=== PATIENT | female | born 1965 | race Caucasian/White ===

== ENCOUNTER 2023-04-06 10:04 | Outpatient (OUT) | payer OTHER, SELFPAY ==
--- NOTE | 2023-04-06 | MM_ITS ---
Patient: DANTE JAMES Exam Date: 04/06/2023 : 1965 Gender:F Ordering : DR KYUNG PACK Admission #: [id number] Family : Duke Verde . Order #: [id number] CLICK HERE TO VIEW EXAM RADIOLOGY REPORT PROCEDURE: MM TOMOSYNTHESIS SCREENING BI COMPARISON: MG MAMM SCREEN 3D JORDAN CAD, 03/04/2021. MG MAMM SCREEN 3D JORDAN CAD, 03/07/2022. INDICATIONS: Screening mammogram Z12.31 Calculator Name NCI Breast Cancer Risk Assessment Tool 5 Year Breast Cancer Risk 1.10% Lifetime Breast Cancer Risk 7.10% Personal Breast Cancer No Personal Ovarian Cancer No Treatments None Family Cancers Grandmother-maternal with cervical cancer at age ~40; Aunt-paternal with cervical cancer at age 40; Aunt-paternal with cervical cancer at age 35. LOCATION: [facility] BREAST COMPOSITION: Extremely dense, which lowers the sensitivity of mammography. FINDINGS: DIAGNOSTIC CATEGORY 1--NEGATIVE. NO CHANGE FROM COMPARISON ASSESSMENT. RIGHT BREAST: No significant suspicious finding. LEFT BREAST: No significant suspicious finding. RECOMMENDATIONS: ROUTINE MAMMOGRAM AND CLINICAL EVALUATION IN 12 MONTHS. PLEASE NOTE: A NORMAL MAMMOGRAM DOES NOT EXCLUDE THE POSSIBILITY OF BREAST CANCER. A CLINICALLY SUSPICIOUS PALPABLE LUMP SHOULD BE BIOPSIED. Dictated by: Randall Randolph MD on 04/06/2023 at 11:59 Approved by: Randall Randolph MD on 04/06/2023 at 12:00
== END 2023-04-06 10:05 | disposition home or self-care (01) ==
LOC: MAMMO 10:04
PROVIDERS: PCP Family Medicine; Visit Provider Obstetrics & Gynecology
DX: Z12.31 Encounter for screening mammogram for malignant neoplasm of breast (principal); Z80.8 Family history of malignant neoplasm of other organs or systems
CPT/HCPCS: 77063; 77067

== ENCOUNTER 2023-04-24 09:40 | Outpatient (OUT) | payer OTHER, SELFPAY ==
--- NOTE | 2023-04-24 10:07 | XR_ITS ---
The [address] [address] Patient Name: DANTE JAMES MRN: [id number] date: 1965 Sex: F Assigned Patient Location: [facility] Current Patient Location: [facility] Accession/Order Number: [id number] Exam Date: 04/24/2023 09:58 Report Date: 04/24/2023 10:56 At the request of: NON-STAFF PHYSICIAN Procedure: XR abdomen 1V XR abdomen 1V, 04/24/2023 9:58 AM EDT, OH001 INDICATION: Kidney Stone N20.0 COMPARISON: Radiographs from 04/15/2022. TECHNIQUE: A single view of the abdomen obtained. FINDINGS: The bowel gas pattern appears within normal limits. There are several calcific densities projected over the left renal shadow suspicious for calculi. No definite calculi are projected over the right kidney. No free peritoneal air is seen. The osseous and surrounding soft tissue structures appear within normal limits. XR/XR abdomen 1V IMPRESSION: Multiple left renal calculi are noted, increased compared to the prior study. Electronically authenticated by: STEVE DEE Date: 04/24/2023 10:56
== END 2023-04-24 09:41 | disposition home or self-care (01) ==
LOC: RAD 09:41
PROVIDERS: PCP Family Medicine
DX: N20.0 Calculus of kidney (principal)
CPT/HCPCS: 74018

== ENCOUNTER 2023-05-05 10:18 | Outpatient (OUT) | payer OTHER, SELFPAY ==
[2023-05-05 11:36] LABS: Carbon Dioxide 27.3 mmol/L (21.0-32.0); Chloride 105 mmol/L (98-107); Estimated GFR (African America >60 (>=60); Estimated GFR (Non-African Ame >60 (>=60); Phosphorus 3.8 mg/dL (2.6-4.7); Sodium 139 mmol/L (136-145); Uric Acid 2.8 mg/dL (2.6-6.0)
[2023-05-06 14:10] LABS: PTH, Intact 12 pg/mL (15-65)
== END 2023-05-05 10:19 | disposition home or self-care (01) ==
LOC: LAB 10:20
PROVIDERS: PCP Family Medicine; Visit Provider Urology
DX: N20.0 Calculus of kidney (principal)
CPT/HCPCS: 36415; 82310; 82374; 82435; 82565; 83970; 84100; 84295; 84520; 84550

== ENCOUNTER 2023-09-26 08:40 | Outpatient (OUT) | payer OTHER, SELFPAY ==
[2023-09-26 09:49] LABS: Calcium Urine Random 10.5 mg/dL (5.1-21.0); Sodium Urine Random 28 mmol/L (30-90)
[2023-09-26 10:04] LABS: Calcium 8.6 mg/dL (8.5-10.1); Carbon Dioxide 27.4 mmol/L (21.0-32.0); Chloride 108 mmol/L (98-107); Estimated GFR (African America >60 (>=60); Estimated GFR (Non-African Ame 57 (>=60); Phosphorus 3.9 mg/dL (2.6-4.7); Sodium 144 mmol/L (136-145); Uric Acid 2.7 mg/dL (2.6-6.0)
[2023-09-26 10:28] LABS: Calcium 24 Hour Urine 288.8 mg/24hr (100.0-300.0); Sodium 24 Hour Urine 77 mmol/24h (40-220); Total Volume 24 Hour Urine 2750 mL/24hr
[2023-09-27 09:12] LABS: Uric Acid, Urine 13.8 mg/dL (Not Estab.); Uric Acid,Urine 24hr 379.5 mg/24 hr (173.7-902.1)
[2023-09-27 11:10] LABS: PTH, Intact 24 pg/mL (15-65)
[2023-09-27 12:10] LABS: Magnesium, U 4.4 mg/dL (Not Estab.); Phosphorus, Urine 23.5 mg/dL (Not Estab.); Phosphorus,Urine 24h 646 mg/24 hr (261-1078)
[2023-09-29 15:09] LABS: Citric Acid, U, 24hr 91 mg/24 hr (320-1240); Citric Acid, Urine 33 mg/L (Undefined); Oxalates, Urine 8 mg/L (Undefined); Oxalates, Urine 24hr 22 mg/24 hr (4-31)
== END 2023-09-26 08:41 | disposition home or self-care (01) ==
LOC: LAB 08:40
PROVIDERS: PCP Family Medicine; Visit Provider Urology
DX: N20.0 Calculus of kidney (principal)
CPT/HCPCS: 36415; 81050; 82310; 82340; 82374; 82435; 82507; 82565; 82570; 83735; 83945; 83970; 84100; 84105; 84295; 84300; 84520; 84550; 84560

== ENCOUNTER 2024-02-15 07:31 | Outpatient (OUT) | payer OTHER, SELFPAY ==
--- NOTE | 2024-02-15 | US_ITS ---
The [address] [address] Patient Name: DANTE JAMES MRN: [id number] date: 1965 Sex: F Assigned Patient Location: Current Patient Location: [place] Accession/Order Number: [id number] Exam Date: 02/15/2024 07:33 Report Date: 02/15/2024 08:23 At the request of: JASIEL GOMEZ Procedure: US renal BI EXAMINATION: US renal BI HISTORY: Kidney Stone K20.0 COMPARISON: No relevant comparison available. TECHNIQUE: Ultrasound examination was performed of the kidneys and urinary bladder. FINDINGS: RIGHT KIDNEY: Contains several small nonobstructing stones, largest is 3 mm. Contains 2 benign-appearing cysts, 1.2 cm and 1.1 cm in diameter respectively. Mild cortical thinning. Normal renal cortical parenchymal echogenicity. Color Doppler demonstrates blood flow within the kidney. Kidney: 10.9 x 4.7 x 4.4 cm LEFT KIDNEY: Contains several nonobstructing stones, the largest 2 are 10 mm and 8 mm in size. Mild cortical thinning. Normal renal cortical parenchymal echogenicity. Color Doppler demonstrates blood flow within the kidney. Kidney: 10.2 x 4 0.9 to 4.4 cm BLADDER: No visible wall thickening, mass, or calculi. US/US renal BI IMPRESSION: 1. Bilateral nonobstructing nephrolithiasis. Electronically authenticated by: IVIS LASSITER Date: 02/15/2024 08:23
--- NOTE | 2024-02-15 | XR_ITS ---
The [address] [address] Patient Name: DANTE JAMES MRN: [id number] date: 1965 Sex: F Assigned Patient Location: [place] Current Patient Location: [place] Accession/Order Number: [id number] Exam Date: 02/15/2024 07:58 Report Date: 02/15/2024 08:25 At the request of: JASIEL GOMEZ Procedure: XR abdomen 1V EXAMINATION: XR abdomen 1V HISTORY: Kidney Stone K20.0 COMPARISON: No relevant comparison available. FINDINGS: KIDNEY/URETER - RIGHT: No visible renal or ureteral calcifications. KIDNEY/URETER - LEFT: No visible renal or ureteral calcifications. PELVIS: No visible ureteral stones. Stable pelvic calcifications compatible with phleboliths. BOWEL: No abnormal dilation or deviation. BONES: No acute abnormality. OTHER: Negative. No abnormal gaseous collections. XR/XR abdomen 1V IMPRESSION: 1. Evaluation is limited by dense overlying bowel content. 2. No visible urinary tract calculi on abdominal radiograph, however, multiple nonobstructing stones seen within both kidneys on today's ultrasound study. Electronically authenticated by: IVIS LASSITER Date: 02/15/2024 08:25
--- OUTSIDE RECORDS SUMMARY | 2024-02-15 07:33 | XMS_ITS | CCD ---
Author Organization [facility] CliniSydc Care Team Providers Care Superintendent Colliery Name Role Phone HARRISON BUSTAMANTE Unavailable Unavailable HOYTWILA M Unavailable Unavailable HARRISON BUSTAMANTE Unavailable Unavailable HOY, TWILA M Unavailable Unavailable Twila Verde M Primary Care Provider Twila Verde MD Primary Care Provider [phone] Twila Verde Primary Care Physician [phone] Twila Verde MD Primary Care Provider [phone] HANS YANG Referring Unavailable TWILA VERDE Primary Care Unavailable TWILA VERDE Primary Care Unavailable HANS YANG Referring Unavailable FAIZANY ., DR MATTSON Consulting Unavailable HOY ., DR MATTSON Primary Care Unavailable HOY ., DR MATTSON Attending Unavailable HOY ., DR MATTSON Admitting Unavailable DIANN, DR BRIAN Do Consulting Unavailable HOY ., DR MATTSON Primary Care Unavailable HEDGES, DR HANS Dior Attending Unavailable HEDGELeigh, DR HANS Dior Admitting Unavailable SIRENA, DR HANS Dior Consulting Unavailable FAIZANY ., DR MATTSON Consulting Unavailable HOY ., DR MATTSON Primary Care Unavailable HOY ., DR MATTSON Attending Unavailable HOY ., DR MATTSON Admitting Unavailable ZIEBER, DR IVIS Mc Consulting Unavailable ZIEBJUAN LUIS, DR IVIS Mc Consulting Unavailable HAY ., DR GOINS Attending Unavailable HAY ., DR GOINS Admitting Unavailable HOY ., DR MATTSON Primary Care Unavailable CELI ., DR GOINS Consulting Unavailable DENISE CHAVARRIA Consulting Unavailable DENISE CHAVARRIA Attending Unavailable DENISE CHAVARRIA Admitting Unavailable HOSSEIN ., DR MATTSON Primary Care Unavailable DIANN, DR BRIAN Do Consulting Unavailable HOSSEIN Payton, DR MATTSON Primary Care Unavailable MAHNAZ Payton, DR VALENCIA Pugh Attending Unavaila uzma Payton, DR VALENCIA Pugh Admitting Unavaila uzma Payton, DR VALENCIA Pugh Consulting Unavaila ble HOY ., DR MATTSON Consulting Unavailable HOY ., DR MATTSON Primary Care Unavailable HOY ., DR MATTSON Attending Unavailable HOY ., DR MATTSON Admitting Unavailable ZIEBER, DR IVIS Mc Consulting Unavailable HOY ., DR MATTSON Consulting Unavailable HOY ., DR MATTSON Primary Care Unavailable HOY ., DR MATTSON Attending Unavailable HOY ., DR MATTSON Admitting Unavailable READER, TWILA Consulting Unavailable RYLEE, DR MIDDLETON Consulting Unavailable HOY ., DR MATTSON Primary Care Unavailable RYLEE, DR MIDDLETON Attending Unavailable RYLEE, DR MIDDLETON Admitting Unavailable Erica Mott Unavailable SERGIO RIVERA Attending Unavailable LueMarycruz Attending Unavailable Lue Marycruz MTata Admitting Unavailable Lue Marycruz MTata Attending Unavailable Lue Marycruz MTata Admitting Unavailable Lue, Marycruz MTata Attending Unavailable Lue Marycruz MTata Attending Unavailable Lue Marycruz MTata Attending Unavailable Allergies Allergy Classification Reported Allergen(s) Allergy Type Date of Onset Reaction(s) Facility (3 sources) Sulfonamides (Antibiotic) Propensity to adverse reactions to drug 04-08-20 15 [place] (1 source) Other Propensity to adverse reactions 12-30-19 17 [place], [place] (3 sources) Sulfonamides (Antibiotic); Translations: [sulfa drugs] Drug allergy Weal (disorder) [facility] (3 sources) Latex; Translations: [Latex] Drug allergy (disorder) 11-15-19 23 Weal (disorder) [facility] (1 source) Sulfonamides (Antibiotic) Drug allergy (disorder) 01-23-20 13 [facility] (2 sources) Substance with sulfonamide structure and antibacterial mechanism of action (substance) Drug allergy [employer] Other NEGATED: Highlighted row has been ruled out! (2 sources) Other Propensity to adverse reactions 12-30-19 17 [facility] Work Phone: Medications Current Medications Medication Drug Class(es) Dates Sig (Normalized) Sig (Original) amoxicillin 875 mg / clavulanate 125 mg oral tablet (1 source) Penicillin-class Antibacterial Start: 03-13-2023 take 1 tablet by mouth every twelve hours Amoxicillin-Pot Clavulanate 875-125 MG 1 tablet Orally every 12 hrs for 7 days Feb, Active biotin 10 mg oral tablet (2 sources) take 1 tablet by mouth once daily Biotin 10 MG 1 tablet Orally Once a day Active black cohosh extract 40 mg oral capsule (4 sources) Black Cohosh 40 MG as directed Orally Active Black Cohosh 20 MG TABS Take by mouth 0 Active calcium carbonate 1250 mg / cholecalciferol 200 unt oral tablet (3 sources) Vitamin D take 1 tablet by mouth twice daily at mealtime Calcium Carbonate-Vitamin D (CALCIUM-VITAMIN D) 500-200 MG-UNIT per tablet Take 1 tablet by mouth 2 times daily (with meals) 0 Active Citracal + D 250-62.5 MG-UNIT (2 sources) Citracal + D 250 -62.5 MG-UNIT as directed Orally Active cranberry preparation 250 mg oral capsule (2 sources) Non-Standardized Food Allergenic Extract, Non-Standardized Plant Allergenic Extract Cranberry Extract 25 0 MG as directed Orally Active diclofenac sodium 75 mg delayed release oral tablet (1 source) Nonsteroidal Anti-inflammatory Drug Start: 2021 take 1 tablet by mouth twice daily diclofenac (VOLTAREN) 75 MG EC tablet take 1 tablet by mouth twice a day 0 04/08/2022 Active fluticasone propionate 0.05 mg/actuat metered dose nasal spray (3 sources) Corticosteroid take 1 spray(s) nasal route once daily fluticasone (FLONASE) 50 MCG/ACT nasal spray 1 spray by Each Nostril route daily 0 Active levETIRAcetam 750 mg oral tablet (6 sources) Start: 2020 take 1 tablet by mouth twice daily Keppra 750 mg oral tablet 750 mg = 1 tab(s), Oral, BID, Refills(s) 0 Start Date: 09/24/20 Status: Ordered Start: 04-04-2017 levETIRAcetam (KEPPRA XR) 750 MG TB24 extended release tablet levETIRAcetam ER 750 MG Oral for 90 Days Active loratadine 10 mg oral tablet (5 sources) take 1 tablet by cirilo th once daily Claritin 10 MG 1 tablet Orally Once a day Active take 1 capsule by mouth once deidre ly loratadine (CLARITIN) 10 MG capsule Take 10 mg by mouth daily 0 Active Multiple Vitamins-Minerals (MULTIVITAMIN & MINERAL PO) (3 sources) Multiple Vitamins-Minerals (MULTIVITAMIN & MINERAL PO) Take by mouth 0 Active ofloxacin 3 mg/ml ophthalmic solution (1 source) Quinolone Antimicrobial Start: 023 take 2 drop(s) into the eye(s) four times daily Ofloxacin 0.3 % 2 drops Ophthalmic to left eye QID for 7 days Feb, Active PHENobarbital 32.4 mg oral tablet (6 sources) Start: 021 take 1 mg by mouth twice daily phenobarbital 32.4 mg oral tablet mg tab(s), Oral, BID, Refills(s) 0 Start Date: 09/24/20 Status: Ordered Start: 02-07-2015 take 1 tablet by cirilo th once daily PHENobarbital (LUMINAL) 32.4 MG tablet Take 32.4 mg by mouth nightly 0 02/07/2015 Active Start: 02-07-2015 take 1 tablet by cirilo th once daily PHENobarbital (LUMINAL) 32.4 MG tablet Take 32.4 mg by mouth nightly 0 02/07/2015 Active 27-1 MG (2 sources) take 1 tablet by mouth once daily 27-1 MG 1 tablet Orally Once a day Active Probiotic Product (PROBIOTIC DAILY PO) (2 sources) Probiotic Produc t (PROBIOTIC DAILY PO) Take by mouth 0 Active Topamax (6 sources) Start: 09-24-2020 Topamax 450 mg, Oral, Refills(s) 0 Start Date: 09/24/20 Status: Ordered Start: 03-24-2015 take 2 tablets by mo uth once daily TOPAMAX 100 MG tablet Take 100 mg by mouth 2 times daily 2 tabs every morning and 2 1/2 tabs nightly. 0 03/24/2015 Active Topiramate 100 M G Oral for 90 Days Active Problems Active Problems Problem Classification Problem Date Documented Date Episodic/Chronic Abdominal pain (6 sources) Flank pain; Translations: [Unspecified abdominal pain] Onset: 03-25-2022 04-13-2021 Episodic Allergic reactions (1 source) Eczema 12-07-2022 Episodic Calculus of urinary tract (8 sources) Kidney stone; Translations: [Calculus of kidney] Onset: 03-28-2022 Episodic Cancer of cervix (4 sources) History of malignant neoplasm of cervix; Translations: [Personal history of malignant neoplasm of cervix uteri] Onset: 11-07-2022 Episodic Epilepsy; convulsions (8 sources) Epilepsy; Translations: [Epilepsy, unspecified, not intractable, without status epilepticus] Onset: 12-29-2016 12-29-2016 Chronic Genitourinary symptoms and ill-defined conditions (2 sources) Genuine stress incontinence 04-13-2021 Chronic Genitourinary symptoms and ill-defined conditions (2 sources) Genitourinary symptoms; Translations: [Unspecified symptoms and signs involving the genitourinary system] Onset: 04-20-2022 Episodic Inflammation; infection of eye (except that caused by tuberculosis or sexually transmitteddisease) (1 source) Unspecified conjunctivitis Episodic Other aftercare (1 source) 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; 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] Onset: 11-15-2022 Episodic Other female genital disorders (1 source) Vaginal irritation; Translations: [Other specified noninflammatory disorders of vagina] Episodic Other nervous system disorders (1 source) Trigeminal neuralgia 12-07-2022 Episodic Other non-traumatic joint disorders (4 sources) Pain in left shoulder; Translations: [PAIN IN LEFT SHOULDER] Onset: 11-09-2022 Episodic Other skin disorders (3 sources) Localized swelling, mass and lump, trunk; Translations: [LOCALIZD SWELLING MASS AND LUMP TRUNK] Onset: 11-14-2022 Episodic Other skin disorders (1 source) Follicular disorder, unspecified; Translations: [FOLLICULAR DISORDER UNSPECIFIED] Onset: 11-15-2022 Episodic Other upper respiratory disease (3 sources) Seasonal allergy; Translations: [Other seasonal allergic rhinitis] Onset: 12-29-2016 12-29-2016 Chronic Other upper respiratory infections (2 sources) Acute upper respiratory infection, unspecified; Translations: [Acute maxillary sinusitis, unspecified] Episodic Spondylosis; intervertebral disc disorders; other back problems (1 source) Cervical radiculopathy 12-07-2022 Episodic Unclassified (2 sources) Impingement syndrome of left shoulder / M75.42(ICD-9) Onset: 03-29-2017 Unclassified (1 source) Adhesive capsulitis of left shoulder / M75.02(ICD-9) Onset: 03-29-2017 Unclassified (1 source) Other articular cartilage disorders, left shoulder / M24.112(ICD-9) Onset: 03-29-2017 Unclassified (1 source) Unsp rotatr-cuff tear/ruptr of left shoulder, not trauma / M75.102(ICD-9) Onset: 03-29-2017 Unclassified (1 source) Patient encounter status; Translations: [Women's annual routine gynecological examination] Unclassified (2 sources) Asymptomatic microscopic hematuria 04-13-2021 Past or Other Problems Problem Classification Problem Date Documented Date Episodic/Chronic Noninfectious gastroenteritis (4 sources) Noninfective gastroenteritis and colitis, unspecified; Translations: [NONINFECTIVE GE AND COLITIS UNS] Onset: 02-05-2022 Episodic Other diseases of kidney and ureters (4 sources) Cyst of kidney, acquired; Translations: [CYST OF KIDNEY ACQUIRED] Onset: 04-06-2022 Episodic Other female genital disorders (1 source) Other specified noninflammatory disorders of vagina; Translations: [Other specified noninflammatory disorders of vagina] Onset: 04-21-2022 Episodic Other screening for suspected conditions (not mental disorders or infectious disease) (4 sources) Encounter for screening mammogram for malignant neoplasm of breast; Translations: [ENC SCR MAMMO MALIG NEOPLASM BREAST] Onset: 03-07-2022 Episodic Residual codes; unclassified (1 source) Family history of malignant neoplasm of other genital organs; Translations: [FAM HX MALIG NEOPLSM OTH GENIT ORGN] Onset: 03-09-2022 Episodic Unclassified (1 source) Impingement syndrome of left shoulder; Translations: [Impingement syndrome of left shoulder] Onset: 03-29-2017 Urinary tract infections (1 source) Urinary tract infection, site not specified; Translations: [UTI SITE NOT SPECIFIED] Onset: 03-28-2022 Episodic Results Test Name Value Interpretation Reference Range Facility Reminderson 01-10-2024 Reminders - From: Shayy Cuadra To: EU - Recalls Lue; Sent: 06/14/2023 08:36:12 EST Show up: 01/05/2024 08:35:00 EDT Subject: CLEVELAND/kub/ metabolic w/u Reminder/Recall pt wants 24 urine @ [facility] (not [facility]) labs/ CLEVELAND/ KUB f/u with Dr Bhagat is 03/06/24 24hr urine in pt chart. Will call closer to get CLEVELAND/KUB completed. Normal [facility] Lab Reportson 10-02-2023 Lab Reports [id number] .00TIFF Normal [facility] Lab Reportson 09-28-2023 Lab Reports [id number] .00TIFF Normal [facility] Lab Reportson 09-26-2023 Lab Reports [id number] .00TIFF Normal [facility] Lab Reports [id number] .00TIFF Normal [facility] Calculus Analysison 06-28-20 23 Calcium oxalate monohydrate (Stone) [Mass fraction] 5 % Invalid Interpretation Code [facility] Comment on above: Performed By: #### 1 [id number] ####[facility] [address] [place] [address] Calculus analysis [Interp] Comment Invalid Interpretation Code [facility] Comment on above: Result Comment: Calc ium phosphate (hydroxyl form) includes hydroxyapatite, amorphous calcium phosphate, and whitlockite. Hydroxyapatite is the most common of the calcium phosphate salts found in human kidney stones. struvite as a minor component should not be excluded. Insufficient sample to perform additional, confirmatory, or reference testing. Performed By: #### 1 [id number] ####[facility] [address] [place] [address] Color (Stone) Frarie Invalid Interpretation Code [facility] Comment on above: Performed By: #### 1 [id number] ####[facility] [address] [place] [address] Composition Comment Invalid Interpretation Code [facility] Comment on above: Result Comment: Perc entage (Represents the % composition) Performed By: #### 1 [id number] ####[facility] [address] [place] [address] Disclaimer: Comment Invalid Interpretation Code [facility] Comment on above: Result Comment: This test was developed and its performance characteristics determined by [facility]. It has not been cleared or approved by the Food and Drug Administration. Performed at: [facility] [address], [place] [id number] PhD Aniya Bright Performed By: #### 1 [id number] ####[facility] [address] [place] [address] Hydroxyapatite: 95 % Invalid Interpretation Code [facility] Comment on above: Performed By: #### 1 [id number] ####[facility] [address] [place] [address] Laboratory comment Steven (Report) Comment Invalid Interpretation Code [facility] Comment on above: Result Comment: Phys aidanan questions regarding Calculi Analysis contact [facility] at: [phone]. Performed By: #### 1 [id number] ####[facility] [address] [place] [address] Please Note: Comment Invalid Interpretation Code [facility] Comment on above: Result Comment: Calc nora report will follow via computer, mail or clasp machine operator delivery. Performed By: #### 1 [id number] ####[id number] [place] [address] Size (Stone) [Entitic vol] 2x2 Invalid Interpretation Code [facility] Comment on above: Result Comment: Sing le piece received. Performed By: #### 1 [id number] ####[facility] [address] [place] [address] Specimen source subject Nom Comment Invalid Interpretation Code [facility] Comment on above: Result Comment: Not provided Performed By: #### 1 [id number] ####[facility] [address] [place] [address] Stone Photo Comment Invalid Interpretation Code [facility] Comment on above: Result Comment: Phot ograph will follow under a separate cover Performed By: #### 1 [id number] ####[id number] [place] [address] Weight (Stone) 1 mg Invalid Interpretation Code [facility] Comment on above: Performed By: #### 1 [id number] ####[facility] [address] [place] [address] Auth for Release of Medical Recordson 06-21-2023 Auth for Release of Medical Records [id number] .00TIFF Normal [facility] Patient Educationon 06-14-20 Patient Education Nephrology Dietary Guidelines to Help Prevent Kidney Stones Kidney stones are deposits of minerals and salts that form inside your kidneys. Your risk of developing kidney stones may be greater depending on your diet, your lifestyle, the medicines you take, and whether you have certain medical conditions. Most people can lower their chances of developing kidney stones by following the instructions below. Your dietitian may give you more specific instructions depending on your overall health and the type of kidney stones you tend to develop. What are tips for following this plan? Reading food labels ? Choose foods with no salt added or low-salt labels. Limit your salt (sodium) intake to less than 1,500 mg a day. ? Choose foods with calcium for each meal and snack. Try to eat about 300 mg of calcium at each meal. Foods that contain 200?500 mg of calcium a serving include: ? 8 oz (237 mL) of milk, calcium-fortifiednon- dairy milk, and calcium-fortifiedfrui t juice. Calcium-fortified means that calcium has been added to these drinks. ? 8 oz (237 mL) of kefir, yogurt, and soy yogurt. ? 4 oz (114 g) of tofu. ? 1 oz (28 g) of cheese. ? 1 cup (150 g) of dried figs. ? 1 cup (91 g) of cooked broccoli. ? One 3 oz (85 g) can of sardines or mackerel. Most people need 1,000?1,500 mg of calcium a day. Talk to your dietitian about how much calcium is recommended for you. Shopping ? Buy plenty of fresh fruits and vegetables. Most people do not need to avoid fruits and vegetables, even if these foods contain nutrients that may contribute to kidney stones. ? When shopping for convenience foods, choose: ? Whole pieces of fruit. ? Pre-made salads with dressing on the side. ? Low-fat fruit and yogurt smoothies. ? Avoid buying frozen meals or prepared deli foods. These can be high in sodium. ? Look for foods with live cultures, such as yogurt and kefir. ? Choose high-fiber grains, such as whole-wheat breads, oat bran, and wheat cereals. Cooking ? Do not add salt to food when cooking. Place a salt shaker on the table and allow each person to add his or her own salt to taste. ? Use vegetable protein, such as beans, textured vegetable protein (TVP), or tofu, instead of meat in pasta, casseroles, and soups. Meal planning ? Eat less salt, if told by your dietitian. To do this: ? Avoid eating processed or pre-made food. ? Avoid eating fast food. ? Eat less animal protein, including cheese, meat, poultry, or fish, if told by your dietitian. To do this: ? Limit the number of times you have meat, poultry, fish, or cheese each week. Eat a diet free of meat at least 2 days a week. ? Eat only one serving each day of meat, poultry, fish, or seafood. ? When you prepare animal protein, cut pieces into small portion sizes. For most meat and fish, one serving is about the size of the palm of your hand. ? Eat at least five servings of fresh fruits and vegetables each day. To do this: ? Keep fruits and vegetables on hand for snacks. ? Eat one piece of fruit or a handful of berries with breakfast. ? Have a salad and fruit at lunch. ? Have two kinds of vegetables at dinner. ? Limit foods that are high in a substance called oxalate. These include: ? Spinach (cooked), rhubarb, beets, sweet potatoes, and [place] chard. ? Peanuts. ? Potato chips, greenlandic fries, and baked potatoes with skin on. ? Nuts and nut products. ? Chocolate. ? If you regularly take a diuretic medicine, make sure to eat at least 1 or 2 servings of fruits or vegetables that are high in potassium each day. These include: ? Avocado. ? Banana. ? Edmond, prune, carrot, or tomato juice. ? Baked potato. ? Cabbage. ? Beans and split peas. Lifestyle ? Drink enough fluid to keep your urine pale yellow. This is the most important thing you can do. Spread your fluid intake throughout the day. ? If you drink alcohol: ? Limit how much you use to: ? 0?1 drink a day for women who are not . ? 0?2 drinks a day for men. ? Be aware of how much alcohol is in your drink. In the [place] one drink equals one 12 oz bottle of beer (355 mL), one 5 oz glass of wine (148 mL), or one 1? oz glass of hard liquor (44 mL). ? Lose weight if told by your health care provider. Work with your dietitian to find an eating plan and weight loss strategies that work best for you. General information ? Talk to your health care provider and dietitian about taking daily supplements. You may be told the following depending on your health and the cause of your kidney stones: ? Not to take supplements with vitamin C. ? To take a calcium supplement. ? To take a daily probiotic supplement. ? To take other supplements such as magnesium, fish oil, or vitamin B6. ? Take dmeu-vil-yezhvjl and prescription medicines only as told by your health care provider. These include supplements. What foods should I limit? Limit your in (more content not included)... Normal [facility] [id number] .00TIFF [facility] [id number]. 00TIFF [facility] Reminderson 06-14-2023 Reminders - From: Leana Emerson To: CHEN - Recallleigh Bhagat; Sent: 06/14/2023 11:32:25 EST Show up: 12/13/2023 12:32:00 EDT Subject: Labs/Imaging Due Date/Time: 03/14/2024 12:32:00 EDT Pt will need KUB, CLEVELAND and Metabolic Workup done prior to appt. Normal [facility] Urology Office/Clinic Noteon 06-14-2023 Urology Office/Clinic Note Chief Complaint 3m Metabolic Work Up HPI Staff 2m metabolic work up DX: Kidney Stone & UTI sx NEG C&S at time of last encounter *No Urology Meds. Still taking Topiramate for seizures. Pt believes she passed a stone in April. Does have with her today. No recent imaging. Regular lower back pain. Denies pain/burning and blood in urine. History of Present Illness Tests reviewed: reviewed UA and metabolic workup. I have reviewed the previous health record information and history for this patient from . I have reviewed and verified the staff HPI to be accurate for this encounter. There have been no associated fever, chills, flank pain, or blood in the urine. Denies any urinary infections since last encounter. Review of Systems PHQ Score Initial Depression Screen Score: 0 SCORE ROS - Provider Constitutional: denies weight loss, denies hot flashes. Eyes: denies eye problems. Gastrointestinal: denies nausea, denies vomiting. Cardiovascular: denies chest pain or angina. Integumentary: no dryness Musculoskeletal: denies musculoskeletal symptoms. ENMT: denies otolaryngeal symptoms. Respiratory: no shortness of breath. Heme/Lymph: denies easy bleeding tendency, denies easy bruising tendency. Psychiatric: no confusion, no anxiety. Genitourinary: See HPI. Physical Exam Vitals & Measurements HR: 72(Peripheral) RR: 16 BP: 108/70 HT: 63 in HT: 160 cm WT: 59 kg WT: 129.8 lb BMI: 23.05 General Appearance: alert , no acute distress, well nourished, well developed female. Genitourinary: bladder nonpalpable, no flank pain. Assessment/Plan 58 yo F with history of seizures, prior Dr. Villatoro pt here for follow up of kidney stones w/ a metabolic workup. 1. Kidney stone (N20.0: Calculus of kidney) CT AP w/o Con 03/25/22 - 3-4 stones on the Lt side (2-3mm), 1-2 stone on the Rt side (punctate - 2mm), and punctate stones BL KUB 04/15/22 - bilateral punctate nephrolithiasis KUB 04/24/23 - multiple Lt renal calculi increased from prior (No measurements provided. Several calcifications unable to clearly define/measure on personal review) Labs 05/05/23 - BUN 20, Crea 0.86, PTH 12 LithoLink 05/10/23 - Urine Volume high at 3.15, Urine Ca 341 High, Urine Citrate <47 Low, 24 hr pH 6.817, Uric Acid 0.515 Pt believes she passed a stone in April, does have with her today, did not have pain. No recent imaging. Regular lower back pain. Denies pain/burning and blood in urine. Discussed metabolic workup results with pt, blood work was normal, volume was great, can decrease if she felt it was too much to keep up with, citrate was really low, should add lemon juice to her water, discussed supplementation. Calcium was high in urine. Pt states that she does take a calcium supplement, was told to take it by PCP. Advised pt to see how much she is taking and if she can try to get the Calcium from food or take the supplement with food to absorb it, and make sure she is not taking too much. Advised pt that if she cannot do the dietary modifications, we can discuss medication treatment for stone prevention. Follow up in 9 mos w/CLEVELAND, KUB, and LithoLink. All questions/concerns were discussed. Pt to call the office if she encounters any issues prior. Pt acknowledges understanding. -Will send stone for analysis. -Dietary Modifications including lemon in water to increase citrate -Will order KUB and CLEVELAND. -Will order 24 hr urine LithoLink or pt to obtain at hospital. Pt will call with her decision of which method of workup she would prefer. 2. UTI symptoms (R39.9: Unspecified symptoms and signs involving the genitourinary system) Pt was treated at the ER for a UTI with Cipro and then saw Dr. Verde and was treated with Keflex for 10 days, finished these, was still having mild burning w urination and LLQ/L flank pain, UA showed trace BOBBI, was sent for uti-d, was negative. UA at prior OV showed moderate leuks and trace-intact blood - Urine culture was negative. UA today shows small leuks and no signs of blood. Asx. Pt denies any infections since prior OV. Pt states that she has been taking a cranberry supplement and a probiotic. States that the probiotics have helped with her regular BM's. -OTC UTI preventive supplements. -Regular BM. I spent 30 minutes today with the patient: reviewing tests in preparation to see and discuss them with the patient, documenting clinical information in the electronic health records, and care coordination. Time was spent performing a medical exam and evaluation, counseling and educating the patient, and ordering tests in caring for the patient. Follow-up With When Contact Information Olayinka HINSON, Marycruz Dove, URL, URO In 9 months Additional Instructions: w/CLEVELAND, KUB, and Metabolic Workup Patient Education Dietary Guidelines to Help Prevent Kidney Stones I, Leana Emerson, personally scribed for Dr. Bhagat on 06/14/2023 08:28:15. . Documenta (more content not included)... [facility] Comment on above: Result Comment: Elec tronically Signed By: Marycruz Bhagat MD\.br\Date and Time Signed: 06/14/23 08:42 EST\.br\Electronically Co-Signed By: Leana Emerson\.br\Date and Time Co-Signed: 06/14/23 08:28 EST Lab Reportson 06-08-2023 Lab Reports [id number] .00TIFF [facility] Lab Reportson 05-10-2023 Lab Reports [id number] .00TIFF [facility] Lab Reportson 05-05-2023 Lab Reports [id number] .00TIFF [facility] C Urineon 04-28-2023 Bacteria identified Cx Nom (U) Microbiology PROCEDURE: Urine Culture [R1] SOURCE: U CleanCatch BODY SITE: COLLECTED DATE/TIME: 2023 11:37 EDT RECEIVED DATE/TIME: 2023 18:23 EDT START DATE/TIME: 2023 18:23 EDT FREE TEXT SOURCE: Olayinka HINSON, Marycruz Bhagat MD, Marycruz Dove FINAL REPORTS Final Report [] Verified Date/Time: 04/28/2023 11:24 EDT 1,000 cfu/ml Mixed skin contaminants Performing Locations R1: This test was performed at: [facility], [address] [place] [address], [id number] , [place], [facility] Comment on above: Performed By: #### 2 [id number] ####[facility] [address] [place] [address] Formson 04-27-2023 Forms [id number] .00CD:127 [facility] Ambulatory Visit Summaryon 0 2023 Ambulatory Visit Summary CORNEL JAMESPaz Dykes :1965 Visit Date:2023 Ambulatory Visit Instructions Your Diagnosis Kidney stone UTI symptoms Tests Performed Urnls Dip Stick Auto w/o Microscopy POC 75198 Your Care Team Attending Physician - Marycruz Bhagat MD Primary Care Physician - Twila Verde MD This Is Your Medications List Contact prescribing physician if questions or concerns levetiracetam (Keppra 750 mg oral tablet) loratadine (loratadine 10 mg Tab) phenobarbital (phenobarbital 32.4 mg oral tablet) topiramate (Topamax 100 mg Tab) [Image Removed: STOP]Stop taking these medications diclofenac (diclofenac sodium 75 mg Oral EC Tab) hydrOXYzine (Vistaril 25 mg Cap) tizanidine (tiZANidine 4 mg Tab) Procedures Performed Partial hysterectomy, Procedure on shoulder, Tonsillectomy and adenoidectomy. Discharge Vitals Heart Rate (Peripheral) 88 Blood Pressure 124/82 Height 160 cm Height 63 in Weight 63 kg Weight 138.6 lb BMI 24.61 What to do next Scheduled Follow-Up Appointments Monday 7:45 AM EST With: Marycruz Bhagat MD Where: [facility] Patient Educationon 04-26-20 23 Patient Education Nephrology Dietary Guidelines to Help Prevent Kidney Stones Kidney stones are deposits of minerals and salts that form inside your kidneys. Your risk of developing kidney stones may be greater depending on your diet, your lifestyle, the medicines you take, and whether you have certain medical conditions. Most people can lower their chances of developing kidney stones by following the instructions below. Your dietitian may give you more specific instructions depending on your overall health and the type of kidney stones you tend to develop. What are tips for following this plan? Reading food labels ? Choose foods with no salt added or low-salt labels. Limit your salt (sodium) intake to less than 1,500 mg a day. ? Choose foods with calcium for each meal and snack. Try to eat about 300 mg of calcium at each meal. Foods that contain 200?500 mg of calcium a serving include: ? 8 oz (237 mL) of milk, calcium-fortifiednon- dairy milk, and calcium-fortifiedfrui t juice. Calcium-fortified means that calcium has been added to these drinks. ? 8 oz (237 mL) of kefir, yogurt, and soy yogurt. ? 4 oz (114 g) of tofu. ? 1 oz (28 g) of cheese. ? 1 cup (150 g) of dried figs. ? 1 cup (91 g) of cooked broccoli. ? One 3 oz (85 g) can of sardines or mackerel. Most people need 1,000?1,500 mg of calcium a day. Talk to your dietitian about how much calcium is recommended for you. Shopping ? Buy plenty of fresh fruits and vegetables. Most people do not need to avoid fruits and vegetables, even if these foods contain nutrients that may contribute to kidney stones. ? When shopping for convenience foods, choose: ? Whole pieces of fruit. ? Pre-made salads with dressing on the side. ? Low-fat fruit and yogurt smoothies. ? Avoid buying frozen meals or prepared deli foods. These can be high in sodium. ? Look for foods with live cultures, such as yogurt and kefir. ? Choose high-fiber grains, such as whole-wheat breads, oat bran, and wheat cereals. Cooking ? Do not add salt to food when cooking. Place a salt shaker on the table and allow each person to add his or her own salt to taste. ? Use vegetable protein, such as beans, textured vegetable protein (TVP), or tofu, instead of meat in pasta, casseroles, and soups. Meal planning ? Eat less salt, if told by your dietitian. To do this: ? Avoid eating processed or pre-made food. ? Avoid eating fast food. ? Eat less animal protein, including cheese, meat, poultry, or fish, if told by your dietitian. To do this: ? Limit the number of times you have meat, poultry, fish, or cheese each week. Eat a diet free of meat at least 2 days a week. ? Eat only one serving each day of meat, poultry, fish, or seafood. ? When you prepare animal protein, cut pieces into small portion sizes. For most meat and fish, one serving is about the size of the palm of your hand. ? Eat at least five servings of fresh fruits and vegetables each day. To do this: ? Keep fruits and vegetables on hand for snacks. ? Eat one piece of fruit or a handful of berries with breakfast. ? Have a salad and fruit at lunch. ? Have two kinds of vegetables at dinner. ? Limit foods that are high in a substance called oxalate. These include: ? Spinach (cooked), rhubarb, beets, sweet potatoes, and [place] Citizen chard. ? Peanuts. ? Potato chips, greenlandic fries, and baked potatoes with skin on. ? Nuts and nut products. ? Chocolate. ? If you regularly take a diuretic medicine, make sure to eat at least 1 or 2 servings of fruits or vegetables that are high in potassium each day. These include: ? Avocado. ? Banana. ? Edmond, prune, carrot, or tomato juice. ? Baked potato. ? Cabbage. ? Beans and split peas. Lifestyle ? Drink enough fluid to keep your urine pale yellow. This is the most important thing you can do. Spread your fluid intake throughout the day. ? If you drink alcohol: ? Limit how much you use to: ? 0?1 drink a day for women who are not . ? 0?2 drinks a day for men. ? Be aware of how much alcohol is in your drink. In the [place] one drink equals one 12 oz bottle of beer (355 mL), one 5 oz glass of wine (148 mL), or one 1? oz glass of hard liquor (44 mL). ? Lose weight if told by your health care provider. Work with your dietitian to find an eating plan and weight loss strategies that work best for you. General information ? Talk to your health care provider and dietitian about taking daily supplements. You may be told the following depending on your health and the cause of your kidney stones: ? Not to take supplements with vitamin C. ? To take a calcium supplement. ? To take a daily probiotic supplement. ? To take other supplements such as magnesium, fish oil, or vitamin B6. ? Take edgb-wfg-cuqfvyd and prescription medicines only as told by your health care provider. These include supplements. What foods should I limit? Limit your in (more content not included)... Normal [facility] Screenson 2023 Screens [id number]. 00CD:127 Normal [facility] Urology Office/Clinic Noteon 2023 Urology Office/Clinic Note Chief Complaint i tear F/U with KUB HPI Staff 57 yo female here for 1 yr f/u with KUB. Dx: kidney stone, UTI sxs. Pt has never been seen by [facility]. Previous DLS pt & last seen in our office by RICHY. NEG UTID @ time of last encounter 04/20/22 B&BSQ 8 PVR 0 Dysuria: ocassionlly Incomplete bladder emptying: sometimes Hematuria: _denies visible blood Frequency: every couple hours Urgency: denies Nocturia: denies Stream: denies hesitation, normal stream Leaking: _denies Post void dripping: yes Wearing pads/ Depends: denies Urge incontinence: denies Stress incontinence: denies Incontinence without Sensory Awareness: denies Abdominal pain: both sides, she can not explain what kind of pain Flank pain: pain on both side feels like a menstrual cramp Sexual complaints: _denies History of Present Illness Tests reviewed: reviewed UA and KUB. I have reviewed the previous health record information and history for this patient from Liat Borrero PA-C, Dr. Villatoro. I have reviewed and verified the staff HPI to be accurate for this encounter. Review of Systems PHQ Score Initial Depression Screen Score: 0 ROS - Provider Constitutional: denies weight loss, denies hot flashes. Eyes: denies eye problems. Gastrointestinal: denies nausea, denies vomiting. Cardiovascular: denies chest pain or angina. Integumentary: no dryness Musculoskeletal: denies musculoskeletal symptoms. ENMT: denies otolaryngeal symptoms. Respiratory: no shortness of breath. Heme/Lymph: denies easy bleeding tendency, denies easy bruising tendency. Psychiatric: no confusion, no anxiety. Genitourinary: See HPI. Physical Exam Vitals & Measurements HR: 88(Peripheral) BP: 124/82 HT: 63 in HT: 160 cm WT: 63 kg WT: 138.6 lb BMI: 24.61 General Appearance: alert , no acute distress, well nourished, well developed female. Genitourinary: bladder nonpalpable, no flank pain. Assessment/Plan 58 yo F with history of seizures, prior Dr. Villatoro pt here for follow up of kidney stones 1. Kidney stone (N20.0: Calculus of kidney) CT AP w/o Con 03/25/22 - 3-4 stones on the Lt side (2-3mm), 1-2 stone on the Rt side (punctate - 2mm), and punctate stones BL KUB 04/15/22 - bilateral punctate nephrolithiasis KUB 04/24/23 - multiple Lt renal calculi increased from prior (No measurements provided. Several calcifications unable to clearly define/measure on personal review) Pt states she feels she passed a stone about a month ago, felt a lot of pain, saw it in the toilet. Discussed imaging findings with pt, advised pt that it is hard to see the stones due to stool. Pt states that she drink 6-90oz of water a day, advised pt to drink more. Pt states that she is constipated most of the time due to meds that she takes. States she has tried MiraLAX in the past and that seems to help, has occasionally taken it, not regularly. Advised pt to take this more regularly Advised pt that due to how small the stones and she is able to pass then, we can continue to monitor w/ repeat imaging. Discussed doing a metabolic workup done to see why she creates stones. Pt states that shes interested in this. Counseled pt on causes of stones. Follow up in 6-8 wks. All questions/concerns were discussed. Pt to call the office if she encounters any issues prior. Pt acknowledges understanding. -Will do metabolic workup. -Counseled on dietary modifications, understands how topiramate can lead to stones. She is working on weaning off med 2. UTI symptoms (R39.9: Unspecified symptoms and signs involving the genitourinary system) Pt was treated at the ER for a UTI with Cipro and then saw Dr. Verde and was treated with Keflex for 10 days, finished these, was still having mild burning w urination and LLQ/L flank pain, UA showed trace BOBBI, was sent for uti-d, was negative. Pt states that she may have had infections since the last OV. She feels like she may have an infection now, some burning, lower back pain, and some frequency. Denies any pain or dryness with sexual intercourse. Pt denies any infections growing up. UA today shows moderate leuks and trace-intact blood. Advised pt to take OTC UTI preventive supplements and probiotics. Counseled on the pos causes of UTI's. Discussed starting an Estrogen cream. Advised pt to try to have regular BM's. Pt states that she would not like start the estrogen cream and would like to try to get the OTC supplements first. -Will send UA for culture. Will send abx if the culture comes back positive. -OTC UTI preventive supplements. List provided. -Regular BM. I spent 30 minutes today with the patient: reviewing tests in preparation to see and discuss them with the patient, obtaining and reviewing external separately obtained history, documenting clinical information in the electronic health records, and care coordination. Time was spent performing a medical exam and evaluation, counseling and educating the patient, and ordering tests in caring for the patient. (more content not included)... Normal [facility] Comment on above: Result Comment: Elec tronically Signed By: Marycruz Bhagat MD\.br\Date and Time Signed: 04/26/23 11:43 EDT\.br\Electronically Co-Signed By: Leana Emerson.br\Date and Time Co-Signed: 04/26/23 11:16 EDT MRI SHOULDER LT WO W CONon 0 11-10-2022 MRI SHOULDER LT WO W CON HISTORY: Left shoulder pain with a lump in the region of the acromioclavicular joint. Evaluate for mass. MRI SHOULDER LT WO W CON: 11/09/2022 8:52 AM EDT COMPARISON: Radiographs left shoulder 10/07/2022 and MRI left shoulder 08/01/2016. TECHNIQUE: Multiplanar, multisequence MRI images of the left shoulder were obtained prior to and following the intravenous administration of gadolinium. FINDINGS: ACROMIOCLAVICULAR JOINT AND ROTATOR CUFF OUTLET: The acromioclavicular joint now appears mildly widened and there is a small amount of fluid signal intensity within the joint space. There also appear to be probable postsurgical changes from interval acromioplasty since the prior MRI. Along the superior aspect of the distal clavicle there is a small ovoid cystlike focus measuring 3 x 3 x 4 mm. This appears to have mild peripheral rim enhancement. No significant subacromial/subdeltoi d bursitis is seen. ROTATOR CUFF: There appears to be mild tendinopathy of the distal supraspinatus and subscapularis tendon at their insertion. No significant rotator cuff tear is seen. No atrophy or strain of the rotator cuff musculature is seen. The bulk of the rotator cuff musculature appears within normal limits. BICEPS TENDON AND LABRUM: The long bicipital tendon appears within normal limits. The posterosuperior labrum now appears of irregular morphology and abnormal heterogeneous signal intensity. There again appears to be a sublabral foramen involving the anterosuperior quadrant of the labrum, a developmental variant. GLENOHUMERAL JOINT: The articular cartilage appears grossly within normal limits. There has been development of marginal osteophyte formation of the glenoid and the inferior medial aspect of the humeral head. There is no joint effusion. BONES: The bone marrow signal intensity is age appropriate. No abnormal enhancement is identified within the bone marrow. IMPRESSION: 1. There are MRI findings compatible with a small 3 x 3 x 4 mm ganglion cyst along the superior aspect of the distal clavicle and this likely accounts for the palpable lump in this region. 2. There appears to be mild tendinopathy of the supraspinatus and subscapularis tendons, but no significant rotator cuff tear is seen. 3. 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 There has also been development of an abnormal appearance of the posterosuperior labrum since the prior MRI and this may be secondary to the sequela of prior debridement surgery in this region or development of a degenerative tear in this region. 4. There appear to be postsurgical changes from interval acromioplasty and resection of the distal clavicle since the prior MRI. Electronically authenticated by: TWILA READER Date: 2022-11-10 12:35 Normal [facility] PHENOBARBITALon 11-09-2022 Phenobarbital, Serum 6 ug/mL Critically low 15-40 [facility] Comment on above: Result Comment: Dete ction Limit = 3 Performed By: #### P HENOB #### [facility] [address] [address] [address] Adrianne Nava CBC AUTO DIFFon 11-08-2022 BASO # 0.0 103/ul Normal 0.0-0.1 [facility] [place] Comment on above: Performed By: #### C BC ####[facility] [address] [address]Dr. Adrianne Nava Basophils/100 WBC (Bld) 0.5 % Normal 0.2-2.0 [facility] Comment on above: Performed By: #### C BC ####[facility] [address] [address]DrTata Nava EO # 0.1 103/ul Normal 0.0-0.7 [facility] Comment on above: Performed By: #### C BC ####[facility] [address] [address]DrTata Nava Eosinophils/100 WBC (Bld) 1.4 % Normal 0.9-7.0 [facility] Comment on above: Performed By: #### C BC ####[facility] [address] [address]DrTata Nava Erythrocyte distribution width (RBC) [Ratio] 12.6 % Normal 11.0-15.0 [facility] Comment on above: Performed By: #### C BC ####[facility] [address] [address]Dr. Adrianne Nava Hematocrit (Bld) [Volume fraction] 41.9 % Normal 36.0-48.0 [facility] Comment on above: Performed By: #### C BC ####[facility] [address] [address]Dr. Adrianne Nava Hemoglobin (Bld) [Mass/Vol] 14.0 g/dL Normal 12.0-16.0 [facility] Comment on above: Performed By: #### C BC ####[facility] [address] [address]Dr. Adrianne Nava IG # 0.01 10e3/ul Normal 0.00-0.03 [facility] Comment on above: Performed By: #### C BC ####[facility] [address] [place], [place] [address]Dr. Adrianne Nava IG % 0.2 % Normal 0.0-0.5 [facility] Comment on above: Performed By: #### C BC ####[facility] [address] [place], [place] [address]Dr. Adrianne Nava LYMPH # 1.5 103/ul Normal 1.2-3.8 [facility] Comment on above: Performed By: #### C BC ####[facility] [address] [address]Dr. Adrianne Nava Lymphocytes/100 WBC (Bld) 27.3 % Normal 20.5-60.0 [facility] Comment on above: Performed By: #### C BC ####[facility] [address] [address]Dr. Adrianne Nava MANUAL DIFF REQ NO Normal [facility] Comment on above: Performed By: #### C BC ####[facility] [address] [place], [place] [address]Dr. Adrianne Nava MCH (RBC) [Entitic mass] 30.6 pg Normal 26.7-34.0 [facility] Comment on above: Performed By: #### C BC ####[facility] [address] [place], [place] [address]Dr. Adrianne Nava MCHC (RBC) [Mass/Vol] 33.4 g/dL Normal 29.9-35.2 [facility] Comment on above: Performed By: #### C BC ####[facility] [address] [address]Dr. Adrianne Nava MCV (RBC) [Entitic vol] 91.5 fL Normal 81.0-99.0 [facility] Comment on above: Performed By: #### C BC ####[facility] [address] [place], [place] [address]Dr. Adrianne Nava MONO # 0.4 103/ul Normal 0.3-0.8 [facility] Comment on above: Performed By: #### C BC ####[facility] [address] [place], [place] [address]Dr. Adrianne Nava Monocytes/100 WBC (Bld) 7.0 % Normal 1.7-12.0 [facility] Comment on above: Performed By: #### C BC ####[facility] [address] [place], [place] [address]Dr. Adrianne Nava NEUT # 3.6 103/ul Normal 1.4-6.5 [facility] Comment on above: Performed By: #### C BC ####[facility] [address] [place], [place] [address]Dr. Adrianne Nava Neutrophils/100 WBC (Bld) 63.6 % Normal 43.0-75.0 [facility] Comment on above: Performed By: #### C BC ####[facility] [address] [place], [place] [address]Dr. Adrianne Nava Platelet mean volume (Bld) [Entitic vol] 10.8 fL Normal 9.5-13.5 [facility] Comment on above: Performed By: #### C BC ####[facility] [address] [place], [place] [address]Dr. Adrianne Nava PLT 218 103/ul Normal 150-450 [facility] Comment on above: Performed By: #### C BC ####[facility] [address] [place], [place] [address]Dr. Adrianne Nava RBC 4.58 106/ul Normal 4.20-5.40 [facility] [place] Comment on above: Performed By: #### C BC ####[facility] [address] [address]Dr. Adrianne Nava WBC 5.6 103/ul Normal 4.0-11.0 [facility] [place] Comment on above: Performed By: #### C BC ####[facility] [address] [id number]. Adrianne Nava LIVER PROFILEon 11-08-2022 Albumin [Mass/Vol] 3.7 g/dL Normal 3.4-5.0 [facility] Comment on above: Performed By: #### Keaton BISHOP BMP #### [facility] [address] [place] [address] Dr. Adrianne Nava Albumin/Globulin [Mass ratio] 1.0 {ratio} Normal [facility] [place] Comment on above: Performed By: #### Keaton BISHOP, BMP #### [facility] [address] [place] [address] Dr. Adrianne Nava ALP [Catalytic activity/Vol] 85 U/L Normal 46-116 [facility] [place] Comment on above: Performed By: #### Keaton BISHOP BMP #### [facility] [address] [place] [address] Dr. Adrianne Nava ALT [Catalytic activity/Vol] 33 U/L Normal 14-59 [facility] [place] Comment on above: Performed By: #### Keaton BISHOP, BMP #### [facility] [address] [place] [address] Dr. Adrianne Nava AST [Catalytic activity/Vol] 16 U/L Normal 15-37 [facility] Comment on above: Performed By: #### Keaton BISHOP, BMP #### [facility] [address] [place] [address] Dr. Adrianne Nava BILI, CONJUGATED 0.1 mg/dL Normal 0.0-0.2 [facility] Comment on above: Performed By: #### Keaton BISHOP, BMP #### [facility] [address] [place] [address] Dr. Adrianne Nava Bilirubin [Mass/Vol] 0.3 mg/dL Normal 0.2-1.0 [facility] [place] Comment on above: Performed By: #### Keaton BISHOP, BMP #### [facility] [address] [address] [address] Adrianne Nava Globulin (S) [Mass/Vol] 3.7 g/dL Normal [facility] [place] Comment on above: Performed By: #### L DARIO, BMP #### [facility] [address] [address] [address] Adrianne Nava Protein [Mass/Vol] 7.4 g/dL Normal 6.4-8.2 [facility] Comment on above: Performed By: #### Keaton BISHOP, BMP #### [facility] [address] [address] [address] Adrianne Nava PROF CHEM 8 (BAS METB)on Anion gap [Moles/Vol] 11.2 mmol/L Normal [facility] [place] Comment on above: Performed By: #### Keaton BISHOP, BMP ####[facility] [address] [address]Dr. Adrianne Nava Calcium [Mass/Vol] 9.2 mg/dL Normal 8.5-10.1 [facility] Comment on above: Performed By: #### Keaton BISHOP, BMP ####[facility] [address] [address]Dr. Adrianne Nava Chloride [Moles/Vol] 108 mmol/L Critically high 98-107 [facility] Comment on above: Performed By: #### L IVJUAN LUIS, BMP ####[facility] [address] [address]Dr. Adrianne Nava CO2 [Moles/Vol] 28.6 mmol/L Normal 21.0-32.0 [facility] [place] Comment on above: Performed By: #### L IVJUAN LUIS, BMP ####[facility] [address] [address]Dr. Adrianne Nava Creatinine [Mass/Vol] 0.74 mg/dL Normal 0.55-1.02 [facility] [place] Comment on above: Performed By: #### L IVER, BMP ####[facility] [address] [id number]. Adrianne Nava EGFR-AF CHINESE >60 Normal >=60 [facility] [place] Comment on above: Performed By: #### L IVER, BMP ####[facility] [address] [id number]. Adrianne Nava EGFR-NON AF CHINESE >60 Normal >=60 [facility] [place] Comment on above: Performed By: #### L IVER, BMP ####[facility] [address] [id number]. Adrianne Nava Glucose [Mass/Vol] 78 mg/dL Normal 74-106 [facility] Comment on above: Performed By: #### L IVER, BMP ####[facility] [address] [id number]. Adrianne Nava Potassium [Moles/Vol] 3.8 mmol/L Normal 3.5-5.1 [facility] [place] Comment on above: Performed By: #### L IVER, BMP ####[facility] [address] [place], [place] [id number]. Ladonnaelke Elijah Sodium [Moles/Vol] 144 mmol/L Normal 136-145 [facility] Comment on above: Performed By: #### L IVER, BMP ####[facility] [address] [place], [place] [id number]. Ladonnaelke Elijah Urea nitrogen [Mass/Vol] 24.0 mg/dL Critically high 7.0-18.0 [facility] [place] Comment on above: Performed By: #### L IVER, BMP ####[facility] [address] [id number]. Adrianne Nava Urea nitrogen/Creatinine [Mass ratio] 32.4 mg/mg Normal [facility] [place] Comment on above: Performed By: #### L IVER, BMP ####[facility] [address] [id number]. Adrianne Nava Cytologyon 11-07-2022 Cytology (NOTE) INTERPRETATION Vaginal material, (ThinPrep vial, Imaging-assisted review): Specimen Adequacy: Satisfactory for evaluation. Descriptive Diagnosis: Negative for intraepithelial lesion or malignancy. Apparel Stock Checker: AVTAR MEZA(ASCP) Electronically Signed Out 11/11/2022 Source: A: Vaginal material, (ThinPrep vial, Imaging-assisted review) Clinical History Hysterectomy R87.610 Cytology smear of cervix with ASC-US High risk HPV DNA testing is requested if the diagnosis is abnormal GYNECOLOGIC CYTOLOGY REPORT Patient Name: DANTE JAMES [facility] Rec: [id number] Path Number: [id number] [employer] [facility] [address] [place] [phone] [facility] Comment on above: Performed By: #### P PPVP #### [address] [address] Systems Mechanic: Dayne Madison MD HPV DNA High Riskon 05-05-20 22 HPV Interp [facility] Comment on above: Result Comment: This test amplifies and detects DNA of 14 high-risk HPV types associated with cervical cancer and its precursor lesions (HPV types 16,18, 31, 33, 35, 39, 45, 51, 52, 56, 58, 59, 66, and 68). Sensitivity may be affected by specimen collection methods, stage of infection, and the presence of interfering substances. Results should be interpreted in conjunction with other available laboratory and clinical data. A negative high-risk HPV result does not exclude the possibility of future cytologic HSIL or underlying CIN2-3 or cancer. This test is intended for medical purposes only and is not valid for the evaluation of suspected sexual abuse or for other forensic purposes. Performed By: #### H PVH #### [employer] [address] [place] [id number] Systems Mechanic: Dayne Madison MD HPV Type 16 Not detected [facility] Comment on above: Performed By: #### H PVH #### [employer] [address] [place] [address] Systems Mechanic: Dayne Madison MD HPV Type 18 Not detected Normal [facility] Comment on above: Performed By: #### H PVH #### [address] [place] [address] Systems Mechanic: Dayne Madison MD Other High Risk HPV Not detected Normal [facility] Comment on above: Performed By: #### H PVH #### [address] [address] Systems Mechanic: Dayne Madison MD HPV DNA High Riskon 05-03-20 HPV Sample .THIN PREP Normal [facility] Comment on above: Performed By: #### H PVH #### [address] [address] Systems Mechanic: Dayne Madison MD Source .VAGINAL SPECIMEN Normal [facility] [place] [facility] Comment on above: Performed By: #### H PVH #### [address] [address] Systems Mechanic: Dayne Madison MD Cult,Genitalon 04-24-2022 Cult,Genital Specimen Description .VAGINA Culture NORMAL URO-GENITAL MITCHEL NEGATIVE FOR NEISSERIA GONORRHOEAE NEGATIVE FOR GROUP B STREPTOCOCCI Report Status FINAL 04/24/2022 [facility] Comment on above: Performed By: #### G EC #### [address] [address] Systems Mechanic: Dayne Madison MD [facility] [address] [place] [address] Systems Mechanic: Brian Thomas MD Cytologyon 04-21-2022 Cytology (NOTE) INTERPRETATION Vaginal material, (ThinPrep vial, Imaging-assisted review): Specimen Adequacy: Satisfactory for evaluation. Descriptive Diagnosis: Atypical squamous cells of undetermined significance (ASC-US). Apparel Stock Checker: Petty Boone Electronically Signed Out /05/03/2022 Procedure/Addendum HPV Procedure Report Date Ordered: 05/03/2022 Status: Signed Out Date Complete: 05/05/2022 By: System Interface Date Reported: 05/05/2022 Sample: HPV Type 16 Result: Not Detected Ref Range: (Not Detected) Sample: HPV Type 18 Result: Not Detected Ref Range: (Not Detected) Sample: Other High Risk HPV Result: Not Detected Ref Range: (Not Detected) Sample: HPV Interp Result: Ref Range: (Not Detected) This test amplifies and detects DNA of 14 high-risk HPV types associated with cervical cancer and its precursor lesions (HPV types 16,18, 31, 33, 35, 39, 45, 51, 52, 56, 58, 59, 66, and 68). Sensitivity may be affected by specimen collection methods, stage of infection, and the presence of interfering substances. Results should be interpreted in conjunction with other available laboratory and clinical data. A negative high-risk HPV result does not exclude the possibility of future cytologic HSIL or underlying CIN2-3 or cancer. This test is intended for medical purposes only and is not valid for the evaluation of suspected sexual abuse or for other forensic purposes. Source: A: Vaginal material, (ThinPrep vial, Imaging-assisted review) Clinical History Hysterectomy Z01.419 Routine disaster recovery coordinator exam without abnormal findings High risk HPV DNA testing is requested if the diagnosis is abnormal GYNECOLOGIC CYTOLOGY REPORT Patient Name: DANTE JAMES [facility] Rec: [id number] Path Number: [id number] [employer] [facility] [address] [place] [phone] Normal [facility] Comment on above: Performed By: #### P PPVP #### [employer] [address] [place] [id number] Systems Mechanic: Dayne Madison MD XR KUB 1 VIEWon 04-15-2022 XR KUB 1 VIEW EXAMINATION: XR KUB 1 VIEW HISTORY: Kidney stone COMPARISON: 04/09/2021 /02/18 FINDINGS: KIDNEY/URETER - RIGHT: Punctate nephroliths KIDNEY/URETER - LEFT: Punctate nephroliths PELVIS: No visible ureteral calcifications. Any visible calcifications favor phleboliths. BOWEL: No abnormal dilation or deviation. BONES: No acute abnormality. Degenerative spondylosis OTHER: Negative. No abnormal gaseous collections. IMPRESSION: Bilateral nephrolithiasis Electronically authenticated by: BRIAN TIDWELL Date: 2022-04-15 16:45 Normal [facility] CT ABD/PELV W CONon 04-06-[address] ABD/PELV W CON EXAMINATION: CT ABD/PELV W CON HISTORY: Cyst of kidney ; follow-up left flank pain, right renal cyst COMPARISON: CT abdomen pelvis 03/25/2022 TECHNIQUE: Axial, Coronal, and Sagittal images were created with IV contrast. Dose reduction techniques were achieved by using automated exposure control and/or adjustment of mA and/or kV according to patient size and/or use of iterative reconstruction technique. FINDINGS: LUNG BASES: No visible pulmonary or pleural disease. LIVER: No enlargement, atrophy, suspicious density, or significant focal lesion. BILIARY: No dilatation or calcification. PANCREAS: No lesion, fluid collection, or abnormal duct dilatation. SPLEEN: No enlargement or focal lesion. ADRENALS: No mass or enlargement. KIDNEYS: A few small nonobstructing stones within the right and left kidney. Benign-appearing right renal cysts. Unremarkable ureters. BOWEL/MESENTERY: No visible mass, obstruction, or bowel wall thickening. AORTA/VASCULAR: No aneurysm or dissection. RETROPERITONEUM: No mass or adenopathy. LYMPH NODES: No adenopathy. URINARY BLADDER: No visible focal wall thickening, lesion, or calculus. PELVIC ORGANS: Hysterectomy. ABDOMINAL WALL: No mass or hernia. BONES: No bony lesion or fracture. OTHER: Negative. IMPRESSION: 1. Bilateral nonobstructing nephrolithiasis. 2. Benign-appearing right renal cysts. Electronically authenticated by: IVIS LASSITER Date: 2022-04-06 17:05 Normal [facility] CBC AUTO DIFFon 03-25-2022 BASO # 0.0 103/ul Normal 0.0-0.1 [facility] [place] Comment on above: Performed By: #### C BC ####[facility] [address] [id number] Adrianne Nava Basophils/100 WBC (Bld) 0.4 % Normal 0.2-2.0 [facility] [place] Comment on above: Performed By: #### C BC ####[facility] [address] [id number]. Adrianne Nava EO # 0.1 103/ul Normal 0.0-0.7 [facility] Comment on above: Performed By: #### C BC ####[facility] [address] [address]Dr. Adrianne Nava Eosinophils/100 WBC (Bld) 1.2 % Normal 0.9-7.0 [facility] Comment on above: Performed By: #### C BC ####[facility] [address] [address]Dr. Adrianne Nava Erythrocyte distribution width (RBC) [Ratio] 12.4 % Normal 11.0-15.0 [facility] Comment on above: Performed By: #### C BC ####[facility] [address] [place], [place] [address]Dr. Adrianne Nava Hematocrit (Bld) [Volume fraction] 41.1 % Normal 36.0-48.0 [facility] Comment on above: Performed By: #### C BC ####[facility] [address] [place], [place] [address]Dr. Adrianne Nava Hemoglobin (Bld) [Mass/Vol] 13.7 g/dL Normal 12.0-16.0 [facility] Comment on above: Performed By: #### C BC ####[facility] [address] [place], [place] [address]Dr. Adrianne Nava IG # 0.02 10e3/ul Normal 0.00-0.03 [facility] Comment on above: Performed By: #### C BC ####[facility] [address] [place], [place] [address]Dr. Adrianne Nava IG % 0.3 % Normal 0.0-0.5 [facility] Comment on above: Performed By: #### C BC ####[facility] [address] [place], [place] [address]Dr. Adrianne Nava LYMPH # 1.4 103/ul Normal 1.2-3.8 [facility] Comment on above: Performed By: #### C BC ####[facility] [address] [place] [address]. Adrianne Nava Lymphocytes/100 WBC (Bld) 19.1 % Critically low 20.5-60.0 [facility] Comment on above: Performed By: #### C BC ####[facility] [address] [address]DrTata Nava MANUAL DIFF REQ NO Normal [facility] Comment on above: Performed By: #### C BC ####[facility] [address] [address]Dr. Adrianne Nava MCH (RBC) [Entitic mass] 30.7 pg Normal 26.7-34.0 [facility] Comment on above: Performed By: #### C BC ####[facility] [address] [place], [place] [address]Dr. Adrianne Nava MCHC (RBC) [Mass/Vol] 33.3 g/dL Normal 29.9-35.2 [facility] Comment on above: Performed By: #### C BC ####[facility] [address] [place], [place] [address]Dr. Adrianne Nava MCV (RBC) [Entitic vol] 92.2 fL Normal 81.0-99.0 [facility] Comment on above: Performed By: #### C BC ####[facility] [address] [place], [place] [address]Dr. Adrianne Nava MONO # 0.5 103/ul Normal 0.3-0.8 [facility] Comment on above: Performed By: #### C BC ####[facility] [address] [place], [place] [address]Dr. Adrianne Nava Monocytes/100 WBC (Bld) 6.8 % Normal 1.7-12.0 [facility] Comment on above: Performed By: #### C BC ####[facility] [address] [place], [place] [address]DrTata Nava NEUT # 5.3 103/ul Normal 1.4-6.5 [facility] Comment on above: Performed By: #### C BC ####[facility] [address] [place], [place] [address]Dr. Adrianne Nava Neutrophils/100 WBC (Bld) 72.2 % Normal 43.0-75.0 [facility] Comment on above: Performed By: #### C BC ####[facility] [address] [place], [place] [address]Vf. Adrianne Nava Platelet mean volume (Bld) [Entitic vol] 11.1 fL Normal 9.5-13.5 [facility] Comment on above: Performed By: #### C BC ####[facility] [address] [id number]. Adrianne Nava PLT 200 103/ul Normal 150-450 [facility] Comment on above: Performed By: #### C BC ####[facility] [address] [address]Dr. Adrianne Nava RBC 4.46 106/ul Normal 4.20-5.40 [facility] Comment on above: Performed By: #### C BC ####[facility] [address] [id number]. Adrianne Nava WBC 7.4 103/ul Normal 4.0-11.0 [facility] Comment on above: Performed By: #### C BC ####[facility] [address] [id number]. Adrianne Nava CT ABD/PELVIS WO CONon 03-25 CT ABD/PELVIS WO CON EXAMINATION: CT ABD/PELVIS WO CON HISTORY: Left flank pain , acute; history of kidney stones and cervical cancer COMPARISON: CT abdomen pelvis 08/27/2020 TECHNIQUE: Axial, Coronal, and Sagittal images were created without IV contrast. Dose reduction techniques were achieved by using automated exposure control and/or adjustment of mA and/or kV according to patient size and/or use of iterative reconstruction technique. FINDINGS: LUNG BASES: No visible pulmonary or pleural disease. LIVER: No enlargement, atrophy, suspicious density, or significant focal lesion. BILIARY: No dilatation or calcification. PANCREAS: No lesion, fluid collection, or abnormal duct dilatation. SPLEEN: No enlargement or focal lesion. ADRENALS: No mass or enlargement. KIDNEYS: Small nonobstructing stones within kidneys bilaterally. Fluid density area within superior pole and mid body of right kidney, also seen on prior study, favoring cysts. Unremarkable ureters bilaterally. BOWEL/MESENTERY: No visible mass, obstruction, or bowel wall thickening. AORTA/VASCULAR: No aneurysm or dissection. RETROPERITONEUM: No mass or adenopathy. LYMPH NODES: No adenopathy. URINARY BLADDER: No visible focal wall thickening, lesion, or calculus. PELVIC ORGANS: Hysterectomy. No suspicious pelvic findings. ABDOMINAL WALL: No mass or hernia. BONES: No bony lesion or fracture. OTHER: Negative. IMPRESSION: 1. Bilateral nonobstructive nephrolithiasis. 2. Grossly stable hypodensities within right kidney suspected to represent cysts. Consider follow-up CT abdomen with IV contrast for further evaluation of kidneys if clinically indicated. 3. Unremarkable bowel. 4. No lymphadenopathy. Electronically authenticated by: IVIS LASSITER Date: 2022-03-25 15:08 Normal [facility] [place] CULTURE URINEon 03-25-2022 CULTURE URINE Culture Observations : NO GROWTH. Normal [facility] [place] Comment on above: Performed By: #### U RCX ####[facility] [address] [address]Dr. Adrianne Nava ER URINE PROFILEon 2 Bilirubin Ql (U) Negative Normal NEGATIVE [facility] Comment on above: Performed By: #### MELISSA FOY #### [facility] [address] [place] [address] Dr. Adrianne Nava Clarity (U) CLEAR Normal CLEAR [facility] [place] Comment on above: Performed By: #### EVELYNE FOYRO #### [facility] [address] [place] [address] Dr. Adrianne Nava Color (U) LT. YELLOW Normal YELLOW [facility] [place] Comment on above: Performed By: #### EVELYNE FOYRO #### [facility] [address] [place] [address] Dr. Adrianne MENDOZA A micrscopic examination will be performed if indicated. Normal [facility] Comment on above: Performed By: #### Dusty JC UMICRO #### [facility] [address] [address] [address] Adrianne Nava Glucose Ql (U) Negative Normal NEGATIVE [facility] Comment on above: Performed By: #### Dusty JC UMICRO #### [facility] [address] [address] [address] Adrianne Nava Hemoglobin Ql (U) Negative Normal NEGATIVE [facility] Comment on above: Performed By: #### Dusty JC UMICRO #### [facility] [address] [place] [address] Dr. Adrianne Nava Ketones Ql (U) Negative Normal NEGATIVE [facility] Comment on above: Performed By: #### Dusty JC UMICRO #### [facility] [address] [place] [address] Dr. Adrianne Nava LEUKOCYTES MODERATE Abnormal NEGATIVE [facility] [place] Comment on above: Performed By: #### Dusty JC UMICRO #### [facility] [address] [place] [address] Dr. Adrianne Nava Nitrite Ql (U) Negative Normal NEGATIVE [facility] Comment on above: Performed By: #### Dusty JC UMICRO #### [facility] [address] [place] [address] Dr. Adrianne Nava pH (U) 6.5 [pH] Normal 5-9 [facility] [place] Comment on above: Performed By: #### Dusty JC UMICRO #### [facility] [address] [place] [address] Dr. Adrianne Nava SPEC GRAVITY <=1.005 Abnormal 1.005-<=1.025 [facility] Comment on above: Performed By: #### Dusty JC UMICRO #### [facility] [address] [place] [address] Dr. Adrianne Nava UA PROTEIN Negative Normal NEGATIVE/ TRACE [facility] Comment on above: Performed By: #### Dusty JC UMICRO #### [facility] [address] [place] [address] Dr. Adrianne Nava UR MICRO IND INDICATED Normal [facility] [place] Comment on above: Performed By: #### Dusty JC UMICRO #### [facility] [address] [place] [address] Dr. Adrianne Nava Urobilinogen Qn (U) 0.2 {Kaley'U}/dL Normal 0.2 - 1. 0 [facility] [place] Comment on above: Performed By: #### E MELISSA JC #### [facility] [address] [address] [address] Adrianne Nava PROF CHEM 8 (BAS METB)on Anion gap [Moles/Vol] 12.7 mmol/L Normal [facility] [place] Comment on above: Performed By: #### B MP #### [facility] [address] [address] [address] Adrianne Nava Calcium [Mass/Vol] 9.0 mg/dL Normal 8.5-10.1 [facility] Comment on above: Performed By: #### B MP #### [facility] [address] [place] [address] Dr. Adrianne Nava Chloride [Moles/Vol] 105 mmol/L Normal 98-107 [facility] [place] Comment on above: Performed By: #### B MP #### [facility] [address] [address] [address] Adrianne Nava CO2 [Moles/Vol] 25.1 mmol/L Normal 21.0-32.0 [facility] Comment on above: Performed By: #### B MP #### [facility] [address] [address] [address] Adrianne Nava Creatinine [Mass/Vol] 0.86 mg/dL Normal 0.55-1.02 [facility] [place] Comment on above: Performed By: #### B MP #### [facility] [address] [address] [address] Adrianne Nava EGFR-AF CHINESE >60 Normal >=60 [facility] [place] Comment on above: Performed By: #### B MP #### [facility] [address] [place] [address] Dr. Adrianne Nava EGFR-NON AF CHINESE >60 Normal >=60 [facility] [place] Comment on above: Performed By: #### B MP #### [facility] [address] [address] [address] Adrianne Nava Glucose [Mass/Vol] 99 mg/dL Normal 74-106 [facility] Comment on above: Performed By: #### B MP #### [facility] [address] [address] [address] Adrianne Nava Potassium [Moles/Vol] 3.8 mmol/L Normal 3.5-5.1 [facility] [place] Comment on above: Performed By: #### B MP #### [facility] [address] [place] [address] Dr. Adrianne Nava Sodium [Moles/Vol] 139 mmol/L Normal 136-145 [facility] Comment on above: Performed By: #### B MP #### [facility] [address] [place] [address] Dr. Adrianne Nava Urea nitrogen [Mass/Vol] 19.0 mg/dL Critically high 7.0-18.0 [facility] [place] Comment on above: Performed By: #### B MP #### [facility] [address] [place] [address] Dr. Adrianne Nava Urea nitrogen/Creatinine [Mass ratio] 22.1 mg/mg Normal [facility] [place] Comment on above: Performed By: #### B MP #### [facility] [address] [place] [address] Dr. Adrianne Nava URINE MICROSCOPIC ONLYon BACTERIA TRACE Abnormal NONE SEEN [facility] [place] Comment on above: Performed By: #### EVELYNE FOYRO #### [facility] [address] [place] [address] Dr. Adrianne Nava Bacteria identified Cx Nom (U) INDICATED Normal [facility] Comment on above: Performed By: #### EVELYNE FOYRO #### [facility] [address] [place] [address] Dr. Adrianne Nava CAST NONE SEEN Normal NONE SEEN [facility] [place] Comment on above: Performed By: #### EVELYNE FOYRO #### [facility] [address] [place] [address] Dr. Adrianne Nava Crystals LM Nom (Urine sed) NONE SEEN Normal NONE SEEN [facility] Comment on above: Performed By: #### E RUR, UMICRO #### [facility] [address] [address] [address] Adrianne Nava Epithelial cells LM Ql (Urine sed) FEW Abnormal NONE SEEN /RARE [facility] Comment on above: Performed By: #### E RUR, UMICRO #### [facility] [address] [address] [address] Adrianne Nava MUCOUS NONE SEEN Normal NONE SEEN [facility] Comment on above: Performed By: #### E RUR, UMICRO #### [facility] [address] [address] [address] Adrianne Nava RBC 0-2 Normal 0-2 [facility] Comment on above: Performed By: #### E RUR, UMICRO #### [facility] [address] [address] [address] Adrianne Nava WBC 10-20 Abnormal NONE SEEN [facility] Comment on above: Performed By: #### E RUR, UMICRO #### [facility] [address] [address] [address] Adrianne Nava MG MAMM SCREEN 3D JORDAN CADon 03-07-2022 MG MAMM SCREEN 3D JORDAN CAD Patient: DANTE JAMES Exam Date: 03/07/2022 : 1965 Gender:F Ordering : DR HANS YANG Admission #: [id number] Family : Order #: [id number] CLICK HERE TO VIEW EXAM RADIOLOGY REPORT PROCEDURE: MAMMOGRAM SCREENING 3D BILATERAL CAD COMPARISON: MG MAMM SCREEN JORDAN W CAD, 06/11/2019. MG MAMM SCREEN 3D JORDAN CAD, 03/04/2021. INDICATIONS: Screening mammography Calculator Name NCI Breast Cancer Risk Assessment Tool 5 Year Breast Cancer Risk 1.10% Lifetime Breast Cancer Risk 7.20% Personal Breast Cancer No Personal Ovarian Cancer No Treatments None Family Cancers Grandmother-maternal with cervical cancer at age 40; Aunt-paternal with cervical cancer at age 40; Aunt-paternal with cervical cancer at age 35. LOCATION: [facility] BREAST COMPOSITION: Extremely dense, which lowers the sensitivity of mammography. FINDINGS: DIAGNOSTIC CATEGORY 1--NEGATIVE. NO CHANGE FROM COMPARISON ASSESSMENT. RIGHT BREAST: No significant suspicious finding. LEFT BREAST: No significant suspicious finding. RECOMMENDATIONS: ROUTINE MAMMOGRAM AND CLINICAL EVALUATION IN 12 MONTHS. PLEASE NOTE: A NORMAL MAMMOGRAM DOES NOT EXCLUDE THE POSSIBILITY OF BREAST CANCER. A CLINICALLY SUSPICIOUS PALPABLE LUMP SHOULD BE BIOPSIED. Dictated by: Brian Tidwell MD on 03/07/2022 at 09:50 Approved by: Brian Tidwell MD on 03/07/2022 at 09:52 Normal [facility] C. DIFF PCRon 02-05-2022 C. DIFFICILE PCR Negative Normal NEGATIVE [facility] Comment on above: Performed By: #### C DIFPOC ####[facility] [id number] [address]Dr. Adrianne Nava GI PANEL (PCR)on 02-05-2022 Adenovirus F 40/41 Not detected Normal NOT DETECTED [facility] Comment on above: Performed By: #### G IPANEL #### [facility] [address] [place] [address] Dr. Adrianne Nava Astrovirus Not detected Normal NOT DETECTED The [facility] Comment on above: Performed By: #### G IPANEL #### [facility] [address] [place] [address] Dr. Adrianne Nava C. Diff toxin A/B Not detected Normal NOT DETECTED [facility] Comment on above: Performed By: #### G IPANEL #### [facility] [address] [place] [address] Dr. Adrianne Nava Campylobacter Not detected Normal NOT DETECTED The [facility] Comment on above: Performed By: #### G IPANEL #### [facility] [address] [place] [address] Dr. Adrianne Nava Cryptosporidium Not detected Normal NOT DETECTED The [facility] Comment on above: Performed By: #### G IPANEL #### [facility] [address] [place] [address] Dr. Adrianne Nava Cyclos. Cayetanensis Not detected Normal NOT DETECTED [facility] Comment on above: Performed By: #### G IPANEL #### [facility] [address] [place] [address] Dr. Adrianne Nava E. Coli O157 Not Applicable Normal Not Applicable [facility] [place] Comment on above: Performed By: #### G IPANEL #### [facility] [address] [place] [address] Dr. Adrianne Nava E. histolytica Not detected Normal NOT DETECTED The [facility] Comment on above: Performed By: #### G IPANEL #### [facility] [address] [place] [address] Dr. Adrianne Nava EAEC Not detected Normal NOT DETECTED The [facility] Comment on above: Performed By: #### G IPANEL #### [facility] [address] [place] [address] Dr. Adrianne Nava EIEC Not detected Normal NOT DETECTED The [facility] Comment on above: Performed By: #### G IPANEL #### [facility] [address] [place] [address] Dr. Adrianne Nava EPEC Not detected Normal NOT DETECTED [facility] Comment on above: Performed By: #### G IPANEL #### [facility] [address] [place] [address] Dr. Adrianne Nava ETEC Not detected Normal NOT DETECTED The [facility] Comment on above: Performed By: #### G IPANEL #### [facility] [address] [place] [address] Dr. Adrianne Marin. Lamblia Not detected Normal NOT DETECTED The [facility] Comment on above: Performed By: #### G IPANEL #### [facility] [address] [place] [address] Dr. Adrinane TRINIDADL CONTROLS PASSED Normal The [facility] Comment on above: Performed By: #### G IPANEL #### [facility] [address] [place] [address] Dr. Adrianne CARDOZA JOEY HEADER GI PANEL BACTERIA Normal [facility] Comment on above: Performed By: #### G IPANEL #### [facility] [address] [place] [address] Dr. Adrianne CARDOZAHD ECOLI GI PANEL DIARRHEAGENIC E.COLI / SHIGELLA Normal [facility] Comment on above: Performed By: #### G IPANEL #### [facility] [address] [address] [address] Adrianne PAUL INFO SEE BELOW Normal [facility] [place] Comment on above: Result Comment: EAEC - Enteroaggregative E. Coli EPEC- Enteropathogenic E. Coli ETEC- Enterotoxigenic E. Coli lt/st STEC- Shigella-like toxin-producing E. Coli stx1/stx2 EIEC- Shigella/Enteroinvasive E. Coli Performed By: #### G IPANEL #### [facility] [address] [address] [address] Adrianne PAUL PARASITES GI PANEL PARASITES Normal [facility] Comment on above: Performed By: #### G IPANEL #### [facility] [address] [address] [address] Adrianne PAUL VIRUS GI PANEL VIRUSES Normal [facility] Comment on above: Performed By: #### G IPANEL #### [facility] [address] [address] [address] Adrianne Nava Norovirus GI/GII Not detected Normal NOT DETECTED [facility] Comment on above: Performed By: #### G IPANEL #### [facility] [address] [address] [address] Adrianne Nava P. Shigelloides Not detected Normal NOT DETECTED The [facility] Comment on above: Performed By: #### G IPANEL #### [facility] [address] [address] [address] Adrianne Nava Rotavirus A Not detected Normal NOT DETECTED [facility] Comment on above: Performed By: #### G IPANEL #### [facility] [address] [address] [address] Adrianne Nava Salmonella Not detected Normal NOT DETECTED [facility] Comment on above: Performed By: #### G IPANEL #### [facility] [address] [address] [address] Adrianne Nava Sapovirus Not detected Normal NOT DETECTED [facility] Comment on above: Performed By: #### G IPANEL #### [facility] [address] [address] [address] Adrianne Nava STEC Not detected Normal NOT DETECTED [facility] Comment on above: Performed By: #### G IPANEL #### [facility] [address] [address] [address] Adrianne Nava Vibrio Not detected Normal NOT DETECTED [facility] Comment on above: Performed By: #### G IPANEL #### [facility] [address] [address] [address] Adrianne Nava Vibrio Cholera Not detected Normal NOT DETECTED The [facility] Comment on above: Performed By: #### G IPANEL #### [facility] [address] [address] [address] Adrianne Nava Y. Enterocolitica Not detected Normal NOT DETECTED [facility] Comment on above: Performed By: #### G IPANEL #### [facility] [address] [place] [address] Dr. Adrianne Nava Vital Signs Date Time Vital Sign Value Performing Clinician Facility 03-13-2023 11:45-0400 Body height 162.56 cm Erica Mott Other [facility] Other 03-13-2023 11:45-0400 Body mass index (BMI) [Ratio] 23.51 kg/m2 Erica Mott Other [facility] Other 03-13-2023 11:45-0400 Body temperature 98 [degF] Erica Mott Other [facility] Other 03-13-2023 11:45-0400 Body weight 62.14 kg Erica Mott Other [facility] Other 03-13-2023 11:45-0400 Diastolic blood pressure 65 mm[Hg] Erica Mott Other [facility] Other 03-13-2023 11:45-0400 Respiratory rate 18 /min Ericamichael Mott Other [facility] Other 03-13-2023 11:45-0400 SaO2% (BldA) [Mass fraction] 96 % Ericamichael Mott Other [facility] Other 03-13-2023 11:45-0400 Systolic blood pressure 103 mm[Hg] Ericamichael Mott Other [facility] Other 03-09-2023 10:05-0400 Body height 162.56 cm Ericamichael Mott Other [facility] Other 03-09-2023 10:05-0400 Body mass index (BMI) [Ratio] 23.51 kg/m2 Erica Mott Other [facility] Other 03-09-2023 10:05-0400 Body temperature 97.3 [degF] Erica Mott Other [facility] Other 03-09-2023 10:05-0400 Body weight 62.14 kg Erica Tiera Other [facility] Other 03-09-2023 10:05-0400 Diastolic blood pressure 61 mm[Hg] Erica Mott Other [facility] Other 03-09-2023 10:05-0400 Respiratory rate 18 /min Erica Mott Other [facility] Other 03-09-2023 10:05-0400 SaO2% (BldA) [Mass fraction] 99 % Erica Mott Other [facility] Other 03-09-2023 10:05-0400 Systolic blood pressure 98 mm[Hg] Erica Mott Other [facility] Other 04-20-2022 14:41-0400 Blood Pressure Location LIAT BORRERO [facility] 04-20-2022 14:41-0400 Diastolic blood pressure 80 mm[Hg] LIAT BORRERO [facility] 04-20-2022 14:41-0400 Heart rate 75 /min LIAT BORRERO [facility] 04-20-2022 14:41-0400 Systolic blood pressure 119 mm[Hg] LIAT BORRERO [facility] Encounters Encounter Date Encounter Type Care Provider Facility Start: 12-11-2023 End: 12-11-2023 ambulatory SERGIO LILLYKAI Not Available Start: 06-14-2023 End: 06-14-2023 Lab Drop off Marycruz M. Lue [facility] Start: 06-14-2023 End: 06-14-2023 ambulatory Marycruz M. Lue Facility:[facility] Start: 2023 End: 2023 ambulatory Marycruz M. Lue Facility:[facility] Start: 2023 End: 2023 ambulatory Marycruz M. Lue Facility:[facility] Start: 03-13-2023 End: 03-13-2023 ambulatory Erica Mott Other [facility] Other Start: 03-13-2023 Office outpatient vi sit 15 minutes Erica Mott [facility] Start: 03-09-2023 End: 03-09-2023 ambulatory Erica Mott Other [facility] Other Start: 03-09-2023 Office outpatient lorne dior 20 minutes Erica Mott [facility] Start: 11-14-2022 End: 11-14-2022 ambulatory DENISE CHAVARRIA Facility:[facility] Start: 11-09-2022 End: 11-10-[address] TWILA VERDE . Facility:[facility] Start: 11-08-2022 End: 11-09-[address] KANE MCKEE Facility:[facility] Start: 11-07-2022 End: 11-08-2022 ambulatory TWILA VERDE [facility] Start: 10-07-2022 End: 10-08-[address] TWILA VERDE . Facility:[facility] Start: 04-21-2022 End: 04-22-2022 ambulatory HANS Dior [facility] Start: 04-21-2022 Encounter for gynecological examination (general) (routine) without abnormal findings [facility] Start: 04-21-2022 End: 04-21-2022 Patient encounter procedure Twila Verde MD Work Phone: [facility] Start: 04-21-2022 End: 04-21-2022 Subsequent hospital visit by physician Twila Verde MD Work Phone: [facility] Comment on above: Vaginal irritation; Women's annual routine gynecological examination Start: 04-20-2022 End: 04-20-2022 Patient encounter procedure LIAT BORRERO [facility] Start: 04-15-2022 End: 04-16-[address] BRIAN TIDWELL Facility:[facility] Start: 04-06-2022 End: 04-07-[address] TWILA VERDE . Facility:[facility] Start: 03-25-2022 End: 03-25-[address] IVIS LASSITER Facility:[facility] Start: 03-07-2022 End: 03-08-[address] BRIAN TIDWELL Facility:[facility] Start: 02-05-2022 End: 02-06-[address] TWILA VERDE . Facility: Start: 04-19-2021 End: 04-19-2021 Subsequent hospital visit by physician Twila Verde MD Work Phone: [facility] Comment on above: History of cervical cancer Start: 05-02-2019 End: 05-02-2019 Subsequent hospital visit by physician Twila Verde [facility] Comment on above: Women's annual routi ne gynecological examination Start: 03-29-2017 Ambulatory HARRISON BUSTAMANTE Facility :8 Start: 02-10-2017 Ambulatory HARRISON BUSTAMANTE Facility :8 Procedures Date Procedure Procedure Detail Performing Clinician Partial hysterectomy RICKY R GISSELL Procedure on shoulder ANTONIO BORRERO Tonsillectomy LIAT BORRERO Tonsillectomy and adenoidectomy Marycruz Bhagat Plan of Treatment Date Care Activity Detail Author Start: 03-06-2024 ambulatory Ambulatory Facility:[facility] Start: 04-24-2023 End: 04-24-2023 Patient encounter procedure 04/24/2023 Office Visit Obstetrics and Gynecology Hans Yang MD [address] [place] [address] [facility] Start: 03-05-2023 Screening for malign ant neoplasm of breast Breast cancer screen [facility] Start: 04-21-2022 End: 04-21-2022 Patient encounter procedure 04/21/2022 Office Visit Obstetrics and Gynecology Hans Yang MD [address] [place] [address] [facility] Start: 03-31-2022 Influenza vaccination Flu vaccine (# 1) [facility] Start: 04-30-2021 Cervical cancer screen Cervical canc er screen [facility] [place], [place] Start: 03-31-2021 Influenza vaccination Flu vaccine (# 1) [facility] Work Phone: Start: 06-06-2020 Breast cancer screen Breast cancer s anton [place], [place] Start: 05-30-2019 Influenza vaccination Flu vaccine (# 1) [place], [place] Comment on above: Postponed from 03/31 (Patient Refused) Start: 2015 Colon cancer screen colonoscopy Colon cancer screen colonoscopy [place], [place] Start: 2015 Shingles Vaccine (1 of 2) Shingles Vaccine (1 of 2) [place], [place] Start: 2010 Screening for malign ant neoplasm of colon [facility] Start: 2005 Diabetes screen Diabetes screen [facility] [employer] Phone: Start: 2005 Lipid panel [facility] Start: 2005 Lipid screen Lipid screen [place], [place] Start: 1984 DTaP/Tdap/Td vaccine (1 - Tdap) DTaP/Tdap/Td vaccine (1 - Tdap) [facility] [email or web address] Start: 1983 Hepatitis C screening Hepatitis C sc reen [facility] Start: 1980 HIV screen HIV screen [place], [place] Start: 1980 HIV screening HIV screen [facility] [email or web address] Start: 1977 Depression Screen Depression Screen [facility] Start: 1965 Hepatitis C screen Hepatitis C scree n [place], [place] Start: 1965 Hepatitis C screening Hepatitis C [facility] [employer] Phone: End: 04-21-2022 Culture, Genital [facility] [employer] Phone: Comment on above: 1 Occurrences starti ng 04/21/2022 until 04/21/2022 End: 05-02-2019 Cytopathology procedure, preparation of smear, genital source [facility] Routine Women's annual routine gynecological examination 1 Occurrences starting 05/02/2019 until 05/02/2019 [place], [place] Comment on above: 1 Occurrences starti ng 05/02/2019 until 05/02/2019 End: 04-19-2021 Cytopathology procedure, preparation of smear, genital source [facility] Routine History of cervical cancer 1 Occurrences starting 04/19/2021 until 04/19/2021 [employer] [facility] Phone: Comment on above: 1 Occurrences starti ng 04/19/2021 until 04/19/2021 End: 04-21-2022 Cytopathology procedure, preparation of smear, genital source [facility] Routine Women's annual routine gynecological examination 1 Occurrences starting 04/21/2022 until 04/21/2022 MADELYN ANGELO [email or web address] Work Phone: Comment on above: 1 Occurrences starti ng 04/21/2022 until 04/21/2022 Immunizations Immunization Date Immunization Notes Care Provider Gallo frost 03-29-2023 influenza virus vaccine, unspecified formulation Marycruz Bhagat [facility] 03-29-2023 tetanus toxoid, reduced diphtheria toxoid, and acellular pertussis vaccine, adsorbed Marycruz Lue [facility] 11-18-2020 SARS-CoV-2 (COVID-19 ) mRNA-1273 vaccine Marycruz Lue [facility] Comment on above: Result Comment: 2022: [id number] 11-13-2020 SARS-CoV-2 (COVID-19 ) Ad26 vaccine, recombinant LIAT GISSELL [facility] 10-21-2020 SARS-CoV-2 (COVID-19 ) mRNA-1273 vaccine Marycruz Lue [facility] Comment on above: Result Comment: 2022: TPV50 10-16-2020 SARS-CoV-2 (COVID-19 ) Ad26 vaccine, recombinant LIAT GISSELL [facility] 10-01-2019 zoster vaccine recombinant Marycruz Lue [facility] 07-28-2019 zoster vaccine recombinant Marycruz Bhagat [facility] NEGATED: Highlighted row has not occurred!09-24-2020 influenza virus vaccine, unspecified formulation LIAT BORRERO [facility] Payers Date Payer Category Payer Unknown [facility] 2014-Present [phone] [address] [address] [place] [address] xxxxxxxxxxxx [id number] 1965 Unknown [id number] [id number] 1965 Unknown [id number] 2.16.840.1.232291.3.579.2.173 1965 Unknown [id number] 2.16.840.1.792230.3.579.2.593 1965 Unknown [id number] 2.16.840.1.860673.3.579.2.593 1965 Unknown [id number] 2.16.840.1.895535.3.579.2.593 1965 Unknown [id number] 2.16.840.1.349918.3.579.2.593 1965 Unknown [id number] 2.16.840.1.300667.3.579.2.593 1965 Unknown [id number] 2.16.840.1.130883.3.579.2.593 1965 Unknown [id number] 2.16.840.1.992203.3.579.2.593 1965 Unknown [id number] 2.16.840.1.098233.3.579.2.593 1965 Unknown [id number] 2.16.840.1.962888.3.579.2.593 1965 Unknown [id number] 2.16.840.1.419389.3.579.2.125 9 1965 Unknown [id number] 2.16.840.1.892281.3.579.2.727 1965 Unknown [id number] 2.16.840.1.435229.3.579.2.727 1965 Unknown [id number] 2.16.840.1.769101.3.579.2.727 1965 Unknown [id number] 2.16.840.1.328073.3.579.2.727 1965 Unknown [id number] 2.16.840.1.470199.3.579.2.727 1959 Unknown [id number] Unknown [id number] Social History Date Type Detail Facility Start: 05-02-2019 End: 06-14-2023 Tobacco smoking status NHIS Never smoker [facility] Start: 05-02-2019 Alcohol intake Yes [place] Start: 12-29-2016 Alcohol Comment one glass a week [place], [place] Start: 1965 Sex Assigned At Not on file [place], [place] Start: 04-30-2018 End: 04-19-2021 Tobacco use and exposure Never used [employer] Start: 04-19-2021 End: 04-21-2022 Alcohol intake Current drinker of alcohol (finding) [employer] Phone: Start: 04-19-2021 End: 04-21-[address] [facility] [address] status Never [facility] Start: 04-11-2022 End: 04-21-2022 Exposure to SARS-CoV-2 (event) Not sure MADELYN [facility] Functional Status Date Assessment Result Facility 04-20-2022 Functional Status N/A [facility] Clinical Notes 04-20-2022 to 03-13-2023 Note Date & Type Note Facility 03-13-2023 Evaluation note Encounter Date Diagnosis Assessment Notes Feb, Acute non-recurrent maxillary sinusitis (ICD-10 - J01.00) Given duration of symptoms, will treat for sinusitis with augmentin. Finish entire course. Probiotic supplement encouraged. May use next DM, Sudafed, Flonase for symptomatic treatment. May use Tylenol/ibuprof en for any pain or fever. Follow-up with PCP if symptoms or not gradually improving over the next 5 to 7 days, sooner if significantly worsening. Feb, Bacterial conjunctivitis of left eye (ICD-10 - H10.9) Exam consistent with bacterial conjunctivitis. Will treat with ofloxacin drops. Finish entire course. Discussed contagious nature of illness, good handwashing encouraged, avoid touching eyes. Discussed less contagious after 24 hours on antibiotic eyedrops. Follow-up with PCP or eye doctor if not gradually improving over the next 3 to 4 days, sooner if significantly worsening. Patient verbalized understanding of treatment plan. Discussed if uses contact lenses, should discard current pair. Do not replace until symptoms are completely resolved x48 hours. [facility] Other 08-10-2023 Evaluation note* Encounter Date Diagnosis Assessment Notes Treatment Notes Treatment Clinical Notes Feb, Viral URI with cough (ICD-10 - J06.9) Discussed with patient exam and history is consistent with viral upper respiratory infection. Discussed viral nature of illness and typical duration of 7 to 14 days. Advised antibiotics unfortunately do not treat viral illnesses. May use symptomatic treatment such as mucinex DM, flonase, continue claritin. May use Tylenol/ibuprofen for any pain/fever. Follow-up with PCP if not improving over the next 7 days, sooner if significantly worsening symptoms. Patient declines COVID testing in office [facility] Other 03-10-2023 NotePROCEDURE: XR SHOULDER LT 2V or >, XR A-C JOINT JORDAN HISTORY: Pain of left shoulder joint ; new palpable lump COMPARISON: None. FINDINGS: BONES:Small degenerative osteophyte along inferior articular margin of humeral head. No fracture, dislocation, significant joint space narrowing. Unremarkable acromioclavicular joint; no abnormal widening during weightbearing. SOFT TISSUES:Skin surface marker localizing the patient's palpable lump is positioned cephalad to the distal end of the clavicle. EFFUSION:None visible. OTHER: Negative. IMPRESSION: 1. No specific findings to account for patient's palpable lump. 2. Mild degenerative changes of the glenohumeral joint. 3. Consider MRI for evaluation of soft tissue structures if symptoms persist. Electronically authenticated by: IVIS LASSITRE Date: 2022-10-07 11:52[facility] [place]03-10-2023 NotePROCEDURE: XR SHOULDER LT 2V or >, XR A-C JOINT JORDAN HISTORY: Pain of left shoulder joint ; new palpable lump COMPARISON: None. FINDINGS: BONES:Small degenerative osteophyte along inferior articular margin of humeral head. No fracture, dislocation, significant joint space narrowing. Unremarkable acromioclavicular joint; no abnormal widening during weightbearing. SOFT TISSUES:Skin surface marker localizing the patient's palpable lump is positioned cephalad to the distal end of the clavicle. EFFUSION:None visible. OTHER: Negative. IMPRESSION: 1. No specific findings to account for patient's palpable lump. 2. Mild degenerative changes of the glenohumeral joint. 3. Consider MRI for evaluation of soft tissue structures if symptoms persist. Electronically authenticated by: IVIS LASSITER Date: 2022-10-07 11:52[facility] [place]09-21-2022 Hospital Discharge instructions Patient Education 04/20/2022 14:49:06 Dietary Guidelines to Help Prevent Kidney Stones Dietary Guidelines to Help Prevent Kidney Stones Kidney stones are deposits of minerals and salts that form inside your kidneys. Your risk of developing kidney stones may be greater depending on your diet, your lifestyle, the medicines you take, and whether you have certain medical conditions. Most people can reduce their chances of developing kidney stones by following the instructions below. Depending on your overall health and the type of kidney stones you tend to develop, your dietitian may give you more specific instructions. What are tips for following this plan? Reading food labels Choose foods with no salt added or low-salt labels. Limit your sodium intake to less than 1500 mg per day. Choose foods with calcium for each meal and snack. Try to eat about 300 mg of calcium at each meal.Foods that contain 200 500 mg of calcium per serving include: ?8 oz (237 ml) of milk, fortified nondairy milk, and fortified fruit juice. ?8 oz (237 ml) of kefir, yogurt, and soy yogurt. ?4 oz (118 ml) of tofu. ?1 oz of cheese. ?1 cup (300 g) of dried figs. ?1 cup (91 g) of cooked broccoli. ?1 3 oz can of sardines or mackerel. Most people need 1000 to 1500 mg of calcium each day. Talk to your dietitian about how much calciumis recommended for you. Shopping Buy plenty of fresh fruits and vegetables. Most people do not need to avoid fruits and vegetables, even if they contain nutrients that may contribute to kidney stones. When shopping for convenience foods, choose: ?Whole pieces of fruit. ?Premade salads with dressing on the side. ?Low-fat fruit and yogurt smoothies. Avoid buying frozen meals or prepared deli foods. Look for foods with live cultures, such as yogurt and kefir. Cooking Do not add salt to food when cooking. Place a salt shaker on the table and allow each person to addhis or her own salt to taste. Use vegetable protein, such as beans, textured vegetable protein (TVP), or tofu instead of meat in pasta, casseroles, and soups. Meal planning Eat less salt, if told by your dietitian. To do this: ?Avoid eating processed or premade food. ?Avoid eating fast food. Eat less animal protein, including cheese, meat, poultry, or fish, if told by your dietitian. To dothis: ?Limit the number of times you have meat, poultry, fish, or cheese each week. Eat a diet free of meat at least 2 days a week. ?Eat only one serving each day of meat, poultry, fish, or seafood. ?When you prepare animal protein, cut pieces into small portion sizes. For most meat and fish, one serving is about the size of one deck of cards. Eat at least 5 servings of fresh fruits and vegetables each day. To do this: ?Keep fruits and vegetables on hand for snacks. ?Eat 1 piece of fruit or a handful of berries with breakfast. ?Have a salad and fruit at lunch. ?Have two kinds of vegetables at dinner. Limit foods that are high in a substance called oxalate. These include: ?Spinach. ?Rhubarb. ?Beets. ?Potato chips and greenlandic fries. ?Nuts. If you regularly take a diuretic medicine, make sure to eat at least 1 2 fruits or vegetables high in potassium each day. These include: ?Avocado. ?Banana. ?Edmond, prune, carrot, or tomato juice. ?Baked potato. ?Cabbage. ?Beans and split peas. General instructions Drink enough fluid to keep your urine clear or pale yellow. This is the most important thing you can do. Talk to your health care provider and dietitian about taking daily supplements. Depending on your health and the cause of your kidney stones, you may be advised: ?Not to take supplements with vitamin C. ?To take a calcium supplement. ?To take a daily probiotic supplement. ?To take other supplements such as magnesium, fish oil, or vitamin B6. Take all medicines and supplements as told by your health care provider. Limit alcohol intake to no more than 1 drink a day for non women and 2 drinks a day for men. One drink equals 12 oz of beer, 5 oz of wine, or 1 oz of hard liquor. Lose weight if told by your health care provider. Work with your dietitian to find strategies and an eating plan that works best for you. What foods are not recommended? Limit your intake of the following foods, or as told by your dietitian. Talk to your dietitian about specific foods you should avoid based on the type of kidney stones and your overall health. Grains Breads. Bagels. Rolls. Baked goods. Salted crackers. Cereal. Pasta. Vegetables Spinach. Rhubarb. Beets. Canned vegetables. Pickles. Olives. Meats and other protein foods Nuts. Nut butters. Large portions of meat, poultry, or fish. Salted or cured meats. Deli meats. Hotdogs. Sausages. Dairy Cheese. Beverages Regular soft drinks. Regular vegetable juice. Seasonings and other foods Seasoning blends with salt. Salad dressings. Canned soups. Soy sauce. Ketchup. Barbecue sauce. Canned pasta sauce. Casseroles. Pizza. Lasagna. Frozen meals. Potato chips. Armenian fries. Summary You can reduce your risk of kidney stones by making changes to your diet. The most important thing you can do is drink enough fluid. You should drink enough fluid to keep your urine clear or pale yellow. Ask your health care provider or dietitian how much protein from animal sources you should eat eachday, and also how much salt and calcium you should have each day. This information is not intended to replace advice given to you by your health care provider. Make sure you discuss any questions you have with your health care provider. Document Released: 11/11/2011 Document Revised: 11/06/2019 Document Reviewed: 06/27/2017 [employer] Patient Education 2020 [employer]. Follow Up Care 04/13/2021 13:36:19 With:GISSELL COBB, LIAT Montano, URL Address: [address] [place] [address]. [place] [address] When:1 year Comments:RHIANNA [facility] evaluation + Plan note Future Appointments Appointment Date:04/25/2023 08:00:00 AM Scheduled Provider:Valencia Villatoro Jr., MD Location:[facility] Appointment Type:URO Office Visit Diagnostic Tests Pending * UTI ([facility]) 04/20/22 [facility] evaluemmwl + Plan note Future Appointments Appointment Date:03/06/2024 08:45:00 AM Scheduled Provider:Marycruz Bhagat MD Location:[facility] Appointment Type:URO Office Visit Diagnostic Tests Pending * Calculi Analysis [facility] History of cervical cancer Personal history of malignant neoplasm of cervix uteri documented in this encounter [employer] Phone: evaluation note* Diagnosis Vaginal irritation Unspecified noninflammatory disorder of vagina Women's annual routine gynecological examination documented in this encounter MADELYN ANGELO [employer] Phone: History general Narrative - Reported* Type Description Date Medical History Migraine Medical History Seizure Surgical History partial hysterectomy Surgical History shoulder surgery b/l Surgical History colonoscopy Useful at Night Other Hospital course Narrative No data available for this section [facility] Hospital Discharge instructions No data available for this section [facility] No data available for this section [facility] Summary Purpose Family History No Family History Records FoundNo Family History Records FoundNo Family History Records Found No data available for this section No Family History Records FoundNo Family History Records Found Advance Directives No Advanced Directives Records FoundDocuments on File Type Date Recorded 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 Advance Directives and Living Will Power of Recoater Latest Code Status on File Code Status Date Activated Date Inactivated Comments Full Code 01/03/2017 4:41 PM 01/03/2017 8:21 PM Documents on File Type Date Recorded 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 ACP-Advance Directive ACP-Power of Recoater Assessments Diagnosis Women's annual routine gynecological examination Additional Source Comments INFORMATION SOURCE (unrecogn ized section and content) DATE CREATED AUTHOR 01/24/2018 [facility] Healthcare DATE CREATED AUTHOR AUTHOR'S ORGANIZ ATION 11/12/2022 [facility] DATE CREATED AUTHOR AUTHOR'S ORGANIZ ATION 11/16/2022 [facility] DATE CREATED AUTHOR AUTHOR'S ORGANIZ ATION 12/12/2023 [facility] EPIC DATE CREATED AUTHOR AUTHOR'S ORGANIZ ATION 01/11/2024 [facility] Care Team (unrecognized sect ion and content) 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 This clinical summary was aggregated from multiple sources. Caution should be exercised in using it in the provision of clinical care. This summary normalizes information from multiple sources, and as a consequence, information in this document may materially change the coding, format and clinical context of patient data. In addition, data may be omitted in some cases. CLINICAL DECISIONS SHOULD BE BASED ON THE PRIMARY CLINICAL RECORDS. [facility] [employer], [facility]. provides no warranty or guarantee of the accuracy or completeness of information in this document.
== END 2024-02-15 07:32 | disposition home or self-care (01) ==
LOC: US 07:31
PROVIDERS: PCP Family Medicine; Visit Provider Urology
DX: N20.0 Calculus of kidney (principal)
CPT/HCPCS: 74018; 76775

== ENCOUNTER 2024-03-15 11:08 | Outpatient (OUT) | payer OTHER, SELFPAY ==
--- OUTSIDE RECORDS SUMMARY | 2024-03-15 11:17 | XMS_ITS | CCD ---
Author Organization [facility] Care Team Providers Care Physician Assistant Psychiatry Name Role Phone HARRISON BUSTAMANTE Unavailable Unavailable HOY, TWILA M Unavailable Unavailable HARRISON BUSTAMANTE Unavailable Unavailable HOY, TWILA M Unavailable Unavailable Hoy, Twila M Primary Care Provider [phone] Twila Verde MD Primary Care Provider [phone] Twila Verde Primary Care Physician Twila Verde MD Primary Care Provider [phone] HANS YANG Referring Unavailable TWILA VERDE Primary Care Unavailable TWILA VERDE Primary Care Unavailable HANS YANG Referring Unavailable HOY ., DR MATTSON Consulting Unavailable HOY ., DR MATTSON Primary Care Unavailable HOY ., DR MATTSON Attending Unavailable HOY ., DR MATTSON Admitting Unavailable DIANN, DR BRIAN Do Consulting Unavailable HOY ., DR MATTSON Primary Care Unavailable HEDGES, DR HANS Infante Attending Unavailable HEDGES, DR HANS Infante Admitting Unavailable HEDGEValentin, DR HANS Infante Consulting Unavailable HOY ., DR MATTSON Consulting Unavailable HOY ., DR MATTSON Primary Care Unavailable HOY ., DR MATTSON Attending Unavailable HOY ., DR MATTSON Admitting Unavailable ZIEBER, DR IVIS Mc Consulting Unavailable ZIEBJUAN LUIS, DR IVIS Mc Consulting Unavailable HAY ., DR GOINS Attending Unavailable HAY ., DR GOINS Admitting Unavailable HOY ., DR MATTSON Primary Care Unavailable HAY ., DR GOINS Consulting Unavailable DENISE CHAVARRIA Consulting Unavailable DENISE CHAVARRIA Attending Unavailable DENISE CHAVARRIA Admitting Unavailable HOSSEIN ., DR MATTSON Primary Care Unavailable DIANN, DR BRIAN Do Consulting Unavailable HOSSEIN ., DR MATTSON Primary Care Unavailable IRVING Payton, DR VALENCIA Pugh Attending Unavaila uzma [...] Erica Mott Unavailable SERGIO RIVERA Attending Unavailable Lue, Marycruz MTata Attending Unavailable Lue, Marycruz MTata Attending Unavailable Lue, Marycruz M. Attending Unavailable Lue, Marycruz M. Attending Unavailable Lue, Marycruz M. Admitting Unavailable Lue, Marycruz M. Attending Unavailable Lue, Marycruz M. Admitting Unavailable Lue, Marycruz M. Admitting Unavailable Lue, Marycruz M. Attending Unavailable Allergies Allergy Classification Reported Allergen(s) Allergy Type Date of Onset Reaction(s) Facility (3 sources) Sulfonamides (Antibiotic) Propensity to adverse reactions to drug 04-08-20 15 [place], [place] (1 source) Other Propensity to adverse reactions 12-30-19 17 [place], [place] (5 sources) Sulfonamides (Antibiotic); Translations: [sulfa drugs] Drug allergy Weal (disorder) [facility] (5 sources) Latex; Translations: [Latex] Drug allergy (disorder) 11-15-19 23 Weal (disorder) [facility] (1 source) Sulfonamides (Antibiotic) Drug allergy (disorder) 01-23-20 13 [facility] (2 sources) Substance with sulfonamide structure and antibacterial mechanism of action (substance) Drug allergy [email or web address] Other NEGATED: Highlighted row has been ruled out! (2 sources) Other Propensity to adverse reactions 12-30-19 17 [facility] Work Phone: Medications Current Medications Medication [...] 250 -62.5 MG-UNIT as directed Orally Active Cranberry preparation (4 sources) Non-Standardized Food Allergenic Extract, Non-Standardized Plant Allergenic Extract Start: take 1 capsule by mouth once daily cranberry oral capsule 1 cap, Oral, Daily Start Date: 02/28/24 Status: Ordered Cranberry Extrac t 250 MG as directed Orally Active diclofenac sodium 75 mg delayed release oral tablet (1 source) Nonsteroidal Anti-inflammatory Drug Start: 04-08-2022 take 1 tablet by mouth twice daily diclofenac (VOLTAREN) 75 MG EC tablet take 1 tablet by mouth twice a day 0 04/08/2022 Active fluticasone propionate 0.05 mg/actuat metered dose nasal spray (3 sources) Corticosteroid take 1 spray(s) nasal route once daily fluticasone (FLONASE) 50 MCG/ACT nasal spray 1 spray by Each Nostril route daily 0 Active 24 hr levETIRAcetam 750 mg extended release oral tablet (8 sources) Start: 02-28-2024 take 1 tablet by mouth once daily levetiracetam 750 mg oral tablet, extended release 750 mg = 1 tab(s), Oral, Daily Start Date: 02/28/24 Status: Ordered Start: 09-24-2020 take 1 tablet by cirilo th twice daily Keppra 750 mg oral tablet 750 mg = 1 tab(s), Oral, BID, Refills(s) 0 Start Date: 09/24/20 Status: Ordered Start: 04-04-2017 levETIRAcetam (KEPPRA XR) 750 MG TB24 extended release tablet loratadine 10 mg oral tablet (5 sources) [...] MINERAL PO) Take by mouth 0 Active Multivitamin preparation (2 sources) Start: 2023 take 1 tablet by mouth once daily multivitamin 1 tab, Oral, Daily Start Date: 02/28/24 Status: Ordered ofloxacin 3 mg/ml ophthalmic solution (1 source) Quinolone Antimicrobial Start: 2022 take 2 drop(s) into the eye(s) four times daily Ofloxacin 0.3 % 2 drops Ophthalmic to left eye QID for 7 days Feb, Active 27-1 MG (2 sources) take 1 tablet by mouth once daily 27-1 MG 1 tablet Orally Once a day Active Probiotic Product (PROBIOTIC DAILY PO) (2 sources) Probiotic Produc t (PROBIOTIC DAILY PO) Take by mouth 0 Active topiramate 100 mg oral tablet (8 sources) Start: 2023 take 2 tablets by mouth twice daily topiramate 100 mg Tab 200 mg = 2 tab(s), Oral, BID Start Date: 02/28/24 Status: Ordered Start: 09-24-2020 Topamax 450 mg , Oral, Refills(s) 0 Start Date: 09/24/20 Status: Ordered Start: 03-24-2015 take 2 tablets by mo uth once daily TOPAMAX 100 MG tablet Take 100 mg by mouth 2 times daily 2 tabs every morning and 2 1/2 tabs nightly. 0 03/24/2015 Active Topiramate 100 M G Oral for 90 Days Active Vitamin D3 62.5 mcg (2500 intl units) oral capsule (2 sources) Start: 02-28-2024 take 1 capsule by mouth once daily Vitamin D3 62.5 mcg (2500 intl units) oral capsule 62.5 mcg = 1 cap(s), Oral, Daily Start Date: 02/28/24 Status: Ordered Completed/Discontinued Medications Medication Drug Class(es) Dates Sig (Normalized) Sig (Original) PHENobarbital 32.4 mg oral tablet (8 sources) Start: 02-28-2024 take 1 tablet by mouth at bedtime phenobarbital 32.4 mg oral tablet 32.4 mg = 1 tab(s), Oral, Bedtime, take 1 tablet by mouth at bedtime Start Date: 02/28/24 Status: Ordered Start: 09-24-2020 take 1 mg by mouth twice daily [...] mg by mouth nightly 0 02/07/2015 Active potassium citrate 15 meq extended release oral tablet (2 sources) Start: 02-28-2024 take 1 tablet by mouth twice daily potassium citrate 15 mEq oral tablet, extended release 15 mEq = 1 tab(s), Oral, BID, # 60 tab(s), Refills(s) 11, Pharmacy: [facility]/pharmacy #[id number], 160, cm, 02/28/24 9:14:00 EDT, Height/Length Dosing, 59, kg, 02/28/24 9:14:00 EDT, Weight Dosing Start Date: 02/28/24 Status: Ordered Problems Active Problems Problem Classification Problem Date Documented Date Episodic/Chronic Abdominal pain (7 sources) Flank pain; Translations: [Unspecified abdominal pain] Onset: 03-25-2022 04-13-2021 Episodic Allergic reactions (3 sources) Eczema 12-07-2022 Episodic Calculus of urinary tract (11 sources) Kidney stone; Translations: [Calculus of kidney] Onset: 03-28-2022 Episodic Cancer of cervix (6 sources) History of malignant neoplasm of cervix; Translations: [Personal history of malignant neoplasm of cervix uteri] Onset: 11-07-2022 Episodic Epilepsy; convulsions (10 sources) Epilepsy; Translations: [Epilepsy, unspecified, not intractable, without status epilepticus] Onset: 12-29-2016 12-29-2016 Chronic Genitourinary symptoms and ill-defined conditions (4 sources) Genuine stress incontinence 04-13-2021 Chronic Genitourinary symptoms and ill-defined conditions (5 sources) Genitourinary symptoms; Translations: [Unspecified symptoms and signs involving the genitourinary system] Onset: 04-20-2022 Episodic Inflammation; infection of eye (except that caused by tuberculosis or sexually transmitteddisease) (1 source) Unspecified conjunctivitis Episodic Other aftercare (1 source) Other exterminator termite (current) drug therapy; Translations: [OTH CIVIL PREPAREDNESS COORDINATOR CURRENT DRUG THERAPY] Onset: 11-15-2022 Episodic Other female genital disorders (1 source) Vaginal irritation; Translations: [Other specified noninflammatory disorders of vagina] Episodic Other nervous system disorders (3 sources) Trigeminal neuralgia 12-07-2022 Episodic Other non-traumatic joint [...] Spondylosis; intervertebral disc disorders; other back problems (3 sources) Cervical radiculopathy 12-07-2022 Episodic Unclassified (2 sources) [...] Translations: [Women's annual routine gynecological examination] Unclassified (4 sources) Asymptomatic microscopic hematuria 04-13-2021 Past or [...] Test Name Value Interpretation Reference Range Facility C Urineon 03-01-2024 Bacteria identified Cx Nom (U) Microbiology PROCEDURE: Urine Culture [R1] SOURCE: U CleanCatch BODY SITE: COLLECTED DATE/TIME: 02/28/2024 09:48 EDT RECEIVED DATE/TIME: 02/28/2024 19:09 EDT START DATE/TIME: 02/28/2024 19:09 EDT FREE TEXT SOURCE: Olayinka HINSON, Marycruz Bhagat MD, Marycruz Dove FINAL REPORTS Final Report [] Verified Date/Time: 03/01/2024 09:50 EDT 300 cfu/ml Mixed skin contaminants Performing Locations R1: This test was performed at: [facility], [address] [place] [address], [id number]- , [place], Normal [facility] Comment on above: Performed By: #### 2 [id number] #### [facility] [address] [place] [address] Ambulatory Visit Summaryon 0 02-28-2024 Ambulatory Visit Summary Ambulatory Visit Summary DANTE JAMES :1965 Visit Date:02/28/2024 Ambulatory Visit Instructions Your Diagnosis Kidney stone Right flank pain UTI symptoms Your Care Team Attending Physician - Olayinka HINSON, Marycruz Dove Primary Care Physician - Twila Verde MD This Is Your Medications List potassium citrate (potassium citrate 15 mEq oral tablet, extended release) Contact prescribing physician if questions or concerns cholecalciferol (Vitamin D3 62.5 mcg (2500 intl units) oral capsule) cranberry (cranberry oral capsule) levetiracetam (levetiracetam 750 mg oral tablet, extended release) multivitamin phenobarbital (phenobarbital 32.4 mg oral tablet) topiramate (topiramate 100 mg Tab) Procedures Performed Partial hysterectomy, Procedure on shoulder, Tonsillectomy and adenoidectomy. Discharge Vitals Temperature (Temporal Artery) 36.6 ?C Heart Rate (Peripheral) 68 Respiratory Rate 16 Blood Pressure 108/70 Height 160 cm Height 63 in Weight 59 kg Weight 129.8 lb BMI 23.05 What to do next You Need to Schedule the Following Appointments Follow Up with Olayinka HINSON, Marycruz Dove, URL, URO When: Where: [address] [place] [phone] Medications What How Much When Instructions New potassium citrate (potassium citrate 15 mEq oral tablet, extended release) 1 Tablets By Mouth 2 times a day Refills: 11 Pickup at [facility]/pharmacy #[id number] Unchanged cholecalciferol (Vitamin D3 62.5 mcg (2500 intl units) oral capsule) 1 Capsules By Mouth Every day Contact prescribing physician if questions or concerns Unchanged cranberry (cranberry oral capsule) 1 cap By Mouth Every day Contact prescribing physician if questions or concerns Unchanged levetiracetam (levetiracetam 750 mg oral tablet, extended release) 1 Tablets By Mouth Every day Contact prescribing physician if questions or concerns Unchanged multivitamin 1 tab By Mouth Every day Contact prescribing physician if questions or concerns Unchanged phenobarbital (phenobarbital 32.4 mg oral tablet) 1 Tablets By Mouth At bedtime take 1 tablet by mouth at bedtime Contact prescribing physician if questions or concerns Unchanged topiramate (topiramate 100 mg Tab) 2 Tablets By Mouth 2 times a day Contact prescribing physician if questions or concerns Pharmacy Information [facility]/pharmacy #[id number]: [address], [place] [id number] [phone] Allergies Latex (Hives) sulfa drugs (Hives) Problems Ongoing - Any problem that you are currently receiving treatment for. Asymptomatic microscopic hematuria Cervical radiculopathy Eczema Epilepsy History of cervical cancer Kidney stone Stress incontinence Trigeminal neuralgia UTI symptoms Patient Survey You may receive a survey via text or e-mail asking about your office visit. Please share your experience with us by completing your survey. We appreciate your feedback and thank you for choosing us for your care. Education Materials Kidney Stones Kidney stones are rock-like masses that form inside of the kidneys. Kidneys are organs that make pee (urine). A kidney stone may move into other parts of the urinary tract, including: ? The tubes that connect the kidneys to the bladder (ureters). ? The bladder. ? The tube that carries urine out of the body (urethra). Kidney stones can cause very bad pain and can block the flow of pee. The stone usually leaves your body (passes) through your pee. You may need to have a doctor take out the stone. What are the causes? Kidney stones may be caused by: ? A condition in which certain glands make too much parathyroid hormone (primary hyperparathyroidism). ? A buildup of a type of crystals in the bladder made of a chemical called uric acid. The body makes uric acid when you eat certain foods. ? Narrowing (stricture) of one or both of the ureters. ? A kidney blockage that you were born with. ? Past surgery on the kidney or the ureters, such as gastric bypass surgery. What increases the risk? You are more likely to develop this condition if: ? You have had a kidney stone in the past. ? You have a family history of kidney stones. ? You do not drink enough water. ? You eat a diet that is high in protein, salt (sodium), or sugar. ? You are overweight or very overweight (obese). What are the signs or symptoms? Symptoms of a kidney stone may include: ? Pain in the side of the belly, right below the ribs (flank pain). Pain usually spreads (radiates) to the groin. ? Needing to pee often or right away (urgently). ? Pain when going pee (urinating). ? Blood in your pee (hematuria). ? Feeling like you may vomit (nauseous). ? Vomiting. ? Fever and chills. How is this treated? Treatment depends on the size, location, and makeup of the kidney stones. The stones will often pass out of the body through peeing. You may need to (more content not included)... Normal [facility] Urology Office/Clinic Noteon 02-28-2024 Urology Office/Clinic Note Urology Office/Clinic Note Chief Complaint 9 month follow up HPI Staff 9m CLEVELAND/KUB & metabolic work up DX: Kidney Stone & UTI sx *No Uro Meds Stone Analysis 06/14/23 Metabolic Work Up 09/26/23 CLEVELAND 02/15/24 *BL Nonobstructing kidney stones NEG KUB 02/15/24 Dysuria: a little pain when urinating Incomplete bladder emptying: sometimes Hematuria: denies visible blood Frequency: denies Urgency: denies Nocturia: 2 xa night Stream: has a little hesitancy, steady stream but not a straight stream Leaking: denies Post void dripping: denies Wearing pads/ Depends: denies Urge incontinence: denies Stress incontinence: denies Incontinence without Sensory Awareness: denies Abdominal pain: denies Flank pain: right flank pain x 2 days Sexual complaints: _ History of Present Illness Tests reviewed: reviewed UA, stone analysis, metabolic workup, CLEVELAND, KUB I have reviewed the previous health record information and history for this patient from Dr. Bhagat. I have reviewed and verified the staff [...] See HPI. Physical Exam Vitals & Measurements T: 36.6 ?C(Temporal Artery) HR: 68(Peripheral) RR: 16 BP: 108/70 HT: 63 in HT: 160 cm WT: 59 kg WT: 129.8 lb BMI: 23.05 General Appearance: alert , no acute distress, well nourished, well developed female. Genitourinary: bladder nonpalpable, moderate right flank pain. Assessment/Plan 58 yo F with history of seizures, prior Dr. Villatoro pt here for follow up of kidney stones w/ a repeat metabolic workup. BBS 9. 1. Kidney stone (N20.0: Calculus of kidney) [...] 24 hr pH 6.817, Uric Acid 0.515 [1] Passed stone 04/2023, did not have pain or gross hematuria at that time. Stone analysis 06/14/23 - 95% Hydroxyapatite, 5% CaOx Pope. 24hr urine 09/26/23 [facility] - Volume 2.75L. U24 Na 77 low-normal, U24 Citric Acid 91 low. Ca 288 mildly elevated. Serum labs 09/26/23 [facility] - Cl 108 high. CLEVELAND 02/15/24 [facility] - Several nonobstructing bilateral renal stones, largest 3mm on R and two largest on L are 10mm and 8mm. Personal review: 3x7 mm on L and 3x9 mm on L. KUB 02/15/24 [facility] - No visible stones but view is obstructed by dense bowel content. Reviewed imaging and metabolic workup results. Advised pt left stones are larger and will likely require treatment. Pt is interested in this but would like to wait until April due to caring for her mother at this time. Advised pt citric acid is very low and calcium is slightly elevated. States she has not been adding lemon to her water. Recommended 1/4 cup lemon juice with water per day. Also states she has stopped taking calcium supplement but is unsure if she stopped this prior to completing metabolic workup. UCa did improve. Pt is taking topiramate. Educated pt on contribution to stone formation. Pt states her neurologist told her this does not contribute to the type of stones she makes as they had reviewed the stone analysis. Advised pt topiramate does contribute to her stone formation and hypocitraturia. Discussed options of discussing alternative medication with neuro vs taking a supplement. Pt prefers latter as neurologist was unwilling to change medication previously. Risks/benefits discussed. -Increase citric acid intake -Ca intake via diet. F/u with PCP if Ca needed for bone health if she is at risk, if so would recommend taking with food -Start potassium citrate 15mEq bid. Limit potassium intake (pt typically has a banana daily). ---Repeat BMP in 2 months -Will schedule a Cystoscopy with Left Retrogrades, Left Ureteroscopy, Left Laser Litho, Left Stone Basket, Left possible stent placement. The procedure risks, benefits, alternatives and complications have been discussed with the patient. These include but are not limited to bleeding, pain, infection, ureteral perforation, extravasation, stricture formation, sepsis, obstruction, inability to reach the stone, inability to fragment the stone, and inability to ret (more content not included)... Normal [facility] Comment on above: Result Comment: Elec tronically Signed By: Marycruz Bhagat MD\.br\Date and Time Signed: 02/28/24 11:28 EDT\.br\Electronically Co-Signed By: Nathalie Weaver\.br\Date and Time Co-Signed: 02/28/24 09:52 EDT Reminderson 02-19-2024 Reminders Reminders From: Shayy Cuadra To: EU - Recalls Olayinka; Sent: 06/14/2023 08:36:12 EST Show up: 01/05/2024 08:35:00 EDT Subject: CLEVELAND/kub/ metabolic w/u Reminder/Recall pt wants 24 urine @ [facility] (not [facility]) labs/ CLEVELAND/ KUB f/u with Dr Bhagat is 03/06/24 24hr urine in pt chart. Will call closer to get CLEVELAND/KUB completed. Called pt and advised of below message. CLEVELAND/KUB order faxed to [facility] CLEVELAND/KUB done on 02/15/24 for follow up. Normal [facility] Reminderson 02-13-2024 Reminders Reminders From: Leana Emerson To: EU - Recalls Olayinka; Sent: 06/14/2023 11:32:25 EST Show up: 12/13/2023 12:32:00 EDT Subject: Labs/Imaging Due Date/Time: 03/14/2024 12:32:00 EDT Pt will need KUB, CLEVELAND and Metabolic Workup done prior to appt. duplicate message. Normal [facility] Lab Reportson 10-02-2023 Lab Reports [id number] .00TIFF Normal [facility] Lab Reportson 09-28-2023 Lab Reports [id number] .00TIFF Normal [facility] Lab Reportson 09-26-2023 Lab Reports [id number] .00TIFF Normal [facility] Lab Reports [id number] .00TIFF Normal [facility] Calculus Analysison 06-28-20 23 Calcium oxalate monohydrate (Stone) [Mass fraction] 5 % Invalid Interpretation Code [facility] Comment on above: Performed By: #### 1 [id number] ####[facility] [address] [place] [address] Calculus analysis [Interp] Comment Invalid Interpretation Code [facility] Comment on above: Result Comment: Calc ium phosphate (hydroxyl form) includes hydroxyapatite, amorphous calcium phosphate, and whitlockite. Hydroxyapatite is the most common of the calcium phosphate salts found in human kidney stones. struvite as a minor component should not be excluded. Insufficient sample to perform additional, confirmatory, or reference testing. Performed By: #### 1 [id number] ####[facility] [address] [place] [address] Color (Stone) Fraire Invalid Interpretation Code [facility] Comment on above: Performed By: #### 1 [id number] ####[facility] [address] [place] [address] Composition Comment Invalid Interpretation Code [facility] Comment on above: Result Comment: Perc entage (Represents the % composition) Performed By: #### 1 [id number] ####[facility] [address] [place] [address] Disclaimer: Comment Invalid Interpretation Code [facility] Comment on above: Result Comment: This test was developed and its performance characteristics determined by [employer]. It has not been cleared or approved by the Food and Drug Administration. Performed at: [address] [id number] PhD Aniya Bright Performed By: #### 1 [id number] ####[facility] [address] [place] [address] Hydroxyapatite: 95 % Invalid Interpretation Code [facility] Comment on above: Performed By: #### 1 [id number] ####[facility] [address] [place] [address] Laboratory comment Steven (Report) Comment Invalid Interpretation Code [facility] Comment on above: Result Comment: Rigoberto watkins questions regarding Calculi Analysis contact [facility] at: [phone]. Performed By: #### 1 [id number] ####[facility] [address] [place] [address] Please Note: Comment Invalid Interpretation Code [facility] Comment on above: Result Comment: Calc nora report will follow via computer, mail or radio electrician delivery. Performed By: #### 1 [id number] ####[facility] [address] [place] [address] Size (Stone) [Entitic vol] 2x2 Invalid Interpretation Code [facility] Comment on above: Result Comment: Christ estrada piece received. Performed By: #### 1 [id number] ####[facility] [address] [place] [address] Specimen source subject Nom Comment Invalid Interpretation Code [facility] Comment on above: Result Comment: Not provided Performed By: #### 1 [id number] ####[facility] [address] [place] [address] Stone Photo Comment Invalid Interpretation Code [facility] Comment on above: Result Comment: Ca lucio will follow under a separate cover Performed By: #### 1 [id number] ####[place] [id number] [place] [address] Weight (Stone) 1 mg Invalid Interpretation Code [facility] Comment on above: Performed By: #### 1 [id number] ####[facility] [address] [place] [address] Auth for Release of Medical Recordson 06-21-2023 Auth for Release of Medical Records [id number] .00TIFF Normal [facility] Patient Educationon 06-14-20 Patient Education Nephrology Dietary [...] Spinach (cooked), rhubarb, beets, sweet potatoes, and [place] chard. ? Peanuts. ? Potato chips, malay fries, and baked potatoes with skin on. ? Nuts and nut products. ? Chocolate. ? If you regularly take a diuretic medicine, make sure to eat at least 1 or 2 servings of fruits or vegetables that are high in potassium each day. These include: ? Avocado. ? Banana. ? [place], prune, carrot, or tomato juice. ? Baked [...] fish oil, or vitamin B6. ? Take ifqz-hgi-siyurkj and prescription medicines only as told by your health care provider. These include supplements. What foods should I limit? Limit your in (more content not included)... Normal [facility] RAD - MISCon 06-14-2023 [facility] [id number] .00TIFF Normal [facility] MIS [id number]. 00TIFF Normal [facility] Urology Office/Clinic Noteon 06-14-2023 Urology Office/Clinic Note [...] 08:28:15. . Documenta (more content not included)... Normal [facility] Comment on above: Result Comment: Elec tronically Signed By: Marycruz Bhagat MD\.br\Date and Time Signed: 06/14/23 08:42 EST\.br\Electronically Co-Signed By: Leana Emerson\.br\Date and Time Co-Signed: 06/14/23 08:28 EST [facility] 06-08-2023 [facility] [id number] .00TIFF Normal [facility] Lab Reportson 05-10-2023 [facility] [id number] .00TIFF Normal [facility] Lab Reportson 05-05-2023 [facility] Reports [id number] .00TIFF Normal [facility] C Urineon 04-28-2023 Bacteria identified Cx Nom [...] Locations R1: This test was performed at: [facility], [address] [place] [address], [facility] , , [facility] Comment on above: Performed By: #### 2 [id number] ####[facility] [address] [place] [address] Formson 04-27-2023 Forms [id number] .00CD:127 [facility] Ambulatory Visit Summaryon 0 2023 Ambulatory Visit Summary DANTE JAMES Jania :1965 Visit Date:2023 Ambulatory Visit Instructions Your Diagnosis Kidney stone UTI symptoms Tests Performed Urnls Dip Stick Auto w/o Microscopy POC 09960 Your Care Team Attending Physician - Olayinka HINSON, Marycruz Dove Primary Care Physician - Twila Verde MD [...] Marycruz Bhagat MD Where: [facility] Brian Jay [facility] Patient Educationon 04-26-20 23 Patient Education Nephrology [...] Spinach (cooked), rhubarb, beets, sweet potatoes, and [place]ots[place]an chard. ? Peanuts. ? Potato chips, malay fries, and baked potatoes with skin on. ? Nuts and nut products. ? Chocolate. ? If you regularly take a diuretic medicine, make sure to eat at least 1 or 2 servings of fruits or vegetables that are high in potassium each day. These include: ? Avocado. ? Banana. ? [place], prune, carrot, or tomato juice. ? Baked [...] fish oil, or vitamin B6. ? Take hxab-rvh-tnkunkv and prescription medicines only as told by your health care provider. These include supplements. What foods should I limit? Limit your in (more content not included)... Normal [facility] Screenson 2023 Screens [id number]. 00CD:127 Normal [facility] Urology Office/Clinic Noteon 2023 Urology Office/Clinic Note [...] the patient. (more content not included)... Normal [facility] Comment on above: Result Comment: Elec tronically Signed By: Marycruz Bhagat MD.br\Date and Time Signed: 04/26/23 11:43 EDT\.br\Electronically Co-Signed [...] the prior MRI. Electronically authenticated by: TWILA DIAZ Date: 2022-11-10 12:35 Normal [facility] PHENOBARBITALon 11-09-2022 Phenobarbital, Serum 6 ug/mL Critically low 15-40 [facility] Comment on above: Result Comment: Dete ction Limit = 3 Performed By: #### P HENOB #### [facility] Laboratory [address] [address] [address] Adrianne Nava CBC AUTO DIFFon 11-08-2022 BASO # 0.0 103/ul Normal 0.0-0.1 [facility] Comment on above: Performed By: #### C BC ####[facility] [address] [address]Dr. Adrianne Nava Basophils/100 WBC (Bld) 0.5 % Normal 0.2-2.0 [facility] Comment on above: Performed By: #### C BC ####[facility] [address] [address]DrTata Nava EO # 0.1 103/ul Normal 0.0-0.7 [facility] Comment on above: Performed By: #### C BC ####[facility] [address] [address]DrTata Nava Eosinophils/100 WBC (Bld) 1.4 % Normal 0.9-7.0 [facility] Comment on above: Performed By: #### C BC ####[facility] [address] [address]Dr. Adrianne Nava Erythrocyte distribution width (RBC) [Ratio] 12.6 % Normal 11.0-15.0 [facility] Comment on above: Performed By: #### C BC ####[facility] [address] [address]Dr. Adrianne Nava Hematocrit (Bld) [Volume fraction] 41.9 % Normal 36.0-48.0 [facility] Comment on above: Performed By: #### C BC ####[facility] [address] [address]Dr. Adrianne Nava Hemoglobin (Bld) [Mass/Vol] 14.0 g/dL Normal 12.0-16.0 [facility] Comment on above: Performed By: #### C BC ####[facility] [address] [place], [place] [address]Dr. Adrianne Nava IG # 0.01 10e3/ul Normal 0.00-0.03 [facility] Comment on above: Performed By: #### C BC ####[facility] [address] [place], [place] [address]Dr. Adrianne Nava IG % 0.2 % Normal 0.0-0.5 [facility] Comment on above: Performed By: #### C BC ####[facility] [address] [address]Dr. Adrianne Nava LYMPH # 1.5 103/ul Normal 1.2-3.8 [facility] Comment on above: Performed By: #### C BC ####[facility] [address] [address]Dr. Adrianne Nava Lymphocytes/100 WBC (Bld) 27.3 % Normal 20.5-60.0 [facility] Comment on above: Performed By: #### C BC ####[facility] [address] [address]Dr. Adrianne Nava MANUAL DIFF REQ NO Normal [facility] Comment on above: Performed By: #### C BC ####[facility] [address] [address]Dr. Adrianne Nava MCH (RBC) [Entitic mass] 30.6 pg Normal 26.7-34.0 [facility] Comment on above: Performed By: #### C BC ####[facility] [address] [address]Dr. Adrianne Nava MCHC (RBC) [Mass/Vol] 33.4 g/dL Normal 29.9-35.2 [facility] Comment on above: Performed By: #### C BC ####[facility] [address] [address]Dr. Adrianne Elijah MCV (RBC) [Entitic vol] 91.5 fL Normal 81.0-99.0 [facility] Comment on above: Performed By: #### C BC ####[facility] [address] [place], [place] [address]Dr. Adrianne Nava MONO # 0.4 103/ul Normal 0.3-0.8 [facility] Comment on above: Performed By: #### C BC ####[facility] [address] [place], [place] [address]Dr. Ladonnaelke Nava Monocytes/100 WBC (Bld) 7.0 % Normal 1.7-12.0 [facility] Comment on above: Performed By: #### C BC ####[facility] [address] [place], [place] [address]Dr. Adrianne Nava NEUT # 3.6 103/ul Normal 1.4-6.5 [facility] Comment on above: Performed By: #### C BC ####[facility] [address] [place], [place] [address]Dr. Ladonnaelke Nava Neutrophils/100 WBC (Bld) 63.6 % Normal 43.0-75.0 [facility] Comment on above: Performed By: #### C BC ####[facility] [address] [place], [place] [address]Dr. Adrianne Nava Platelet mean volume (Bld) [Entitic vol] 10.8 fL Normal 9.5-13.5 [facility] Comment on above: Performed By: #### C BC ####[facility] [address] [place], [place] [address]La. Adrianne Nava PLT 218 103/ul Normal 150-450 [facility] Comment on above: Performed By: #### C BC ####[facility] [address] [place], [place] [address]Fb. Adrianne Nava RBC 4.58 106/ul Normal 4.20-5.40 [facility] Comment on above: Performed By: #### C BC ####[facility] [address] [place], [place] [address]Tk. Ladonnaelke Nava WBC 5.6 103/ul Normal 4.0-11.0 [facility] Comment on above: Performed By: #### C BC ####[facility] [address] [place], [place] [address]Ve. Adrianne Nava LIVER PROFILEon 11-08-2022 Albumin [Mass/Vol] 3.7 g/dL Normal 3.4-5.0 [facility] Comment on above: Performed By: #### Keaton BISHOP BMP #### [facility] Laboratory [address] [address] [address] Adrianne Nava Albumin/Globulin [Mass ratio] 1.0 {ratio} Normal [facility] Comment on above: Performed By: #### Keaton BISHOP BMP #### [facility] [address] [address] [address] Adrianne Nava ALP [Catalytic activity/Vol] 85 U/L Normal 46-116 [facility] Comment on above: Performed By: #### Keaton BISHOP, BMP #### [facility] [address] [address] [address] Adrianne Nava ALT [Catalytic activity/Vol] 33 U/L Normal 14-59 [facility] Comment on above: Performed By: #### L DARIO, BMP #### [facility] [address] [address] [address] Adrianne Nava AST [Catalytic activity/Vol] 16 U/L Normal 15-37 [facility] Comment on above: Performed By: #### L DARIO, BMP #### [facility] [address] [address] [address] Adrianne Nava BILI, CONJUGATED 0.1 mg/dL Normal 0.0-0.2 [facility] Comment on above: Performed By: #### L IVER, BMP #### [facility] [address] [address] [address] Adrianne Nava Bilirubin [Mass/Vol] 0.3 mg/dL Normal 0.2-1.0 [facility] Comment on above: Performed By: #### L IVER, BMP #### [facility] [address] [address] [address] Adrianne Nava Globulin (S) [Mass/Vol] 3.7 g/dL Normal [facility] Comment on above: Performed By: #### L IVER, BMP #### [facility] [address] [address] [address] Adrianne Nava Protein [Mass/Vol] 7.4 g/dL Normal 6.4-8.2 [facility] Comment on above: Performed By: #### L IVER, BMP #### [facility] [address] [address] [address] Adrianne Nava PROF CHEM 8 (BAS METB)on Anion gap [Moles/Vol] 11.2 mmol/L Normal [facility] Comment on above: Performed By: #### L IVER, BMP ####[facility] [address] [address]Dr. Adrianne Nava Calcium [Mass/Vol] 9.2 mg/dL Normal 8.5-10.1 [facility] Comment on above: Performed By: #### L IVER, BMP ####[facility] [address] [address]Dr. Adrianne Nava Chloride [Moles/Vol] 108 mmol/L Critically high 98-107 [facility] Comment on above: Performed By: #### L IVER, BMP ####[facility] [address] [address]Dr. Adrianne Nava CO2 [Moles/Vol] 28.6 mmol/L Normal 21.0-32.0 [facility] Comment on above: Performed By: #### L IVJUAN LUIS, BMP ####[facility] [address] [address]Dr. Adrianne Nava Creatinine [Mass/Vol] 0.74 mg/dL Normal 0.55-1.02 [facility] Comment on above: Performed By: #### L IVJUAN LUIS, BMP ####[facility] [address] [address]Dr. Adrianne Nava EGFR-AF BENINESE >60 Normal >=60 [facility] Comment on above: Performed By: #### L IVJUAN LUIS, BMP ####[facility] [address] [address]Dr. Adrianne Nava EGFR-NON AF BENINESE >60 Normal >=60 [facility] Comment on above: Performed By: #### L IVJUAN LUIS BMP ####[facility] [address] [address]Dr. Adrianne Nava Glucose [Mass/Vol] 78 mg/dL Normal 74-106 [facility] Comment on above: Performed By: #### L DARIO, BMP ####[facility] [address] [address]Dr. Adrianne Nava Potassium [Moles/Vol] 3.8 mmol/L Normal 3.5-5.1 [facility] Comment on above: Performed By: #### L IVJUAN LUIS, BMP ####[facility] [address] [address]Dr. Adrianne Nava Sodium [Moles/Vol] 144 mmol/L Normal 136-145 [facility] Comment on above: Performed By: #### L IVJUAN LUIS, BMP ####[facility] [address] [address]Dr. Adrianne Nava Urea nitrogen [Mass/Vol] 24.0 mg/dL Critically high 7.0-18.0 [facility] Comment on above: Performed By: #### L IVJUAN LUIS, BMP ####[facility] [address] [address]DrTata Nava Urea nitrogen/Creatinine [Mass ratio] 32.4 mg/mg Normal [facility] Comment on above: Performed By: #### L DARIO [facility] ####[facility] [address] [place], [place] [address]FwTata Nava Cytologyon 11-07-2022 Cytology (NOTE) INTERPRETATION Vaginal material, (ThinPrep vial, Imaging-assisted review): Specimen Adequacy: Satisfactory for evaluation. Descriptive Diagnosis: Negative for intraepithelial lesion or malignancy. Bottle Capping Machine Operator: AVTAR MEZA(ASCP) Electronically Signed Out 11/11/2022 Source: A: Vaginal material, (ThinPrep vial, Imaging-assisted review) Clinical History Hysterectomy R87.610 Cytology smear of cervix with ASC-US High risk HPV DNA testing is requested if the diagnosis is abnormal GYNECOLOGIC CYTOLOGY REPORT Patient Name: DANTE JAMES [facility] Rec: [id number] Path Number: [id number] [employer] [facility] ANATOMIC PATHOLOGY [address] [place] [id number] [facility] Comment on above: Performed By: #### P PPVP #### [facility] [address] [place] [address] [employer] Intern: Dayne Madison MD HPV DNA High Riskon 05-05-20 22 HPV Interp [facility] Comment on above: Result Comment: This [...] purposes. Performed By: #### H PVH #### [address] [place] [address] [employer] Intern: Dayne Madison MD HPV Type 16 Not detected [facility] Comment on above: Performed By: #### H PVH #### [address] [address] [employer] Intern: Dayne Madison MD HPV Type 18 Not detected [facility] Comment on above: Performed By: #### H PVH #### [address] [address] [employer] Intern: Dayne Madison MD Other High Risk HPV Not detected [facility] Comment on above: Performed By: #### H PVH #### [address] [address] [employer] Intern: Dayne Madison MD HPV DNA High Riskon 05-03-20 HPV Sample .THIN PREP [facility] Comment on above: Performed By: #### H PVH #### [address] [address] [employer] Intern: Dayne Madison MD Source .VAGINAL SPECIMEN Normal [facility] Comment on above: Performed By: #### H PVH #### [address] [address] [employer] Intern: Dayne Madison MD Cult,Genitalon 04-24-2022 Cult,Genital Specimen Description .VAGINA Culture NORMAL URO-GENITAL MITCHEL NEGATIVE FOR NEISSERIA GONORRHOEAE NEGATIVE FOR GROUP B STREPTOCOCCI Report Status FINAL 04/24/2022 [facility] Comment on above: Performed By: #### G EC #### [address] [address] [employer] Intern: Dayne Madison MD [facility] [address] [place] [address] [employer] Intern: Brian Thomas MD Cytologyon 04-21-2022 Cytology (NOTE) INTERPRETATION Vaginal material, (ThinPrep vial, Imaging-assisted review): Specimen Adequacy: Satisfactory for evaluation. Descriptive Diagnosis: Atypical squamous cells of undetermined significance (ASC-US). Bottle Capping Machine Operator: Petty Boone. Electronically Signed Out 05/03/2022 Procedure/Addendum HPV Procedure Report Date Ordered: 05/03/2022 [...] Imaging-assisted review) Clinical History Hysterectomy Z01.419 Routine fish agent exam without abnormal findings High risk HPV DNA testing is requested if the diagnosis is abnormal GYNECOLOGIC CYTOLOGY REPORT Patient Name: DANTE JAMES [facility] Rec: [id number] Path Number: [id number] [facility] ANATOMIC PATHOLOGY [address] [place], [place] [address] [facility] Comment on above: Performed By: #### P PPVP #### [facility] [address] [place] [phone] [employer] Intern: Dayne Madison MD XR KUB 1 VIEWon [...] by: BRIAN TIDWELL Date: 2022-04-15 16:45 Normal [facility] CT ABD/PELV W CONon 04-06-20 CT ABD/PELV W CON EXAMINATION: CT ABD/PELV [...] by: IVIS LASSITER Date: 2022-04-06 17:05 Normal [facility] CBC AUTO DIFFon 03-25-2022 BASO # 0.0 103/ul Normal 0.0-0.1 [facility] Comment on above: Performed By: #### C BC ####[facility] [address] [address]Dr. Adrianne Nava Basophils/100 WBC (Bld) 0.4 % Normal 0.2-2.0 [facility] Comment on above: Performed By: #### C BC ####[facility] [address] [place], [place] [address]Dr. Adrianne Nava EO # 0.1 103/ul Normal 0.0-0.7 [facility] Comment on above: Performed By: #### C BC ####[facility] [address] [place], [place] [address]Dr. Adrianne Nava Eosinophils/100 WBC (Bld) 1.2 % Normal 0.9-7.0 [facility] Comment on above: Performed By: #### C BC ####[facility] [address] [place], [place] [address]Dr. Adrianne Nava Erythrocyte distribution width (RBC) [Ratio] 12.4 % Normal 11.0-15.0 [facility] Comment on above: Performed By: #### C BC ####[facility] [address] [place], [place] [address]Dr. Adrianne Nava Hematocrit (Bld) [Volume fraction] 41.1 % Normal 36.0-48.0 [facility] Comment on above: Performed By: #### C BC ####[facility] [address] [place], [place] [address]Dr. Adrianne Nava Hemoglobin (Bld) [Mass/Vol] 13.7 g/dL Normal 12.0-16.0 [facility] Comment on above: Performed By: #### C BC ####[facility] [address] [place], [place] [address]Dr. Adrianne Nava IG # 0.02 10e3/ul Normal 0.00-0.03 [facility] Comment on above: Performed By: #### C BC ####[facility] [address] [place], [place] [address]Dr. Adrianne Nava IG % 0.3 % Normal 0.0-0.5 [facility] Comment on above: Performed By: #### C BC ####[facility] [address] [address]Dr. Adrianne Nava LYMPH # 1.4 103/ul Normal 1.2-3.8 [facility] Comment on above: Performed By: #### C BC ####[facility] [address] [address]Dr. Adrianne Elijah Lymphocytes/100 WBC (Bld) 19.1 % Critically low 20.5-60.0 [facility] Comment on above: Performed By: #### C BC ####[facility] [address] [address]Dr. Ladonnaelke Nava MANUAL DIFF REQ NO Normal [facility] Comment on above: Performed By: #### C BC ####[facility] [address] [address]Dr. Adrianne Elijah MCH (RBC) [Entitic mass] 30.7 pg Normal 26.7-34.0 [facility] Comment on above: Performed By: #### C BC ####[facility] [address] [address]Dr. Adrianne Nava MCHC (RBC) [Mass/Vol] 33.3 g/dL Normal 29.9-35.2 [facility] Comment on above: Performed By: #### C BC ####[facility] [address] [address]Dr. Ladonnaelke Elijah MCV (RBC) [Entitic vol] 92.2 fL Normal 81.0-99.0 [facility] Comment on above: Performed By: #### C BC ####[facility] [address] [address]Dr. Adrianne Nava MONO # 0.5 103/ul Normal 0.3-0.8 [facility] Comment on above: Performed By: #### C BC ####[facility] [address] [address]Dr. Adrianne Elijah Monocytes/100 WBC (Bld) 6.8 % Normal 1.7-12.0 [facility] Comment on above: Performed By: #### C BC ####[facility] [address] [address]Dr. Adrianne Nava NEUT # 5.3 103/ul Normal 1.4-6.5 [facility] Comment on above: Performed By: #### C BC ####[facility] [address] [address]Dr. Adrianne Nava Neutrophils/100 WBC (Bld) 72.2 % Normal 43.0-75.0 [facility] Comment on above: Performed By: #### C BC ####[facility] [address] [address]Dr. Adrianne Nava Platelet mean volume (Bld) [Entitic vol] 11.1 fL Normal 9.5-13.5 [facility] Comment on above: Performed By: #### C BC ####[facility] [address] [address]Dr. Adrianne Nava PLT 200 103/ul Normal 150-450 [facility] Comment on above: Performed By: #### C BC ####[facility] [address] [address]Dr. Adrianne Nava RBC 4.46 106/ul Normal 4.20-5.40 [facility] Comment on above: Performed By: #### C BC ####[facility] [address] [place], [place] [address]Dr. Adrianne Nava WBC 7.4 103/ul Normal 4.0-11.0 [facility] Comment on above: Performed By: #### C BC ####[facility] [address] [place], [place] [address]Dr. Adrianne Nava CT ABD/PELVIS WO CONon 03-25 [...] by: IVIS LASSITER Date: 2022-03-25 15:08 Normal [facility] CULTURE URINEon 03-25-2022 CULTURE URINE Culture Observations : NO GROWTH. Normal [facility] Comment on above: Performed By: #### U RCX ####[facility] [address] [address]Dr. Adrianne Nava ER URINE PROFILEon 2 Bilirubin Ql (U) Negative Normal NEGATIVE [facility] Comment on above: Performed By: #### MELISSA FOY #### [facility] [address] [address] [address] Adrianne Nava Clarity (U) CLEAR Normal CLEAR [facility] Comment on above: Performed By: #### MELISSA FOY #### [facility] [address] [address] [address] Adrianne Nava Color (U) LT. YELLOW Normal YELLOW [facility] Comment on above: Performed By: #### E MELISSA JC #### [facility] [address] [address] [address] Adrianne MENDOZA A micrscopic examination will be performed if indicated. Normal [facility] Comment on above: Performed By: #### Dusty JC UMICRO #### [facility] [address] [place] [address] Dr. Adrianne Nava Glucose Ql (U) Negative Normal NEGATIVE [facility] Comment on above: Performed By: #### Dusty JC UMICRO #### [facility] [address] [place] [address] Dr. Adrianne Nava Hemoglobin Ql (U) Negative Normal NEGATIVE [facility] Comment on above: Performed By: #### Dusty JC UMICRO #### [facility] [address] [place] [address] Dr. Adrianne Nava Ketones Ql (U) Negative Normal NEGATIVE [facility] Comment on above: Performed By: #### Dusty JC UMICRO #### [facility] [address] [place] [address] Dr. Adrianne Nava LEUKOCYTES MODERATE Abnormal NEGATIVE [facility] Comment on above: Performed By: #### Dusty JC UMICRO #### [facility] [address] [place] [address] Dr. Adrianne Nava Nitrite Ql (U) Negative Normal NEGATIVE [facility] Comment on above: Performed By: #### Dusty JC UMICRO #### [facility] [address] [place] [address] Dr. Adrianne Nava pH (U) 6.5 [pH] Normal 5-9 [facility] Comment on above: Performed By: #### Dusty JC UMICRO #### [facility] [address] [place] [address] Dr. Adrianne Nava SPEC GRAVITY <=1.005 Abnormal 1.005-<=1.025 [facility] Comment on above: Performed By: #### Dusty JC UMICRO #### [facility] [address] [place] [address] Dr. Adrianne Nava UA PROTEIN Negative Normal NEGATIVE/ TRACE [facility] Comment on above: Performed By: #### MELISSA FOY #### [facility] [address] [place] [address] Dr. Adrianne Nava UR MICRO IND INDICATED Normal [facility] Comment on above: Performed By: #### E MELISSA JC #### [facility] [address] [place] [address] Dr. Adrainne Nava Urobilinogen Qn (U) 0.2 {Kaley'U}/dL Normal 0.2 - 1. 0 [facility] Comment on above: Performed By: #### MELISSA FOY #### [facility] [address] [place] [address] Dr. Adrianne Nava PROF CHEM 8 (BAS METB)on Anion gap [Moles/Vol] 12.7 mmol/L Normal [facility] Comment on above: Performed By: #### B MP #### [facility] [address] [place] [address] Dr. Adrianne Nava Calcium [Mass/Vol] 9.0 mg/dL Normal 8.5-10.1 [facility] Comment on above: Performed By: #### B MP #### [facility] [address] [place] [address] Dr. Adrianne Nava Chloride [Moles/Vol] 105 mmol/L Normal 98-107 [facility] Comment on above: Performed By: #### B MP #### [facility] [address] [place] [address] Dr. Adrianne Nava CO2 [Moles/Vol] 25.1 mmol/L Normal 21.0-32.0 [facility] Comment on above: Performed By: #### B MP #### [facility] [address] [place] [address] Dr. Adrianne Nava Creatinine [Mass/Vol] 0.86 mg/dL Normal 0.55-1.02 [facility] Comment on above: Performed By: #### B MP #### [facility] [address] [place] [address] Dr. Adrianne Nava EGFR-AF BENINESE >60 Normal >=60 [facility] Comment on above: Performed By: #### B MP #### [facility] [address] [address] [address] Adrianne Nava EGFR-NON AF BENINESE >60 Normal >=60 [facility] Comment on above: Performed By: #### B MP #### [facility] [address] [address] [address] Adrianne Nava Glucose [Mass/Vol] 99 mg/dL Normal 74-106 [facility] Comment on above: Performed By: #### B MP #### [facility] [address] [address] [address] Adrianne Nava Potassium [Moles/Vol] 3.8 mmol/L Normal 3.5-5.1 [facility] Comment on above: Performed By: #### B MP #### [facility] [address] [place] [address] Dr. Adrianne Nava Sodium [Moles/Vol] 139 mmol/L Normal 136-145 [facility] Comment on above: Performed By: #### B MP #### [facility] [address] [address] [address] Adrianne Nava Urea nitrogen [Mass/Vol] 19.0 mg/dL Critically high 7.0-18.0 [facility] Comment on above: Performed By: #### B MP #### [facility] [address] [place] [address] Dr. Adrianne Nava Urea nitrogen/Creatinine [Mass ratio] 22.1 mg/mg Normal [facility] Comment on above: Performed By: #### B MP #### [facility] [address] [address] [address] Adrianne Nava URINE MICROSCOPIC ONLYon BACTERIA TRACE Abnormal NONE SEEN [facility] Comment on above: Performed By: #### MELISSA FOY #### [facility] [address] [place] [address] Dr. Adrianne Nava Bacteria identified Cx Nom (U) INDICATED Normal [facility] Comment on above: Performed By: #### MELISSA FOY #### [facility] [address] [place] [address] Dr. Adrianne Nava CAST NONE SEEN Normal NONE SEEN [facility] Comment on above: Performed By: #### EVELYNE FOYRO #### [facility] [address] [place] [address] Dr. Adrianne Nava Crystals LM Nom (Urine sed) NONE SEEN Normal NONE SEEN [facility] Comment on above: Performed By: #### Dusty JC UMICRO #### [facility] [address] [place] [address] Dr. Adrianne Nava Epithelial cells LM Ql (Urine sed) FEW Abnormal NONE SEEN /RARE [facility] Comment on above: Performed By: #### Dusty JC UMICRO #### [facility] [address] [place] [address] Dr. Adrianne Nava MUCOUS NONE SEEN Normal NONE SEEN [facility] Comment on above: Performed By: #### EVELYNE FOYRO #### [facility] [address] [place] [address] Dr. Adrianne Nava RBC 0-2 Normal 0-2 [facility] Comment on above: Performed By: #### EVELYNE FOYRO #### [facility] [address] [place] [address] Dr. Adrianne Nava WBC 10-20 Abnormal NONE SEEN [facility] Comment on above: Performed By: #### EVELYNE FOYRO #### [facility] [address] [place] [address] Dr. Adrianne Nvaa MG MAMM SCREEN 3D JORDAN CADon 03-07-2022 MG MAMM SCREEN 3D JORDAN CAD Patient: DANTE JAMES Exam Date: 03/07/2022 : 1965 Gender:F Ordering : DR HANS YANG Admission #: [id number] Family : Order #: [id number] CLICK HERE TO VIEW EXAM RADIOLOGY REPORT [...] cervical cancer at age 35. LOCATION: [facility] BREAST COMPOSITION: Extremely dense, which lowers the [...] MD on 03/07/2022 at 09:52 Normal [facility] C. DIFF PCRon 02-05-2022 C. DIFFICILE PCR Negative Normal NEGATIVE [facility] Comment on above: Performed By: #### C DIFPOC ####[facility] [id number] [address]Dr. Adrianne Nava GI PANEL (PCR)on 02-05-2022 Adenovirus F 40/41 Not detected Normal NOT DETECTED [facility] Comment on above: Performed By: #### G IPANEL #### [facility] [address] [place] [address] Dr. Adrianne Nava Astrovirus Not detected Normal NOT DETECTED [facility] Comment on above: Performed By: #### G IPANEL #### [facility] [address] [address] [address] Adrianne Nava C. Diff toxin A/B Not detected Normal NOT DETECTED [facility] Comment on above: Performed By: #### G IPANEL #### [facility] [address] [address] [address] Adrianne Nava Campylobacter Not detected Normal NOT DETECTED [facility] Comment on above: Performed By: #### G IPANEL #### [facility] [address] [address] [address] Adrianne Nava Cryptosporidium Not detected Normal NOT DETECTED [facility] Comment on above: Performed By: #### G IPANEL #### [facility] [address] [address] [address] Adrianne Nava Cyclos. Cayetanensis Not detected Normal NOT DETECTED [facility] Comment on above: Performed By: #### G IPANEL #### [facility] [address] [address] [address] Adrianne Nava E. Coli O157 Not Applicable Normal Not Applicable [facility] Comment on above: Performed By: #### G IPANEL #### [facility] [address] [address] [address] Adrianne Nava E. histolytica Not detected Normal NOT DETECTED [facility] Comment on above: Performed By: #### G IPANEL #### [facility] [address] [place] [address] Dr. Adrianne Nava EAEC Not detected Normal NOT DETECTED [facility] Comment on above: Performed By: #### G IPANEL #### [facility] [address] [place] [address] Dr. Adrianne Nava EIEC Not detected Normal NOT DETECTED [facility] Comment on above: Performed By: #### G IPANEL #### [facility] [address] [place] [address] Dr. Adrianne Nava EPEC Not detected Normal NOT DETECTED [facility] Comment on above: Performed By: #### G IPANEL #### [facility] [address] [place] [address] Dr. Adrianne Nava ETEC Not detected Normal NOT DETECTED [facility] Comment on above: Performed By: #### G IPANEL #### [facility] [address] [place] [address] Dr. Adrianne Marin. Lamblia Not detected Normal NOT DETECTED [facility] Comment on above: Performed By: #### G IPANEL #### [facility] [address] [place] [address] Dr. Adrianne Nava GIPANEL CONTROLS PASSED Normal [facility] Comment on above: Performed By: #### G IPANEL #### [facility] [address] [place] [address] Dr. Adrianne COOK HEADER GI PANEL BACTERIA Normal T [facility] Comment on above: Performed By: #### G IPANEL #### [facility] [address] [place] [address] Dr. Adrianne PAUL ECOLI GI PANEL DIARRHEAGENIC E.COLI / SHIGELLA Normal [facility] Comment on above: Performed By: #### G IPANEL #### [facility] [address] [place] [address] Dr. Adrianne PAUL INFO SEE BELOW Normal [facility] Comment on above: Result Comment: EAEC - Enteroaggregative E. Coli EPEC- Enteropathogenic E. Coli ETEC- Enterotoxigenic E. Coli lt/st STEC- Shigella-like toxin-producing E. Coli stx1/stx2 EIEC- Shigella/Enteroinvasive E. Coli Performed By: #### G IPANEL #### [facility] [address] [place] [address] Dr. Adrianne PAUL PARASITES GI PANEL PARASITES Normal [facility] Comment on above: Performed By: #### G IPANEL #### [facility] [address] [place] [address] Dr. Adrianne PAUL VIRUS GI PANEL VIRUSES Normal [facility] Comment on above: Performed By: #### G IPANEL #### [facility] [address] [place] [address] Dr. Adrianne Nava Norovirus GI/GII Not detected Normal NOT DETECTED [facility] Comment on above: Performed By: #### G IPANEL #### [facility] [address] [place] [address] Dr. Adrianne Nava P. Shigelloides Not detected Normal NOT DETECTED [facility] Comment on above: Performed By: #### G IPANEL #### [facility] [address] [place] [address] Dr. Adrianne Nava Rotavirus A Not detected Normal NOT DETECTED [facility] Comment on above: Performed By: #### G IPANEL #### [facility] [address] [place] [address] Dr. Adrianne Nava Salmonella Not detected Normal NOT DETECTED [facility] Comment on above: Performed By: #### G IPANEL #### [facility] [address] [place] [address] Dr. Adrianne Nava Sapovirus Not detected Normal NOT DETECTED [facility] Comment on above: Performed By: #### G IPANEL #### [facility] [address] [place] [address] Dr. Adrianne Nava STEC Not detected Normal NOT DETECTED [facility] Comment on above: Performed By: #### G IPANEL #### [facility] [address] [place] [address] Dr. Adrianne Nava Vibrio Not detected Normal NOT DETECTED [facility] Comment on above: Performed By: #### G IPANEL #### [facility] [address] [place] [address] Dr. Adrianne Nava Vibrio Cholera Not detected Normal NOT DETECTED [facility] Comment on above: Performed By: #### G IPANEL #### [facility] [address] [place] [address] Dr. Adrianne Nava Y. Enterocolitica Not detected Normal NOT DETECTED [facility] Comment on above: Performed By: #### G IPANEL #### [facility] [address] [place] [address] Dr. Adrianne Nava Vital Signs Date Time Vital Sign Value Performing Clinician Facility 02-28-2024 09:07-0400 Body temperature 97.88 [degF] Marycruz Lue [facility] 02-28-2024 09:07-0400 Diastolic blood pressure 70 mm[Hg] Marycruz Lue [facility] 02-28-2024 09:07-0400 Heart rate 68 /min Marycruz Lue [facility] 02-28-2024 09:07-0400 Respiratory rate 16 /min Marycruz Lue [facility] 02-28-2024 09:07-0400 Systolic blood pressure 108 mm[Hg] Marycruz Bhagat [facility] 03-13-2023 11:45-0400 Body height 162.56 cm Erica Mott Other [email or web address] Other 03-13-2023 11:45-0400 Body mass index (BMI) [Ratio] 23.51 kg/m2 Erica Mott Other [email or web address] Other 03-13-2023 11:45-0400 Body temperature 98 [degF] Erica Mott Other [email or web address] Other 03-13-2023 11:45-0400 Body weight 62.14 kg Erica Mott Other [email or web address] Other 03-13-2023 11:45-0400 Diastolic blood pressure 65 mm[Hg] Erica Mott Other [email or web address] Other 03-13-2023 11:45-0400 Respiratory rate 18 /min Erica Mott Other [email or web address] Other 03-13-2023 11:45-0400 SaO2% (BldA) [Mass fraction] 96 % Erica Mott Other [email or web address] Other 03-13-2023 11:45-0400 Systolic blood pressure 103 mm[Hg] Erica Mott Other [email or web address] Other 03-09-2023 10:05-0400 Body height 162.56 cm Erica Mott Other [email or web address] Other 03-09-2023 10:05-0400 Body mass index (BMI) [Ratio] 23.51 kg/m2 Erica Mott Other [email or web address] Other 03-09-2023 10:05-0400 Body temperature 97.3 [degF] Erica Mott Other [email or web address] Other 03-09-2023 10:05-0400 Body weight 62.14 kg Erica Mott Other [email or web address] Other 03-09-2023 10:05-0400 Diastolic blood pressure 61 mm[Hg] Erica Mott Other [email or web address] Other 03-09-2023 10:05-0400 Respiratory rate 18 /min Erica Mott Other [email or web address] Other 03-09-2023 10:05-0400 SaO2% (BldA) [Mass fraction] 99 % Erica Mott Other [email or web address] Other 03-09-2023 10:05-0400 Systolic blood pressure 98 mm[Hg] Erica Mott Other [email or web address] Other 04-20-2022 14:41-0400 Blood Pressure Location LIAT BORRERO [facility] 04-20-2022 14:41-0400 Diastolic blood pressure 80 mm[Hg] LIAT JACOBSRY [facility] 04-20-2022 14:41-0400 Heart rate 75 /min LIAT JACOBSRY [facility] 04-20-2022 14:41-0400 Systolic blood pressure 119 mm[Hg] LIAT BORRERO [facility] Encounters Encounter Date Encounter Type Care Provider Facility Start: 02-28-2024 End: 02-28-2024 Lab Drop off Marycruz M. Lue [facility] Start: 02-28-2024 End: 02-28-2024 ambulatory Marycruz M. Lue [place] Start: 02-28-2024 End: 02-28-2024 Patient encounter procedure Marycruz M. Lue [facility] Start: 12-11-2023 End: 12-11-2023 ambulatory SERGIO STRICKLANDAlexandro Not Available Start: 06-14-2023 End: 06-14-2023 Lab Drop off Marycruz M. Lue [facility] Start: 06-14-2023 End: 06-14-2023 ambulatory Marycruz M. Lue [facility] Start: 2023 End: 2023 ambulatory Marycruz M. Lue Facility[facility] Start: 2023 End: 2023 ambulatory Marycruz M. Lue Facility:[facility] Start: 03-13-2023 End: 03-13-2023 ambulatory Erica Mott Other [email or web address] Other Start: 03-13-2023 Office outpatient vi sit 15 minutes Erica Mott [facility] Start: 03-09-2023 End: 03-09-2023 ambulatory Erica Mott Other [email or web address] Other Start: 03-09-2023 Office outpatient ne w 20 minutes Erica Mott [facility] Start: 11-14-2022 End: 11-14-2022 ambulatory DENISE CHAVARRIA Facility:[facility] Start: 11-09-2022 End: 11-10-[address] TWILA VERDE . Facility:[facility] Start: 11-08-2022 End: 11-09-[address] KANE MCKEE Facility:[facility] Start: 11-07-2022 End: 11-08-2022 ambulatory [facility] Start: 10-07-2022 End: 10-08-[address] TWILA VERDE . Facility:[facility] Start: 04-21-2022 End: 04-22-2022 ambulatory HANS Infante [facility] Start: 04-21-2022 Encounter for gynecological examination (general) (routine) without abnormal findings [facility] Start: 04-21-2022 End: 04-21-2022 Patient encounter procedure Twila Verde MD Work Phone: [facility] Start: 04-21-2022 End: 04-21-2022 Subsequent hospital visit by physician Twila Verde MD Work Phone: [facility] Comment on above: Vaginal irritation; Women's annual routine gynecological examination Start: 04-20-2022 End: 04-20-2022 Patient encounter procedure LIAT BORRERO [facility] Start: 04-15-2022 End: 04-16-[address] BRIAN TIDWELL Facility:[facility] Start: 04-06-2022 End: 04-07-[address] TWILA VERDE . Facility:[facility] Start: 03-25-2022 End: 03-25-[address] IVIS LASSITER Facility:[facility] Start: 03-07-2022 End: 03-08-[address] BRIAN TIDWELL Facility:[facility] Start: 02-05-2022 End: 02-06-[address] TWILA VERDE . Facility:[facility] Start: 04-19-2021 End: 04-19-2021 Subsequent hospital visit by physician Twila Verde MD [facility] Comment on above: History of cervical cancer Start: 05-02-2019 End: 05-02-2019 Subsequent hospital visit by physician Twila HARO Laboratory Comment on above: Women's annual routi ne gynecological examination Start: 03-29-2017 Ambulatory HARRISON BUSTAMANTE Facility :8 Start: 02-10-2017 Ambulatory HARRISON BUSTAMANTE Facility :8 Procedures Date Procedure Procedure Detail Performing Clinician Partial hysterectomy JENNIFE R GISSELL Procedure on shoulder MARLONNIF ER GISSELL Tonsillectomy LIAT BORRERO Tonsillectomy and adenoidectomy Marycruz Bhagat Plan of Treatment Date Care Activity Detail Author Start: 04-24-2023 End: 04-24-2023 Patient encounter procedure 04/24/2023 Office Visit Obstetrics and Gynecology Hans Yang MD [address] [place] [address] [facility] & [facility]YNECOLOGY [facility] of [facility] Start: 03-05-2023 Screening for malign ant neoplasm of breast Breast cancer screen [facility] Start: 04-21-2022 End: 04-21-2022 Patient encounter procedure 04/21/2022 Office Visit Obstetrics and Gynecology Hans Yang MD [address] [place] [address] [facility] Start: 03-31-2022 Influenza vaccination Flu vaccine (# 1) [facility] Start: 04-30-2021 Cervical cancer screen Cervical canc er screen [place], [place] Start: 03-31-2021 Influenza vaccination Flu vaccine (# 1) [facility] Work Phone: Start: 06-06-2020 Breast cancer screen Breast cancer s creen [place], [place] Start: 05-30-2019 Influenza vaccination Flu vaccine (# 1) [place] Comment on above: Postponed from 03/31 (Patient Refused) Start: 2015 Colon cancer screen colonoscopy Colon cancer screen colonoscopy [place], [place] Start: 2015 Shingles Vaccine (1 of 2) Shingles Vaccine (1 of 2) [place], [place] Start: 2010 Screening for malign ant neoplasm of colon [facility] [employer] Start: 2005 Diabetes screen Diabetes screen [facility] [employer] Phone: Start: 2005 Lipid panel [facility] [employer] Start: 2005 Lipid screen Lipid screen [place], [place] Start: 1984 DTaP/Tdap/Td vaccine (1 - Tdap) DTaP/Tdap/Td vaccine (1 - Tdap) [facility] [employer] Start: 1983 Hepatitis C screening Hepatitis C sc reen [facility] [employer] Start: 1980 HIV screen HIV screen [place], [place] Start: 1980 HIV screening HIV screen [facility] [employer] Start: 1977 Depression Screen Depression Screen [facility] [employer] Start: 1965 Hepatitis C screen Hepatitis C scree n [place], [place] Start: 1965 Hepatitis C screening Hepatitis C sc [facility] [employer] Phone: End: 04-21-2022 Culture, Genital [facility] [employer] Phone: Comment on above: 1 Occurrences starti ng 04/21/2022 until 04/21/2022 End: 05-02-2019 Cytopathology procedure, preparation of smear, genital source [facility] Lab Routine Women's annual routine gynecological examination 1 Occurrences starting 05/02/2019 until 05/02/2019 [place], [place] Comment on above: 1 Occurrences starti ng 05/02/2019 until 05/02/2019 End: 04-19-2021 Cytopathology procedure, preparation of smear, genital source PAP SMEAR Lab Routine History of cervical cancer 1 Occurrences starting 04/19/2021 until 04/19/2021 [facility] Comment on above: 1 Occurrences starti ng 04/19/2021 until 04/19/2021 End: 04-21-2022 Cytopathology procedure, preparation of smear, genital source PAP SMEAR Lab Routine Women's annual routine gynecological examination 1 Occurrences starting 04/21/2022 until 04/21/[address] [facility]: Comment on above: 1 Occurrences starti ng 04/21/2022 until 04/21/2022 Immunizations Immunization Date Immunization Notes Care Provider Gallo frost 03-29-2023 influenza virus vaccine, unspecified formulation Marycruz Lue [facility] 03-29-2023 tetanus toxoid, reduced diphtheria toxoid, and acellular pertussis vaccine, adsorbed Marycruz Lue [facility] 11-18-2020 SARS-CoV-2 (COVID-19 ) mRNA-1273 vaccine Marycruz Lue [facility] [place] Comment on above: Result Comment: 2022: [id number] 11-13-2020 SARS-CoV-2 (COVID-19 ) Ad26 vaccine, recombinant LIAT GISSELL [facility] 10-21-2020 SARS-CoV-2 (COVID-19 ) mRNA-1273 vaccine Marycruz Lue [facility] Comment on above: Result Comment: 2022: TPV50 10-16-2020 SARS-CoV-2 (COVID-19 ) Ad26 vaccine, recombinant LIAT GISSELL [facility] 10-01-2019 zoster vaccine recombinant Marycruz Lue [facility] 07-28-2019 zoster vaccine recombinant Marycruz Lue [facility] NEGATED: Highlighted row has not occurred!09-24-2020 influenza virus vaccine, unspecified formulation LIAT BORRERO [facility] Payers Date Payer Category Payer Unknown [facility] xxxxxxxxxxxx 2014-Present [phone] [address] [address] [place] [address] xxxxxxxxxxxx [id number] 1965 Unknown [id number] 2.16.840.1.909901.3.579.2.173 1965 Unknown [id number] 2.16.840.1.954026.3.579.2.173 1965 Unknown [id number] 2.16.840.1.910031.3.579.2.593 1965 Unknown [id number] 2.16.840.1.829727.3.579.2.593 1965 Unknown [id number] 2.16.840.1.310651.3.579.2.593 1965 Unknown [id number] 2.16.840.1.492323.3.579.2.593 1965 Unknown [id number] 2.16.840.1.038208.3.579.2.593 1965 Unknown [id number] 2.16.840.1.645226.3.579.2.593 1965 Unknown [id number] 2.16.840.1.563140.3.579.2.593 1965 Unknown [id number] 2.16.840.1.278989.3.579.2.593 1965 Unknown [id number] 2.16.840.1.652045.3.579.2.593 1965 Unknown [id number] 2.16.840.1.300210.3.579.2.125 9 1965 Unknown [id number] 2.16.840.1.306969.3.579.2.727 1965 Unknown [id number] 2.16.840.1.657498.3.579.2.727 1965 Unknown [id number] 2.16.840.1.140354.3.579.2.727 1965 Unknown [id number] 2.16.840.1.146344.3.579.2.727 1965 Unknown [id number] 2.16.840.1.903915.3.579.2.727 1965 Unknown [id number] 2.16.840.1.802070.3.579.2.727 1959 Unknown [id number] Unknown [id number] 2.16.840.1.081590.19 Social History Date Type Detail Facility Start: 05-02-2019 End: 02-28-2024 Tobacco smoking status NHIS Never smoker [facility] Start: 05-02-2019 Alcohol intake Yes [place], [place] Start: 12-29-2016 Alcohol Comment one glass a week [place], [place] Start: 1965 Sex Assigned At Not on file M [place], [place] Start: 04-30-2018 End: 04-19-2021 Tobacco use and exposure Never used [facility] Start: 04-19-2021 End: 04-21-2022 Alcohol intake Current drinker of alcohol (finding) [facility] [employer] Work Phone: Start: 04-19-2021 End: 04-21-2022 Alcohol intake [facility]: Tobacco smoking status Never [facility] Start: 04-11-2022 End: 04-21-2022 Exposure to SARS-CoV-2 (event) Not sure MADELYN ANGELO [facility] Functional Status Date Assessment Result Facility 02-28-2024 Functional Status N/A [facility] 04-20-2022 Functional Status N/A [facility] Clinical Notes 04-20-2022 to 02-28-2024 Note Date & Type Note Facility 02-28-2024 Evaluation + Plan note Diagnostic Tests PendingElectrolyte Panel 02/28/24 [facility] 02-28-2024 Evaluation + Plan note Diagnostic Tests PendingUrine Culture 02/28/24 [facility] 02-28-2024 Hospital Discharge instructions Patient Education 02/28/2024 09:48:33 Kidney Stones, Rqqj-nw-Ndeq Kidney Stones Kidney stones are rock-like masses that form inside of the kidneys. Kidneys are organs that make pee (urine). A kidney stone may move into other parts of the urinary tract, including: The tubes that connect the kidneys to the bladder (ureters). The bladder. The tube that carries urine out of the body (urethra). Kidney stones can cause very bad pain and can block the flow of pee. The stone usually leaves your body (passes) through your pee. You may need to have a doctor take out the stone. What are the causes? Kidney stones may be caused by: A condition in which certain glands make too much parathyroid hormone (primary hyperparathyroidism). A buildup of a type of crystals in the bladder made of a chemical called uric acid. The body makes uric acid when you eat certain foods. Narrowing (stricture) of one or both of the ureters. A kidney blockage that you were born with. Past surgery on the kidney or the ureters, such as gastric bypass surgery. What increases the risk? You are more likely to develop this condition if: You have had a kidney stone in the past. You have a family history of kidney stones. You do not drink enough water. You eat a diet that is high in protein, salt (sodium), or sugar. You are overweight or very overweight (obese). What are the signs or symptoms? Symptoms of a kidney stone may include: Pain in the side of the belly, right below the ribs (flank pain). Pain usually spreads (radiates) to the groin. Needing to pee often or right away (urgently). Pain when going pee (urinating). Blood in your pee (hematuria). Feeling like you may vomit (nauseous). Vomiting. Fever and chills. How is this treated? Treatment depends on the size, location, and makeup of the kidney stones. The stones will often pass out of the body through peeing. You may need to: Drink more fluid to help pass the stone. In some cases, you may be given fluids through an IV tube put into one of your veins at the hospital. Take medicine for pain. Make changes in your diet to help keep kidney stones from coming back. Sometimes, medical procedures are needed to remove a kidney stone. This may involve: A procedure to break up kidney stones using a beam of light (laser) or shock waves. Surgery to remove the kidney stones. Follow these instructions at home: Medicines Take lajq-ydu-yglbdbe and prescription medicines only as told by your doctor. Ask your doctor if the medicine prescribed to you requires you to avoid driving or using heavy machinery. Eating and drinking Drink enough fluid to keep your pee pale yellow. You may be told to drink at least 8 10 glasses of water each day. This will help you pass the stone. If told by your doctor, change your diet. This may include: ?Limiting how much salt you eat. ?Eating more fruits and vegetables. ?Limiting how much meat, poultry, fish, and eggs you eat. Follow instructions from your doctor about eating or drinking restrictions. General instructions Collect pee samples as told by your doctor. You may need to collect a pee sample: ?24 hours after a stone comes out. ?8 12 weeks after a stone comes out, and every 6 12 months after that. Strain your pee every time you pee (urinate), for as long as told. Use the strainer that your doctor recommends. Do not throw out the stone. Keep it so that it can be tested by your doctor. Keep all follow-up visits as told by your doctor. This is important. You may need follow-up tests. How is this prevented? To prevent another kidney stone: Drink enough fluid to keep your pee pale yellow. This is the best way to prevent kidney stones. Eat healthy foods. Avoid certain foods as told by your doctor. You may be told to eat less protein. Stay at a healthy weight. Where to find more information National Kidney Foundation (NKF): www.kidney.org Urology Care Foundation (UCF): www.urologyhealth.org Contact a doctor if: You have pain that gets worse or does not get better with medicine. Get help right away if: You have a fever or chills. You get very bad pain. You get new pain in your belly (abdomen). You pass out (faint). You cannot pee. Summary Kidney stones are rock-like masses that form inside of the kidneys. Kidney stones can cause very bad pain and can block the flow of pee. The stones will often pass out of the body through peeing. Drink enough fluid to keep your pee pale yellow. This information is not intended to replace advice given to you by your health care provider. Make sure you discuss any questions you have with your health care provider. Document Revised: 03/21/2022 Document Reviewed: 03/21/2022 Platter Patient Education 2022 [employer] Follow Up Care 06/14/2023 08:31:32 With:Olayinka HINSON, NICOLE Mack, [facility] Address: [address] [place] [address] [phone] When: Unknown [facility] 02-28-2024 Note Patient Education Urology Kidney Stones Kidney stones are rock-like masses that form inside of the kidneys. Kidneys are organs that make pee (urine). A kidney stone may move into other parts of the urinary tract, including: ? The tubes that connect the kidneys to the bladder (ureters). ? The bladder. ? The tube that carries urine out of the body (urethra). Kidney stones can cause very bad pain and can block the flow of pee. The stone usually leaves your body (passes) through your pee. You may need to have a doctor take out the stone. What are the causes? Kidney stones may be caused by: ? A condition in which certain glands make too much parathyroid hormone (primary hyperparathyroidism). ? A buildup of a type of crystals in the bladder made of a chemical called uric acid. The body makes uric acid when you eat certain foods. ? Narrowing (stricture) of one or both of the ureters. ? A kidney blockage that you were born with. ? Past surgery on the kidney or the ureters, such as gastric bypass surgery. What increases the risk? You are more likely to develop this condition if: ? You have had a kidney stone in the past. ? You have a family history of kidney stones. ? You do not drink enough water. ? You eat a diet that is high in protein, salt (sodium), or sugar. ? You are overweight or very overweight (obese). What are the signs or symptoms? Symptoms of a kidney stone may include: ? Pain in the side of the belly, right below the ribs (flank pain). Pain usually spreads (radiates) to the groin. ? Needing to pee often or right away (urgently). ? Pain when going pee (urinating). ? Blood in your pee (hematuria). ? Feeling like you may vomit (nauseous). ? Vomiting. ? Fever and chills. How is this treated? Treatment depends on the size, location, and makeup of the kidney stones. The stones will often pass out of the body through peeing. You may need to: ? Drink more fluid to help pass the stone. In some cases, you may be given fluids through an IV tube put into one of your veins at the hospital. ? Take medicine for pain. ? Make changes in your diet to help keep kidney stones from coming back. Sometimes, medical procedures are needed to remove a kidney stone. This may involve: ? A procedure to break up kidney stones using a beam of light (laser) or shock waves. ? Surgery to remove the kidney stones. Follow these instructions at home: Medicines ? Take fper-zjg-wsgxkat and prescription medicines only as told by your doctor. ? Ask your doctor if the medicine prescribed to you requires you to avoid driving or using heavy machinery. Eating and drinking ? Drink enough fluid to keep your pee pale yellow. You may be told to drink at least 8?10 glasses of water each day. This will help you pass the stone. ? If told by your doctor, change your diet. This may include: ? Limiting how much salt you eat. ? Eating more fruits and vegetables. ? Limiting how much meat, poultry, fish, and eggs you eat. ? Follow instructions from your doctor about eating or drinking restrictions. General instructions ? Collect pee samples as told by your doctor. You may need to collect a pee sample: ? 24 hours after a stone comes out. ? 8?12 weeks after a stone comes out, and every 6?12 months after that. ? Strain your pee every time you pee (urinate), for as long as told. Use the strainer that your doctor recommends. ? Do not throw out the stone. Keep it so that it can be tested by your doctor. ? Keep all follow-up visits as told by your doctor. This is important. You may need follow-up tests. How is this prevented? To prevent another kidney stone: ? Drink enough fluid to keep your pee pale yellow. This is the best way to prevent kidney stones. ? Eat healthy foods. ? Avoid certain foods as told by your doctor. You may be told to eat less protein. ? Stay at a healthy weight. Where to find more information ? National Kidney Foundation (NKF): www.kidney.org ? Urology Care Foundation (UCF): www.urologyhealth.org Contact a doctor if: ? You have pain that gets worse or does not get better with medicine. Get help right away if: ? You have a fever or chills. ? You get very bad pain. ? You get new pain in your belly (abdomen). ? You pass out (faint). ? You cannot pee. Summary ? Kidney stones are rock-like masses that form inside of the kidneys. ? Kidney stones can cause very bad pain and can block the flow of pee. ? The stones will often pass out of the body through peeing. ? Drink enough fluid to keep your pee pale yellow. This information is not intended to replace advice given to you by your health care provider. Make sure you discuss any questions you have with your health care provider. Document Revised: 03/21/2022 Document Reviewed: 03/21/2022 Platter Patient Education ? 2022 [employer] [facility] 03-13-2023 Evaluation note Encounter Date Diagnosis Assessment [...] until symptoms are completely resolved x48 hours. [email or web address] Other 08-10-2023 Evaluation note* Encounter Date Diagnosis [...] symptoms. Patient declines COVID testing in office [email or web address] Other 03-10-2023 NotePROCEDURE: XR SHOULDER LT 2V [...] structures if symptoms persist. Electronically authenticated by: IIVS Alarcon: 2022-10-07 11:52[facility]03-10-2023 NotePROCEDURE: XR SHOULDER LT 2V or >, [...] Electronically authenticated by: IVIS LASSITER Date: 2022-10-07 11:52[facility]09-21-2022 Hospital Discharge instructions Patient Education 04/20/2022 14:49:06 [...] include: ?Spinach. ?Rhubarb. ?Beets. ?Potato chips and malay fries. ?Nuts. If you regularly take a diuretic medicine, make sure to eat at least 1 2 fruits or vegetables high in potassium each day. These include: ?Avocado. ?Banana. ?[place], prune, carrot, or tomato juice. ?Baked potato. [...] Casseroles. Pizza. Lasagna. Frozen meals. Potato chips. Latvian fries. Summary You can reduce your risk [...] 11/11/2011 Document Revised: 11/06/2019 Document Reviewed: 06/27/2017 Platter Patient Education 2020 [employer] Follow Up Care 04/13/2021 13:36:19 With:LIAT BORRERO PA-C, URL Address: [facility] [address] [facility] [place] [address] When:1 year Comments:RHIANNA [facility] note Future Appointments Appointment Date:04/25/2023 08:00:00 AM Scheduled Provider:Irving Cobb MD, Valencia Pugh Location:[facility] Appointment Type:URO Office Visit Diagnostic Tests Pending * UTI ([facility]) 04/20/22 [facility] + Plan note Future Appointments Appointment Date:03/06/2024 08:45:00 AM Scheduled Provider:Marycruz Bhagat MD Location:[facility] Appointment Type:URO Office Visit Diagnostic Tests Pending * Calculi Analysis [facility] History of cervical cancer Personal history of malignant neoplasm of cervix uteri documented in this encounter Viki Phone: evaluation note* Diagnosis Vaginal irritation Unspecified noninflammatory disorder of vagina Women's annual routine gynecological examination documented in this encounter MADELYN ANGELO [employer] Phone: History general Narrative - Reported* Type Description Date Medical History Migraine Medical History Seizure Surgical History partial hysterectomy Surgical History shoulder surgery b/l Surgical History colonoscopy [email or web address] Other Hospital course Narrative No data available for this section [facility] Hospital Discharge instructions No data available for this section [facility] No data available for this section [facility] Summary Purpose Family History No Family History Records FoundNo Family History Records FoundNo Family History Records Found No data available for this section No Family History Records Found No data available for this section No data available for this section No Family History Records FoundNo Family History Records FoundNo Family History Records Found Advance Directives No Advanced Directives Records FoundDocuments on File Type Date Recorded 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 Advance Directives and Living Will Power of Wholesale Account Manager Latest Code Status on File Code Status Date Activated Date Inactivated Comments Full Code 01/03/2017 4:41 PM 01/03/2017 8:21 PM Documents on File Type Date Recorded 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 ACP-Advance Directive ACP-Power of Wholesale Account Manager Assessments Diagnosis Women's annual routine gynecological examination Additional Source Comments INFORMATION SOURCE (unrecogn ized section and content) DATE CREATED AUTHOR 01/24/2018 [facility] Healthcare DATE CREATED AUTHOR AUTHOR'S ORGANIZ ATION 11/12/2022 [facility] DATE CREATED AUTHOR AUTHOR'S ORGANIZ ATION 11/16/2022 [facility] pital DATE CREATED AUTHOR AUTHOR'S ORGANIZ ATION 12/12/2023 [facility] dical Specialists EPIC DATE CREATED AUTHOR AUTHOR'S ORGANIZ ATION 03/01/2024 Silver[facility] Oscar [facility] ical Center DATE CREATED AUTHOR AUTHOR'S ORGANIZ ATION 03/03/2024 [facility] ical Center DATE CREATED AUTHOR AUTHOR'S ORGANIZ ATION 03/07/2024 [facility] ical Center Care Team (unrecognized sect ion and content) Physician Assistant Psychiatry Relationship Specialty Start Date End Date Twila Verde MD [address] [place] [address] PCP - General Family Medicine 04/08/16 REASON [...] BE BASED ON THE PRIMARY CLINICAL RECORDS. [facility]. provides no warranty or guarantee of the accuracy or completeness of information in this document.
[2024-03-15 14:00] LABS: Anion Gap 10.9; Carbon Dioxide 29.6 mmol/L (21.0-32.0); Chloride 104 mmol/L (98-107); Potassium 3.5 mmol/L (3.5-5.1); Sodium 141 mmol/L (136-145)
== END 2024-03-15 11:09 | disposition home or self-care (01) ==
LOC: LAB 11:08
PROVIDERS: PCP Family Medicine; Visit Provider Urology
DX: N20.0 Calculus of kidney (principal)
CPT/HCPCS: 36415; 80051

== ENCOUNTER 2024-04-09 15:29 | Outpatient (OUT) | payer OTHER, SELFPAY ==
--- NOTE | 2024-04-09 | MM_ITS ---
Patient Name: DANTE JAMES MR#: [id number] : 1965 Exam Date: 04/09/2024 Ordering Doctor: DR KYUNG PACK RADIOLOGY REPORT PROCEDURE: MM TOMOSYNTHESIS SCREENING BI COMPARISON: MM TOMOSYNTHESIS SCREENING BI, 04/06/2023. MG MAMM SCREEN 3D JORDAN CAD, 03/07/2022. MG MAMM SCREEN 3D JORDAN CAD, 03/04/2021. MG MAMM SCREEN JORDAN W CAD, 06/11/2019. INDICATIONS: Screening for malignant neoplasm Calculator Name NCI Breast Cancer Risk Assessment Tool 5 Year Breast Cancer Risk 1.20% Lifetime Breast Cancer Risk 6.90% Personal Breast Cancer No Personal Ovarian Cancer No Treatments None Family Cancers Grandmother-maternal with cervical cancer at age ~40; Aunt-paternal with cervical cancer at age 40; Aunt-paternal with cervical cancer at age 35. LOCATION: [facility] BREAST COMPOSITION: The breasts are extremely dense, which lowers the sensitivity of mammography. FINDINGS: DIAGNOSTIC CATEGORY 1--NEGATIVE. RIGHT BREAST: No significant suspicious finding. Scattered benign-appearing lymph nodes are present. No significant change has occurred. LEFT BREAST: No significant suspicious finding. No significant change has occurred. RECOMMENDATIONS: ROUTINE MAMMOGRAM AND CLINICAL EVALUATION IN 12 MONTHS. PLEASE NOTE: A NORMAL MAMMOGRAM DOES NOT EXCLUDE THE POSSIBILITY OF BREAST CANCER. A CLINICALLY SUSPICIOUS PALPABLE LUMP SHOULD BE BIOPSIED. Dictated by: Efren Agustin M.D. on 04/09/2024 at 17:34 Approved by: Efren Agustin M.D. on 04/09/2024 at 17:43
== END 2024-04-09 15:30 | disposition home or self-care (01) ==
LOC: MAMMO 15:29
PROVIDERS: PCP Family Medicine; Visit Provider Obstetrics & Gynecology
DX: Z12.31 Encounter for screening mammogram for malignant neoplasm of breast (principal); Z80.8 Family history of malignant neoplasm of other organs or systems
CPT/HCPCS: 77063; 77067

== ENCOUNTER 2024-05-01 08:59 | Outpatient (OUT) | payer OTHER, SELFPAY ==
--- NOTE | 2024-05-01 09:06 | ECG_ITS ---
[facility] Test Date: 2024-05-01 Pat Name: DANTE JAMES Department: Room: - Gender: Female Infection Prevention Specialist: : 1965 Requested By: TWILA CATALAN Order Number: [id number] Reading MD: TWILA CATALAN Measurements Intervals Turner Rate: 59 P: 56 WI: 178 QRS: 82 QRSD: 98 T: 72 QT: 384 QTc: 382 Interpretive Statements SINUS BRADYCARDIA No previous ECG available for comparison Electronically Signed On 05-03-2024 6:48:44 EDT by TWILA CATALAN
--- NOTE | 2024-05-01 10:05 | PM.PRESUREVA ---
History of Present Illness History of Present Illness Chief complaint: left kidney stone Narrative: Patient presents for preadmission testing. The patient states she has had recurrent UTIs and has been diagnosed with kidney stones. She states she does have a seizure disorder and has been on Topamax for quite some time and neurology believes the Topamax could be contributing to her stone formation. She has been started on Trileptal and is weaning off of Topamax and doing well. Her last seizure was 7 years ago. She denies current hematuria, dysuria, abdominal pain, flank pain, nausea, vomiting, or any other complaints. Review of Systems ROS Narrative REVIEW OF SYSTEMS: Negative except as stated in HPI, ten or more systems reviewed. Constitutional: No fever, chills, weakness ENT: No sore throat or epistaxis Cardiovascular: No edema, chest pain, palpitations, or activity intolerance Respiratory: No shortness of breath, cough, or wheezing Musculoskeletal: No joint pain or swelling Gastrointestinal: No abdominal pain, constipation, diarrhea, or vomiting Genitourinary: No dysuria or hematuria Neurological: No numbness, tingling, weakness, or headache Psychiatric: No mood changes [facility] Medical History (Updated 05/01/24 @ 09:42 by Paola Gonzalez NP) Frozen shoulder ?M75.00 - Adhesive capsulitis of unspecified shoulder (ICD-10) Hot flashes ?R23.2 - Flushing (ICD-10) Cervical cancer ?C53.9 - Malignant neoplasm of cervix uteri, unspecified (ICD-10) Stress incontinence ?N39.3 - Stress incontinence (female) (male) (ICD-10) Anemia ?D64.9 - Anemia, unspecified (ICD-10) Eczema ?L30.9 - Dermatitis, unspecified (ICD-10) Trigeminal neuralgia ?G50.0 - Trigeminal neuralgia (ICD-10) Seizures ?R56.9 - Unspecified convulsions (ICD-10) Urinary tract infection ?N39.0 - Urinary tract infection, site not specified (ICD-10) Kidney stones ?N20.0 - Calculus of kidney (ICD-10) Seasonal allergies ?J30.2 - Other seasonal allergic rhinitis (ICD-10) Heartburn ?R12 - Heartburn (ICD-10) H/O cold sores ?Z86.19 - Personal history of other infectious and parasitic diseases (ICD-10) Surgical History (Updated 05/01/24 @ 09:41 by Paola Gonzalez NP) History of tonsillectomy ?Z90.89 - Acquired absence of other organs (ICD-10) H/O shoulder surgery ?Z98.890 - Other specified postprocedural states (ICD-10) History of hysterectomy ?Z90.710 - Acquired absence of both cervix and uterus (ICD-10) Family History (Updated 05/01/24 @ 09:41 by Paola Gonzalez NP) Other Family history of diabetes mellitus Family history of lung cancer Social History (Updated 05/01/24 @ 09:31 by Paola Gonzalez NP) Within the past year, how often did you have a drink containing alcohol: 2-4 times a month Smoking status: Never smoker Non-prescribed substance use: denies use Highest level of school completed/degree received: high school graduate Meds Home Medications and Allergies Home Medications ?Medication ?Instructions ?Recorded ?Confirmed ?Type biotin 10,000 mcg capsule 10,000 mcg PO DAILY 05/01/24 05/01/24 History black cohosh 540 mg capsule 540 mg PO DAILY 05/01/24 05/01/24 History calcium citrate 315 mg 1 tab PO DAILY 05/01/24 05/01/24 History calcium-vitamin D3 6.25 mcg (250 unit) tablet (Citracal + Vitamin D Maximum) cranberry 500 mg capsule 500 mg PO DAILY 05/01/24 05/01/24 History fluticasone propionate 50 1 spray intranasal DAILY PRN 05/01/24 05/01/24 History mcg/actuation nasal allergy symptoms spray,suspension (Flonase Allergy Relief) hydroxyzine HCl 25 mg tablet 25 mg PO Q6H PRN anxiety 05/01/24 05/01/24 History levetiracetam 750 mg 750 mg PO QPM 05/01/24 05/01/24 History tablet,extended release 24 hr loratadine 10 mg tablet 10 mg PO DAILY 05/01/24 05/01/24 History multivitamin (Daily Multi-Vitamin 1 tab PO DAILY 05/01/24 05/01/24 History tablet) oxcarbazepine 150 mg tablet 150 mg PO BID 05/01/24 05/01/24 History phenobarbital 32.4 mg tablet 32.4 mg PO QPM 05/01/24 05/01/24 History potassium citrate 15 mEq (1,620 15 meq PO BID 05/01/24 05/01/24 History mg) tablet,extended release psyllium husk 0.4 gram capsule 0.4 g PO DAILY 05/01/24 05/01/24 History (Metamucil) topiramate 100 mg tablet 200 mg PO Q12H 05/01/24 05/01/24 History valacyclovir 1 gram tablet 1,000 mg PO TID PRN cold sores 05/01/24 05/01/24 History Allergies Allergy/AdvReac Type Severity Reaction Status Date / Time latex Allergy Rash Verified 05/01/24 09:19 Sulfa (Sulfonamide Allergy Hives Verified 05/01/24 09:19 Antibiotics) Exam Narrative Exam Narrative: Constitutional: Awake, alert, comfortable, well-appearing, nontoxic, interactive, vital signs as charted Head: Normocephalic, atraumatic Neck: Supple, normal appearance, normal range of motion, no meningeal signs, no lymphadenopathy Respiratory: No respiratory distress, breath sounds clear Cardiovascular: Regular rate and rhythm, strong and regular heart tones Abdomen: Nontender, normal bowel sounds, soft, no CVA tenderness Musculoskeletal: Normal gait, no swelling or edema Skin: No rashes or induration, no lesions, only visible skin inspected Neuro: No neurological deficits, normal sensation Psychiatric: Oriented ?3, normal affect Assessment and Plan Assessment and Plan (1) Kidney stones: Plan Cystoscopy, left retrograde, left ureteroscopy, left laser lithotripsy, stone basket, possible left stent placement scheduled with Dr. Bhagat May 15, 2024.
[2024-05-01 10:08] LABS: Basophils Percent Auto 0.6 % (0.2-2.0); Eosinophils Absolute Auto 0.1 10^3/uL (0.0-0.7); Eosinophils Percent Auto 1.5 % (0.9-7.0); Hematocrit 44.9 % (36.0-48.0); Hemoglobin 14.8 g/dL (12.0-16.0); Immature Granulocytes Abs Auto 0.01 10^3/uL (0.00-0.03); Immature Granulocytes Pct Auto 0.2 % (0.0-0.5); Lymphocytes Absolute Auto 1.3 10^3/uL (1.2-3.8); Lymphocytes Percent Auto 23.9 % (20.5-60.0); Mean Corpuscular Hemoglobin 30.8 pg (26.7-34.0); Mean Corpuscular Volume 93.5 fL (81.0-99.0); Mean Platelet Volume 11.1 fL (9.5-13.5); Monocytes Absolute Auto 0.3 10^3/uL (0.3-0.8); Monocytes Percent Auto 6.1 % (1.7-12.0); Neutrophils Absolute Auto 3.5 10^3/uL (1.4-6.5); Neutrophils Percent Auto 67.7 % (43.0-75.0); Platelet Count 211 10^3/uL (150-450); Red Cell Distribution Width 12.3 % (11.0-15.0); White Blood Count 5.2 10^3/uL (4.0-11.0)
[2024-05-01 10:28] LABS: INR 1.01; Partial Thromboplastin Time 29.9 sec (22.3-36.2); Prothrombin Time 10.7 sec (9.0-11.6)
[2024-05-01 11:22] LABS: Bilirubin Urine NEGATIVE (NEGATIVE); Blood Urine NEGATIVE (NEGATIVE); Clarity Urine CLEAR (CLEAR); Color Urine LT. YELLOW (YELLOW); Glucose Urine UA NEGATIVE (NEGATIVE); Ketones Urine NEGATIVE (NEGATIVE); Leukocyte Esterase Urine SMALL (NEGATIVE); Nitrite Urine NEGATIVE (NEGATIVE); Protein Urine NEGATIVE (NEG/TRACE); Specific Gravity Urine <=1.005 (1.005-1.025); Urobilinogen Urine 0.2 EU/dL (0.2-1.0)
[2024-05-01 11:26] LABS: Urine Microscopic Indicated YES
[2024-05-01 12:05] LABS: Bacteria Urine SMALL #/HPF (NONE SEEN); Cast Seen? NONE SEEN #/LPF (NONE SEEN); Crystals Seen? None Seen #/HPF (None Seen); Mucus Urine TRACE (NONE SEEN); RBC Urine NONE SEEN #/HPF (0-2); Squamous Epithelial Cell Urine FEW #/LPF (NONE/RARE); Urine Culture Indicated YES
[2024-05-01 12:34] LABS: Anion Gap 12.2; BUN Creatinine Ratio 17.9; Calcium 9.6 mg/dL (8.5-10.1); Carbon Dioxide 27.5 mmol/L (21.0-32.0); Chloride 103 mmol/L (98-107); Estimated GFR (African America >60 (>=60 mL/min/1.73m^2); Estimated GFR (Non-African Ame >60 (>=60 mL/min/1.73m^2); Glucose 94 mg/dL (74-106); Potassium 3.7 mmol/L (3.5-5.1); Sodium 139 mmol/L (136-145)
== END 2024-05-01 09:00 | disposition home or self-care (01) ==
LOC: PST 09:00
PROVIDERS: PCP Family Medicine; Visit Provider Urology
DX: Z01.810 Encounter for preprocedural cardiovascular examination (principal); Z01.812 Encounter for preprocedural laboratory examination; Z01.818 Encounter for other preprocedural examination; N20.0 Calculus of kidney
CPT/HCPCS: 80048; 81001; 85025; 85610; 85730; 87086; 93005; G0463

== ENCOUNTER 2024-05-15 11:58 | Day surgery (SDC) | payer OTHER, SELFPAY ==
[2024-05-01 09:58] VITALS: BP 120/76; PULSE 63; TEMP 36.3; O2SAT 99; BMI 23.4
[2024-05-15] VITALS (9 sets, daily range): BP systolic 126–142; BP diastolic 77–86; PULSE 58–78; TEMP 36.2–36.3; O2SAT 96–100; BMI 23.0
--- OUTSIDE RECORDS SUMMARY | 2024-05-15 12:01 | XMS_ITS | CCD ---
Author Organization [facility] Care Team Providers Care Handstitching Machine Collar Feller Name Role Phone HARRISON BUSTAMANTE Unavailable Unavailable DUKE VERDE M Unavailable Unavailable HARRISON BUSTAMANTE Unavailable Unavailable FAIZANY, DUKE M Unavailable Unavailable Duke Verde Primary Care Provider Duke Verde MD Primary Care Provider [phone] Duke Verde Primary Care Physician Duke Verde MD Primary Care Provider [phone] HOSSEIN ., DR MATTSON Consulting Unavailable HOY ., DR MATTSON Primary Care Unavailable HOY ., DR MATTSON Attending Unavailable HOY ., DR MATTSON Admitting Unavailable DIANN, DR BRIAN Do Consulting Unavailable HOY ., DR MATTSON Primary Care Unavailable SIRENA, DR KYUNG Infante Attending Unavailable HEDGES, DR KYUNG Infante Admitting Unavailable HEDGEValentin, DR KYUNG Infante Consulting Unavailable HOY ., DR MATTSON Consulting Unavailable HOY ., DR MATTSON Primary Care Unavailable HOY ., DR MATTSON Attending Unavailable HOY ., DR MATTSON Admitting Unavailable ZIEBER, DR IVIS Mc Consulting Unavailable ZIEBER, DR IVIS Mc Consulting Unavailable HAY ., DR GOINS Attending Unavailable HAY ., DR GOINS Admitting Unavailable HOY ., DR MATTSON Primary Care Unavailable HAY ., DR GOINS Consulting Unavailable DENISE CHAVARRIA Consulting Unavailable DENISE CHAVARRIA Attending Unavailable DENISE CHAVARRIA Admitting Unavailable HOSSEIN ., DR MATTSON Primary Care Unavailable DIANN, DR BRIAN Do Consulting Unavailable FAIZANY ., DR MATTSON Primary Care Unavailable IRVING Payton, DR VALENCIA Pugh Attending Unavaila uzma Payton, DR VALENCIA Pugh Admitting Unavaila uzma Payton, DR VALENCIA Pugh Consulting Unavaila ble HOSSEIN ., DR MATTSON Consulting Unavailable HOY ., DR MATTSON Primary Care Unavailable HOY ., DR MATTSON Attending Unavailable HOY ., DR MATTSON Admitting Unavailable ZIEBER, DR IVIS Mc Consulting Unavailable HOY ., DR MATTSON Consulting Unavailable HOY ., DR MATTSON Primary Care Unavailable HOY ., DR MATTSON Attending Unavailable HOY ., DR MATTSON Admitting Unavailable READERDUKE Consulting Unavailable RYLEE, DR MIDDLETON Consulting Unavailable HOY ., DR MATTSON Primary Care Unavailable RYLEE, DR MIDDLETON Attending Unavailable RYLEE, DR MIDDLETON Admitting Unavailable Erica Mott Unavailable SERGIO RIVERA Attending Unavailable Lue, Marycruz M. Attending Unavailable Lue, Marycruz M. Attending Unavailable Lue, Marycruz M. Attending Unavailable Lue, Marycurz M. Attending Unavailable Lue, Marycruz M. Admitting Unavailable Lue, Marycruz M. Attending Unavailable Lue, Marycruz M. Admitting Unavailable Lue, Marycruz M. Admitting Unavailable Lue, Marycruz M. Attending Unavailable Lue, Marycruz M. Attending Unavailable KYUNG YANG Referring Unavailable HOY, DUKE M Primary Care Unavailable Allergies Allergy Classification Reported Allergen(s) Allergy Type Date of Onset Reaction(s) Facility (3 sources) Sulfonamides (Antibiotic) Propensity to adverse reactions to drug 04-08-20 15 [place] (1 source) Other Propensity to adverse reactions 12-30-19 17 [place] (6 sources) Sulfonamides (Antibiotic); Translations: [sulfa drugs] Drug allergy We[facility] (disorder) [facility] (6 sources) Latex; Translations: [Latex] Drug allergy (disorder) 11-15-19 23 Weal (disorder) [facility] (1 source) Sulfonamides (Antibiotic) Drug allergy (disorder) 01-23-20 13 [facility] (2 sources) Substance with sulfonamide structure and antibacterial mechanism of action (substance) Drug allergy [place] [facility] Other NEGATED: Highlighted row has been ruled out! (2 sources) Other Propensity to adverse reactions 12-30-19 17 [facility] Work Phone: Medications Current Medications Medication Drug [...] BID, # 60 tab(s), Refills(s) 11, Pharmacy: [facility]/pharmacy #[id number], 160, cm, 02/28/24 9:14:00 EDT, Height/Length [...] kidney] Onset: 03-28-2022 Episodic Cancer of cervix (5 sources) History of malignant neoplasm of cervix; Translations: [Personal history of malignant neoplasm of cervix uteri] Episodic Epilepsy; convulsions (10 sources) Epilepsy; Translations: [...] conjunctivitis Episodic Other aftercare (1 source) Other rn long term care (current) drug therapy; Translations: [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 Descriptive Diagnosis: Negative for intraepithelial lesion or malignancy. Comments: Specimen was screened at [facility], [address] [place] [id number] [employer] Screener: CS Rescreened By: PT Electronically Signed Out Joann Mcgill pt/04/16/2024 Source of Specimen: A: Imaged ThinPrep Pap - Vaginal (1 monolayer slide) HPV Reflex?.............. 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 [address] [place] [address] Interpretation performed at [facility], [facility]0 [facility], [place] [address] This Pap Test has been evaluated with the assistance of the LumatePrep Pap Test Imaging System. The Pap smear is a screening test primarily for squamous epithelial lesions, which is subject to both false negative and false positive results. Your patient should be reminded to consult you immediately if she experiences any suspicious signs or symptoms, regardless of her Pap smear result. GYNECOLOGIC CYTOLOGY REPORT Patient Name: DANTE JAMES [facility] Rec: [id number] [facility] ANATOMIC PATHOLOGY [address] [facility] [place], [place] [address] Normal [facility] C Urineon 03-01-2024 Bacteria identified Cx Nom [...] Locations R1: This test was performed at: [facility], [address] [place] [address], [phone] , , [facility] Comment on above: Performed By: #### 2 [id number] #### [facility] [address] [place] [address] Ambulatory Visit Summaryon 0 02-28-2024 Ambulatory Visit Summary Ambulatory Visit Summary DANTE JAMES :1965 Visit Date:02/28/2024 Ambulatory Visit Instructions Your Diagnosis Kidney stone Right flank pain UTI symptoms Your Care Team Attending Physician - Olayinka HINSON, Marycruz Dove Primary Care Physician - Duke Verde MD This Is Your Medications List [...] Following Appointments Follow Up with Olayinka HINSON, NICOLE Mack, URO When: Where: [address], [place] [address] [phone] Medications What How Much When Instructions New potassium citrate (potassium citrate 15 mEq oral tablet, extended release) 1 Tablets By Mouth 2 times a day Refills: 11 Pickup at [facility]/pharmacy #[id number] Unchanged cholecalciferol (Vitamin D3 62.5 mcg (2500 [...] physician if questions or concerns Pharmacy Information [facility]/pharmacy #[id number]: [address] [place], [place] [id number] [phone] Allergies Latex (Hives) sulfa drugs (Hives) Problems [...] to (more content not included)... Normal [facility] Urology Office/Clinic Noteon 02-28-2024 Urology [...] analysis 06/14/23 - 95% Hydroxyapatite, 5% CaOx [place]. 24hr urine 09/26/23 [facility] - Volume 2.75L. [...] to ret (more content not included)... Normal [facility] Comment on above: Result Comment: Elec tronically Signed By: Olayinka HINSON, Marycruz Dove\.br\Date and Time Signed: 02/28/24 11:28 EDT\.br\Electronically Co-Signed By: Nathalie Weaver\.br\Date and Time Co-Signed: 02/28/24 09:52 EDT Reminderson 02-19-2024 Reminders Reminders From: Shayy Cuadra To: EU - Recalls Olayinka; Sent: 06/14/2023 08:36:12 EST Show up: 01/05/2024 08:35:00 EDT Subject: CLEVELAND/kub/ metabolic w/u Reminder/Recall pt wants 24 urine @ [facility] (not [facility]) labs/ CLEVELAND/ KUB f/u with Dr Bhagat is 03/06/24 24hr urine in pt chart. Will call closer to get CLEVELAND/KUB completed. Called pt and advised of below message. C[place]AND/KUB order faxed to [facility] CLEVELAND/KUB done on 02/15/24 for follow up. Normal [facility] Reminderson 02-13-2024 Reminders Reminders From: Leana Emerson To: EU - Recalls Ludusty; Sent: 06/14/2023 11:32:25 EST Show up: 12/13/2023 12:32:00 EDT Subject: Labs/Imaging Due Date/Time: 03/14/2024 12:32:00 EDT Pt will need KUB, CLEVELAND and Metabolic Workup done prior to appt. duplicate message. Normal [facility] Lab Reportson 10-02-2023 Lab Reports [id number] .00TIFF Normal [facility] Lab Reportson 09-28-2023 Lab Reports [id number] .00TIFF Normal [facility] Lab Reportson 09-26-2023 Lab Reports [id number] .00TIFF Normal [facility] Lab Reports [id number] .00TIFF Normal [facility] Calculus Analysison 06-28-20 23 Calcium oxalate monohydrate (Stone) [Mass fraction] 5 % Invalid Interpretation Code [facility] Comment on above: Performed By: #### 1 [id number] ####[facility] [address] [place] [id number] Calculus analysis [Interp] Comment Invalid Interpretation Code [facility] Comment on above: Result Comment: Calc ium phosphate (hydroxyl form) includes hydroxyapatite, amorphous calcium phosphate, and whitlockite. Hydroxyapatite is the most common of the calcium phosphate salts found in human kidney stones. struvite as a minor component should not be excluded. Insufficient sample to perform additional, confirmatory, or reference testing. Performed By: #### 1 [id number] ####[facility] [address] [place] [address] Color (Stone) Fraire Invalid Interpretation Code [facility] Comment on above: Performed By: #### 1 [id number] ####[facility] [address] [place] [address] Composition Comment Invalid Interpretation Code [facility] Comment on above: Result Comment: Perc entage (Represents the % composition) Performed By: #### 1 [id number] ####[facility] [address] [place] [address] Disclaimer: Comment Invalid Interpretation Code [facility] Comment on above: Result Comment: This test was developed and its performance characteristics determined by [facility]. It has not been cleared or approved by the Food and Drug Administration. Performed at: [facility] [address] [id number] PhD Aniya Bright Performed By: #### 1 [id number] ####[facility] [address] [place] [address] Hydroxyapatite: 95 % Invalid Interpretation Code [facility] Comment on above: Performed By: #### 1 [id number] ####[facility] [address] [place] [address] Laboratory comment Steven (Report) Comment Invalid Interpretation Code [facility] Comment on above: Result Comment: Rigoberto watkins questions regarding Calculi Analysis contact [facility] at: [phone]. Performed By: #### 1 [id number] ####[facility] [address] [place] [address] Please Note: Comment Invalid Interpretation Code [facility] Comment on above: Result Comment: Calc nora report will follow via computer, mail or director airport operations delivery. Performed By: #### 1 [id number] ####[facility] [address] [place] [address] Size (Stone) [Entitic vol] 2x2 Invalid Interpretation Code [facility] Comment on above: Result Comment: Sing le piece received. Performed By: #### 1 [id number] ####[facility] [address] [place] [address] Specimen source subject Nom Comment Invalid Interpretation Code [facility] Comment on above: Result Comment: Not provided Performed By: #### 1 [id number] ####[facility] [address] [place] [address] Stone Photo Comment Invalid Interpretation Code [facility] Comment on above: Result Comment: Phot ograph will follow under a separate cover Performed By: #### 1 [id number] ####[facility] [address] [place] [address] Weight (Stone) 1 mg Invalid Interpretation Code [facility] Comment on above: Performed By: #### 1 [id number] ####[facility] [address] [place] [address] Auth for Release of Medical Recordson 06-21-2023 Auth for Release of Medical Records [id number] .00TIFF Normal [facility] Patient Educationon 06-14-20 Patient Education [...] Spinach (cooked), rhubarb, beets, sweet potatoes, and Faroese chard. ? Peanuts. ? Potato chips, guinean fries, and baked potatoes with skin on. ? Nuts and nut products. ? Chocolate. ? If you regularly take a diuretic medicine, make sure to eat at least 1 or 2 servings of fruits or vegetables that are high in potassium each day. These include: ? Avocado. ? Banana. ? [place], prune, carrot, or tomato juice. ? Baked [...] fish oil, or vitamin B6. ? Take ybcb-ahu-xrzwliv and prescription medicines only as told by your health care provider. These include supplements. What foods should I limit? Limit your in (more content not included)... Normal [facility]2023 [facility] [id number] .00TIFF Normal [facility] [id number]. 00TIFF [facility] Urology Office/Clinic Noteon 06-14-2023 Urology Office/Clinic [...] 08:28:15. . Documenta (more content not included)... [facility] Comment on above: Result Comment: Elec tronically Signed By: Marycruz Bhagat MD\.br\Date and Time Signed: 06/14/23 08:42 EST\.br\Electronically Co-Signed By: Leana Emerson\.br\Date and Time Co-Signed: 06/14/23 08:28 EST Lab Reportson 06-08-2023 Lab Reports [id number] .00TIFF [facility] Lab Reportson 05-10-2023 Lab Reports [id number] .00TIFF [facility] Lab Reportson 05-05-2023 Lab Reports [id number] .00TIFF [facility] C Urineon 04-28-2023 Bacteria identified Cx Nom (U) Microbiology PROCEDURE: Urine Culture [R1] SOURCE: U CleanCatch BODY SITE: COLLECTED DATE/TIME: 2023 11:37 EDT RECEIVED DATE/TIME: 2023 18:23 EDT START DATE/TIME: 2023 18:23 EDT FREE TEXT SOURCE: Olayinka HINSON, Marycruz Regalado MD FINAL REPORTS Final Report [] Verified Date/Time: 04/28/2023 11:24 EDT 1,000 cfu/ml Mixed skin contaminants Performing Locations R1: This test was performed at: [facility], [address] [place] [address], [id number] [place] [address], [facility] Comment on above: Performed By: #### 2 [id number] ####[facility] [address] [facility] [place] [address] Formson 04-27-2023 Forms [id number] .00CD:127 [facility] Ambulatory Visit Summaryon 0 2023 Ambulatory Visit Summary DANTE AJMES :1965 Visit Date:2023 Ambulatory Visit Instructions Your Diagnosis Kidney stone UTI symptoms Tests Performed Urnls Dip Stick Auto w/o Microscopy POC [id number] Your Care Team Attending Physician - Marycruz Bhagat MD Primary Care Physician - Duke Verde MD This Is Your Medications List [...] Marycruz Bhagat MD Where: [facility] Patient Educationon 04-26-20 23 Patient Education [...] Spinach (cooked), rhubarb, beets, sweet potatoes, and Faroese chard. ? Peanuts. ? Potato chips, guinean fries, and baked potatoes with skin on. ? Nuts and nut products. ? Chocolate. ? If you regularly take a diuretic medicine, make sure to eat at least 1 or 2 servings of fruits or vegetables that are high in potassium each day. These include: ? Avocado. ? Banana. ? [place], prune, carrot, or tomato juice. ? Baked [...] fish oil, or vitamin B6. ? Take eszq-mpk-ymwforl and prescription medicines only as told by your health care provider. These include supplements. What foods should I limit? Limit your in (more content not included)... Normal [facility] Screenson 2023 Screens [id number]. 00CD:127 Normal [facility] Urology Office/Clinic Noteon 2023 Urology [...] and history for this patient from Dr. Irving Goff PA-C. I have reviewed and verified the staff [...] the patient. (more content not included)... Normal [facility] Comment on above: Result Comment: Elec tronically Signed By: Marycruz Bhagat MD\.br\Date and Time Signed: 04/26/23 11:43 EDT\.br\Electronically Co-Signed By: Leaan Emerson\.br\Date and Time Co-Signed: 04/26/23 11:16 EDT MRI [...] since the prior MRI. Electronically authenticated by: DUKE READER Date: 2022-11-10 12:35 Normal [facility] PHENOBARBITALon 11-09-2022 Phenobarbital, Serum 6 ug/mL Critically low 15-40 [facility] Comment on above: Result Comment: Dete ction Limit = 3 Performed By: #### P HENOB #### [facility] [address] [place] [address] [address] Adrianne Nava CBC AUTO DIFFon 11-08-2022 BASO # 0.0 103/ul Normal 0.0-0.1 [facility] Comment on above: Performed By: #### C BC ####[facility] [address] [place] [address]Dr. Adrianne Nava Basophils/100 WBC (Bld) 0.5 % Normal 0.2-2.0 [facility] Comment on above: Performed By: #### C BC ####[facility] [address] [place] [address]DrTata Nava EO # 0.1 103/ul Normal 0.0-0.7 [facility] Comment on above: Performed By: #### C BC ####[facility] [address] [place] [address]DrTata Nava Eosinophils/100 WBC (Bld) 1.4 % Normal 0.9-7.0 [facility] Comment on above: Performed By: #### C BC ####[facility] [address] [place] [address]DrTata Nava Erythrocyte distribution width (RBC) [Ratio] 12.6 % Normal 11.0-15.0 [facility] Comment on above: Performed By: #### C BC ####[facility] [address] [place] [address]DrTata Nava Hematocrit (Bld) [Volume fraction] 41.9 % Normal 36.0-48.0 [facility] Comment on above: Performed By: #### C BC ####[facility] [address] [place], [place] [address]DrTata Nava Hemoglobin (Bld) [Mass/Vol] 14.0 g/dL Normal 12.0-16.0 [facility] Comment on above: Performed By: #### C BC ####[facility] [address] [place] [id number]. Adrianne Elijah IG # 0.01 10e3/ul Normal 0.00-0.03 [facility] Comment on above: Performed By: #### C BC ####[facility] [address] [place] [address]Dr. Adrianne Nava IG % 0.2 % Normal 0.0-0.5 [facility] Comment on above: Performed By: #### C BC ####[facility] [address] [place] [id number]. Adrianne Nava LYMPH # 1.5 103/ul Normal 1.2-3.8 [facility] Comment on above: Performed By: #### C BC ####[facility] [address] [place] [address]Dr. Adrianne Nava Lymphocytes/100 WBC (Bld) 27.3 % Normal 20.5-60.0 [facility] Comment on above: Performed By: #### C BC ####[facility] [address] [place] [id number]. Adrianne Nava MANUAL DIFF REQ NO Normal [facility] Comment on above: Performed By: #### C BC ####[facility] [address] [place] [id number]. Ladonnaelke Nava MCH (RBC) [Entitic mass] 30.6 pg Normal 26.7-34.0 [facility] Comment on above: Performed By: #### C BC ####[facility] [address] [place] [id number]. Adrianne Elijah MCHC (RBC) [Mass/Vol] 33.4 g/dL Normal 29.9-35.2 [facility] Comment on above: Performed By: #### C BC ####[facility] [address] [place] [id number]. Adrianne Nava MCV (RBC) [Entitic vol] 91.5 fL Normal 81.0-99.0 [facility] Comment on above: Performed By: #### C BC ####[facility] [address] [place] [id number]. Adrianne Nava MONO # 0.4 103/ul Normal 0.3-0.8 [facility] Comment on above: Performed By: #### C BC ####[facility] [address] [place] [address]Dr. Adrianne Nava Monocytes/100 WBC (Bld) 7.0 % Normal 1.7-12.0 [facility] Comment on above: Performed By: #### C BC ####[facility] [address] [place] [id number]. Adrianne Nava NEUT # 3.6 103/ul Normal 1.4-6.5 [facility] Comment on above: Performed By: #### C BC ####[facility] [address] [place] [address]Dr. Adrianne Nava Neutrophils/100 WBC (Bld) 63.6 % Normal 43.0-75.0 [facility] Comment on above: Performed By: #### C BC ####[facility] [address] [place] [id number]. Adrianne Nava Platelet mean volume (Bld) [Entitic vol] 10.8 fL Normal 9.5-13.5 [facility] Comment on above: Performed By: #### C BC ####[facility] [address] [place] [id number]. Adrianne Nava PLT 218 103/ul Normal 150-450 [facility] Comment on above: Performed By: #### C BC ####[facility] [address] [place], [place] [address]Dr. Adrianne Nava RBC 4.58 106/ul Normal 4.20-5.40 [facility] Comment on above: Performed By: #### C BC ####[facility] [address] [place] [id number]. Adrianne Nava WBC 5.6 103/ul Normal 4.0-11.0 [facility] Comment on above: Performed By: #### C BC ####[facility] [address] [place], [place] [address]Dr. Adrianne Nava LIVER PROFILEon 11-08-2022 Albumin [Mass/Vol] 3.7 g/dL Normal 3.4-5.0 [facility] Comment on above: Performed By: #### L IVER, BMP #### [facility] [address] [address] [address] Adrianne Nava Albumin/Globulin [Mass ratio] 1.0 {ratio} Normal [facility] Comment on above: Performed By: #### L IVER, BMP #### [facility] [address] [address] [address] Adrianne Nava ALP [Catalytic activity/Vol] 85 U/L Normal 46-116 [facility] Comment on above: Performed By: #### L IVER, BMP #### [facility] [address] [address] [address] Adrianne Nava ALT [Catalytic activity/Vol] 33 U/L Normal 14-59 [facility] Comment on above: Performed By: #### L IVER, BMP #### [facility] [address] [address] [address] Adrianne Nava AST [Catalytic activity/Vol] 16 U/L Normal 15-37 [facility] Comment on above: Performed By: #### L IVER, BMP #### [facility] [address] [address] [address] Adrianne Nava BILI, CONJUGATED 0.1 mg/dL Normal 0.0-0.2 [facility] Comment on above: Performed By: #### L IVER, BMP #### [facility] [address] [address] [address] Adrianne Nava Bilirubin [Mass/Vol] 0.3 mg/dL Normal 0.2-1.0 [facility] Comment on above: Performed By: #### L IVER, BMP #### [facility] [address] [address] [address] Adrianne Nava Globulin (S) [Mass/Vol] 3.7 g/dL Normal [facility] Comment on above: Performed By: #### L IVER, BMP #### [facility] [address] [address] [address] Adrianne Nava Protein [Mass/Vol] 7.4 g/dL Normal 6.4-8.2 The [facility] Comment on above: Performed By: #### L IVER, BMP #### [facility] [address] [address] [address] Adrianne Nava PROF CHEM 8 (BAS METB)on Anion gap [Moles/Vol] 11.2 mmol/L Normal [facility] Comment on above: Performed By: #### L IVER, BMP ####[facility] [address] [address]DrTata Nava Calcium [Mass/Vol] 9.2 mg/dL Normal 8.5-10.1 The [facility] Comment on above: Performed By: #### L IVER, BMP ####[facility] [address] [address]DrTata Nava Chloride [Moles/Vol] 108 mmol/L Critically high 98-107 [facility] Comment on above: Performed By: #### L IVER, BMP ####[facility] [address] [address]DrTata Nava CO2 [Moles/Vol] 28.6 mmol/L Normal 21.0-32.0 The [facility] Comment on above: Performed By: #### L IVER, BMP ####[facility] [address]ktor[address] [address]DrTata Nava Creatinine [Mass/Vol] 0.74 mg/dL Normal 0.55-1.02 [facility] Comment on above: Performed By: #### L IVER, BMP ####[facility] [address] [address]DrTata Nava EGFR-AF TAJIK >60 Normal >=60 The [facility] Comment on above: Performed By: #### L IVER, BMP ####[facility] [address] [address]Dr. Adrianne Nava EGFR-NON AF TAJIK >60 Normal >=60 [facility] Comment on above: Performed By: #### Keaton BISHOP BMP ####[facility] [address] [address]Dr. Adrianne Elijah Glucose [Mass/Vol] 78 mg/dL Normal 74-106 The [facility] Comment on above: Performed By: #### Keaton BISHOP, BMP ####[facility] [address] [address]Dr. Adrianne Nava Potassium [Moles/Vol] 3.8 mmol/L Normal 3.5-5.1 [facility] Comment on above: Performed By: #### Keaton BISHOP BMP ####[facility] [address] [address]Dr. Adrianne Nava Sodium [Moles/Vol] 144 mmol/L Normal 136-145 The [facility] Comment on above: Performed By: #### Keaton BISHOP BMP ####[facility] [address] [address]Dr. Adrianne Nava Urea nitrogen [Mass/Vol] 24.0 mg/dL Critically high 7.0-18.0 [facility] Comment on above: Performed By: #### Keaton BISHOP, BMP ####[facility] [address] [address]Dr. Adrianne Nava Urea nitrogen/Creatinine [Mass ratio] 32.4 mg/mg Normal [facility] Comment on above: Performed By: #### Keaton BISHOP, BMP ####[facility] [address] [address]Dr. Adrianne Nava XR KUB 1 VIEWon 04-15-2022 XR KUB [...] BRIAN TIDWELL Date: 2022-04-15 16:45 Normal The [facility] CT ABD/PELV W CONon 04-06-[address] [...] IVIS LASSITER Date: 2022-04-06 17:05 Normal [facility] CBC AUTO DIFFon 03-25-2022 BASO # 0.0 103/ul Normal 0.0-0.1 [facility] Comment on above: Performed By: #### C BC ####[facility] [address] [place], [place] [address]UyTata Nava Basophils/100 WBC (Bld) 0.4 % Normal 0.2-2.0 [facility] Comment on above: Performed By: #### C BC ####[facility] [address] [place], [place] [address]XhTata Nava EO # 0.1 103/ul Normal 0.0-0.7 [facility] Comment on above: Performed By: #### C BC ####[facility] [address] [address]Dr. Adrianne Nava Eosinophils/100 WBC (Bld) 1.2 % Normal 0.9-7.0 [facility] Comment on above: Performed By: #### C BC ####[facility] [address] [place], [place] [address]Dr. Adrianne Nava Erythrocyte distribution width (RBC) [Ratio] 12.4 % Normal 11.0-15.0 [facility] Comment on above: Performed By: #### C BC ####[facility] [address] [place], [place] [address]Dr. Adrianne Nvaa Hematocrit (Bld) [Volume fraction] 41.1 % Normal 36.0-48.0 [facility] Comment on above: Performed By: #### C BC ####[facility] [address] [place], [place] [address]Dr. Adrianne Nava Hemoglobin (Bld) [Mass/Vol] 13.7 g/dL Normal 12.0-16.0 [facility] Comment on above: Performed By: #### C BC ####[facility] [address] [place], [place] [address]Dr. Adrianne Nava IG # 0.02 10e3/ul Normal 0.00-0.03 [facility] Comment on above: Performed By: #### C BC ####[facility] [address] [place], [place] [address]Dr. Adrianne Nava IG % 0.3 % Normal 0.0-0.5 [facility] Comment on above: Performed By: #### C BC ####[facility] [address] [place], [place] [address]Dr. Adrianne Nava LYMPH # 1.4 103/ul Normal 1.2-3.8 [facility] Comment on above: Performed By: #### C BC ####[facility] [address] [place], [place] [address]Dr. Adrianne Nava Lymphocytes/100 WBC (Bld) 19.1 % Critically low 20.5-60.0 [facility] Comment on above: Performed By: #### C BC ####[facility] [address] [address]Dr. Adrianne Nava MANUAL DIFF REQ NO Normal [facility] Comment on above: Performed By: #### C BC ####[facility] [address] [id number]. Adrianne Nava MCH (RBC) [Entitic mass] 30.7 pg Normal 26.7-34.0 [facility] Comment on above: Performed By: #### C BC ####[facility] [address] [address]Dr. Adrianne Nava MCHC (RBC) [Mass/Vol] 33.3 g/dL Normal 29.9-35.2 [facility] Comment on above: Performed By: #### C BC ####[facility] [address] [place], [place] [address]Dr. Adrianne Nava MCV (RBC) [Entitic vol] 92.2 fL Normal 81.0-99.0 [facility] Comment on above: Performed By: #### C BC ####[facility] [address] [place], [place] [address]Dr. Adrianne Nava MONO # 0.5 103/ul Normal 0.3-0.8 [facility] Comment on above: Performed By: #### C BC ####[facility] [address] [place], [place] [address]Dr. Adrianne Nava Monocytes/100 WBC (Bld) 6.8 % Normal 1.7-12.0 [facility] Comment on above: Performed By: #### C BC ####[facility] [address] [place], [place] [address]DrTata Nava NEUT # 5.3 103/ul Normal 1.4-6.5 [facility] Comment on above: Performed By: #### C BC ####[facility] [address] [place], [place] [address]Dr. Adrianne Nava Neutrophils/100 WBC (Bld) 72.2 % Normal 43.0-75.0 The [facility] Comment on above: Performed By: #### C BC ####[facility] [address] [place], [place] [address]Qf. Adrianne Nava Platelet mean volume (Bld) [Entitic vol] 11.1 fL Normal 9.5-13.5 [facility] Comment on above: Performed By: #### C BC ####[facility] [address] [place], [place] [address]Qc. Adrianne Nava PLT 200 103/ul Normal 150-450 [facility] Comment on above: Performed By: #### C BC ####[facility] [address] [place], [place] [address]Vd. Adrianne Nava RBC 4.46 106/ul Normal 4.20-5.40 [facility] Comment on above: Performed By: #### C BC ####[facility] [address] [place], [place] [address]Jr. Adrianne Nava WBC 7.4 103/ul Normal 4.0-11.0 [facility] Comment on above: Performed By: #### C BC ####[facility] [address] [place], [place] [address]M[address]. [address] Nava CT ABD/PELVIS WO CONon 03-25 [...] by: IVIS LASSITER Date: 2022-03-25 15:08 Normal [facility] CULTURE URINEon 03-25-2022 CULTURE URINE Culture Observations : NO GROWTH. Normal [facility] Comment on above: Performed By: #### U RCX ####[facility] [address] [address]Dr. Adrianne Nava ER URINE PROFILEon 2 Bilirubin Ql (U) Negative Normal NEGATIVE [facility] Comment on above: Performed By: #### Dusty JC UMICRO #### [facility] [address] [address] [address] Adrianne Nava Clarity (U) CLEAR Normal CLEAR [facility] Comment on above: Performed By: #### Dusty JC, UMICRO #### [facility] [address] [address] [address] Adrianne Nava Color (U) LT. YELLOW Normal YELLOW [facility] Comment on above: Performed By: #### E RUR, UMICRO #### [facility] [address] [address] [address] Adrianne Nava ERUAHD A micrscopic examination will be performed if indicated. Normal [facility] Comment on above: Performed By: #### E RUR UMICRO #### [facility] [address] [address] [address] Adrianne Nava Glucose Ql (U) Negative Normal NEGATIVE [facility] Comment on above: Performed By: #### E RUR UMICRO #### [facility] [address] [place] [address] Dr. Adrianne Nava Hemoglobin Ql (U) Negative Normal NEGATIVE [facility] Comment on above: Performed By: #### EVELYNE FOYRO #### [facility] [address] [place] [address] Dr. Adrianne Nava Ketones Ql (U) Negative Normal NEGATIVE [facility] Comment on above: Performed By: #### GEGE FOYICRO #### [facility] [address] [place] [address] Dr. Adrianne Nava LEUKOCYTES MODERATE Abnormal NEGATIVE [facility] Comment on above: Performed By: #### EVELYNE FOYRO #### [facility] [address] [place] [address] Dr. Adrianne Nava Nitrite Ql (U) Negative Normal NEGATIVE [facility] Comment on above: Performed By: #### EVELYNE FOYRO #### [facility] [address] [place] [address] Dr. Adrianne Nava pH (U) 6.5 [pH] Normal 5-9 [facility] Comment on above: Performed By: #### EVELYNE FOYRO #### [facility] [address] [place] [address] Dr. Adrianne Nava SPEC GRAVITY <=1.005 Abnormal 1.005-<=1.025 [facility] Comment on above: Performed By: #### EVELYNE FOYRO #### [facility] [address] [place] [address] Dr. Adrianne Nava UA PROTEIN Negative Normal NEGATIVE/ TRACE [facility] Comment on above: Performed By: #### EVELYNE FOYRO #### [facility] [address] [place] [address] Dr. Adrianne Nava UR MICRO IND INDICATED Normal [facility] Comment on above: Performed By: #### GEGE FOYICRO #### [facility] [address] [place] [address] Dr. Adrianne Nava Urobilinogen Qn (U) 0.2 {Kaley'U}/dL Normal 0.2 - 1. 0 [facility] Comment on above: Performed By: #### E MELISSA JC #### [facility] [address] [address] [address] Adrianne Nava PROF CHEM 8 (BAS METB)on Anion gap [Moles/Vol] 12.7 mmol/L Normal [facility] Comment on above: Performed By: #### B MP #### [facility] [address] [address] [address] Adrianne Nava Calcium [Mass/Vol] 9.0 mg/dL Normal 8.5-10.1 [facility] Comment on above: Performed By: #### B MP #### [facility] [address] [place] [address] Dr. Adrianne Naav Chloride [Moles/Vol] 105 mmol/L Normal 98-107 [facility] Comment on above: Performed By: #### B MP #### [facility] [address] [place] [address] Dr. Adrianne Nava CO2 [Moles/Vol] 25.1 mmol/L Normal 21.0-32.0 [facility] Comment on above: Performed By: #### B MP #### [facility] [address] [place] [address] Dr. Adrianne Nava Creatinine [Mass/Vol] 0.86 mg/dL Normal 0.55-1.02 [facility] Comment on above: Performed By: #### B MP #### [facility] [address] [place] [address] Dr. Adrianne Nava EGFR-AF TAJIK >60 Normal >=60 [facility] Comment on above: Performed By: #### B MP #### [facility] [address] [place] [address] Dr. Adrianne Nava EGFR-NON AF TAJIK >60 Normal >=60 [facility] Comment on above: Performed By: #### B MP #### [facility] [address] [place] [address] Dr. Adrianne Nava Glucose [Mass/Vol] 99 mg/dL Normal 74-106 [facility] Comment on above: Performed By: #### B MP #### [facility] [address] [address] [address] Adrianne Nava Potassium [Moles/Vol] 3.8 mmol/L Normal 3.5-5.1 [facility] Comment on above: Performed By: #### B MP #### [facility] [address] [address] [address] Adrianne Nava Sodium [Moles/Vol] 139 mmol/L Normal 136-145 [facility] Comment on above: Performed By: #### B MP #### [facility] [address] [address] [address] Adrianne Nava Urea nitrogen [Mass/Vol] 19.0 mg/dL Critically high 7.0-18.0 [facility] Comment on above: Performed By: #### B MP #### [facility] [address] [place] [address] Dr. Adrianne Nava Urea nitrogen/Creatinine [Mass ratio] 22.1 mg/mg Normal [facility] Comment on above: Performed By: #### B MP #### [facility] [address] [place] [address] Dr. Adrianne Nava URINE MICROSCOPIC ONLYon BACTERIA TRACE Abnormal NONE SEEN [facility] Comment on above: Performed By: #### Dusty JC UMICRO #### [facility] [address] [place] [address] Dr. Adrianne Nava Bacteria identified Cx Nom (U) INDICATED Normal [facility] Comment on above: Performed By: #### Dusty JC UMICRO #### [facility] [address] [place] [address] Dr. Adrianne Nava CAST NONE SEEN Normal NONE SEEN [facility] Comment on above: Performed By: #### Dusty JC UMICRO #### [facility] [address] [place] [address] Dr. Adrianne Nava Crystals LM Nom (Urine sed) NONE SEEN Normal NONE SEEN [facility] Comment on above: Performed By: #### E RUR, UMICRO #### [facility] [address] [address] [address] Adrianne Nava Epithelial cells LM Ql (Urine sed) FEW Abnormal NONE SEEN /RARE [facility] Comment on above: Performed By: #### Dusty JC UMIBRAHIMARO #### [facility] [address] [address] [address] Adrianne Nava MUCOUS NONE SEEN Normal NONE SEEN [facility] Comment on above: Performed By: #### EVELYNE FOYRO #### [facility] [address] [address] [address] Adrianne Nava RBC 0-2 Normal 0-2 [facility] Comment on above: Performed By: #### EVELYNE FOYRO #### [facility] [address] [address] [address] Adrianne Nava WBC 10-20 Abnormal NONE SEEN [facility] Comment on above: Performed By: #### Dusty JC UMIBRAHIMARO #### [facility] [address] [address] [address] Adrianne Nava MG MAMM SCREEN 3D JORDAN CADon 03-07-2022 MG MAMM SCREEN 3D JORDAN CAD Patient: DANTE JAMES Exam Date: 03/07/2022 : 1965 Gender:F Ordering : DR KYUNG YANG Admission #: [id number] Family : Order #: [id number] CLICK HERE TO VIEW EXAM RADIOLOGY REPORT [...] cervical cancer at age 35. LOCATION: [facility] BREAST COMPOSITION: Extremely dense, which lowers the [...] MD on 03/07/2022 at 09:52 Normal [facility] C. DIFF PCRon 02-05-2022 C. DIFFICILE PCR Negative Normal NEGATIVE [facility] Comment on above: Performed By: #### C DIFPOC ####[facility] [address] [address]Dr. Adrianne Nava GI PANEL (PCR)on 02-05-2022 Adenovirus F 40/41 Not detected Normal NOT DETECTED [facility] Comment on above: Performed By: #### G IPANEL #### [facility] [address] [place] [address] Dr. Adrianne Nava Astrovirus Not detected Normal NOT DETECTED [facility] Comment on above: Performed By: #### G IPANEL #### [facility] [address] [place] [address] Dr. Adrianne Nava C. Diff toxin A/B Not detected Normal NOT DETECTED [facility] Comment on above: Performed By: #### G IPANEL #### [facility] [address] [place] [address] Dr. Adrianne Nava Campylobacter Not detected Normal NOT DETECTED [facility] Comment on above: Performed By: #### G IPANEL #### [facility] [address] [place] [address] Dr. Adrianne Nava Cryptosporidium Not detected Normal NOT DETECTED [facility] Comment on above: Performed By: #### G IPANEL #### [facility] [address] [place] [address] Dr. Adrianne Nava Cyclos. Cayetanensis Not detected Normal NOT DETECTED [facility] Comment on above: Performed By: #### G IPANEL #### [facility] [address] [place] [address] Dr. Adrianne Nava E. Coli O157 Not Applicable Normal Not Applicable [facility] Comment on above: Performed By: #### G IPANEL #### [facility] [address] [place] [address] Dr. Adrianne Nava ETata histolytica Not detected Normal NOT DETECTED [facility] Comment on above: Performed By: #### G IPANEL #### [facility] [address] [place] [address] Dr. Adrianne Nava EAEC Not detected Normal NOT DETECTED [facility] Comment on above: Performed By: #### G IPANEL #### [facility] [address] [place] [address] Dr. Adrianne Nava EIEC Not detected Normal NOT DETECTED [facility] Comment on above: Performed By: #### G IPANEL #### [facility] [address] [place] [address] Dr. Adrianne Nava EPEC Not detected Normal NOT DETECTED [facility] Comment on above: Performed By: #### G IPANEL #### [facility] [address] [place] [address] Dr. Adrianne Nava ETEC Not detected Normal NOT DETECTED [facility] Comment on above: Performed By: #### G IPANEL #### [facility] [address] [place] [address] Dr. Adrianne Pena Lamblia Not detected Normal NOT DETECTED [facility] Comment on above: Performed By: #### G IPANEL #### [facility] [address] [place] [address] Dr. Adrianne LING CONTROLS PASSED Normal [facility] Comment on above: Performed By: #### G IPANEL #### [facility] [address] [place] [address] Dr. Adrianne CARDOZA JOEY HEADER GI PANEL BACTERIA Normal [facility] Comment on above: Performed By: #### G IPANEL #### [facility] [address] [place] [address] Dr. Adrianne CARDOZAHD ECOLI GI PANEL DIARRHEAGENIC E.COLI / SHIGELLA Normal [facility] Comment on above: Performed By: #### G IPANEL #### [facility] [address] [address] [address] Adrianne PAUL INFO SEE BELOW Normal [facility] Comment on above: Result Comment: EAEC - Enteroaggregative E. Coli EPEC- Enteropathogenic E. Coli ETEC- Enterotoxigenic E. Coli lt/st STEC- Shigella-like toxin-producing E. Coli stx1/stx2 EIEC- Shigella/Enteroinvasive E. Coli Performed By: #### G IPANEL #### [facility] [address] [address] [address] Adrianne PAUL PARASITES GI PANEL PARASITES Normal [facility] Comment on above: Performed By: #### G IPANEL #### [facility] [address] [place] [address] Dr. Adrianne PAUL VIRUS GI PANEL VIRUSES Normal [facility] Comment on above: Performed By: #### G IPANEL #### [facility] [address] [place] [address] Dr. Adrianne Nava Norovirus GI/GII Not detected Normal NOT DETECTED [facility] Comment on above: Performed By: #### G IPANEL #### [facility] [address] [place] [address] Dr. Adrianne Nava P. Shigelloides Not detected Normal NOT DETECTED [facility] Comment on above: Performed By: #### G IPANEL #### [facility] [address] [place] [address] Dr. Adrianne Nava Rotavirus A Not detected Normal NOT DETECTED [facility] Comment on above: Performed By: #### G IPANEL #### [facility] [address] [place] [address] Dr. Adrianne Nava Salmonella Not detected Normal NOT DETECTED [facility] Comment on above: Performed By: #### G IPANEL #### [facility] [address] [place] [address] Dr. Adrianne Nava Sapovirus Not detected Normal NOT DETECTED [facility] Comment on above: Performed By: #### G IPANEL #### [facility] [address] [place] [address] Dr. Adrianne Nava STEC Not detected Normal NOT DETECTED [facility] Comment on above: Performed By: #### G IPANEL #### [facility] [address] [address] [address] Adrianne Nava Vibrio Not detected Normal NOT DETECTED [facility] Comment on above: Performed By: #### G IPANEL #### [facility] [address] [address] [address] Adrianne Nava Vibrio Cholera Not detected Normal NOT DETECTED [facility] Comment on above: Performed By: #### G IPANEL #### [facility] [address] [address] [address] Adrianne Nava Y. Enterocolitica Not detected Normal NOT DETECTED [facility] Comment on above: Performed By: #### G IPANEL #### [facility] [address] [address] [address] Adrianne Nava Vital Signs Date Time Vital Sign Value Performing Clinician Facility 02-28-2024 09:07-0400 Body temperature 97.88 [degF] Marycruz Lue [facility] 02-28-2024 09:07-0400 Diastolic blood pressure 70 mm[Hg] Marycruz Lue [facility] 02-28-2024 09:07-0400 Heart rate 68 /min Marycruz Lue [facility] 02-28-2024 09:07-0400 Respiratory rate 16 /min Marycruz Lue [facility] 02-28-2024 09:07-0400 Systolic blood pressure 108 mm[Hg] Marycruz Lue [facility] 03-13-2023 11:45-0400 Body height 162.56 cm Erica Mott Other [facility] Other 03-13-2023 11:45-0400 Body mass index (BMI) [Ratio] 23.51 kg/m2 Erica Mott Other [facility] Other 03-13-2023 11:45-0400 Body temperature 98 [degF] Erica Mott Other [facility] Other 03-13-2023 11:45-0400 Body weight 62.14 kg Ericamichael Mott Other [facility] Other 03-13-2023 11:45-0400 Diastolic blood pressure 65 mm[Hg] Erica Mott Other [facility] Other 03-13-2023 11:45-0400 Respiratory rate 18 /min Erica Mott Other [facility] Other 03-13-2023 11:45-0400 SaO2% (BldA) [Mass fraction] 96 % Erica Mott Other [facility] Other 03-13-2023 11:45-0400 Systolic blood pressure 103 mm[Hg] Erica Mott Other [facility] Other 03-09-2023 10:05-0400 Body height 162.56 cm Erica Mott Other [facility] Other 03-09-2023 10:05-0400 Body mass index (BMI) [Ratio] 23.51 kg/m2 Erica Mott Other [facility] Other 03-09-2023 10:05-0400 Body temperature 97.3 [degF] Erica Mott Other [facility] Other 03-09-2023 10:05-0400 Body weight 62.14 kg Erica Lomeliley Other [facility] Other 03-09-2023 10:05-0400 Diastolic blood pressure 61 mm[Hg] Erica Tiera Other [facility] Other 03-09-2023 10:05-0400 Respiratory rate 18 /min Erica Tiera Other [facility] Other 03-09-2023 10:05-0400 SaO2% (BldA) [Mass fraction] 99 % Erica Tiera Other [facility] Other 03-09-2023 10:05-0400 Systolic blood pressure 98 mm[Hg] Ericamichael Mott Other [place] [facility] Other 04-20-2022 14:41-0400 Blood Pressure Location ISRAEL GISSELL [facility] 04-20-2022 14:41-0400 Diastolic blood pressure 80 mm[Hg] ISRAEL BORRERO [facility] 04-20-2022 14:41-0400 Heart rate 75 /min ISRAELAVINASH BORRERO [facility] 04-20-2022 14:41-0400 Systolic blood pressure 119 mm[Hg] ISRAELAVINASH BORRERO [facility] Hospital Encounters Encounter Date Encounter Type Care Provider Facility Start: 05-15-2024 ambulatory Marycruz Bhagat Facility:[facility] Start: 04-04-2024 End: 04-04-2024 ambulatory KYUNG W [facility] Start: 04-04-2024 Encounter for gynecological examination (general) (routine) without abnormal findings KYUNG [facility] Start: 02-28-2024 End: 02-28-2024 Lab Drop off Marycruz M. Lue [facility] Start: 02-28-2024 End: 02-28-2024 ambulatory Marycruz M. Lue Facility:[facility] Start: 02-28-2024 End: 02-28-2024 Patient encounter procedure Marycruz M. Lue [facility] Start: 12-11-2023 End: 12-11-2023 ambulatory SERGIO RIVERA Not Available Start: 06-14-2023 End: 06-14-2023 Lab Drop off Marycruz M. Lue [facility] Start: 06-14-2023 End: 06-14-2023 ambulatory Marycruz M. Lue Facility:[facility] Start: 2023 End: 2023 ambulatory Marycruz M. Lue Facility:[facility] Start: 2023 End: 2023 ambulatory Marycruz M. Lue Facility: [facility] Start: 03-13-2023 End: 03-13-2023 ambulatory Erica Mott Other [facility] [employer] Other Start: 03-13-2023 Office outpatient vi sit 15 minutes Erica Mott [facility] Start: 03-09-2023 End: 03-09-2023 ambulatory Erica Mott Other [facility] Other Start: 03-09-2023 Office outpatient ne w 20 minutes Erica Mott [facility] Start: 11-14-2022 End: 11-14-2022 ambulatory DENISE CHAVARRIA Facility:[facility] Start: 11-09-2022 End: 11-10-[address] DUKE VERDE . Facility:[facility] Start: 11-08-2022 End: 11-09-[address] KANE MCKEE Facility:[facility] Start: 10-07-2022 End: 10-08-[address] DUKE VERDE . Facility:[facility] Start: 04-21-2022 End: 04-21-2022 Patient encounter procedure Duke Verde MD Work Phone: [facility] Laboratory Start: 04-21-2022 End: 04-21-2022 Subsequent hospital visit by physician Duke Verde MD Work Phone: [facility] Laboratory Comment on above: Vaginal irritation; Women's annual routine gynecological examination Start: 04-20-2022 End: 04-20-2022 Patient encounter procedure ISRAEL BORRERO [facility] Start: 04-15-2022 End: 04-16-[address] BRIAN TIDWELL Facility:[facility] Start: 04-06-2022 End: 04-07-[address] DUKE VERDE . Facility:[facility] Start: 03-25-2022 End: 03-25-[address] IVIS LASSITER Facility:[facility] Start: 03-07-2022 End: 03-08-[address] BRIAN TIDWELL Facility:[facility] Start: 02-05-2022 End: 02-06-[address] DUKE VERDE . Facility:[facility] Start: 04-19-2021 End: 04-19-2021 Subsequent hospital visit by physician Duke Verde MD Work Phone: [facility] Laboratory Comment on above: History of cervical cancer Start: 05-02-2019 End: 05-02-2019 [facility] Comment on above: Women's annual routi ne gynecological examination Start: 03-29-2017 Ambulatory HARRISON BUSTAMANTE Facility :8 Start: 02-10-2017 Ambulatory HARRISON BUSTAMANTE Facility :8 Procedures Date Procedure Procedure Detail Performing Clinician Partial hysterectomy RICKY BORRERO Procedure on shoulder JENNIF ER GISSELL Tonsillectomy ISRAEL BORRERO Tonsillectomy and adenoidectomy Marycruz Bhagat Plan of Treatment Date Care Activity Detail Author Start: 04-24-2023 End: 04-24-2023 Patient encounter procedure 04/24/2023 Office Visit Obstetrics and Gynecology Kyung Yang MD [address] [place] [address] [facility] OBSTETRICS & GYNECOLOGY [facility] Start: 03-05-2023 Screening for malign ant neoplasm of breast Breast cancer screen [facility] Start: 04-21-2022 End: 04-21-2022 Patient encounter procedure 04/21/2022 Office Visit Obstetrics and Gynecology Kyung Yang MD [address] [place] [address] [facility] OBSTETRICS & GYNECOLOGY Start: 03-31-2022 Influenza vaccination Flu vaccine (# 1) [facility] Start: 04-30-2021 Cervical cancer screen Cervical canc er screen [place], [place] Start: 03-31-2021 Influenza vaccination Flu vaccine (# 1) [facility] [employer] Phone: Start: 06-06-2020 Breast cancer screen Breast cancer s creen [place], [place] Start: 05-30-2019 Influenza vaccination Flu vaccine (# 1) [place] Comment on above: Postponed from 03/31 (Patient Refused) Start: 2015 Colon cancer screen colonoscopy Colon cancer screen colonoscopy [place], [place] Start: 2015 Shingles Vaccine (1 of 2) Shingles Vaccine (1 of 2) [place] Start: 2010 Screening for malign ant neoplasm of colon [facility] Start: 2005 Diabetes screen Diabetes screen [employer] Phone: Start: 2005 Lipid panel [facility] Start: 2005 Lipid screen Lipid screen [place], [place] Start: 1984 DTaP/Tdap/Td vaccine (1 - Tdap) DTaP/Tdap/Td vaccine (1 - Tdap) [facility] Start: 1983 Hepatitis C screening Hepatitis C sc huong [facility] Start: 1980 HIV screen HIV screen [place], [place] Start: 1980 HIV screening HIV screen [facility] Start: 1977 Depression Screen Depression Screen [facility] Start: 1965 Hepatitis C screen Hepatitis C scree n [place], [place] Start: 1965 Hepatitis C screening Hepatitis C [facility] [employer] Phone: End: 04-21-2022 Culture, Genital [facility] [employer] Phone: Comment on above: 1 Occurrences starti ng 04/21/2022 until 04/21/2022 End: 05-02-2019 Cytopathology procedure, preparation of smear, genital source [facility] Lab Routine Women's annual routine gynecological examination 1 Occurrences starting 05/02/2019 until 05/02/2019 [place] Comment on above: 1 Occurrences starti ng 05/02/2019 until 05/02/2019 End: 04-19-2021 Cytopathology procedure, preparation of smear, genital source [facility] Lab Routine History of cervical cancer 1 Occurrences starting 04/19/2021 until 04/19/2021 [facility] [employer] Phone: Comment on above: 1 Occurrences starti ng 04/19/2021 until 04/19/2021 End: 04-21-2022 Cytopathology procedure, preparation of smear, genital source [facility] [facility] Lab Routine Women's annual routine gynecological examination 1 Occurrences starting 04/21/2022 until 04/21/2022 [facility] [employer] Phone: Comment on above: 1 Occurrences starti ng 04/21/2022 until 04/21/2022 Immunizations Immunization Date Immunization Notes Care Provider Gallo frost 03-29-2023 influenza virus vaccine, unspecified formulation Marycruz Bhagat [facility] 03-29-2023 tetanus toxoid, reduced diphtheria toxoid, and acellular pertussis vaccine, adsorbed Marycruz Ludusty [facility] 11-18-2020 SARS-CoV-2 (COVID-19 ) mRNA-1273 vaccine Marycruz Lue [facility] Comment on above: Result Comment: 2022: TPV50 11-13-2020 SARS-CoV-2 (COVID-19 ) Ad26 vaccine, recombinant ISRAEL BORRERO [facility] 10-21-2020 SARS-CoV-2 (COVID-19 ) mRNA-1273 vaccine Marycruz Ludusty [facility] Comment on above: Result Comment: 2022: TPV50 10-16-2020 SARS-CoV-2 (COVID-19 ) Ad26 vaccine, recombinant ISRAEL BORRERO [facility] 10-01-2019 zoster vaccine recombinant Marycruz Lue [facility] 07-28-2019 zoster vaccine recombinant Marycruz Lue [facility] NEGATED: Highlighted row has not occurred!09-24-2020 influenza virus vaccine, unspecified formulation ISRAEL BORRERO [facility] Payers Date Payer Category Payer Unknown [facility] xxxxxxxxxxxx 2014-Present [phone] [address] [address] [place] [address] xxxxxxxxxxxx [id number] 1965 Unknown [id number] [id number] 1965 Unknown [id number] 2.16.840.1.224156.3.579.2.593 1965 Unknown [id number] 2.16.840.1.419266.3.579.2.593 1965 Unknown [id number] 2.16.840.1.175258.3.579.2.593 1965 Unknown [id number] 2.16.840.1.900174.3.579.2.593 1965 Unknown [id number] 2.16.840.1.512268.3.579.2.593 1965 Unknown [id number] 2.16.840.1.540117.3.579.2.593 1965 Unknown [id number] 2.16.840.1.322276.3.579.2.593 1965 Unknown [id number] 2.16.840.1.587891.3.579.2.593 1965 Unknown [id number] 2.16.840.1.515453.3.579.2.125 9 1965 Unknown [id number] 2.16.840.1.678820.3.579.2.727 1965 Unknown [id number] 2.16.840.1.561945.3.579.2.727 1965 Unknown [id number] 2.16.840.1.484550.3.579.2.727 1965 Unknown [id number] 2.16.840.1.330876.3.579.2.727 1965 Unknown [id number] 2.16.840.1.894667.3.579.2.727 1965 Unknown [id number] 2.16.840.1.639510.3.579.2.727 1965 Unknown [id number] 2.16.840.1.332714.3.579.2.727 1965 Unknown [id number] 2.16.840.1.513395.3.579.2.173 1959 Unknown [id number] Unknown [id number] 2.16.840.1.298230.19 Social History Date Type Detail Facility Start: 05-02-2019 End: 02-28-2024 Tobacco smoking status NHIS Never smoker [facility] Start: 05-02-2019 Alcohol intake Yes [place] Start: 12-29-2016 Alcohol Comment one glass a week [place], [place] Start: 1965 Sex Assigned At Not on file M [place] Start: 04-30-2018 End: 04-19-2021 Tobacco use and exposure Never used [employer] Start: 04-19-2021 End: 04-21-2022 Alcohol intake Current drinker of alcohol (finding) [employer] Phone: Start: 04-19-2021 End: 04-21-2022 Alcohol intake [employer] Phone: Tobacco smoking status Never [facility] Start: 04-11-2022 End: 04-21-2022 Exposure to SARS-CoV-2 (event) Not sure MADELYN ANGELO [employer] Functional Status Date Assessment Result Facility 02-28-2024 Functional Status N/A [facility] 04-20-2022 Functional Status N/A [facility] Clinical Notes 04-20-2022 to 02-28-2024 Note Date & Type Note Facility 02-28-2024 Evaluation + Plan note Diagnostic Tests PendingElectrolyte Panel 02/28/24 [facility] 02-28-2024 Evaluation + Plan note Diagnostic Tests PendingUrine Culture 02/28/24 [facility] 02-28-2024 Hospital Discharge instructions Patient Education 02/28/2024 09:48:33 Kidney Stones, Fvci-pm-Shca Kidney Stones Kidney stones are rock-like masses [...] Follow these instructions at home: Medicines Take jbqn-gmg-shdgvzw and prescription medicines only as told by [...] provider. Document Revised: 03/21/2022 Document Reviewed: 03/21/2022 [employer] Patient Education 2022 [employer]. Follow Up Care 06/14/2023 08:31:32 With:Olayinka HINSON, JEFF MackL, URO Address: [address] [place] [place] [address] [phone] When: Unknown [facility] 02-28-2024 Note Patient Education Urology Kidney Stones [...] these instructions at home: Medicines ? Take piez-ynh-ctfgoyv and prescription medicines only as told by [...] provider. Document Revised: 03/21/2022 Document Reviewed: 03/21/2022 [employer] Patient Education ? 2022 [employer]. [facility] 03-13-2023 Evaluation note Encounter Date Diagnosis Assessment [...] until symptoms are completely resolved x48 hours. [facility] Other 08-10-2023 Evaluation note* Encounter Date Diagnosis [...] symptoms. Patient declines COVID testing in office [facility] Other 03-10-2023 NotePROCEDURE: XR SHOULDER LT 2V [...] Electronically authenticated by: IVIS LASSITER Date: 2022-10-07 11:52[facility]03-10-2023 NotePROCEDURE: XR SHOULDER LT 2V or >, [...] Electronically authenticated by: IVIS LASSITER Date: 2022-10-07 11:52[facility]09-21-2022 Hospital Discharge instructions Patient Education 04/20/2022 14:49:06 [...] include: ?Spinach. ?Rhubarb. ?Beets. ?Potato chips and guinean fries. ?Nuts. If you regularly take a diuretic medicine, make sure to eat at least 1 2 fruits or vegetables high in potassium each day. These include: ?Avocado. ?Banana. ?Allegheny, prune, carrot, or tomato juice. ?Baked potato. [...] Casseroles. Pizza. Lasagna. Frozen meals. Potato chips. Cook Islander fries. Summary You can reduce your risk [...] 11/11/2011 Document Revised: 11/06/2019 Document Reviewed: 06/27/2017 [employer] Patient Education 2020 [employer]. Follow Up Care 04/13/2021 13:36:19 With:ISRAEL BORRERO PA-C, URL Address: [address] [place] [address] When:1 year Comments:KUB [facility] + Plan note Future Appointments Appointment Date:04/25/2023 08:00:00 AM Scheduled Provider:Valencia Villatoro Jr., MD Location:[facility] Appointment Type:URO Office Visit Diagnostic Tests Pending * UTI ([facility]) 04/20/22 [facility] + Plan note Future Appointments Appointment Date:03/06/2024 08:45:00 AM Scheduled Provider:Marycruz Bhagat MD Location:[facility] Appointment Type:URO Office Visit Diagnostic Tests Pending * Calculi Analysis Urinary 06/14/23 [facility] Diagnosis History of cervical cancer Personal history of malignant neoplasm of cervix uteri documented in this encounter [employer] Phone: [id number] note* Diagnosis Vaginal irritation Unspecified noninflammatory disorder of vagina Women's annual routine gynecological examination documented in this encounter [facility] Phone: History general Narrative - Reported* Type Description Date Medical History Migraine Medical History Seizure Surgical History partial hysterectomy Surgical History shoulder surgery b/l Surgical History colonoscopy [facility] Other Hospital course Narrative No data available for this section [facility] Hospital Discharge instructions No data available for this section [facility] No data available for this section [facility] Summary Purpose Family History No Family History [...] FoundDocuments on File Type Date Recorded 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 and Living Will Power of Ticket Taker Latest Code Status on File Code Status Date Activated Date Inactivated Comments Full Code 01/03/2017 4:41 PM 01/03/2017 8:21 PM Documents on File Type Date Recorded 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 ACP-Advance Directive ACP-Power of Ticket Taker Assessments Diagnosis Women's annual routine gynecological examination Additional Source Comments INFORMATION SOURCE (unrecogn ized section and content) DATE CREATED AUTHOR 01/24/2018 [facility] DATE CREATED AUTHOR AUTHOR'S ORGANIZ ATION 11/16/2022 [facility] DATE CREATED AUTHOR AUTHOR'S ORGANIZ ATION 12/12/2023 [facility] EPIC DATE CREATED AUTHOR AUTHOR'S ORGANIZ ATION 03/01/2024 [facility] DATE CREATED AUTHOR AUTHOR'S ORGANIZ ATION 03/03/2024 [facility] DATE CREATED AUTHOR AUTHOR'S ORGANIZ ATION 03/17/2024 [facility] DATE CREATED AUTHOR AUTHOR'S ORGANIZ ATION 04/18/2024 [facility] Care Team (unrecognized sect ion and content) 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 [employer] provides no warranty or guarantee of the accuracy or completeness of information in this document.
[2024-05-15 12:19] LABS: Internal Control Within Normal Limits; SARS-CoV-2 Ag NEGATIVE (NEGATIVE)
[2024-05-15] MEDS: 0.9 % SODIUM CHLORIDE 500 ML 50 ML IV (12:34)
[2024-05-15] MEDS: CEFAZOLIN SODIUM 2 GM/50 ML D5W PREMIX IV (12:48)
[2024-05-15] MEDS: IOHEXOL 300 MG/ML - 50 ML BTL INJ (13:23)
--- NOTE | 2024-05-15 13:53 | XR_ITS ---
The [address] [address] Patient Name: DANTE JAMES MRN: [id number] date: 1965 Sex: F Assigned Patient Location: [facility] Current Patient Location: Accession/Order Number: [id number] Exam Date: 05/15/2024 12:50 Report Date: 05/17/2024 07:13 At the request of: JASIEL GOMEZ Procedure: XR urethrogram retrograde EXAM: XR urethrogram retrograde HISTORY: Left renal stone COMPARISON: None. TECHNIQUE: Images. 8.58 mgy FINDINGS: 3. Images demonstrate retrograde injection of iodinated contrast into the left renal collecting system. No filling defect or hydronephrosis. Placement of a ureteral stent normally positioned informed XR/XR urethrogram retrograde IMPRESSION: Placement of left ureteral stent Electronically authenticated by: BRIAN TIDWELL Date: 05/17/2024 07:13
[2024-05-15] MEDS: LACTATED RINGER'S SOLUTION 1,000 ML 50 ML IV (13:57)
--- NOTE | 2024-05-15 14:11 | PM.URSON ---
Urology Surgery Operative Note Operative Note Procedure Date: 05/15/24 Time Out Performed: yes Pre-op Diagnosis: Left kidney stones Post-op Diagnosis: same as pre-op Procedures performed: Cystoscopy, left retrograde pyelogram, ureteroscopy with stone extraction, stent placement Anesthesia: General-LMA Primary Surgeon: Marycruz Bhagat Complications: none Estimated blood loss (mL): 0 Findings: L RPG- filling defect at lower pole and upper pole calyces consistent with known stones. No hydronephrosis. Very prominent papilla, tiny stones within creases around papilla, <1mm-2 mm. Larger stones basket extracted. No significant stone burden. Specimens: left kidney stone Drains: 6Fr x 24 cm JJ left ureteral stent on string Incision: none Indications for Procedures: 59 year old female with multiple left kidney stones, largest 3x7 mm and 3x9 mm. After discussion of risks/benefits of management options, she elected to proceed with cystoscopy, left retrograde pyelogram, ureteroscopy with laser lithotripsy/stone extraction, possible ureteral stent placement under general anesthesia. Risks were discussed including but not limited to bleeding, pain, infection, damage to surrounding structures, inability to treat the stone/place a stent, and need for additional procedures. The patient understands the stent is not permanent and needs to be removed or exchanged within 3 months to prevent encrustation, infection, invasive procedures and/or permanent renal damage. Detailed description of Procedure: After informed consent was obtained, the patient was brought to the operating room and transferred onto the operating table in supine position. Sequential compression devices were placed on bilateral lower extremities. The patient received the appropriate dose of preoperative IV antibiotics and general anesthesia LMA was induced. They were positioned in modified dorsolithotomy with the appropriate pressure points padded, prepped, and draped in the usual sterile fashion for this procedure. An operative safety timeout was performed confirming the patient's identity, laterality and procedure, and all present agreed to proceed. I began by inserting a 22 [place] Islander rigid cystoscope with 30 degree lens into the patient's urethra and bladder without difficulty. There were no bladder tumors, lesions, stones or foreign bodies. Bilateral ureteral orifices were orthotopic and patent. I turned my attention to the left ureteral orifice and a 6- [place] Islander open-ended catheter was inserted into the ureteral orifice and dilute contrast was injected for retrograde pyelogram with findings as above. A Sensor wire was inserted into the ureter up to the renal pelvis confirmed on fluoroscopy. An 11/13 [place] Islander by 36 cm ureteral access sheath was inserted over the wire in a sequential fashion to gain access to the renal pelvis. Next a flexible ureteroscope was inserted through the sheath and advanced to the renal pelvis under fluoroscopic guidance. A renoscopy was done with findings as above. Larger stones were removed with 1.8 tipless basket. The remaining stones were 1 mm or less or within papilla unable to be removed. A full renoscopy was performed confirming no significant residual stones or fragments remained. Contrast was injected to assist with mapping for the renoscopy. The wire was reinserted and a pull down ureteroscopy was performed confirming no stones remained in the ureter. A 6Fr x 24cm JJ ureteral stent on a string was advanced over the wire, noting adequate curl in the renal pelvis and bladder on fluoroscopic visualization. The bladder was drained. The stones were sent for pathology. String was secured to thigh with tegaderm. The patient tolerated the procedure well without complication. The patient was awakened from anesthesia and sent to PACU in stable condition. Plan: Discharge home with stent pain medications. Remove stent by the string at home in 4 days. Follow up in 6-8 weeks with renal US. Other Provider present: No Post Operative care instructions: See discharge instructions Attending Doc Confirm Attending Attestation: Yes
== END 2024-05-15 15:13 | disposition home or self-care (01) ==
PROVIDERS: Anesthesiology; PCP Family Medicine; Visit Provider Urology
PROC: (CPT 910; principal; 2024-05-15 14:10)
DX: N20.0 Calculus of kidney (principal); Z90.710 Acquired absence of both cervix and uterus; G40.909 Epilepsy, unspecified, not intractable, without status epilepticus; K21.9 Gastro-esophageal reflux disease without esophagitis; Z85.41 Personal history of malignant neoplasm of cervix uteri
CPT/HCPCS: 52332; 52352; 36415; 74420; 82365; 87811; 99999; J0690; J1885; J2250; J2405; J2704; J3010; Q9967

== ENCOUNTER 2024-06-12 08:27 | Outpatient (OUT) | payer OTHER, SELFPAY ==
--- NOTE | 2024-06-12 08:30 | US_ITS ---
[address] [address] Patient Name: DANTE JAMES MRN: [id number] date: 1965 Sex: F Assigned Patient Location: [place] Current Patient Location: Accession/Order Number: [id number] Exam Date: 06/12/2024 08:32 Report Date: 06/13/2024 06:34 At the request of: JASIEL GOMEZ Procedure: US renal BI EXAMINATION: US renal BI HISTORY: Kidney Stones COMPARISON: Ultrasound kidneys 02/15/2024 TECHNIQUE: Ultrasound examination was performed of the kidneys and urinary bladder. FINDINGS: RIGHT KIDNEY: Contain several nonobstructing stones, largest is 6 mm. Contain several benign-appearing cysts, largest is 15 mm. Normal parenchymal echogenicity. Color Doppler demonstrates blood flow within the kidney. Kidney: 10.5 x 5.2 x 5.5 cm LEFT KIDNEY: Contain several nonobstructing stones, largest is 3 mm. Normal parenchymal echogenicity. Color Doppler demonstrates blood flow within the kidney. Kidney: 10.4 x 5.3 x 4.8 cm BLADDER: No visible wall thickening, mass, or calculi. US/US renal BI IMPRESSION: 1. Bilateral nonobstructing nephrolithiasis. No acute or suspicious findings. Electronically authenticated by: IVIS LASSITER Date: 06/13/2024 06:34
== END 2024-06-12 08:28 | disposition home or self-care (01) ==
LOC: US 08:27
PROVIDERS: PCP Family Medicine; Visit Provider Urology
DX: N20.0 Calculus of kidney (principal)
CPT/HCPCS: 76775

== ENCOUNTER 2024-08-23 12:31 | Outpatient (OUT) | payer OTHER, SELFPAY ==
--- OUTSIDE RECORDS SUMMARY | 2024-08-23 12:50 | XMS_ITS | CCD ---
Author Organization [facility] CliniSyla Care Team Providers Care [employer] Supervisor Name Role Phone HARRISON BUSTAMANTE Unavailable Unavailable TWILA VERDE Unavailable Unavailable HARRISON BUSTAMANTE Unavailable Unavailable FAIZANYEMERALDTWILA M Unavailable Unavailable Twila Verde Primary Care Provider Twila Verde MD Primary Care Provider [phone] Twila Verde Primary Care Physician Twila Verde MD Primary Care Provider [phone] HOSSEIN Payton, DR MATTSON Consulting Unavailable HOY ., DR MATTSON Primary Care Unavailable HOY ., DR MATTSON Attending Unavailable HOY ., DR MATTSON Admitting Unavailable DIANN, DR BRIAN Do Consulting Unavailable HOY ., DR MATTSON Primary Care Unavailable SIRENA, DR KYUNG Infante Attending Unavailable HEDGEValentin, DR KYUNG Infante Admitting Unavailable HEDGEValentin, DR [...] HOY ., DR MATTSON Primary Care Unavailable IRVING Payton, DR VALENCIA Pugh Attending Unavailkings Payton, DR VALENCIA Pugh Admitting Unavaila uzma Payton, DR VALENCIA Pugh Consulting Unavaila ble HOSSEIN ., DR MATTSON Consulting Unavailable HOY ., DR MATTSON Primary Care Unavailable HOY ., DR MATTSON Attending Unavailable HOSSEIN ., DR MATTSON Admitting Unavailable ZIVAMSIER, DR IVIS Mc Consulting Unavailable HOY ., DR MATTSON Consulting Unavailable HOY ., DR MATTSON Primary Care Unavailable HOY ., DR MATTSON Attending Unavailable HOY ., DR MATTSON Admitting Unavailable TWILA DIAZ Consulting Unavailable RYLEE, DR MIDDLETON Consulting Unavailable HOSSEIN ., DR MATTSON Primary Care Unavailable RYLEE, DR MIDDLETON Attending Unavailable RYLEE, DR MIDDLETON Admitting Unavailable Erica Mott Unavailable Lue Marycruz MTata Attending Unavailable Lue, Marycruz M. Attending Unavailable Lue, Marycruz M. Attending Unavailable Lue, Marycruz M. Attending Unavailable Lue, Marycruz M. Admitting Unavailable Lue, Marycruz M. Attending Unavailable Lue, Marycruz M. Admitting Unavailable Lue, Marycruz M. Admitting Unavailable Lue, Marycruz MTata Attending Unavailable KYUNG YANG Referring Unavailable TWILA VERDE Primary Care Unavailable Twila Verde MD Primary Care Provider XuaneMarycruz Attending Unavailable Lue, Marycruz MTata Attending Unavailable Xuane Marycruz MTata Attending Unavailable Kane Mckee DO Unavailable PAOLA BRADY Attending Unavailable PAOLA BRADY Attending Unavailable PAOLA BRADY Attending Unavailable Allergies Allergy Classification Reported Allergen(s) Allergy Type Date of Onset Reaction(s) Facility (3 sources) Sulfonamides (Antibiotic) Propensity to adverse reactions to drug 04-08-20 15 [place], [place] (1 source) Other Propensity to adverse reactions 12-30-19 17 [place], [place] (8 sources) Sulfonamides (Antibiotic); Translations: [sulfa drugs] Drug allergy Weal (disorder) [facility] (8 sources) Latex; Translations: [Latex] Drug allergy (disorder) 11-15-19 23 Weal (disorder) [facility] (1 source) Sulfonamides (Antibiotic) Drug allergy (disorder) 01-23-20 13 [facility] (11 sources) Substance with sulfonamide structure and antibacterial mechanism of action (substance) Drug allergy 04-08-20 15 [facility] Other (9 sources) Latex Allergy to substance 12-11-19 [facility] (9 sources) Sulfacetamide Drug Allergy 12-08-19 [facility] NEGATED: Highlighted row has been ruled out! (2 sources) Other Propensity to adverse reactions 12-30-19 17 [employer] Work Phone: Medications Current Medications Medication Drug [...] Once a day Active black cohosh extract 20 mg oral tablet (13 sources) Black Cohosh 20 MG tablet Take 100 mg by mouth Active Black Cohosh 40 MG as directed Orally [...] 250 -62.5 MG-UNIT as directed Orally Active citric acid 66.8 mg/ml / potassium citrate 110 mg/ml / sodium citrate 100 mg/ml oral solution (7 sources) Calculi Dissolution Agent, Anti-coagulant potassium & sodium citrate-citric acid (Tricitrates) 550-500-334 MG/5ML solution Take by mouth 4 (four) times a day with meals Active Cranberry preparation (6 sources) Non-Standardized Food Allergenic Extract, Non-Standardized Plant Allergenic Extract Start: 024 take 1 capsule by mouth once daily [...] levETIRAcetam 750 mg extended release oral tablet (20 sources) Start: 07-17-2024 take 1 tablet by mouth every twenty-four hours at bedtime levETIRAcetam XR (Keppra XR) 750 mg tablet sustained-release 24 hour 24 hr tablet Indications: Seizure disorder (CMS/HCC) Take 1 tablet (750 mg) by mouth at bedtime 90 tablet 1 07/17/2024 Active Start: 07-17-2024 take 1 tablet by cirilo th every twenty-four hours at bedtime levETIRAcetam XR (Keppra XR) 750 mg tablet sustained-release 24 hour 24 hr tablet Indications: Seizure disorder (CMS/HCC) Take 1 tablet (750 mg) by mouth at bedtime 90 tablet 1 07/17/2024 Active Start: 02-28-2024 take 1 tablet by cirilo th once daily levetiracetam 750 mg oral tablet, extended release 750 mg = 1 tab(s), Oral, Daily Start Date: 02/28/24 Status: Ordered Start: 01-15-2024 End: 07-17-2024 levETIRAcetam XR (Keppra XR) 750 mg tablet sustained-release 24 hour 24 hr tablet Indications: Seizure disorder (CMS/HCC) TAKE 1 TABLET AT BEDTIME 90 tablet 2 01/15/2024 07/17/2024 Discontinued (Reorder) Start: 09-24-2020 take 1 tablet by cirilo [...] Take by mouth 0 Active Multivitamin preparation (4 sources) Start: 2023 take 1 tablet by mouth once daily multivitamin 1 tab, Oral, Daily Start Date: 02/28/24 Status: Ordered ofloxacin 3 mg/ml ophthalmic solution (1 source) Quinolone Antimicrobial Start: 2022 take 2 drop(s) into the eye(s) four times daily Ofloxacin 0.3 % 2 drops Ophthalmic to left eye QID for 7 days Feb, Active OXcarbazepine 300 mg oral tablet (17 sources) Anti-epileptic Agent Start: 2023 take 1 tablet by mouth twice daily OXcarbazepine 300 mg oral tablet, extended release 1.0, Oral, BID, Refills(s) 0 Start Date: 07/03/24 Status: Ordered Start: 06-24-2024 End: 01-13-2025 take 1 tablet by mouth in the morning OXcarbazepine (Trileptal) 300 MG tablet Indications: Seizure disorder (CMS/HCC) Take 1 tablet (300 mg) by mouth in the morning and 1 tablet (300 mg) before bedtime. 180 tablet 1 07/17/2024 01/13/2025 Active Start: 04-25-2024 End: 07-17-2024 OXcarbazepine (Trileptal) 15 0 MG tablet Indications: Seizure disorder (CMS/HCC) Week one take one twice a day 14 tablet 04/25/2024 07/17/2024 Discontinued (Therapy completed) Start: 04-25-2024 OXcarbazepine (Trileptal) 300 MG tablet Indications: Seizure disorder (CMS/HCC) Starting week two take one twice a day 60 tablet 2 04/25/2024 Active PHENobarbital 32 mg oral tab let (20 sources) Start: 06-09-2024 PHENobarbital (Luminal) 32.4 MG tablet Indications: Seizure (CMS/HCC) Fill when due Take one tab at bedtime 90 tablet 06/09/2024 Active Start: 02-28-2024 take 1 tablet by cirilo th at bedtime phenobarbital 32.4 mg oral tablet 32.4 mg = 1 tab(s), Oral, Bedtime, take 1 tablet by mouth at bedtime Start Date: 02/28/24 Status: Ordered Start: 01-03-2024 End: 06-05-2024 PHENobarbital (Luminal) 32.4 MG tablet Indications: Seizure (CMS/HCC) Fill when due Take one tab at bedtime 90 tablet 03/25/2024 Active Start: 09-24-2020 take 1 mg by mouth [...] 1 tablet Orally Once a day Active Kgpmxslr-Cbo-Ji-FA (/Iron) tablet (9 sources) take 1 tablet by mouth once daily Bfzaevdi-Xqf-Ht-FA (/Iron) tablet Take 1 tablet by mouth Daily Active Probiotic Product (PROBIOTIC DAILY PO) (2 sources) Probiotic Produc t (PROBIOTIC DAILY PO) Take by mouth 0 Active topiramate 50 mg oral tablet (20 sources) Start: 04-25-2024 End: 07-17-2024 topiramate 50 MG tablet Indications: Seizure disorder (CMS/HCC) TAKE OUT 50 MG EVERY WEEK STARTING WEEK THREE DISCUSSED 196 tablet 04/25/2024 07/17/2024 Discontinued (Therapy completed) Start: 04-09-2024 End: 04-25-2024 topiramate (Topamax) 100 MG tablet Indications: Nonintractable headache, unspecified chronicity pattern, unspecified headache type TAKE 2 TABLETS EVERY MORNING AND TAKE 2 AND 1/2 TABLETS TO 3 TABLETS AT BEDTIME 450 tablet 04/09/2024 04/25/2024 Discontinued Start: 02-28-2024 take 2 tablets by mo [facility] twice daily topiramate 100 mg Tab 200 mg = 2 tab(s), Oral, BID Start Date: 02/28/24 Status: Ordered Start: 12-06-2023 topiramate (To pamax) 100 MG tablet Indications: Nonintractable headache, unspecified chronicity pattern, unspecified headache type TAKE 2 TABLETS EVERY MORNING AND TAKE 2 AND 1/2 TABLETS TO 3 TABLETS AT BEDTIME 450 tablet 12/06/2023 Active Start: 09-24-2020 Topamax 450 mg , Oral, Refills(s) 0 Start Date: 09/24/20 Status: Ordered Start: 03-24-2015 take 2 tablets by mo [facility] once daily TOPAMAX 100 MG tablet Take 100 mg by mouth 2 times daily 2 tabs every morning and 2 1/2 tabs nightly. 0 03/24/2015 Active Topiramate 100 M G Oral for 90 Days Active Vitamin D3 62.5 mcg (2500 intl units) oral capsule (4 sources) Start: 02-28-2024 take 1 capsule by mouth once daily Vitamin D3 62.5 mcg (2500 intl units) oral capsule 62.5 mcg = 1 cap(s), Oral, Daily Start Date: 02/28/24 Status: Ordered Completed/Discontinued Medications Medication Drug Class(es) Dates Sig (Normalized) Sig (Original) potassium citrate 15 meq extended release oral tablet (4 sources) Start: 07-03-2024 take 1 tablet by mouth twice daily potassium citrate 15 mEq oral tablet, extended release 15 mEq = 1 tab(s), Oral, BID, # 60 tab(s), Refills(s) 11, Pharmacy: [facility]/pharmacy #[id number], 160, cm, 07/03/24 11:23:00 EST, Height/Length Dosing, 59.8, kg, 07/03/24 11:23:00 EST, Weight Dosing Start Date: 07/03/24 Status: Ordered Start: 02-28-2024 take 1 tablet by [facility] twice daily potassium citrate 15 mEq oral tablet, extended release 15 mEq = 1 tab(s), Oral, BID, # 60 tab(s), Refills(s) 11, Pharmacy: [facility]/pharmacy #[id number], 160, cm, 02/28/24 9:14:00 EDT, Height/Length Dosing, 59, kg, 02/28/24 9:14:00 EDT, Weight Dosing Start Date: 02/28/24 Status: Ordered Problems Active Problems Problem Classification Problem Date Documented Date Episodic/Chronic Abdominal pain (8 sources) Flank pain; Translations: [Unspecified abdominal pain] Onset: 03-25-2022 04-13-2021 Episodic Allergic reactions (5 sources) Eczema 12-07-2022 Episodic Calculus of urinary tract (14 sources) Kidney stone; Translations: [Calculus of kidney] Onset: 03-28-2022 Episodic Cancer of cervix (7 sources) History of malignant neoplasm of cervix; Translations: [Personal history of malignant neoplasm of cervix uteri] Episodic Diseases of mouth; excluding dental (11 sources) Disorder of oral soft tissues; Translations: [Unspecified lesions of oral mucosa] Onset: 03-30-2009 12-08-2023 Episodic Epilepsy; convulsions (20 sources) Epilepsy; Translations: [Epilepsy, unspecified, not intractable, without status epilepticus] Onset: 02-18-2008 12-29-2016 Chronic Epilepsy; convulsions (2 sources) Seizure; Translations: [Unspecified convulsions] 06-05-2024 Episodic Genitourinary symptoms and ill-defined conditions (6 sources) Genuine stress incontinence 04-13-2021 Chronic Genitourinary symptoms and ill-defined conditions (8 sources) Genitourinary symptoms; Translations: [Unspecified symptoms and signs involving the genitourinary system] Onset: 04-20-2022 Episodic Inflammation; infection of eye (except that caused by tuberculosis or sexually transmitteddisease) (1 source) Unspecified conjunctivitis Episodic Other aftercare (1 source) Other oil heaterman (current) drug therapy; Translations: [OTH 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 CLERK CURRENT DRUG THERAPY] Onset: 11-15-2022 Episodic Other connective tissue disease (1 source) Adhesive capsulitis of shoulder 07-03-2024 Episodic Other female genital disorders (1 source) Vaginal irritation; Translations: [Other specified noninflammatory disorders of vagina] Episodic Other nervous system disorders (16 sources) Trigeminal neuralgia; Translations: [Trigeminal neuralgia] Onset: 12-11-2023 12-07-2022 Episodic Other nervous system disorders (11 sources) Paresthesia; Translations: [Paresthesia of skin] Onset: 06-11-2019 12-08-2023 Episodic Other non-traumatic joint disorders (4 sources) [...] unspecified; Translations: [Acute maxillary sinusitis, unspecified] Episodic Unclassified (2 sources) Impingement syndrome of [...] Translations: [Women's annual routine gynecological examination] Unclassified (6 sources) Asymptomatic microscopic hematuria 04-13-2021 Past or Other Problems Problem Classification Problem Date Documented Date Episodic/Chronic Headache; including migraine (9 sources) Headache; Translations: [Headache] Onset: 11-25-2015 12-08-2023 Episodic Noninfectious gastroenteritis (4 sources) Noninfective gastroenteritis and colitis, unspecified; Translations: [NONINFECTIVE GE AND COLITIS UNS] Onset: 02-05-2022 Episodic Other diseases of kidney and ureters (4 sources) Cyst of kidney, acquired; Translations: [CYST OF KIDNEY ACQUIRED] Onset: 04-06-2022 Episodic Other nervous system disorders (9 sources) Skin sensation disturbance; Translations: [Unspecified disturbances of skin sensation] Onset: 06-09-2016 12-08-2023 Episodic Other screening for suspected conditions (not mental disorders or infectious disease) (4 sources) Encounter for screening mammogram for malignant neoplasm of breast; Translations: [ENC SCR MAMMO MALIG NEOPLASM BREAST] Onset: 03-07-2022 Episodic Residual codes; unclassified (1 source) Family history of malignant neoplasm of other genital organs; Translations: [FAM HX MALGREYSON NEOPLSM OTH GENIT ORGN] Onset: 03-09-2022 Episodic Spondylosis; intervertebral disc disorders; other back problems (14 sources) Cervical radiculopathy; Translations: [Neck pain] Onset: 06-09-2016 12-07-2022 Episodic Unclassified (1 source) Impingement syndrome of left shoulder; Translations: [Impingement syndrome of left shoulder] Onset: 03-29-2017 Urinary tract infections (1 source) Urinary tract infection, site not specified; Translations: [UTI SITE NOT SPECIFIED] Onset: 03-28-2022 Episodic Results Test Name Value Interpretation Reference Range Facility Urology Office/Clinic Noteon 07-03-2024 Urology Office/Clinic Note Urology Office/Clinic Note Chief Complaint 6 month follow up Follow up with [facility] HPI Staff F/u w/ [facility] after Cysto, L RPG, URS with stone extraction, stent on string placement 05/15/24. Last OV 02/28/24, dx: kidney stone, R flank pain, UTI sxs. Neg ucx 02/28/24. *Started on potassium citrate 15mEq bid at last OV. Pt informed our office 04/29/24 that she was weaning off Topamax per neurology (would be off by first week of June), and wondered if she could stop potassium citrate. Pt was made aware of purpose of potassium citrate and she elected to continue medication despite stopping Topamax. Has plans to repeat 24hr urine in July 2024. [facility] 06/12/24 [facility]. Dysuria: denies Incomplete bladder emptying: denies Hematuria: denies Frequency: once every 1-2 hours Urgency: denies Nocturia: 2 x a night Stream: denies hesitancy, has a steady stream Leaking: denies Post void dripping: denies Wearing pads/ Depends: denies Urge incontinence: denies Stress incontinence: denies Incontinence without Sensory Awareness: denies Abdominal pain: denies Flank pain: right flank pain for a couple days, minimal. Sexual complaints: _ History of Present Illness Tests reviewed: reviewed UA and [facility], stone analysis I have reviewed the previous health record information and history for this patient from . I have reviewed and verified the staff HPI to be accurate for this encounter. There have been no associated fever, chills, flank pain, or blood in the urine. Denies any urinary infections since last encounter. Review of Systems PHQ Score Initial Depression Screen Score: 3 SCORE Detailed Depression Screen Score: 1 Total Depression Screen Score: 4 ROS - Provider Constitutional: denies weight loss, [...] HPI. Physical Exam Vitals & Measurements T: 36.5 ???C(Temporal Artery) RR: 16 BP: 110/72 HT: 63 in HT: 160 cm WT: 59.8 kg WT: 131.836 lb BMI: 23.36 General Appearance: alert , no acute distress, well nourished, well developed female. Genitourinary: bladder nonpalpable, no flank pain. Assessment/Plan 58 yo F with history of seizures, prior Dr. Villatoro pt here for follow up of kidney stones w/[facility] s/p L URS BBS 6(9). 1. Kidney stone (N20.0: Calculus of kidney) [...] 24 hr pH 6.817, Uric Acid 0.515 Passed stone 04/2023, did not have pain or gross hematuria at that time. Stone analysis 06/14/23 - 95% Hydroxyapatite, 5% CaOx [place]. 24hr urine 09/26/23 [facility] - Volume 2.75L. [...] view is obstructed by dense bowel content. S/p Cysto, Lt Retrograde Pyelogram, Ureteroscopy with stone extraction, Stent Placement on a String, Stone Analysis showed 100% CaOx Dihydrate [facility] 06/12/24 - Several stones in the Rt kidney largest measuring 6mm, several benign-appearing cysts largest being 15mm, several nonobstructing stones on the left measuring 3mm (silvano's plaques) Pt currently takes Potassium Citrate 15mEq BID. Refills sent today. Stopped Topamax last Monday Discussed imaging results with pt, advised we could continue to monitor the stones, small enough to pass. Discussed doing a repeat metabolic workup to determine if there is anything else we can do to prevent any more stones from forming or for the current stones from getting bigger given DC of Topamax. Pt states that she would like to do this. Pt states that she has the order for the 24hr urine at [facility] as this is more convenient for her. Advised pt that we will order a repeat potassium level to be done at that time. Will determine DC potassium citrate at that time Follow up w/24 hr Urine and Potassium levels in 2 months. All questions/concerns were discussed. Pt to call the office if she encounters any issues prior. Pt acknowledges understanding. -Will order Potassium levels to be (more content not included)... Normal [facility] Comment on above: Result Comment: Elec tronically Signed By: Marycruz Bhagat MD\.br\Date and Time Signed: 07/03/24 12:36 EST\.br\Electronically Co-Signed By: Leana Emerson\.br\Date and Time Co-Signed: 07/03/24 11:54 EST Cytology Reporton 04-04-2024 Cytology report Cyto stain.thin prep Doc (Cvx/Vag) (NOTE) Path Number: [id number] DIAGNOSIS Imaged ThinPrep Pap - Vaginal (1 monolayer slide): Specimen Adequacy: Satisfactory for evaluation. Descriptive Diagnosis: Negative for intraepithelial lesion or malignancy. Comments: Specimen was screened at [facility], [address] [place] [address] Cytotech Screener: CS Rescreened By: PT Electronically Signed Out Joann Mcgill pt/04/16/2024 Source of Specimen: A: Imaged ThinPrep Pap - Vaginal (1 monolayer slide) HPV Reflex?.............. ........HPV if Abnormal Clinical History Z01.419 Routine boom stick man exam without abnormal findings Processing Lab: [address] [id number] [place] [address] This Pap Test has been evaluated with the assistance of the ThinPrep Pap Test Imaging System. The Pap smear is a screening test primarily for squamous epithelial lesions, which is subject to both false negative and false positive results. Your patient should be reminded to consult you immediately if she experiences any suspicious signs or symptoms, regardless of her Pap smear result. GYNECOLOGIC CYTOLOGY REPORT Patient Name: DANTE JAMES [facility] Rec: [id number] [facility] ANATOMIC PATHOLOGY [address] [place] [id number] Normal [facility] C Urineon 03-01-2024 Bacteria identified Cx [...] Locations R1: This test was performed at: [facility], [address] [place] [address], [address] , [place], Normal [facility] Comment on above: Performed By: #### [id number] #### [facility] [address] [place] [id number] Ambulatory Visit Summaryon 0 02-28-2024 Ambulatory Visit Summary Ambulatory Visit Summary DANTE JAMES :1965 Visit Date:02/28/2024 Ambulatory Visit Instructions Your Diagnosis Kidney stone Right flank pain UTI symptoms Your Care Team Attending Physician - Marycruz [...] Dove, URL, URO When: Where: [address] [place] [phone] Medications What How Much When Instructions New potassium citrate (potassium citrate 15 mEq oral tablet, extended release) 1 Tablets By Mouth 2 times a day Refills: 11 Pickup at [facility]/pharmacy #[id number] Unchanged cholecalciferol (Vitamin D3 62.5 mcg (2500 [...] physician if questions or concerns Pharmacy Information [facility]/pharmacy #[id number]: [address], [place] [id number] [phone] Allergies Latex (Hives) sulfa drugs (Hives) Problems [...] need to (more content not included)... Normal [facility] Urology Office/Clinic Noteon 02-28-2024 Urology Office/Clinic Note [...] analysis 06/14/23 - 95% Hydroxyapatite, 5% CaOx [place]. 24hr urine 09/26/23 [facility] - Volume 2.75L. [...] to ret (more content not included)... [facility] Comment on above: Result Comment: Elec tronically Signed By: Marycruz Bhagat MD\.br\Date and Time Signed: 02/28/24 11:28 EDT\.br\Electronically Co-Signed By: Nathalie Weaver\.br\Date and Time Co-Signed: 02/28/24 09:52 EDT Reminderson 02-19-2024 Reminders Reminders From: Shayy Cuadra To: EU - Recalls Lue; Sent: 06/14/2023 08:36:12 EST Show up: 01/05/2024 08:35:00 EDT Subject: [facility]/kub/ metabolic w/u Reminder/Recall pt wants 24 urine @ [facility] (not [facility]) labs/ [facility]/ KUB f/u with Dr Bhagat is 03/06/24 24hr urine in pt chart. Will call closer to get [facility]/KUB completed. Called pt and advised of below message. [facility]/KUB order faxed to [facility]/KUB done on 02/15/24 for follow up. Normal [facility] Reminderson 02-13-2024 Reminders Reminders From: Leana Emerson To: EU - Recalls Lue; Sent: 06/14/2023 11:32:25 EST Show up: 12/13/2023 12:32:00 EDT Subject: Labs/Imaging Due Date/Time: 03/14/2024 12:32:00 EDT Pt will need KUB, [facility] and Metabolic Workup done prior to appt. duplicate message. Normal [facility] Lab Reportson 10-02-2023 Lab Reports [id number] .00TIFF Normal [facility] Lab Reportson 09-28-2023 Lab Reports [id number] .00TIFF Normal [facility] Lab Reportson 09-26-2023 Lab Reports [id number] .00TIFF Normal [facility] Lab Reports [id number] .00TIFF Normal [facility] Calculus Analysison 06-28-20 23 Calcium oxalate monohydrate (Stone) [Mass fraction] 5 % Invalid Interpretation Code [facility] Comment on above: Performed By: #### 1 [id number] ####[address] [address] Calculus analysis [Interp] Comment Invalid Interpretation Code [facility] Comment on above: Result Comment: Calc ium phosphate (hydroxyl form) includes hydroxyapatite, amorphous calcium phosphate, and whitlockite. Hydroxyapatite is the most common of the calcium phosphate salts found in human kidney stones. struvite as a minor component should not be excluded. Insufficient sample to perform additional, confirmatory, or reference testing. Performed By: #### 1 [id number] ####[address] [address] Color (Stone) Fraire Invalid Interpretation Code [facility] Comment on above: Performed By: #### 1 [id number] ####[address] [address] Composition Comment Invalid Interpretation Code [facility] Comment on above: Result Comment: Perc entage (Represents the % composition) Performed By: #### 1 [id number] ####[address] [address] Disclaimer: Comment Invalid Interpretation Code [facility] Comment on above: Result Comment: This test was developed and its performance characteristics determined by [facility]. It has not been cleared or approved by the Food and Drug Administration. Performed at: [address] [id number] PhD Aniya Bright Performed By: #### 1 [id number] ####[address] [address] Hydroxyapatite: 95 % Invalid Interpretation Code [facility] Comment on above: Performed By: #### 1 [id number] ####[address] [address] Laboratory comment Steven (Report) Comment Invalid Interpretation Code [facility] Comment on above: Result Comment: Rigoberto watkins questions regarding Calculi Analysis contact [facility] at: [phone]. Performed By: #### 1 [id number] ####[address] [address] Please Note: Comment Invalid Interpretation Code [facility] Comment on above: Result Comment: Calc nora report will follow via computer, mail or hospital fellow delivery. Performed By: #### 1 [id number] ####[facility] [address] [place] [address] Size (Stone) [Entitic vol] 2x2 Invalid Interpretation Code [facility] Comment on above: Result Comment: Sing le piece received. Performed By: #### 1 [id number] ####[address] [place] [address] Specimen source subject Nom Comment Invalid Interpretation Code [facility] Comment on above: Result Comment: Not provided Performed By: #### 1 [id number] ####[address] [place] [address] Stone Photo Comment Invalid Interpretation Code [facility] Comment on above: Result Comment: Ca lucio will follow under a separate cover Performed By: #### 1 [id number] ####[address] [place] [address] Weight (Stone) 1 mg Invalid Interpretation Code [facility] Comment on above: Performed By: #### 1 [id number] ####[address] [place] [address] Auth for Release of Medical Recordson 06-21-2023 Auth for Release of Medical Records [id number] .00TIFF Normal [facility] Patient Educationon 06-14-20 Patient Education Nephrology Dietary [...] Spinach (cooked), rhubarb, beets, sweet potatoes, and Andorran chard. ? Peanuts. ? Potato chips, argentine fries, and baked potatoes with skin on. ? Nuts and nut products. ? Chocolate. ? If you regularly take a diuretic medicine, make sure to eat at least 1 or 2 servings of fruits or vegetables that are high in potassium each day. These include: ? Avocado. ? Banana. ? [place], prune, carrot, or tomato juice. ? Baked [...] fish oil, or vitamin B6. ? Take ezit-aqo-ppxnqyy and prescription medicines only as told by your health care provider. These include supplements. What foods should I limit? Limit your in (more content not included)... Normal [facility] RAD - MISCon 06-14-2023 [facility] [id number] .00TIFF Normal [facility] [id number]. 00TIFF Normal [facility] Urology Office/Clinic Noteon 06-14-2023 Urology Office/Clinic Note [...] UTI with Cipro and then saw Dr. Hoy and was treated with Keflex for 10 [...] . Documenta (more content not included)... Normal [facility] Comment on above: Result Comment: Elec tronically Signed By: Marycruz Bhagat MD\.br\Date and Time Signed: 06/14/23 08:42 EST\.br\Electronically Co-Signed By: Leana Emerson\.br\Date and Time Co-Signed: 06/14/23 08:28 EST Lab Reportson 06-08-2023 Lab Reports [id number] .00TIFF Normal [facility] Lab Reportson 05-10-2023 Lab Reports [id number] .00TIFF [facility] Lab Reportson 05-05-2023 Lab Reports [id number] .00TIFF Normal [facility] C Urineon 04-28-2023 Bacteria identified Cx Nom [...] Locations R1: This test was performed at: [facility], [address] [place] [address], [facility] , , [facility] Comment on above: Performed By: #### 2 [id number] ####[facility] [address] [place] [address] Formson 04-27-2023 Forms [id number] .00CD:127 [facility] Ambulatory Visit Summaryon 0 2023 Ambulatory Visit Summary DANTE JAMES :1965 MRN:[id number] Visit Date:2023 Ambulatory Visit Instructions Your Diagnosis Kidney stone UTI symptoms Tests Performed Urnls Dip Stick Auto w/o Microscopy POC 82970 Your Care Team Attending Physician - Olayinka [...] Marycruz Bhagat MD Where: [facility] Patient Educationon 04-26-20 Patient Education Nephrology Dietary Guidelines to Help [...] Spinach (cooked), rhubarb, beets, sweet potatoes, and [place]or[place] chard. ? Peanuts. ? Potato chips, argentine fries, and baked potatoes with skin on. ? Nuts and nut products. ? Chocolate. ? If you regularly take a diuretic medicine, make sure to eat at least 1 or 2 servings of fruits or vegetables that are high in potassium each day. These include: ? Avocado. ? Banana. ? [place], prune, carrot, or tomato juice. ? Baked [...] fish oil, or vitamin B6. ? Take ypgr-zry-eyemxvo and prescription medicines only as told by your health care provider. These include supplements. What foods should I limit? Limit your in (more content not included)... Normal [facility] Screenson 2023 Screens [id number]. 00CD:127 Normal [facility] Urology Office/Clinic Noteon 2023 Urology Office/Clinic Note [...] the patient. (more content not included)... Normal [facility] Comment on above: Result Comment: Elec tronically Signed By: Marycruz Bhagat MD.br\Date and Time Signed: 04/26/23 11:43 EDT\.br\Electronically Co-Signed By: Leana Emerson\.br\Date and Time Co-Signed: 04/26/23 11:16 EDT [...] TWILA DIAZ Date: 2022-11-10 12:35 Normal [facility] PHENOBARBITALon 11-09-2022 Phenobarbital, Serum 6 ug/mL Critically low 15-40 [facility] Comment on above: Result Comment: Dete ction Limit = 3 Performed By: #### P HENOB #### [facility] [address], [place] [address] Dr. Adrianne Nava CBC AUTO DIFFon 11-08-2022 BASO # 0.0 103/ul Normal 0.0-0.1 [facility] Comment on above: Performed By: #### C BC ####[facility] [id number] Nava Basophils/100 WBC (Bld) 0.5 % Normal 0.2-2.0 [facility] Comment on above: Performed By: #### C BC ####[facility] [address] [place], [place] [address]YoTata Nava EO # 0.1 103/ul Normal 0.0-0.7 [facility] Comment on above: Performed By: #### C BC ####[facility] [address] [place], [place] [address]YlTata Nava Eosinophils/100 WBC (Bld) 1.4 % Normal 0.9-7.0 [facility] Comment on above: Performed By: #### C BC ####[facility] [address] [address]Dr. Adrianne Nava Erythrocyte distribution width (RBC) [Ratio] 12.6 % Normal 11.0-15.0 [facility] Comment on above: Performed By: #### C BC ####[facility] [address] [place], [place] [address]Dr. Adrianne Nava Hematocrit (Bld) [Volume fraction] 41.9 % Normal 36.0-48.0 [facility] Comment on above: Performed By: #### C BC ####[facility] [address] [place], [place] [address]Dr. Adrianne Nava Hemoglobin (Bld) [Mass/Vol] 14.0 g/dL Normal 12.0-16.0 [facility] Comment on above: Performed By: #### C BC ####[facility] [address] [place], [place] [address]Dr. Adrianne Nava IG # 0.01 10e3/ul Normal 0.00-0.03 [facility] Comment on above: Performed By: #### C BC ####[facility] [address] [place], [place] [address]Dr. Adrianne Nava IG % 0.2 % Normal 0.0-0.5 [facility] Comment on above: Performed By: #### C BC ####[facility] [address] [place], [place] [address]Dr. Adrianne Nava LYMPH # 1.5 103/ul Normal 1.2-3.8 [facility] Comment on above: Performed By: #### C BC ####[facility] [address] [place], [place] [address]Dr. Adrianne Nava Lymphocytes/100 WBC (Bld) 27.3 % Normal 20.5-60.0 [facility] Comment on above: Performed By: #### C BC ####[facility] [address] [place], [place] [address]Dr. Adrianne Nava MANUAL DIFF REQ NO Normal [facility] Comment on above: Performed By: #### C BC ####[facility] [address] [id number]. Adrianne Nava MCH (RBC) [Entitic mass] 30.6 pg Normal 26.7-34.0 [facility] Comment on above: Performed By: #### C BC ####[facility] [address] [address]Dr. Adrianne Nava MCHC (RBC) [Mass/Vol] 33.4 g/dL Normal 29.9-35.2 [facility] Comment on above: Performed By: #### C BC ####[facility] [address] [address]Dr. Adrianne Elijah MCV (RBC) [Entitic vol] 91.5 fL Normal 81.0-99.0 [facility] Comment on above: Performed By: #### C BC ####[facility] [address] [place], [place] [address]Dr. Adrianne Nava MONO # 0.4 103/ul Normal 0.3-0.8 [facility] Comment on above: Performed By: #### C BC ####[facility] [address] [place], [place] [address]Dr. Ladonnaelke Nava Monocytes/100 WBC (Bld) 7.0 % Normal 1.7-12.0 [facility] Comment on above: Performed By: #### C BC ####[facility] [address] [place], [place] [address]Dr. Adrianne Elijah NEUT # 3.6 103/ul Normal 1.4-6.5 [facility] Comment on above: Performed By: #### C BC ####[facility] [address] [place], [place] [address]Dr. Adrianne Nava Neutrophils/100 WBC (Bld) 63.6 % Normal 43.0-75.0 [facility] Comment on above: Performed By: #### C BC ####[facility] [address] [place], [place] [address]Dr. Adrianne Nava Platelet mean volume (Bld) [Entitic vol] 10.8 fL Normal 9.5-13.5 [facility] Comment on above: Performed By: #### C BC ####[facility] [address] [place], [place] [address]Wj. Adrianne Nava PLT 218 103/ul Normal 150-450 [facility] Comment on above: Performed By: #### C BC ####[facility] [address] [place], [place] [address]Tn. Adrianne Nava RBC 4.58 106/ul Normal 4.20-5.40 [facility] Comment on above: Performed By: #### C BC ####[facility] [address] [place], [place] [address]Ub. Adrianne Nava WBC 5.6 103/ul Normal 4.0-11.0 [facility] Comment on above: Performed By: #### C BC ####[facility] [address] [id number] Nava LIVER PROFILEon 11-08-2022 Albumin [Mass/Vol] 3.7 g/dL Normal 3.4-5.0 [facility] Comment on above: Performed By: #### Keaton BISHOP BMP #### [facility] [address] [address] [address] Adrianne Nava Albumin/Globulin [Mass ratio] 1.0 {ratio} Normal [facility] Comment on above: Performed By: #### Keaton BISHOP BMP #### [facility] [address] [address] [address] Adrianne Nava ALP [Catalytic activity/Vol] 85 U/L Normal 46-116 [facility] Comment on above: Performed By: #### L DARIO BMP #### [facility] [address] [address] [address] Adrianne Nava ALT [Catalytic activity/Vol] 33 U/L Normal 14-59 [facility] Comment on above: Performed By: #### L DARIO, BMP #### [facility] [address] [address] [address] Adrianne Nava AST [Catalytic activity/Vol] 16 U/L Normal 15-37 [facility] Comment on above: Performed By: #### L IVER, BMP #### [facility] [address] [address] [address] Adrianne Nava BILI, CONJUGATED 0.1 mg/dL Normal 0.0-0.2 [facility] Comment on above: Performed By: #### L IVER, BMP #### [facility] [address] [address] [address] Adrianne Nava Bilirubin [Mass/Vol] 0.3 mg/dL Normal 0.2-1.0 [facility] Comment on above: Performed By: #### L IVER, BMP #### [facility] [address] [address] [address] Adrianne Nava Globulin (S) [Mass/Vol] 3.7 g/dL Normal [facility] Comment on above: Performed By: #### L IVER, BMP #### [facility] [address] [address] [address] Adrianne Nava Protein [Mass/Vol] 7.4 g/dL Normal 6.4-8.2 [facility] Comment on above: Performed By: #### L IVER, BMP #### [facility] [address] [address] [address] Adrianne Nava PROF CHEM 8 (BAS METB)on Anion gap [Moles/Vol] 11.2 mmol/L Normal [facility] Comment on above: Performed By: #### L IVER, BMP ####[facility] [address] [address]Dr. Adrianne Nava Calcium [Mass/Vol] 9.2 mg/dL Normal 8.5-10.1 [facility] Comment on above: Performed By: #### L IVER, BMP ####[facility] [address] [address]Dr. Adrianne Nava Chloride [Moles/Vol] 108 mmol/L Critically high 98-107 [facility] Comment on above: Performed By: #### L IVER, BMP ####[facility] [address] [address]Dr. Adrianne Nava CO2 [Moles/Vol] 28.6 mmol/L Normal 21.0-32.0 [facility] Comment on above: Performed By: #### SHELLIE MCGHEE ####[facility] [address] [address]Dr. Adrianne Nava Creatinine [Mass/Vol] 0.74 mg/dL Normal 0.55-1.02 [facility] Comment on above: Performed By: #### Keaton BISHOP BMP ####[facility] [address] [address]Dr. Adrianne Nava EGFR-AF TUVALUAN >60 Normal >=60 [facility] Comment on above: Performed By: #### Keaton BISHOP BMP ####[facility] [address] [place], [place] [address]Dr. Adrianne Nava EGFR-NON AF TUVALUAN >60 Normal >=60 [facility] Comment on above: Performed By: #### SHELLIE MCGHEE ####[facility] [address] [place], [place] [address]Dr. Adrianne Nava Glucose [Mass/Vol] 78 mg/dL Normal 74-106 [facility] Comment on above: Performed By: #### Keaton BISHOP BMP ####[facility] [address] [place], [place] [address]Dr. Adrianne Nava Potassium [Moles/Vol] 3.8 mmol/L Normal 3.5-5.1 [facility] Comment on above: Performed By: #### Keaton BISHOP BMP ####[facility] [address] [address]Dr. Adrianne Nava Sodium [Moles/Vol] 144 mmol/L Normal 136-145 [facility] Comment on above: Performed By: #### Keaton BISHOP BMP ####[facility] [address] [address]Dr. Adrianne Nava Urea nitrogen [Mass/Vol] 24.0 mg/dL Critically high 7.0-18.0 [facility] Comment on above: Performed By: #### Keaton BISHOP BMP ####[facility] [address] [place], [place] [address]SuTata Nava Urea nitrogen/Creatinine [Mass ratio] 32.4 mg/mg Normal [facility] Comment on above: Performed By: #### L SHELLIE BISHOP ####[facility] [address] [place], [place] [address]JwTata Nava XR KUB 1 VIEWon 04-15-2022 XR KUB 1 VIEW EXAMINATION: XR KUB 1 VIEW HISTORY: Kidney stone COMPARISON: 04/09/2021 FINDINGS: KIDNEY/URETER - RIGHT: Punctate nephroliths KIDNEY/URETER - LEFT: Punctate nephroliths PELVIS: No visible ureteral calcifications. Any visible calcifications favor phleboliths. BOWEL: No abnormal dilation or deviation. BONES: No acute abnormality. Degenerative spondylosis OTHER: Negative. No abnormal gaseous collections. IMPRESSION: Bilateral nephrolithiasis Electronically authenticated by: BRIAN TIDWELL Date: 2022-04-15 16:45 Normal [facility] CT ABD/PELV W CONon 04-06-20 CT ABD/PELV [...] IVIS LASSITER Date: 2022-04-06 17:05 Normal [facility] CBC AUTO DIFFon 03-25-2022 BASO # 0.0 103/ul Normal 0.0-0.1 [facility] Comment on above: Performed By: #### C BC ####[facility] [address] [address]Dr. Adrianne Nava Basophils/100 WBC (Bld) 0.4 % Normal 0.2-2.0 [facility] Comment on above: Performed By: #### C BC ####[facility] [address] [place], [place] [address]Dr. Adrianne Nava EO # 0.1 103/ul Normal 0.0-0.7 [facility] Comment on above: Performed By: #### C BC ####[facility] [address] [place], [place] [address]Dr. Adrianne Nava Eosinophils/100 WBC (Bld) 1.2 % Normal 0.9-7.0 [facility] Comment on above: Performed By: #### C BC ####[facility] [address] [place], [place] [address]Dr. Adrianne Nava Erythrocyte distribution width (RBC) [Ratio] 12.4 % Normal 11.0-15.0 [facility] Comment on above: Performed By: #### C BC ####[facility] X[address]oks[address] [place], [place] [address]Dr. Adrianne Nava Hematocrit (Bld) [Volume fraction] 41.1 % Normal 36.0-48.0 [facility] Comment on above: Performed By: #### C BC ####[facility] [address] [place], [place] [address]Dr. Adrianne Nava Hemoglobin (Bld) [Mass/Vol] 13.7 g/dL Normal 12.0-16.0 [facility] Comment on above: Performed By: #### C BC ####[facility] [address] [place], [place] [address]Dr. Adrianne Nava IG # 0.02 10e3/ul Normal 0.00-0.03 [facility] Comment on above: Performed By: #### C BC ####[facility] [address] [place] [address]DrTata Adrianne Nava IG % 0.3 % Normal 0.0-0.5 [facility] Comment on above: Performed By: #### C BC ####[facility] [address] [place] [address]DrTata Adrianne Elijah LYMPH # 1.4 103/ul Normal 1.2-3.8 [facility] Comment on above: Performed By: #### C BC ####[facility] [address] [place], [place] [address]DrTata Adrianne Elijah Lymphocytes/100 WBC (Bld) 19.1 % Critically low 20.5-60.0 [facility] Comment on above: Performed By: #### C BC ####[facility] [address] [place], [place] [address]DrTata Adrianne Elijah MANUAL DIFF REQ NO Normal [facility] Comment on above: Performed By: #### C BC ####[facility] [address] [place] [address]DrTata Adrianne Elijah MCH (RBC) [Entitic mass] 30.7 pg Normal 26.7-34.0 [facility] Comment on above: Performed By: #### C BC ####[facility] [address] [place], [place] [address]DrTata Adrianne Elijah MCHC (RBC) [Mass/Vol] 33.3 g/dL Normal 29.9-35.2 [facility] Comment on above: Performed By: #### C BC ####[facility] [address] [place], [place] [address]DrTata Ladonnaelke Nava MCV (RBC) [Entitic vol] 92.2 fL Normal 81.0-99.0 [facility] Comment on above: Performed By: #### C BC ####[facility] [address] [place], [place] [address]DrTata Nava MONO # 0.5 103/ul Normal 0.3-0.8 [facility] Comment on above: Performed By: #### C BC ####[facility] [address] [place] [address]Dr. Adrianne Nava Monocytes/100 WBC (Bld) 6.8 % Normal 1.7-12.0 [facility] Comment on above: Performed By: #### C BC ####[facility] [address] [place] [address]Dr. Adrianne Nava NEUT # 5.3 103/ul Normal 1.4-6.5 [facility] Comment on above: Performed By: #### C BC ####[facility] [address] [place] [address]Dr. Adrianne Nava Neutrophils/100 WBC (Bld) 72.2 % Normal 43.0-75.0 [facility] Comment on above: Performed By: #### C BC ####[facility] [address] [place], [place] [address]Dr. Adrianne Nava Platelet mean volume (Bld) [Entitic vol] 11.1 fL Normal 9.5-13.5 [facility] Comment on above: Performed By: #### C BC ####[facility] [address] [place], [place] [address]Dr. Adrianne Nava PLT 200 103/ul Normal 150-450 [facility] Comment on above: Performed By: #### C BC ####[facility] [address] [place], [place] [address]Dr. Adrianne Nava RBC 4.46 106/ul Normal 4.20-5.40 [facility] Comment on above: Performed By: #### C BC ####[facility] [address] [place], [place] [address]Dr. Adrianne Nava WBC 7.4 103/ul Normal 4.0-11.0 [facility] Comment on above: Performed By: #### C BC ####[facility] [address] [place], [place] [address]Dr. Adrianne Nava CT ABD/PELVIS WO CONon 03-25 [...] IVIS LASSITER Date: 2022-03-25 15:08 Normal [facility] CULTURE URINEon 03-25-2022 CULTURE URINE Culture Observations : NO GROWTH. Normal [facility] Comment on above: Performed By: #### U RCX ####[facility] [address] [place], [place] [address]BxDr. Adrianne Nava ER URINE PROFILEon 2 Bilirubin Ql (U) Negative Normal NEGATIVE [facility] Comment on above: Performed By: #### E MELISSA JC #### [facility] [address], [place] [address] Dr. Adrianne Nava Clarity (U) CLEAR Normal CLEAR [facility] Comment on above: Performed By: #### Dusty JC UMICRO #### [facility] [address] [address] [address] Adrianne Nava Color (U) LT. YELLOW Normal YELLOW [facility] Comment on above: Performed By: #### Dusty JC UMICRO #### [facility] [address] [place] [address] Dr. Adrianne OLIVERAHMelly A micrscopic examination will be performed if indicated. Normal [facility] Comment on above: Performed By: #### Dusty JC UMICRO #### [facility] [address] [place] [address] Dr. Adrianne Nava Glucose Ql (U) Negative Normal NEGATIVE [facility] Comment on above: Performed By: #### Dusty JC UMICRO #### [facility] [address] [place] [address] Dr. Adrianne Nava Hemoglobin Ql (U) Negative Normal NEGATIVE [facility] Comment on above: Performed By: #### Dusty JC UMICRO #### [facility] [address] [place] [address] Dr. Adrianne Nava Ketones Ql (U) Negative Normal NEGATIVE [facility] Comment on above: Performed By: #### Dusty JC UMICRO #### [facility] [address] [place] [address] Dr. Adrianne Nava LEUKOCYTES MODERATE Abnormal NEGATIVE [facility] Comment on above: Performed By: #### Dusty JC UMICRO #### [facility] [address] [place] [address] Dr. Adrianne Nava Nitrite Ql (U) Negative Normal NEGATIVE [facility] Comment on above: Performed By: #### Dusty JC UMICRO #### [facility] [address] [place] [address] Dr. Adrianne Nava pH (U) 6.5 [pH] Normal 5-9 [facility] Comment on above: Performed By: #### Dusty JC UMICRO #### [facility] [address] [place] [address] Dr. Adrianne Nava SPEC GRAVITY <=1.005 Abnormal 1.005-<=1.025 [facility] Comment on above: Performed By: #### MELISSA FOY #### [facility] [address] [place] [address] Dr. Adrianne Nava UA PROTEIN Negative Normal NEGATIVE/ TRACE [facility] Comment on above: Performed By: #### MELISSA FOY #### [facility] [address] [place] [address] Dr. Adrianne Nava UR MICRO IND INDICATED Normal [facility] Comment on above: Performed By: #### MELISSA FOY #### [facility] [address] [place] [address] Dr. Adrianne Nava Urobilinogen Qn (U) 0.2 {Kaley'U}/dL Normal 0.2 - 1. 0 [facility] Comment on above: Performed By: #### MELISSA FOY #### [facility] [address] [place] [address] Dr. Adrianne Nava PROF CHEM 8 (BAS METB)on Anion gap [Moles/Vol] 12.7 mmol/L Normal [facility] [facility] Comment on above: Performed By: #### B MP #### [facility] [address] [place] [address] Dr. Adrianne Nava Calcium [Mass/Vol] 9.0 mg/dL Normal 8.5-10.1 [facility] Comment on above: Performed By: #### B MP #### [facility] [address] [place] [address] Dr. Adrianne Nava Chloride [Moles/Vol] 105 mmol/L Normal 98-107 [facility] Comment on above: Performed By: #### B MP #### [facility] [address] [place] [address] Dr. Adrianne Nava CO2 [Moles/Vol] 25.1 mmol/L Normal 21.0-32.0 [facility] Comment on above: Performed By: #### B MP #### [facility] [address] [address] [address] Adrianne Nava Creatinine [Mass/Vol] 0.86 mg/dL Normal 0.55-1.02 [facility] Comment on above: Performed By: #### B MP #### [facility] [address] [place] [address] Dr. Adrianne Nava EGFR-AF TUVALUAN >60 Normal >=60 [facility] Comment on above: Performed By: #### B MP #### [facility] [address] [address] [address] Adrianne Nava EGFR-NON AF TUVALUAN >60 Normal >=60 [facility] Comment on above: Performed By: #### B MP #### [facility] [address] [address] [address] Adrianne Nava Glucose [Mass/Vol] 99 mg/dL Normal 74-106 [facility] Comment on above: Performed By: #### B MP #### [facility] [address] [place] [address] Dr. Adrianne Nava Potassium [Moles/Vol] 3.8 mmol/L Normal 3.5-5.1 [facility] Comment on above: Performed By: #### B MP #### [facility] [address] [place] [address] Dr. Adrianne Nava Sodium [Moles/Vol] 139 mmol/L Normal 136-145 [facility] Comment on above: Performed By: #### B MP #### [facility] [address] [place] [address] Dr. Adrianne Nava Urea nitrogen [Mass/Vol] 19.0 mg/dL Critically high 7.0-18.0 [facility] Comment on above: Performed By: #### B MP #### [facility] [address] [place] [address] Dr. Adrianne Nava Urea nitrogen/Creatinine [Mass ratio] 22.1 mg/mg Normal [facility] Comment on above: Performed By: #### B MP #### [facility] [address] [place] [address] Dr. Adrianne Nava URINE MICROSCOPIC ONLYon BACTERIA TRACE Abnormal NONE SEEN [facility] Comment on above: Performed By: #### E CULLENR, UMICRO #### [facility] [address] [place] [address] Dr. Adrianne Nava Bacteria identified Cx Nom (U) INDICATED Normal [facility] Comment on above: Performed By: #### E CULLENR, UMICRO #### [facility] [address] [place] [address] Dr. Adrianne Nava CAST NONE SEEN Normal NONE SEEN [facility] Comment on above: Performed By: #### E CULLENR, UMICRO #### [facility] [address] [place] [address] Dr. Adrianne Nava Crystals LM Nom (Urine sed) NONE SEEN Normal NONE SEEN [facility] Comment on above: Performed By: #### E RUR, UMICRO #### [facility] [address] [place] [address] Dr. Adrianne Nava Epithelial cells LM Ql (Urine sed) FEW Abnormal NONE SEEN /RARE [facility] Comment on above: Performed By: #### E BABITA, UMICRO #### [facility] [address] [place] [address] Dr. Adrianne Nava MUCOUS NONE SEEN Normal NONE SEEN [facility] Comment on above: Performed By: #### Dusty JC, UMICRO #### [facility] [address] [place] [address] Dr. Adrianne Nava RBC 0-2 Normal 0-2 [facility] Comment on above: Performed By: #### Dusty JC UMICRO #### [facility] [address] [place] [address] Dr. Adrianne Nava WBC 10-20 Abnormal NONE SEEN [facility] Comment on above: Performed By: #### Dusty JC UMICRO #### [facility] [address] [place] [address] Dr. Adrianne Nava MG MAMM SCREEN 3D JORDAN CADon 03-07-2022 MG MAMM SCREEN 3D JORDAN CAD Patient: DANTE JAMES Exam Date: 03/07/2022 : 1965 Gender:F Ordering : DR KYUNG YANG Admission #: [id number] Family : Order #: [id number] CLICK HERE TO VIEW EXAM RADIOLOGY REPORT [...] cervical cancer at age 35. LOCATION: [facility] BREAST COMPOSITION: Extremely dense, which lowers [...] MD on 03/07/2022 at 09:52 Normal [facility] C. DIFF PCRon 02-05-2022 C. DIFFICILE PCR Negative Normal NEGATIVE [facility] Comment on above: Performed By: #### C DIFPOC ####[facility] [address] [address]Dr. Adrianne Nava GI PANEL (PCR)on 02-05-2022 Adenovirus F 40/41 Not detected Normal NOT DETECTED [facility] Comment on above: Performed By: #### G IPANEL #### [facility] [address] [address] [address] Adrianne Nava Astrovirus Not detected Normal NOT DETECTED [facility] Comment on above: Performed By: #### G IPANEL #### [facility] [address] [address] [address] Adrianne Nava C. Diff toxin A/B Not detected Normal NOT DETECTED [facility] Comment on above: Performed By: #### G IPANEL #### [facility] [address] [address] [address] Adrianne Nava Campylobacter Not detected Normal NOT DETECTED [facility] Comment on above: Performed By: #### G IPANEL #### [facility] [address] [address] [address] Adrianne Nava Cryptosporidium Not detected Normal NOT DETECTED [facility] Comment on above: Performed By: #### G IPANEL #### [facility] [address] [place] [address] Dr. Adrianne Nava Cyclos. Cayetanensis Not detected Normal NOT DETECTED [facility] Comment on above: Performed By: #### G IPANEL #### [facility] [address] [place] [address] Dr. Adrianne Nava E. Coli O157 Not Applicable Normal Not Applicable [facility] Comment on above: Performed By: #### G IPANEL #### [facility] [address] [place] [address] Dr. Adrianne Nava E. histolytica Not detected Normal NOT DETECTED [facility] Comment on above: Performed By: #### G IPANEL #### [facility] [address] [place] [address] Dr. Adrianne Nava EAEC Not detected Normal NOT DETECTED [facility] Comment on above: Performed By: #### G IPANEL #### [facility] [address] [place] [address] Dr. Adrianne Nava EIEC Not detected Normal NOT DETECTED [facility] Comment on above: Performed By: #### G IPANEL #### [facility] [address] [place] [address] Dr. Adrianne Nava EPEC Not detected Normal NOT DETECTED [facility] Comment on above: Performed By: #### G IPANEL #### [facility] [address] [place] [address] Dr. Adrianne Nava ETEC Not detected Normal NOT DETECTED [facility] Comment on above: Performed By: #### G IPANEL #### [facility] [address] [place] [address] Dr. Adrianne Nava G. Lamblia Not detected Normal NOT DETECTED [facility] Comment on above: Performed By: #### G IPANEL #### [facility] [address] [address] [address] Adrianne LING CONTROLS PASSED Normal [facility] Comment on above: Performed By: #### G IPANEL #### [facility] [address] [address] [address] Adrianne CARDOZA JOEY HEADER GI PANEL BACTERIA Normal T [facility] Comment on above: Performed By: #### G IPANEL #### [facility] [address] [address] [address] Adrianne PAUL ECOLI GI PANEL DIARRHEAGENIC E.COLI / SHIGELLA Normal [facility] Comment on above: Performed By: #### G IPANEL #### [facility] [address] [address] [address] Adrianne PAUL INFO SEE BELOW Normal [facility] Comment on above: Result Comment: EAEC - Enteroaggregative E. Coli EPEC- Enteropathogenic E. Coli ETEC- Enterotoxigenic E. Coli lt/st STEC- Shigella-like toxin-producing E. Coli stx1/stx2 EIEC- Shigella/Enteroinvasive E. Coli Performed By: #### G IPANEL #### [facility] [address] [address] [address] Adrianne PAUL PARASITES GI PANEL PARASITES Normal [facility] Comment on above: Performed By: #### G IPANEL #### [facility] [address] [address] [address] Adrianne PAUL VIRUS GI PANEL VIRUSES Normal [facility] Comment on above: Performed By: #### G IPANEL #### [facility] [address] [address] [address] Adrianne Nava Norovirus GI/GII Not detected Normal NOT DETECTED [facility] Comment on above: Performed By: #### G IPANEL #### [facility] [address] [address] [address] Adrianne Nava P. Shigelloides Not detected Normal NOT DETECTED [facility] Comment on above: Performed By: #### G IPANEL #### [facility] [address] [place] [address] Dr. Adrianne Nava Rotavirus A Not detected Normal NOT DETECTED [facility] Comment on above: Performed By: #### G IPANEL #### [facility] [address] [address] [address] Adrianne Nava Salmonella Not detected Normal NOT DETECTED [facility] Comment on above: Performed By: #### G IPANEL #### [facility] [address] [place] [address] Dr. Adrianne Nava Sapovirus Not detected Normal NOT DETECTED [facility] Comment on above: Performed By: #### G IPANEL #### [facility] [address] [place] [address] Dr. Adrianne Nava STEC Not detected Normal NOT DETECTED [facility] Comment on above: Performed By: #### G IPANEL #### [facility] [address] [place] [address] Dr. Adrianne Nava Vibrio Not detected Normal NOT DETECTED [facility] Comment on above: Performed By: #### G IPANEL #### [facility] [address] [place] [address] Dr. Adrianne Nava Vibrio Cholera Not detected Normal NOT DETECTED [facility] Comment on above: Performed By: #### G IPANEL #### [facility] [address] [place] [address] Dr. Adrianne Nava Y. Enterocolitica Not detected Normal NOT DETECTED [facility] Comment on above: Performed By: #### G IPANEL #### [facility] [address] [place] [address] Dr. Adrianne Nava Vital Signs Date Time Vital Sign Value Performing Clinician Facility 07-17-2024 08:30-0500 Body height 160 cm Paola Brady CLAIMS REPRESENTATIVE Work Phone: [facility] 07-17-2024 08:30-0500 Body mass index (BMI) [Ratio] 23.74 kg/m2 Paola Brady CLAIMS REPRESENTATIVE Work Phone: [facility] 07-17-2024 08:30-0500 Body weight 60.78 kg Paola Gillmor CLAIMS REPRESENTATIVE Work Phone: [facility] 07-17-2024 08:30-0500 Diastolic blood pressure 67 mm[Hg] Paola Gillmor CLAIMS REPRESENTATIVE Work Phone: [facility] 07-17-2024 08:30-0500 Heart rate 70 /min Paola Gillmor CLAIMS REPRESENTATIVE Work Phone: [facility] 07-17-2024 08:30-0500 Systolic blood pressure 117 mm[Hg] Paola Gillmor CLAIMS REPRESENTATIVE Work Phone: [facility] 07-03-2024 11:15-0500 Body temperature 97.7 [degF] Marycruz Lue [facility] 07-03-2024 11:15-0500 Diastolic blood pressure 72 mm[Hg] Marycruz Lue [facility] 07-03-2024 11:15-0500 Respiratory rate 16 /min Marycruz Lue [facility] 07-03-2024 11:15-0500 Systolic blood pressure 110 mm[Hg] Marycruz Lue [facility] 04-25-2024 08:55-0400 Body height 160 cm Paola Gillmor CLAIMS REPRESENTATIVE Work Phone: [facility] 04-25-2024 08:55-0400 Body mass index (BMI) [Ratio] 23.56 kg/m2 Paola Gillmor CLAIMS REPRESENTATIVE Work Phone: [facility] 04-25-2024 08:55-0400 Body weight 60.33 kg Paola Gillmor CLAIMS REPRESENTATIVE Work Phone: [facility] 04-25-2024 08:55-0400 Diastolic blood pressure 75 mm[Hg] Paola Gillmor CLAIMS REPRESENTATIVE Work Phone: [facility] 04-25-2024 08:55-0400 Heart rate 72 /min Paola Kathrynmor CLAIMS REPRESENTATIVE Work Phone: [facility] 04-25-2024 08:55-0400 Systolic blood pressure 124 mm[Hg] Paola Peraltamor CLAIMS REPRESENTATIVE Work Phone: [facility] 02-28-2024 09:07-0400 Body temperature 97.88 [degF] Marycruz Lue [facility] 02-28-2024 09:07-0400 Diastolic blood pressure 70 mm[Hg] Marycruz Lue [facility] 02-28-2024 09:07-0400 Heart rate 68 /min Marycruz Lue [facility] 02-28-2024 09:07-0400 Respiratory rate 16 /min Marycruz Lue [facility] 02-28-2024 09:07-0400 Systolic blood pressure 108 mm[Hg] Marycruz Lue [facility] 03-13-2023 11:45-0400 Body height 162.56 cm Erica Mott Other [facility] [employer] Other 03-13-2023 11:45-0400 Body mass index (BMI) [Ratio] 23.51 kg/m2 Erica Mott Other [employer] Other 03-13-2023 11:45-0400 Body temperature 98 [degF] Erica Mott Other [employer] Other 03-13-2023 11:45-0400 Body weight 62.14 kg Erica Mott Other [employer] Other 03-13-2023 11:45-0400 Diastolic blood pressure 65 mm[Hg] Erica Mott Other [employer] Other 03-13-2023 11:45-0400 Respiratory rate 18 /min Erica Mott Other [employer] Other 03-13-2023 11:45-0400 SaO2% (BldA) [Mass fraction] 96 % Ericamichael Mott Other [employer] Other 03-13-2023 11:45-0400 Systolic blood pressure 103 mm[Hg] Erica Mott Other [employer] Other 03-09-2023 10:05-0400 Body height 162.56 cm Erica Mott Other [employer] Other 03-09-2023 10:05-0400 Body mass index (BMI) [Ratio] 23.51 kg/m2 Erica Mott Other [employer] Other 03-09-2023 10:05-0400 Body temperature 97.3 [degF] Erica Mott Other [employer] Other 03-09-2023 10:05-0400 Body weight 62.14 kg Erica Mott Other [employer] Other 03-09-2023 10:05-0400 Diastolic blood pressure 61 mm[Hg] Erica Mott Other [employer] Other 03-09-2023 10:05-0400 Respiratory rate 18 /min Erica Mott Other [employer] Other 03-09-2023 10:05-0400 SaO2% (BldA) [Mass fraction] 99 % Erica Tiera Other [employer] Other 03-09-2023 10:05-0400 Systolic blood pressure 98 mm[Hg] Erica Mott Other [employer] Other 04-20-2022 14:41-0400 Blood Pressure Location LIAT BORRERO [facility] 04-20-2022 14:41-0400 Diastolic blood pressure 80 mm[Hg] LIAT BORRERO [facility] 04-20-2022 14:41-0400 Heart rate 75 /min LIAT BORRERO [facility] 04-20-2022 14:41-0400 Systolic blood pressure 119 mm[Hg] LIAT BORRERO [facility] Encounters Encounter Date Encounter Type Care Provider Facility Start: 09-18-2024 ambulatory Marycruz Goveadusty Facility:[facility] Start: 07-17-2024 End: 07-17-2024 Bamboo flowsheet Paola Brady CLAIMS REPRESENTATIVE Work Phone: [facility] Start: 07-17-2024 End: 07-17-2024 Bamboo flowsheet Paola Brady CLAIMS REPRESENTATIVE Work Phone: [facility] Start: 07-17-2024 End: 07-17-2024 Office outpatient visit 15 minutes Paola Brady CLAIMS REPRESENTATIVE Work Phone: [facility] Comment on above: Trigeminal neuralgia (CMS/HCC) (Primary Dx); Seizure disorder (CMS/HCC); Disease of the oral soft tissues; Tingling Start: 07-17-2024 End: 07-17-2024 ambulatory PAOLA PERALTAMOR Not Available Start: 07-03-2024 ambulatory Marycruz DykesTata Goveadusty Facility:[facility] [place] Start: 07-03-2024 End: 07-03-2024 Patient encounter procedure Marycruz DykesTata Bhagat [facility] Start: 06-05-2024 End: 06-09-2024 Refill Paola Brady CLAIMS REPRESENTATIVE Work Phone: [facility] Comment on above: Seizure (CMS/HCC) Start: 05-15-2024 End: 05-15-2024 ambulatory Marycruz Petty Govaedusty Facility: [facility] Start: 05-15-2024 End: 05-15-2024 Off-Site Marycruzmalorie Goveadusty [facility] Start: 04-25-2024 End: 04-25-2024 Bamboo flowsheet Paola Pazr CLAIMS REPRESENTATIVE Work Phone: [facility] [place] [facility] Start: 04-25-2024 End: 04-25-2024 Bamboo flowsheet Paola Peraltamor CLAIMS REPRESENTATIVE Work Phone: [facility] Start: 04-25-2024 End: 04-25-2024 Telephone encounter Shane [facility]AS [facility] Start: 04-25-2024 End: 04-25-2024 Office outpatient visit 25 minutes Paola Brady CLAIMS REPRESENTATIVE [facility] Comment on above: Seizure disorder (CM S/HCC) (Primary Dx); Generalized epilepsy (CMS/HCC) Start: 04-25-2024 End: 04-25-2024 ambulatory PAOLA PERALTAMOR Not Available Start: 04-04-2024 End: 04-04-2024 ambulatory [facility]UNG [facility] Start: 04-04-2024 Encounter for gynecological examination (general) (routine) without abnormal findings KYUNG YANG [facility] Start: 03-24-2024 End: 03-25-2024 Refill Paola Brady CLAIMS REPRESENTATIVE Work Phone: [facility] Comment on above: Seizure (CMS/HCC) Start: 02-28-2024 End: 02-28-2024 Lab Drop off Marycruz M. Lue [facility] Start: 02-28-2024 End: 02-28-2024 ambulatory Marycruz M. Lue [facility] Start: 02-28-2024 End: 02-28-2024 Patient encounter procedure Marycruz M. Lue [facility] Start: 12-11-2023 End: 12-11-2023 ambulatory PAOLA BRADY Not Available Start: 06-14-2023 End: 06-14-2023 Lab Drop off Marycruz M. Lue [facility] Start: 06-14-2023 End: 06-14-2023 ambulatory Marycruz M. Lue [facility] Start: 2023 End: 2023 ambulatory Marycruz M. Lue Facility[facility] Start: 2023 End: 2023 ambulatory Marycruz M. Lue Facility:[facility] Start: 03-13-2023 End: 03-13-2023 ambulatory Erica Mott Other [employer] Other Start: 03-13-2023 Office outpatient vi sit 15 minutes Erica Mott [facility] Start: 03-09-2023 End: 03-09-2023 ambulatory Erica Mott Other [employer] Other Start: 03-09-2023 Office outpatient ne w 20 minutes Erica Mott [facility] Start: 11-14-2022 End: 11-14-2022 ambulatory DENISE CHAVARRIA Facility:[facility] Start: 11-09-2022 End: 11-10-[address] TWILA VERDE . Facility:[facility] Start: 11-08-2022 End: 11-09-[address] KANE MCKEE Facility:[facility] Start: 10-07-2022 End: 10-08-[address] TWILA VERDE . Facility:[facility] Start: 04-21-2022 End: 04-21-2022 Patient encounter procedure Twila Verde MD Work Phone: [facility] Start: 04-21-2022 End: 04-21-2022 Subsequent hospital visit by physician Twila Verde MD Work Phone: [facility] Comment on above: Vaginal irritation; Women's annual routine gynecological examination Start: 04-20-2022 End: 04-20-2022 Patient encounter procedure LIAT BORRERO [facility] Start: 04-15-2022 End: 04-16-[address] BRIAN TIDWELL Facility:[facility] Start: 04-06-2022 End: 04-07-[address] TWILA VERDE . Facility:[facility] Start: 03-25-2022 End: 03-25-[address] IVIS LASSITER Facility:[facility] Start: 03-07-2022 End: 03-08-[address] BRIAN TIDWELL Facility:[facility] Start: 02-05-2022 End: 02-06-[address] TWILA VERDE . Facility:[facility] Start: 04-19-2021 End: 04-19-2021 Subsequent hospital visit by physician Twila Verde MD Work Phone: [facility] Comment on above: History of cervical cancer Start: 05-02-2019 End: 05-02-2019 Subsequent hospital visit by physician Twila Verde [facility] Comment on above: Women's annual routi ne gynecological examination Start: 03-29-2017 Ambulatory HARRISON BUSTAMANTE Facility :8 Start: 02-10-2017 Ambulatory HARRISON BUSTAMANTE Facility :8 Procedures Date Procedure Procedure Detail Performing Clinician Start: 05-15-2024 Ureteroscopy Marycruz Bhagat Start: 04-09-2024 Mammography Paola saldana CLAIMS REPRESENTATIVE Work Phone: Start: 04-04-2024 Microscopic observat ion [Identifier] in Cervix by Cyto stain Paola Brady CLAIMS REPRESENTATIVE Work Phone: Start: 11-07-2022 Microscopic observat ion [Identifier] in Cervix by Cyto stain Paola Brady CLAIMS REPRESENTATIVE Work Phone: Start: 06-11-2019 Mammography Paola saldana CLAIMS REPRESENTATIVE Work Phone: Partial hysterectomy JENNIFE R GISSELL Procedure on shoulder JENNIF ER GISSELL Tonsillectomy LIAT GISSELL Tonsillectomy and adenoidectomy Marycruz Olayinka Plan of Treatment Date Care Activity Detail Author Start: 04-21-2027 Screening for malign ant neoplasm of cervix [facility] Start: 04-04-2027 Screening for malign ant neoplasm of cervix Pap Smear [facility] Start: 11-07-2025 Screening for malign ant neoplasm of cervix Pap Smear [facility] Start: 04-09-2025 Screening for malign ant neoplasm of breast Mammogram [facility] Start: 12-31-2024 End: 12-31-2024 Patient encounter procedure 12/31/2024 9:40 AM EDT Office Visit [facility] [address] [place] [address] Paola Brady NP [address] [place], [place] [facility] Start: 07-17-2024 End: 07-17-2024 Patient encounter procedure [facility] Comment on above: Arrived Start: 06-17-2024 End: 06-17-2024 Patient encounter procedure 06/17/2024 11:00 AM EST Office Visit [facility] [place] [facility] [address] [place] [address] Paola Brady NP [address] [place] [facility] Start: 04-25-2024 End: 04-25-2024 Patient encounter procedure 04/25/2024 9:00 AM EDT Office Visit [facility] [address] [place] [address] Paola Brady CLAIMS REPRESENTATIVE [address] [place] Arrived [facility] Comment on above: Arrived Start: 03-31-2024 Influenza vaccination Influenza Vacc ine (#1) [facility] Start: 04-24-2023 End: 04-24-2023 Patient encounter procedure 04/24/2023 Office Visit Obstetrics and Gynecology Kyung Yang MD [address] [place] [address] [address] [place] [address] [facility] [place] [facility] Start: 03-05-2023 Screening for malign ant neoplasm of breast Breast cancer screen [facility] Start: 04-21-2022 End: 04-21-2022 Patient encounter procedure 04/21/2022 Office Visit Obstetrics and Gynecology Kyung Yang MD [address] [place] [address] [address] [place] [address] [facility] Start: 03-31-2022 Influenza vaccination Flu vaccine (# 1) [facility] Start: 04-30-2021 Cervical cancer screen Cervical canc er screen [facility] [place] Start: 03-31-2021 Influenza vaccination Flu vaccine (# 1) [facility] Work Phone: Start: 06-11-2020 Screening for malign ant neoplasm of breast Mammogram [facility] Start: 06-06-2020 Breast cancer screen Breast cancer s creen [place], [place] Start: 05-30-2019 Influenza vaccination Flu vaccine (# 1) [place], [place] Comment on above: Postponed from 03/31 (Patient Refused) Start: 2015 Colon cancer screen colonoscopy Colon cancer screen colonoscopy [place], [place] Start: 2015 Shingles Vaccine (1 of 2) Shingles Vaccine (1 of 2) [place] Start: 2010 Screening for malign ant neoplasm of colon [facility] Start: 2005 Diabetes screen Diabetes screen [facility] [employer] Phone: Start: 2005 Lipid panel [facility] Start: 2005 Lipid screen Lipid screen [place], [place] Start: 1984 DTaP/Tdap/Td vaccine (1 - Tdap) DTaP/Tdap/Td vaccine (1 - Tdap) [facility] [employer] Start: 1983 Hepatitis C screening Hepatitis C sc reen [facility] Start: 1980 HIV screen HIV screen [place], [place] Start: 1980 HIV screening HIV screen [facility] [employer] Start: 1977 Depression Screen Depression Screen [facility] Start: 1965 Hepatitis C screen Hepatitis C scree n [place], [place] Start: 1965 Hepatitis C screening Hepatitis C [facility] [employer] Phone: Start: 1965 Screening for malign ant neoplasm of colon [facility] End: 04-21-2022 Culture, Genital [facility] [employer] Phone: Comment on above: 1 Occurrences starti ng 04/21/2022 until 04/21/2022 End: 05-02-2019 Cytopathology procedure, preparation of smear, genital source [facility] Routine Women's annual routine gynecological examination 1 Occurrences starting 05/02/2019 until 05/02/2019 [place] Comment on above: 1 Occurrences starti ng 05/02/2019 until 05/02/2019 End: 04-19-2021 Cytopathology procedure, preparation of smear, genital source [facility] Routine History of cervical cancer 1 Occurrences starting 04/19/2021 until 04/19/2021 [email or web address] Phone: Comment on above: 1 Occurrences starti ng 04/19/2021 until 04/19/2021 End: 04-21-2022 Cytopathology procedure, preparation of smear, genital source [facility] Routine Women's annual routine gynecological examination 1 Occurrences starting 04/21/2022 until 04/21/2022 MADELYN ANGELO [employer] Phone: Comment on above: 1 Occurrences starti ng 04/21/2022 until 04/21/2022 Immunizations Immunization Date Immunization Notes Care Provider Gallo frost 03-29-2023 influenza virus vaccine, unspecified formulation Marycruz Bhagat [facility] 03-29-2023 tetanus toxoid, reduced diphtheria toxoid, and acellular pertussis vaccine, adsorbed Marycruz Lue [facility] 11-18-2020 SARS-CoV-2 (COVID-19 ) mRNA-1273 vaccine Marycruz Lue [facility] Comment on above: Result Comment: 2022: [id number] 11-13-2020 SARS-CoV-2 (COVID-19 ) Ad26 vaccine, recombinant LIAT GISSELL [facility] 10-21-2020 SARS-CoV-2 (COVID-19 ) mRNA-1273 vaccine Marycruz Lue [facility] Comment on above: Result Comment: 2022: TPV50 10-16-2020 SARS-CoV-2 (COVID-19 ) Ad26 vaccine, recombinant LIAT GISSELL [facility] 10-01-2019 zoster vaccine recombinant Marycruz Lue [facility] 07-28-2019 zoster vaccine recombinant Marycruz Bhagat [facility] NEGATED: Highlighted row has not occurred!09-24-2020 influenza virus vaccine, unspecified formulation LIAT BORRERO [facility] Payers Date Payer Category Payer Private Health Insurance [employer] [id number] 2023 Unknown [facility] [employer] [place] [id number] 2023-Present [address] [place] [address] [id number] 2014 Unknown [facility] xxxxxxxxxxxx 2014-Present [phone] [address] [address] [place] [address] xxxxxxxxxxxx [id number] 1965 Unknown [id number] 2.16.840.1.919477.3.579.2 .593 1965 Unknown [id number] 2.16.840.1.570401.3.579.2 .593 1965 Unknown [id number] 2.16.840.1.674655.3.579.2 .593 1965 Unknown [id number] 2.16.840.1.993706.3.579.2 .593 1965 Unknown [id number] 2.16.840.1.205367.3.579.2 .593 1965 Unknown [id number] 2.16.840.1.730941.3.579.2 .593 1965 Unknown [id number] 2.16.840.1.747351.3.579.2 .593 1965 Unknown [id number] 2.16.840.1.583325.3.579.2 .593 1965 Unknown [id number] 2.16.840.1.713804.3.579.2 .593 1965 Unknown [id number] 2.16840.1.043879.3.579.2 .727 1965 Unknown [id number] 2.16.840.1.138021.3.579.2 .727 1965 Unknown [id number] 2.16.840.1.143690.3.579.2 .727 1965 Unknown [id number] 2.16.840.1.663285.3.579.2 .727 1965 Unknown [id number] 2.16.840.1.866164.3.579.2 .727 1965 Unknown [id number] 2.16.840.1.430612.3.579.2 .727 1965 Unknown [id number] 2.16.840.1.312903.3.579.2 .173 1965 Unknown [id number] 2.16.840.1.365639.3.579.2 .727 1965 Unknown [id number] 2.16.840.1.886963.3.579.2 .727 1965 Unknown [id number] 2.16.840.1.072379.3.579.2 .727 1965 Unknown [id number] 2.16.840.1.611261.3.579.2 .727 1965 Unknown [id number] 2.16.840.1.873393.3.579.2 .1259 1965 Unknown [id number] 2.16.840.1.733361.3.579.2 .1259 1965 Unknown [id number] 2.16.840.1.709265.3.579.2 .1259 1959 Unknown [id number] Unknown [id number] 2.16.840.1.410826.19 Social History Date Type Detail Facility Start: 05-02-2019 End: 12-11-2023 Tobacco smoking status NHIS Never smoker [facility] Start: 05-02-2019 End: 12-11-2023 Alcohol intake Yes [place] Start: 12-29-2016 Alcohol Comment one glass a week [place], [place] Start: 1965 Sex Assigned At Not on file [place] Start: 04-19-2021 End: 12-11-2023 Tobacco use and exposure Never used [facility] [employer] Start: 04-19-2021 End: 04-21-2022 Alcohol intake Current drinker of alcohol (finding) [facility] [employer] Phone: Start: 04-19-2021 End: 12-11-2023 Alcohol intake [facility] [employer] Phone: Tobacco smoking status Never [facility] Start: 04-11-2022 End: 04-21-2022 Exposure to SARS-CoV-2 (event) Not sure MADELYN ANGELO [facility] Start: 12-11-2023 End: 04-25-2024 Alcoholic beverage intake Ex-drinker (finding) [facility] How often to you hav e a drink containing alcohol? Monthly or less [facility] How many standard drinks containing alcohol do you have on a typical day? 1 or 2 [facility] How often do you hav e 6 or more drinks on 1 occasion? Never [facility] Start: 12-11-2023 Tobacco Comment I lived with jere love that smoked [facility] Start: 1965 Sex assigned at Female [facility] Start: 12-04-2023 Gender identity Identifies as female gender (finding) [facility] Functional Status Date Assessment Result Facility 07-03-2024 Functional Status N/A [facility] 02-28-2024 Functional Status N/A [facility] 04-20-2022 Functional Status N/A [facility] Clinical Notes 04-20-2022 to 07-03-2024 Telephone Encounter - Iglesia Walsh MA - 06/07/2024 8:44 AM ESTTelephone Encounter - Iglesia Walsh MA - 06/07/2024 8:44 AM ESTTelephone Encounter - Paola Brady NP - 04/25/2024 3:51 PM EDT Note Date & Type Note Facility 07-03-2024 Hospital Discharge instructions Patient Education 07/03/2024 11:52:34 Dietary Guidelines to Help Prevent Kidney Stones Dietary Guidelines to Help Prevent Kidney Stones Kidney stones are deposits of minerals and salts that form inside your kidneys. Your risk of developing kidney stones may be greater depending on your diet, your lifestyle, the medicines you take, and whether you have certain medical conditions. Most people can lower their risks of developing kidney stones by following these dietary guidelines. Your dietitian may give you more specific instructions depending on your overall health and the type of kidney stones you tend to develop. What are tips for following this plan? Reading food labels Choose foods with no salt added or low-salt labels. Limit your salt (sodium) intake to less than 1,500 mg a day. Choose foods with calcium for each meal and snack. Try to eat about 300 mg of calcium at each meal. Foods that contain 200 500 mg of calcium a serving include: ?8 oz (237 mL) of milk, ormwgib-xenngqkbvluq-pyfrq milk, and calcium-fortifiedfruit juice. Calcium-fortified means that calcium has been added to these drinks. ?8 oz (237 mL) of kefir, yogurt, and soy yogurt. ?4 oz (114 g) of tofu. ?1 oz (28 g) of cheese. ?1 cup (150 g) of dried figs. ?1 cup (91 g) of cooked broccoli. ?One 3 oz (85 g) can of sardines or mackerel. Most people need 1,000 1,500 mg of calcium a day. Talk to your dietitian about how much calcium is recommended for you. Shopping Buy plenty of fresh fruits and vegetables. Most people do not need to avoid fruits and vegetables, even if these foods contain nutrients that may contribute to kidney stones. When shopping for convenience foods, choose: ?Whole pieces of fruit. ?Pre-made salads with dressing on the side. ?Low-fat fruit and yogurt smoothies. Avoid buying frozen meals or prepared deli foods. These can be high in sodium. Look for foods with live cultures, such as yogurt and kefir. Choose high-fiber grains, such as whole-wheat breads, oat bran, and wheat cereals. Cooking Do not add salt to food when cooking. Place a salt shaker on the table and allow each person to add their own salt to taste. Use vegetable protein, such as beans, textured vegetable protein (TVP), or tofu, instead of meat in pasta, casseroles, and soups. Meal planning Eat less salt, if told by your dietitian. To do this: ?Avoid eating processed or pre-made food. ?Avoid eating fast food. Eat less animal protein, including cheese, meat, poultry, or fish, if told by your dietitian. To do this: ?Limit the number of times you have meat, poultry, fish, or cheese each week. Eat a diet free of meat at least 2 days a week. ?Eat only one serving each day of meat, poultry, fish, or seafood. ?When you prepare animal proteins, cut pieces into small portion sizes. For most meat and fish, one serving is about the size of the palm of your hand. Eat at least five servings of fresh fruits and vegetables each day. To do this: ?Keep fruits and vegetables on hand for snacks. ?Eat one piece of fruit or a handful of berries with breakfast. ?Have a salad and fruit at lunch. ?Have two kinds of vegetables at dinner. You may be told to limit foods that are high in a substance called oxalate. These include: ?Spinach (cooked), rhubarb, beets, sweet potatoes, and [place] chard. ?Peanuts. ?Potato chips, argentine fries, and baked potatoes with skin on. ?Nuts and nut products. ?Chocolate. If you regularly take a diuretic medicine, make sure to eat at least 1 or 2 servings of fruits or vegetables that are high in potassium each day. These include: ?Avocado. ?Banana. ?[place], prune, carrot, or tomato juice. ?Baked potato. ?Cabbage. ?Beans and split peas. Lifestyle Drink enough fluid to keep your urine pale yellow. This is the most important thing you can do. Spread your fluid intake throughout the day. If you drink alcohol: ?Limit how much you have to: ?0 1 drink a day for women who are not . ?0 2 drinks a day for men. ?Know how much alcohol is in your drink. In the [place] one drink equals one 12 oz bottle of beer (355 mL), one 5 oz glass of wine (148 mL), or one 1 oz glass of hard liquor (44 mL). Lose weight if told by your health care provider. Work with your dietitian to find an eating plan and weight loss strategies that work best for you. General information Talk to your health care provider and dietitian about taking daily supplements. Depending on your health and the cause of your kidney stones, you may be told: ?Do not take high-dose supplements of vitamin C (1,000 mg a day or more). ?To take a calcium supplement. ?To take a daily probiotic supplement. ?To take other supplements such as magnesium, fish oil, or vitamin B6. Take ctco-vfh-qckiodw and prescription medicines only as told by your health care provider. These include supplements. What foods should I limit? Limit your intake of the following foods, or eat them as told by your dietitian. Vegetables Spinach. Rhubarb. Beets. Canned vegetables. Pickles. Olives. Baked potatoes with skin. Grains Wheat bran. Baked goods. Salted crackers. Cereals high in sugar. Meats and other proteins Nuts. Nut butters. Large portions of meat, poultry, or fish. Salted, precooked, or cured meats, such as sausages, meat loaves, and hot dogs. Dairy Cheeses. Beverages Regular soft drinks. Regular vegetable juice. Seasonings and condiments Seasoning blends with salt. Salad dressings. Soy sauce. Ketchup. Barbecue sauce. Other foods Canned soups. Canned pasta sauce. Casseroles. Pizza. Lasagna. Frozen meals. Potato chips. [place] fries. The items listed above may not be a complete list of foods and beverages you should limit. Contact a dietitian for more information. What foods should I avoid? Talk to your dietitian about specific foods you should avoid based on the type of kidney stones you have and your overall health. Fruits Grapefruit. The item listed above may not be a complete list of foods and beverages you should avoid. Contact a dietitian for more information. Summary Kidney stones are deposits of minerals and salts that form inside your kidneys. You can lower your risk of kidney stones by making changes to your diet. The most important thing you can do is drink enough fluid. Drink enough fluid to keep your urine pale yellow. Talk to your dietitian about how much calcium you should have each day, and eat less salt and animal protein as told by your dietitian. This information is not intended to replace advice given to you by your health care provider. Make sure you discuss any questions you have with your health care provider. Document Revised: 10/27/2022 Document Reviewed: 10/27/2022 [employer] Patient Education 2023 [employer]. Follow Up Care 05/16/2024 16:02:44 With:Olayinka HINSON, Marycruz Dvoe URL, [facility] Address: When: Unknown Comments:w/24 hour urine and Potassium Level [facility] 07-03-2024 Note Patient Education Nephrology Dietary Guidelines to Help Prevent Kidney Stones Kidney stones are deposits of minerals and salts that form inside your kidneys. Your risk of developing kidney stones may be greater depending on your diet, your lifestyle, the medicines you take, and whether you have certain medical conditions. Most people can lower their risks of developing kidney stones by following these dietary guidelines. Your dietitian may give you more specific instructions depending on your overall health and the type of kidney stones you tend to develop. What are tips for following this plan? Reading food labels ??? Choose foods with no salt added or low-salt labels. Limit your salt (sodium) intake to less than 1,500 mg a day. ??? Choose foods with calcium for each meal and snack. Try to eat about 300 mg of calcium at each meal. Foods that contain 200?500 mg of calcium a serving include: ? 8 oz (237 mL) of milk, vkgersa-hzqsjykaehaf-gvpsb milk, and calcium-fortifiedfruit juice. Calcium-fortified means that calcium has been [...] much calcium is recommended for you. Shopping ??? Buy plenty of fresh fruits and vegetables. Most people do not need to avoid fruits and vegetables, even if these foods contain nutrients that may contribute to kidney stones. ??? When shopping for convenience foods, choose: ? Whole pieces of fruit. ? Pre-made salads with dressing on the side. ? Low-fat fruit and yogurt smoothies. ??? Avoid buying frozen meals or prepared deli foods. These can be high in sodium. ??? Look for foods with live cultures, such as yogurt and kefir. ??? Choose high-fiber grains, such as whole-wheat breads, oat bran, and wheat cereals. Cooking ??? Do not add salt to food when cooking. Place a salt shaker on the table and allow each person to add their own salt to taste. ??? Use vegetable protein, such as beans, textured vegetable protein (TVP), or tofu, instead of meat in pasta, casseroles, and soups. Meal planning ??? Eat less salt, if told by your dietitian. To do this: ? Avoid eating processed or pre-made food. ? Avoid eating fast food. ??? Eat less animal protein, including cheese, meat, poultry, or fish, if told by your dietitian. To do this: ? Limit the number of times you have meat, poultry, fish, or cheese each week. Eat a diet free of meat at least 2 days a week. ? Eat only one serving each day of meat, poultry, fish, or seafood. ? When you prepare animal proteins, cut pieces into small portion sizes. For most meat and fish, one serving is about the size of the palm of your hand. ??? Eat at least five servings of fresh fruits and vegetables each day. To do this: ? Keep fruits and vegetables on hand for snacks. ? Eat one piece of fruit or a handful of berries with breakfast. ? Have a salad and fruit at lunch. ? Have two kinds of vegetables at dinner. ??? You may be told to limit foods that are high in a substance called oxalate. These include: ? Spinach (cooked), rhubarb, beets, sweet potatoes, and [place]or[place] chard. ? Peanuts. ? Potato chips, argentine fries, and baked potatoes with skin on. ? Nuts and nut products. ? Chocolate. ??? If you regularly take a diuretic medicine, make sure to eat at least 1 or 2 servings of fruits or vegetables that are high in potassium each day. These include: ? Avocado. ? Banana. ? [place], prune, carrot, or tomato juice. ? Baked potato. ? Cabbage. ? Beans and split peas. Lifestyle ??? Drink enough fluid to keep your urine pale yellow. This is the most important thing you can do. Spread your fluid intake throughout the day. ??? If you drink alcohol: ? Limit how much you have to: ? 0?1 drink a day for women who are not . ? 0?2 drinks a day for men. ? Know how much alcohol is in your drink. In the [place] one drink equals one 12 oz bottle of beer (355 mL), one 5 oz glass of wine (148 mL), or one 1? oz glass of hard liquor (44 mL). ??? Lose weight if told by your health care provider. Work with your dietitian to find an eating plan and weight loss strategies that work best for you. General information ??? Talk to your health care provider and dietitian about taking daily supplements. Depending on your health and the cause of your kidney stones, you may be told: ? Do not take high-dose supplements of vitamin C (1,000 mg a day or more). ? To take a calcium supplement. ? To take a daily probiotic supplement. ? To take other supplements such as magnesium, fish oil, or vitamin B6. ??? Take zrbz-rwa-gudmofd and prescription medicines only as told by your health (more content not included)... [facility] 06-07-2024 Telephone encounter Note DUE 06/23/2024 [facility] 06-07-2024 Miscellaneous Notes DUE 06/23/2024 documented in this encounter [facility] 04-25-2024 Telephone encounter Note I called and spoke with pharmacist. [facility] 04-25-2024 Miscellaneous Notes I called and spoke with pharmacist. [facility] pharmacy in [place] calls stating they need clarification on the topiramate RX sent in. He was unsure of how to dispense with directions of take out 50 mg each week starting with week 3. documented in this encounter [facility] 04-25-2024 Telephone encounter Note [facility] pharmacy in [place] calls stating they need clarification on the topiramate RX sent in. He was unsure of how to dispense with directions of take out 50 mg each week starting with week 3. [facility] 02-28-2024 Evaluation + Plan note Diagnostic Tests PendingElectrolyte Panel 02/28/24 [facility] 02-28-2024 Evaluation + Plan note Diagnostic Tests PendingUrine Culture 02/28/24 [facility] 02-28-2024 Hospital Discharge instructions Patient Education 02/28/2024 09:48:33 Kidney Stones, Wfjr-fy-Lrmw Kidney Stones Kidney stones are rock-like masses [...] Follow these instructions at home: Medicines Take mlva-tdp-dyosljs and prescription medicines only as told by [...] Kidney Foundation (NKF): www.kidney.org Urology Care Foundation (F): www.urologyhealth.org Contact a doctor if: You have [...] provider. Document Revised: 03/21/2022 Document Reviewed: 03/21/2022 [employer] Patient Education 2022 [employer]. Follow Up Care 06/14/2023 08:31:32 With:Olayinka HINSON, JEFF MackL, [facility] Address: [address], [place] [address] [phone] When: Unknown [facility] 02-28-2024 Note Patient Education Urology Kidney [...] these instructions at home: Medicines ? Take gteo-kix-uuarcru and prescription medicines only as told by [...] provider. Document Revised: 03/21/2022 Document Reviewed: 03/21/2022 [employer] Patient Education ? 2022 [employer]. [facility] 03-13-2023 Evaluation note Encounter Date Diagnosis Assessment [...] until symptoms are completely resolved x48 hours. [employer] Other 08-10-2023 Evaluation note* Encounter Date Diagnosis [...] symptoms. Patient declines COVID testing in office [employer] Other 03-10-2023 NotePROCEDURE: XR SHOULDER LT 2V [...] Electronically authenticated by: IVIS LASSITER Date: 2022-10-07 11:52[facility]03-10-2023 NotePROCEDURE: XR SHOULDER LT 2V or >, [...] Electronically authenticated by: IVIS LASSITER Date: 2022-10-07 11:52[facility]09-21-2022 Hospital Discharge instructions Patient Education 04/20/2022 14:49:06 [...] include: ?Spinach. ?Rhubarb. ?Beets. ?Potato chips and argentine fries. ?Nuts. If you regularly take a diuretic medicine, make sure to eat at least 1 2 fruits or vegetables high in potassium each day. These include: ?Avocado. ?Banana. ?[place], prune, carrot, or tomato juice. ?Baked potato. [...] Casseroles. Pizza. Lasagna. Frozen meals. Potato chips. [employer] fries. Summary You can reduce your risk [...] 11/11/2011 Document Revised: 11/06/2019 Document Reviewed: 06/27/2017 [employer] Patient Education 2020 [employer]. Follow Up Care 04/13/2021 13:36:19 With:LIAT BORRERO PA-C, URL Address: [address] [place] [address] When:1 year Comments:RHIANNA [facility] evaluation + Plan note Future Appointments Appointment Date:04/25/2023 08:00:00 AM Scheduled Provider:Irving Cobb MD, Valencia Pugh Location:[facility] Appointment Type:URO Office Visit Diagnostic Tests Pending * UTI ([facility]) 04/20/[address] [facility] evaluation + Plan note Future Appointments Appointment Date:03/06/2024 08:45:00 AM Scheduled Provider:Marycruz Bhagat MD Location:[facility] Appointment Type:URO Office Visit Diagnostic Tests Pending * Calculi Analysis [facility] Appointment Date:09/18/2024 10:45:00 AM Scheduled Provider:Marycruz Bhagat MD Location:[facility] Appointment Type:URO Office Visit Diagnostic Tests Pending * Potassium Level 07/03/24 [facility] evaluation note* Diagnosis History of cervical cancer Personal history of malignant neoplasm of cervix uteri documented in this encounter [employer] Phone: evaluation note* Diagnosis Vaginal irritation Unspecified noninflammatory disorder of vagina Women's annual routine gynecological examination documented in this encounter MADELYN ANGELO [employer] Phone: evaluation note* Diagnosis Seizure (CMS/HCC) Other convulsions [facility] Diagnosis Trigeminal neuralgia (CMS/HCC)- Primary Trigeminal neuralgia Seizure disorder (CMS/HCC) Unspecified epilepsy without mention of intractable epilepsy Disease of the oral soft tissues Other and unspecified diseases of the oral soft tissues Tingling Disturbance of skin sensation documented in this [facility] note* Diagnosis Seizure (CMS/HCC) Other convulsions [facility] in this encounter [facility] Diagnosis Seizure disorder (CMS/HCC)- Primary Unspecified epilepsy without mention of intractable epilepsy Generalized epilepsy (CMS/HCC) Unspecified epilepsy without mention of intractable epilepsy [facility] N[facility]ative - Reported* Type Description Date Medical History Migraine Medical History Seizure Surgical History partial hysterectomy Surgical History shoulder surgery b/l Surgical History colonoscopy [employer] 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 Advance Directives and Living Will Power of Inspector [employer] Latest Code Status on File Code Status Date Activated Date Inactivated Comments Full Code 01/03/2017 4:41 PM 01/03/2017 8:21 PM Documents on File Type Date Recorded 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 ACP-Advance Directive ACP-Power of Inspector [employer] Assessments Diagnosis Women's annual routine gynecological examination Additional Source Comments INFORMATION SOURCE (unrecogn ized section and content) DATE CREATED AUTHOR 01/24/2018 [facility] DATE CREATED AUTHOR AUTHOR'S ORGANIZ ATION 11/16/2022 [facility] DATE CREATED AUTHOR AUTHOR'S ORGANIZ ATION 03/01/2024 [facility] DATE CREATED AUTHOR AUTHOR'S ORGANIZ ATION 03/03/2024 [facility] DATE CREATED AUTHOR AUTHOR'S ORGANIZ ATION 04/18/2024 [facility] DATE CREATED AUTHOR AUTHOR'S ORGANIZ ATION 07/04/2024 [facility] DATE CREATED AUTHOR AUTHOR'S ORGANIZ ATION 07/20/2024 [facility] Care Team (unrecognized sect ion and content) [employer] Supervisor Relationship Specialty Start Date End Date Twila Verde MD [address] [place] [address] PCP - General Family Medicine 04/08/16 [employer] Supervisor Relationship Specialty Start Date End Date Twila Verde MD [address] [place] [address] PCP - General Family Medicine 12/11/23 [employer] Supervisor Relationship Specialty Start Date End Date Twila Verde MD [address] [place] [address] PCP - General Family Medicine 12/11/23 Kane Mckee DO [address] [place] [id number] Referring Physician Neurology 07/17/24 [employer] Supervisor Relationship Specialty Start Date End Date Twila Verde MD [address] [place] [address] PCP - General Family Medicine 12/11/23 Kane Mckee DO [address] [place] [id number] Referring Physician Neurology 07/17/24 [employer] Supervisor Relationship Specialty Start Date End Date Twila Verde MD [address] [place] [address] PCP - General Family Medicine 12/11/23 [employer] Supervisor Relationship Specialty Start Date End Date Twila Verde MD [address] [place] [address] PCP - General [facility] 12/11/23 [employer] Supervisor Relationship Specialty Start Date End Date Twila Verde MD [address] [place] [address] PCP - General [facility] 12/11/23 [employer] Supervisor Relationship Specialty Start Date End Date Twila Verde MD [address] [place] [address] PCP - General Family Medicine 12/11/23 REASON FOR VISIT (unrecogniz ed section and content) Reason Onset Date Comments Med Refill 06/05/2024 Reason Comments Seizures Reason Onset Date Comments Med Refill 03/24/2024 FOR RECORDS PERTAINING TO PATIENTS WHO ARE [...] BE BASED ON THE PRIMARY CLINICAL RECORDS. [facility]. provides no warranty or guarantee of the accuracy or completeness of information in this document.
[2024-08-23 13:14] LABS: Calcium 24 Hour Urine 250.8 mg/24hr (100.0-300.0); Calcium Urine Random 5.9 mg/dL (5.1-21.0); Creatinine Urine Random 20.08 mg/dL (20.00-300.00); Sodium 24 Hour Urine 98 mmol/24h (40-220); Sodium Urine Random 23 mmol/L (30-90); Total Volume 24 Hour Urine 4250 mL/24hr
[2024-08-23 13:27] LABS: Calcium 9.2 mg/dL (8.5-10.1); Chloride 97 mmol/L (98-107); Estimated GFR (African America >60 (>=60 mL/min/1.73m^2); Estimated GFR (Non-African Ame >60 (>=60 mL/min/1.73m^2); Potassium 3.9 mmol/L (3.5-5.1); Sodium 135 mmol/L (136-145)
[2024-08-24 06:09] LABS: Uric Acid, Urine 11.7 mg/dL (Not Estab.); Uric Acid,Urine 24hr 497.3 mg/24 hr (173.7-902.1)
[2024-08-24 09:07] LABS: Magnesium,Urine 24hr 127.5 mg/24 hr (12.0-293.0); Phosphorus, Urine 18.8 mg/dL (Not Estab.); Phosphorus,Urine 24h 799 mg/24 hr (261-1078)
[2024-08-25 11:07] LABS: PTH, Intact 30 pg/mL (15-65)
[2024-08-28 17:09] LABS: Citric Acid, U, 24hr 884 mg/24 hr (320-1240); Citric Acid, Urine 208 mg/L (Undefined)
[2024-08-29 18:10] LABS: Oxalates, Urine 5 mg/L (Undefined); Oxalates, Urine 24hr 21 mg/24 hr (4-31)
== END 2024-08-23 12:32 | disposition home or self-care (01) ==
LOC: LAB 12:31
PROVIDERS: PCP Family Medicine; Visit Provider Urology
DX: N20.0 Calculus of kidney (principal)
CPT/HCPCS: 36415; 81050; 82310; 82340; 82374; 82435; 82507; 82565; 82570; 83735; 83945; 83970; 84105; 84132; 84295; 84300; 84520; 84550; 84560

== ENCOUNTER 2024-11-23 08:57 | Outpatient (OUT) | payer OTHER, SELFPAY ==
[2024-11-23 09:21] LABS: Basophils Percent Auto 0.6 % (0.2-2.0); Eosinophils Absolute Auto 0.1 10^3/uL (0.0-0.7); Eosinophils Percent Auto 1.3 % (0.9-7.0); Hematocrit 45.3 % (36.0-48.0); Hemoglobin 15.1 g/dL (12.0-16.0); Lymphocytes Absolute Auto 1.4 10^3/uL (1.2-3.8); Lymphocytes Percent Auto 27.3 % (20.5-60.0); Mean Corpuscular HGB Conc 33.3 g/dL (29.9-35.2); Mean Corpuscular Hemoglobin 30.5 pg (26.7-34.0); Mean Corpuscular Volume 91.5 fL (81.0-99.0); Mean Platelet Volume 10.7 fL (9.5-13.5); Monocytes Absolute Auto 0.5 10^3/uL (0.3-0.8); Monocytes Percent Auto 9.2 % (1.7-12.0); Neutrophils Absolute Auto 3.2 10^3/uL (1.4-6.5); Neutrophils Percent Auto 61.6 % (43.0-75.0); Platelet Count 235 10^3/uL (150-450); Red Blood Count 4.95 10^6/uL (4.20-5.40); Red Cell Distribution Width 12.2 % (11.0-15.0); White Blood Count 5.2 10^3/uL (4.0-11.0)
[2024-11-23 09:30] LABS: Estimated Average Glucose 105 mg/dL; Glycohemoglobin A1C 5.3 % (4.5-6.2)
[2024-11-23 10:15] LABS: Alanine Aminotransferase 18 U/L (14-59); Albumin Globulin Ratio 1.2; Albumin Level 4.1 g/dL (3.4-5.0); Alkaline Phosphatase 102 U/L (46-116); Aspartate Amino Transferase 20 U/L (15-37); BUN Creatinine Ratio 24.3; Bilirubin Total 0.2 mg/dL (0.2-1.0); Calcium 9.2 mg/dL (8.5-10.1); Carbon Dioxide 29.1 mmol/L (21.0-32.0); Chloride 104 mmol/L (98-107); Cholesterol 241 mg/dL (<=200); Estimated GFR (African America >60 (>=60 mL/min/1.73m^2); Estimated GFR (Non-African Ame >60 (>=60 mL/min/1.73m^2); Free T3 2.52 pg/mL (2.18-3.98); Globulin 3.4 g/dL; Glucose 91 mg/dL (74-106); HDL Cholesterol 81 mg/dL (40-60); Potassium 4.1 mmol/L (3.5-5.1); Sodium 140 mmol/L (136-145); Thyroid Stimulating Hormone 1.938 uIU/mL (0.358-3.740); Total Protein 7.5 g/dL (6.4-8.2); Triglycerides 126 mg/dL (<=150); VLDL CHOLESTEROL 25.2 mg/dL
== END 2024-11-23 08:58 | disposition home or self-care (01) ==
PROVIDERS: PCP Family Medicine; Visit Provider Family Medicine
DX: Z00.00 Encounter for general adult medical examination without abnormal findings (principal); R73.09 Other abnormal glucose; Z12.2 Encounter for screening for malignant neoplasm of respiratory organs; D64.9 Anemia, unspecified; R53.83 Other fatigue; E55.9 Vitamin D deficiency, unspecified
CPT/HCPCS: 36415; 80053; 80061; 82306; 83036; 83540; 84436; 84443; 84481; 85025

== ENCOUNTER 2024-12-02 09:51 | Outpatient (OUT) | payer OTHER, SELFPAY | END 2024-12-02 09:52 | disposition home or self-care (01) | LOC: RAD 09:51 | PROVIDERS: PCP Family Medicine; Visit Provider Family Medicine | DX: Z00.00 Encounter for general adult medical examination without abnormal findings (principal); M85.80 Other specified disorders of bone density and structure, unspecified site | CPT/HCPCS: 77080; G0328 ==

== ENCOUNTER 2024-12-02 14:47 | Outpatient (REF) | payer OTHER, SELFPAY ==
[2024-12-02 15:35] LABS: Internal Control Within Normal Limits; Occult Blood Negative
== END 2024-12-02 14:48 | disposition home or self-care (01) ==
LOC: LAB 14:47
PROVIDERS: PCP Family Medicine; Visit Provider Family Medicine
DX: Z00.00 Encounter for general adult medical examination without abnormal findings (principal)
CPT/HCPCS: G0328

== ENCOUNTER 2024-12-11 12:20 | Outpatient (OUT) | payer OTHER, SELFPAY ==
--- NOTE | 2024-12-11 | XR_ITS ---
The [address] [address] Patient Name: DANTE JAMES MRN: [id number] date: 1965 Sex: F Assigned Patient Location: [facility] Current Patient Location: [facility] Accession/Order Number: [id number] Exam Date: 12/11/2024 15:09 Report Date: 12/11/2024 15:10 At the request of: TWILA CATALAN MD Procedure: XR hip LT 2V w/ pelvis XR hip LT 2V w/ pelvis 12/11/2024 12:38 PM SIGNS AND SYMPTOMS: Acute left hip pain after fall PROTOCOL: Frontal radiograph the pelvis with frontal and frog-leg views of the left hip COMPARISON: None FINDINGS: The joint spaces are preserved. There is no fracture or dislocation. The bony ring of the pelvis is intact. Vascular calcifications are present in the pelvis. XR/XR hip LT 2V w/ pelvis IMPRESSION: No acute bony injury. Impression dictated by: Lobo Ballard M.D. 12/11/2024 3:10 PM Dictation Location: [employer] Electronically authenticated by: [id number] Y Date: 12/11/2024 15:10
--- NOTE | 2024-12-11 | XR_ITS ---
The [place] [id number] Patient Name: DANTE JAMES MRN: [id number] date: 1965 Sex: F Assigned Patient Location: [facility] Current Patient Location: [facility] Accession/Order Number: [id number] Exam Date: 12/11/2024 15:10 Report Date: 12/11/2024 15:11 At the request of: TWILA CATALAN MD Procedure: XR wrist LT min 3V XR wrist LT min 3V 12/11/2024 12:38 PM SIGNS AND SYMPTOMS: Acute left wrist pain PROTOCOL: Frontal, lateral, and oblique radiographs of the left wrist COMPARISON: None FINDINGS: There is mild narrowing of the radiocarpal joint space. There is no fracture or dislocation. No significant soft tissue swelling. XR/XR wrist LT min 3V IMPRESSION: No acute bony injury. Impression dictated by: Lobo Ballard M.D. 12/11/2024 3:11 PM Dictation Location: [place] [address] Electronically authenticated by: [id number] Y Date: 12/11/2024 15:11
--- OUTSIDE RECORDS SUMMARY | 2024-12-11 12:31 | XMS_ITS | CCD ---
Author Organization [facility] CliniSyms Care Team Providers Care Aoc Director Intelligence Officer Name Role Phone HARRISON BUSTAMANTE Unavailable Unavailable DUKE VERDE Unavailable Unavailable HARRISON BUSTAMANTE Unavailable Unavailable FAIZANYEMERALDDUKE M Unavailable Unavailable Duke Verde Primary Care Provider Duke Verde MD Primary Care Provider [phone] Duke Verde Primary Care Physician Duke Verde MD Primary Care Provider [phone] HOSSEIN Payton, DR MATTSON Consulting Unavailable [...] Unavailable HOY ., DR MATTSON Admitting Unavailable SRAVANI, DR IVIS Mc Consulting Unavailable HOY ., DR MATTSON Consulting Unavailable HOY ., DR MATTSON Primary Care Unavailable HOY ., DR MATTSON Attending Unavailable HOY ., DR MATTSON Admitting Unavailable DUKE DIAZ Consulting Unavailable RYLEE, DR MIDDLETON Consulting Unavailable HOSSEIN ., DR MATTSON Primary Care Unavailable RYLEE, DR MIDDLETON Attending Unavailable RYLEE, DR MIDDLETON Admitting Unavailable Erica Mott Unavailable KYUNG YANG Referring Unavailable DUKE VERDE Primary Care Unavailable Duke Verde MD Primary Care Provider [phone] Kane Mckee DO Unavailable PAOLA BRADY Attending Unavailable PAOLA BRADY Attending Unavailable PAOLA BRADY Attending Unavailable Lue Marycruz MTata Attending Unavailable Lue Marycruz MTata Attending Unavailable Lue Marycruz MTata Attending Unavailable Lue Marycruz MTata Attending Unavailable Lue Marycruz MTata Attending Unavailable Lue Marycruz MTata Admitting Unavailable Lue Marycruz MTata Attending Unavailable Allergies Allergy Classification Reported Allergen(s) Allergy Type Date of Onset Reaction(s) Facility (3 sources) Sulfonamides (Antibiotic) Propensity to adverse reactions to drug 04-08-20 15 [place] (1 source) Other Propensity to adverse reactions 12-30-19 17 [place] (9 sources) Sulfonamides (Antibiotic); Translations: [sulfa drugs] Drug allergy Weal (disorder) [facility] (9 sources) Latex; Translations: [Latex] Drug allergy (disorder) 11-15-19 23 Weal (disorder) [facility] (1 source) Sulfonamides (Antibiotic) Drug allergy (disorder) 01-23-20 13 [facility] (13 sources) Substance with sulfonamide structure and antibacterial mechanism of action (substance) Drug allergy 04-08-20 15 [facility] Other (11 sources) Latex Allergy to substance 12-11-19 24 [facility] (11 sources) Sulfacetamide Drug Allergy 12-08-19 24 [facility] NEGATED: Highlighted row has been ruled out! (2 sources) Other Propensity to adverse reactions 12-30-19 17 [facility] mSnap Phone: Medications Current Medications Medication Drug Class(es) Dates Sig (Normalized) Sig (Original) amoxicillin 875 mg / clavulanate 125 mg oral tablet (1 source) Penicillin-class Antibacterial Start: 03-13-2023 take 1 tablet by mouth every twelve hours Amoxicillin-Pot Clavulanate 875-125 MG 1 tablet Orally every 12 hrs for 7 days Feb, Active biotin 10 mg oral capsule (4 sources) Start: 09-11-2024 take 1 capsule by mouth once daily biotin 10,000 mcg oral capsule = 1 cap(s), Oral, Daily, Refills(s) 0 Start Date: 09/11/24 Status: Ordered Start: 09-11-2024 biotin See Ins tructions, Refills(s) 0 Start Date: 09/11/24 Status: Ordered take 1 tablet by cirilo once daily Biotin 10 MG 1 tablet Orally Once a day Active Black Cohosh Extract (16 sources) Start: 09-11-2024 Black Cohosh B lack Cohosh, See Instructions Start Date: 09/11/24 Status: Ordered Black Cohosh 20 MG tablet Take 100 [...] 2 times daily (with meals) 0 Active calcium citrate 950 mg oral tablet (1 source) Start: 025 calcium (as calcium citrate) 200 mg oral tablet See Instructions, 1 tab(s), Refills(s) 0 Start Date: 09/11/24 Status: Ordered calcium citrate 1500 mg / cholecalciferol 200 unt oral tablet (1 source) Vitamin D Start: 025 take 1 tablet by mouth once daily calcium (as citrate)-vitamin D 315 mg-200 intl units oral tablet 1 tab(s), Oral, Daily, Refill(s) 0 Start Date: 09/11/24 Status: Ordered Citracal + D 250-62.5 MG-UNIT (2 sources) Citracal + D 250 -62.5 MG-UNIT as directed Orally Active citric acid 66.8 mg/ml / potassium citrate 110 mg/ml / sodium citrate 100 mg/ml oral solution (9 sources) Calculi Dissolution Agent, Anti-coagulant potassium & sodium citrate-citric acid (Tricitrates) 550-500-334 MG/5ML solution Take by mouth 4 (four) times a day with meals Active Cranberry preparation (7 sources) Non-Standardized Food Allergenic Extract, Non-Standardized Plant [...] extended release tablet loratadine 10 mg oral capsule (7 sources) Start: 09-11-2024 take 1 tablet by mouth once daily loratadine 10 mg oral capsule = 1 tab(s), Oral, Daily, Refills(s) 0 Start Date: 09/11/24 Status: Ordered Start: 09-11-2024 Claritin See I nstructions, Refills(s) 0 Start Date: 09/11/24 Status: Ordered take 1 tablet by cirilo th once daily Claritin 10 MG 1 tablet Orally Once a day Active take 1 capsule by mo uth once daily loratadine (CLARITIN) 10 MG capsule Take 10 mg by mouth daily 0 Active Multiple Vitamins-Minerals (MULTIVITAMIN & MINERAL PO) (3 sources) Multiple Vitamins-Minerals (MULTIVITAMIN & MINERAL PO) Take by mouth 0 Active Multivitamin preparation (5 sources) Start: 2023 take 1 tablet by mouth once daily multivitamin 1 tab, Oral, Daily Start Date: 02/28/24 Status: Ordered ofloxacin 3 mg/ml ophthalmic solution (1 source) Quinolone Antimicrobial Start: 2022 take 2 drop(s) into the eye(s) four times daily Ofloxacin 0.3 % 2 drops Ophthalmic to left eye QID for 7 days Feb, Active OXcarbazepine 300 mg oral tablet (20 sources) Anti-epileptic Agent Start: 2023 take 1 [...] mg oral tab let (20 sources) Start: 11-26-2024 PHENobarbital (Luminal) 32.4 MG tablet Indications: Seizure (CMS/HCC) Fill when due Take one tab at bedtime 90 tablet 11/26/2024 Active Start: 06-09-2024 End: 11-25-2024 PHENobarbital (Luminal) 32.4 MG tablet Indications: Seizure (CMS/HCC) Fill when due Take one tab at bedtime 90 tablet 09/16/2024 11/25/2024 Discontinued (Reorder) Start: 02-28-2024 take 1 tablet by cirilo [...] 1 tablet Orally Once a day Active Nninrmyo-Hlv-Ux-FA (/Iron) tablet (11 sources) take 1 tablet by mouth once daily Gtjgkfpy-Gtz-Mt-FA (/Iron) tablet Take 1 tablet by mouth [...] Start: 02-28-2024 take 2 tablets by mo uth twice daily topiramate 100 mg Tab 200 [...] 62.5 mcg (2500 intl units) oral capsule (5 sources) Start: 02-28-2024 take 1 capsule by mouth once daily Vitamin D3 62.5 mcg (2500 intl units) oral capsule 62.5 mcg = 1 cap(s), Oral, Daily Start Date: 02/28/24 Status: Ordered Completed/Discontinued Medications Medication Drug Class(es) Dates Sig (Normalized) Sig (Original) potassium citrate 15 meq extended release oral tablet (5 sources) Start: 09-11-2024 take 1 tablet by mouth once daily potassium citrate 15 mEq oral tablet, extended release 15 mEq = 1 tab(s), Oral, Daily, # 30 tab(s), Refills(s) 11, Pharmacy: [facility]/pharmacy #[id number], 160, cm, 09/11/24 9:20:00 EST, Height/Length Dosing, 60, kg, 09/11/24 9:20:00 EST, Weight Dosing Start Date: 09/11/24 Status: Ordered Start: 07-03-2024 take 1 tablet by cirilo th twice daily potassium citrate 15 mEq oral tablet, extended release 15 mEq = 1 tab(s), Oral, BID, # 60 tab(s), Refills(s) 11, Pharmacy: [facility]/pharmacy #[id number], 160, cm, 07/03/24 11:23:00 EST, Height/Length Dosing, 59.8, kg, 07/03/24 11:23:00 EST, Weight Dosing Start Date: 07/03/24 Status: Ordered Start: 02-28-2024 take 1 tablet by cirilo th twice daily potassium citrate 15 mEq oral tablet, extended release 15 mEq = 1 tab(s), Oral, BID, # 60 tab(s), Refills(s) 11, Pharmacy: [facility]/pharmacy #[id number], 160, cm, 02/28/24 9:14:00 EDT, Height/Length Dosing, 59, kg, 02/28/24 9:14:00 EDT, Weight Dosing Start Date: 02/28/24 Status: Ordered Problems Active Problems Problem Classification Problem Date Documented Date Episodic/Chronic Abdominal pain (9 sources) Flank pain; Translations: [Unspecified abdominal pain] Onset: 03-25-2022 04-13-2021 Episodic Allergic reactions (6 sources) Eczema 12-07-2022 Episodic Calculus of urinary tract (16 sources) Kidney stone; Translations: [Calculus of kidney] Onset: 03-28-2022 Episodic Cancer of cervix (8 sources) History of malignant neoplasm of cervix; Translations: [Personal history of malignant neoplasm of cervix uteri] Episodic Epilepsy; convulsions (20 sources) Epilepsy; Translations: [Epilepsy, unspecified, not intractable, without status epilepticus] Onset: 02-18-2008 12-29-2016 Chronic Epilepsy; convulsions (4 sources) Seizure; Translations: [Unspecified convulsions] 06-05-2024 Episodic Genitourinary symptoms and ill-defined conditions (7 sources) Genuine stress incontinence 04-13-2021 Chronic Genitourinary symptoms and ill-defined conditions (9 sources) Genitourinary symptoms; Translations: [Unspecified symptoms and signs involving the genitourinary system] Onset: 04-20-2022 Episodic Inflammation; infection of eye (except that caused by tuberculosis or sexually transmitteddisease) (1 source) Unspecified conjunctivitis Episodic Other aftercare (1 source) Other correction (current) drug therapy; Translations: [OTH PRISON CURRENT DRUG THERAPY] Onset: 11-15-2022 Episodic Other connective tissue disease (2 sources) Adhesive capsulitis of shoulder 07-03-2024 Episodic Other female genital disorders (1 source) Vaginal irritation; Translations: [Other specified noninflammatory disorders of vagina] Episodic Other non-traumatic joint disorders (4 sources) [...] Translations: [Women's annual routine gynecological examination] Unclassified (7 sources) Asymptomatic microscopic hematuria 04-13-2021 Urinary tract infections (3 sources) Urinary tract infection, site not specified; Translations: [Urinary tract infectious disease] Onset: 03-28-2022 Episodic Past or Other Problems Problem Classification Problem Date Documented Date Episodic/Chronic Diseases of mouth; excluding dental (13 sources) Disorder of oral soft tissues; Translations: [Unspecified lesions of oral mucosa] Onset: 03-30-2009 12-08-2023 Episodic Headache; including migraine (11 sources) Headache; Translations: [Headache] Onset: 11-25-2015 12-08-2023 Episodic Noninfectious gastroenteritis (4 sources) Noninfective gastroenteritis and colitis, unspecified; Translations: [NONINFECTIVE GE AND COLITIS UNS] Onset: 02-05-2022 Episodic Other diseases of kidney and ureters (4 sources) Cyst of kidney, acquired; Translations: [CYST OF KIDNEY ACQUIRED] Onset: 04-06-2022 Episodic Other nervous system disorders (19 sources) Trigeminal neuralgia; Translations: [Trigeminal neuralgia] Onset: 12-11-2023 12-07-2022 Episodic Other nervous system disorders (13 sources) Paresthesia; Translations: [Paresthesia of skin] Onset: 06-11-2019 12-08-2023 Episodic Other nervous system disorders (11 sources) Skin sensation disturbance; Translations: [Unspecified disturbances [...] Spondylosis; intervertebral disc disorders; other back problems (17 sources) Cervical radiculopathy; Translations: [Neck pain] Onset: 06-09-2016 12-07-2022 Episodic Unclassified (1 source) Impingement syndrome of left shoulder; Translations: [Impingement syndrome of left shoulder] Onset: 03-29-2017 Results Test Name Value Interpretation Reference Range Facil ity Reminderson 09-11-2024 Reminders Reminders From: Nathalie Weaver To: CHEN Bhagat; Sent: 09/11/2024 10:37:39 EST Show up: 02/08/2025 11:37:00 EDT Subject: [facility] Due Date/Time: 03/11/2025 11:37:00 EDT Reminder Message Pt needs to complete [facility] @ [facility] prior to f/u in 6 months to monitor kidney stones. Order in 09/11/24 encounter. Normal [facility] Urology Office/Clinic Noteon 09-11-2024 Urology Office/Clinic Note Urology Office/Clinic Note Chief Complaint 2mo f/u [...] analysis 06/14/23 - 95% Hydroxyapatite, 5% CaOx Costilla. 24hr urine 09/26/23 [facility] - Volume 2.75L. [...] infections. This can be treated with topical appli (more content not included)... Normal [facility] Comment on above: Result Comment: Elec tronically Signed By: Marycruz Bhagat MD\.br\Date and Time Signed: 09/11/24 16:39 EST\.br\Electronically Co-Signed By: Nathalie Weaver\.br\Date and Time Co-Signed: 09/11/24 10:36 EST Urology Office/Clinic Noteon 07-03-2024 Urology Office/Clinic Note Urology Office/Clinic Note Chief Complaint 6 month follow up Follow up with [facility] HPI Staff F/u w/ [facility] after Cysto, [...] 24hr urine in July 2024. [facility] 06/12/24 [facility]. Dysuria: denies Incomplete bladder emptying: denies Hematuria: [...] analysis 06/14/23 - 95% Hydroxyapatite, 5% CaOx Costilla. 24hr urine 09/26/23 [facility] - Volume 2.75L. [...] the order for the 24hr urine at [facility] as this is more convenient for her. [...] to be (more content not included)... Normal [facility] Comment on above: Result Comment: Elec tronically Signed By: Marycruz Bhagat MD\.br\Date and Time Signed: 07/03/24 12:36 EST\.br\Electronically Co-Signed By: Leana Emerson\.br\Date and Time Co-Signed: 07/03/24 11:54 EST Cytology Reporton 04-04-2024 Cytology report Cyto stain.thin prep Doc (Cvx/Vag) (NOTE) Path Number: [id number] DIAGNOSIS Imaged ThinPrep Pap - Vaginal (1 monolayer slide): Specimen Adequacy: Satisfactory for evaluation. Descriptive Diagnosis: Negative for intraepithelial lesion or malignancy. Comments: Specimen was screened at [facility], [address] [place] [address] Cytotech Screener: CS Rescreened By: PT Electronically Signed Out Joann Mcgill pt/04/16/2024 Source of Specimen: A: Imaged ThinPrep Pap - Vaginal (1 monolayer slide) HPV Reflex?............... .......HPV if Abnormal Clinical History Z01.419 Routine it security manager exam without abnormal findings Processing Lab: [address] [id number] Interpretation performed at [facility], [address] [place] [address] This Pap Test has been evaluated with [...] result. GYNECOLOGIC CYTOLOGY REPORT Patient Name: DANTE JAMES. [facility] Rec: [id number] [facility] ANATOMIC PATHOLOGY [address] [place], [place] [address] Normal [facility] C Urineon 03-01-2024 Bacteria identified Cx Nom (U) Microbiology PROCEDURE: Urine Culture [R1] SOURCE: U CleanCatch BODY SITE: COLLECTED DATE/TIME: 02/28/2024 09:48 EDT RECEIVED DATE/TIME: 02/28/2024 19:09 EDT START DATE/TIME: 02/28/2024 19:09 EDT FREE TEXT SOURCE: Olayinka HINSON, Marycruz Bhagat MD, Marycruz Dykes. FINAL REPORTS Final Report [] Verified Date/Time: 03/01/2024 09:50 EDT 300 cfu/ml Mixed skin contaminants Performing Locations R1: This test was performed at: [facility], [address] [place] [address], [phone] [phone] , Normal [facility] Comment on above: Performed By: #### 2 [id number] #### [facility] [address] [place] [address] Ambulatory Visit Summaryon 0 02-28-2024 Ambulatory Visit [...] Marycruz Dove, URL, URO When: Where: [address], [place] [address] [phone] Medications What How Much When Instructions New potassium citrate (potassium citrate 15 mEq oral tablet, extended release) 1 Tablets By Mouth 2 times a day Refills: 11 Pickup at [facility]/pharmacy #[id number] Unchanged cholecalciferol (Vitamin D3 62.5 mcg [...] physician if questions or concerns Pharmacy Information [facility]/pharmacy #[id number]: [address], [place] [phone] Allergies Latex (Hives) sulfa drugs (Hives) Problems [...] need to (more content not included)... Normal [facility] Urology Office/Clinic Noteon 02-28-2024 Urology Office/Clinic [...] analysis 06/14/23 - 95% Hydroxyapatite, 5% CaOx Costilla. 24hr urine 09/26/23 [facility] - Volume 2.75L. [...] inability to ret (more content not included)... [facility] Comment on above: Result Comment: Elec tronically Signed By: Olayinka HINSON, Marycruz oDve\.br\Date and Time Signed: 02/28/24 11:28 EDT\.br\Electronically Co-Signed By: Nathalie Weaver\.br\Date and Time Co-Signed: 02/28/24 09:52 EDT Lab Reportson 10-02-2023 Lab Reports [id number] [facility] Lab Report[facility] 09-28-2023 Lab Reports [id number] 0TIFF [facility] Report[facility] 09-26-2023 Lab Reports [id number] [facility] Lab Reports [id number] 0TIFF [facility] MRI SHOULDER LT WO W CONon 0 [...] have mild peripheral rim enhancement. No significant subacromial/subdeltoid bursitis is seen. ROTATOR CUFF: There appears [...] DUKE READER Date: 2022-11-10 12:35 Normal [facility] PHENOBARBITALon 11-09-2022 Phenobarbital, Serum 6 ug/mL Critically low 15-40 [facility] Comment on above: Result Comment: Dete ction Limit = 3 Performed By: #### P HENOB #### [facility] [address] [place], [place] [address] Dr. Adrianne Nava CBC AUTO DIFFon 11-08-2022 BASO # 0.0 103/ul Normal 0.0-0.1 [facility] Comment on above: Performed By: #### C BC ####[facility] [address] [place] [address]Dr. Adrianne Nava Basophils/100 WBC (Bld) 0.5 % Normal 0.2-2.0 [facility] Comment on above: Performed By: #### C BC ####[facility] [address] [place] [address]Dr. Adrianne Nava EO # 0.1 103/ul Normal 0.0-0.7 [facility] Comment on above: Performed By: #### C BC ####[facility] [address] [place] [id number]. Adrianne Nava Eosinophils/100 WBC (Bld) 1.4 % Normal 0.9-7.0 [facility] Comment on above: Performed By: #### C BC ####[facility] [address] [place] [id number] Nava Erythrocyte distribution width (RBC) [Ratio] 12.6 % Normal 11.0-15.0 [facility] Comment on above: Performed By: #### C BC ####[facility] [address] [place] [address]Dr. Ardianne Nava Hematocrit (Bld) [Volume fraction] 41.9 % Normal 36.0-48.0 [facility] Comment on above: Performed By: #### C BC ####[facility] [address] [place] [address]Dr. Adrianne Nava Hemoglobin (Bld) [Mass/Vol] 14.0 g/dL Normal 12.0-16.0 [facility] Comment on above: Performed By: #### C BC ####[facility] [address] [place] [address]Dr. Adrianne Nava IG # 0.01 10e3/ul Normal 0.00-0.03 [facility] Comment on above: Performed By: #### C BC ####[facility] [address] [place], [place] [address]Dr. Adrianne Elijah IG % 0.2 % Normal 0.0-0.5 [facility] Comment on above: Performed By: #### C BC ####[facility] [address] [place], [place] [address]Dr. Ladonnaelke Nava LYMPH # 1.5 103/ul Normal 1.2-3.8 [facility] Comment on above: Performed By: #### C BC ####[facility] [address] [place], [place] [address]Dr. Ladonnaelke Nava Lymphocytes/100 WBC (Bld) 27.3 % Normal 20.5-60.0 [facility] Comment on above: Performed By: #### C BC ####[facility] [address] [place], [place] [address]Dr. Adrianne Nava MANUAL DIFF REQ NO Normal [facility] Comment on above: Performed By: #### C BC ####[facility] [address] [place], [place] [address]Dr. Adrianne Nava MCH (RBC) [Entitic mass] 30.6 pg Normal 26.7-34.0 [facility] Comment on above: Performed By: #### C BC ####[facility] [address] [place] [address]Dr. Adrianne Nava MCHC (RBC) [Mass/Vol] 33.4 g/dL Normal 29.9-35.2 [facility] Comment on above: Performed By: #### C BC ####[facility] [address] [place] [address]Dr. Adrianne Nava MCV (RBC) [Entitic vol] 91.5 fL Normal 81.0-99.0 [facility] Comment on above: Performed By: #### C BC ####[facility] [address] [place] [address]Dr. Adrianne Nava MONO # 0.4 103/ul Normal 0.3-0.8 [facility] Comment on above: Performed By: #### C BC ####[facility] [address] [place], [place] [address]Dr. Ladonnaelke Nava Monocytes/100 WBC (Bld) 7.0 % Normal 1.7-12.0 [facility] Comment on above: Performed By: #### C BC ####[facility] [address] [place], [place] [address]Dr. Adrianne Nava NEUT # 3.6 103/ul Normal 1.4-6.5 [facility] Comment on above: Performed By: #### C BC ####[facility] [address] [place], [place] [address]Dr. Ladonnaelke Nava Neutrophils/100 WBC (Bld) 63.6 % Normal 43.0-75.0 [facility] Comment on above: Performed By: #### C BC ####[facility] [address] [place], [place] [address]Dr. Adrianne Elijah Platelet mean volume (Bld) [Entitic vol] 10.8 fL Normal 9.5-13.5 [facility] Comment on above: Performed By: #### C BC ####[facility] [address] [place], [place] [address]Dr. Ladonnaelke Elijah PLT 218 103/ul Normal 150-450 [facility] Comment on above: Performed By: #### C BC ####[facility] [address] [place] [address]Dr. Adrianne Nava RBC 4.58 106/ul Normal 4.20-5.40 [facility] Comment on above: Performed By: #### C BC ####[facility] [address] [place], [place] [address]BiDr. Adrianne Nava WBC 5.6 103/ul Normal 4.0-11.0 [facility] Comment on above: Performed By: #### C BC ####[facility] [address] [place], [place] [address]LmDr. Adrianne Nava LIVER PROFILEon 11-08-2022 Albumin [Mass/Vol] 3.7 g/dL Normal 3.4-5.0 [facility] Comment on above: Performed By: #### L IVER, BMP #### [facility] [address] [place] [address] [address] Adrianne Nava Albumin/Globulin [Mass ratio] 1.0 {ratio} Normal [facility] Comment on above: Performed By: #### L IVER, BMP #### [facility] [address] [place] [address] [address] Adrianne Nava ALP [Catalytic activity/Vol] 85 U/L Normal 46-116 [facility] Comment on above: Performed By: #### L IVER, BMP #### [facility] [address] [place] [address] [address] Adrianne Nava ALT [Catalytic activity/Vol] 33 U/L Normal 14-59 [facility] Comment on above: Performed By: #### L IVER, BMP #### [facility] [address] [place] [address] [address] Adrianne Nava AST [Catalytic activity/Vol] 16 U/L Normal 15-37 [facility] Comment on above: Performed By: #### L IVER, BMP #### [facility] [address] [place] [address] [address] Adrianne Nava BILI, CONJUGATED 0.1 mg/dL Normal 0.0-0.2 [facility] Comment on above: Performed By: #### L IVER, BMP #### [facility] [address] [place] [address] [address] Adrianne Nava Bilirubin [Mass/Vol] 0.3 mg/dL Normal 0.2-1.0 [facility] Comment on above: Performed By: #### L IVJUAN LUIS, BMP #### [facility] [address] [place] [address] [address] Adrianne Nava Globulin (S) [Mass/Vol] 3.7 g/dL Normal [facility] Comment on above: Performed By: #### L IVJUAN LUIS, BMP #### [facility] [address] [place] [address] [address] Adrianne Nava Protein [Mass/Vol] 7.4 g/dL Normal 6.4-8.2 [facility] Comment on above: Performed By: #### L IVJUAN LUIS, BMP #### [facility] [address] [place] [address] [address] Adrianne Nava PROF CHEM 8 (BAS METB)on Anion gap [Moles/Vol] 11.2 mmol/L Normal [facility] Comment on above: Performed By: #### L DARIO, BMP ####[facility] [address] [place] [address]DrTata Nava Calcium [Mass/Vol] 9.2 mg/dL Normal 8.5-10.1 [facility] Comment on above: Performed By: #### L DARIO, BMP ####[facility] T[address]vaspkoll[address] [place] [address]DrTata Nava Chloride [Moles/Vol] 108 mmol/L Critically high 98-107 [facility] Comment on above: Performed By: #### L IVJUAN LUIS, BMP ####[facility] Saginekvxl[address] [place] [address]DrTata Nava CO2 [Moles/Vol] 28.6 mmol/L Normal 21.0-32.0 [facility] Comment on above: Performed By: #### L IVJUAN LUIS, BMP ####[facility] [address] [place] [address]DrTata Nava Creatinine [Mass/Vol] 0.74 mg/dL Normal 0.55-1.02 [facility] Comment on above: Performed By: #### L IVJUAN LUIS, BMP ####[facility] [address]te[address] [place] [id number]. Adrianne Nava EGFR-AF COMORAN >60 Normal >=60 [facility] Comment on above: Performed By: #### Keaton BISHOP, BMP ####[facility] [address]aw[address] [place] [address]Dr. Adrianne Nava EGFR-NON AF COMORAN >60 Normal >=60 [facility] Comment on above: Performed By: #### Keaton BISHOP, BMP ####[facility] Qwfqlgofqi[address] [place] [address]Dr. Adrianne Nava Glucose [Mass/Vol] 78 mg/dL Normal 74-106 [facility] Comment on above: Performed By: #### Keaton BISHOP, BMP ####[facility] Em[address]fuiodr[address] [place] [address]Dr. Adrianne Nava Potassium [Moles/Vol] 3.8 mmol/L Normal 3.5-5.1 [facility] Comment on above: Performed By: #### Keaton BISHOP, BMP ####[facility] N[address] [place], [place] [address]Dr. Adrianne Nava Sodium [Moles/Vol] 144 mmol/L Normal 136-145 [facility] Comment on above: Performed By: #### Keaton BISHOP, BMP ####[facility] [address]wk[address] [place], [place] [address]Dr. Adrianne Nava Urea nitrogen [Mass/Vol] 24.0 mg/dL Critically high 7.0-18.0 [facility] Comment on above: Performed By: #### Keaton BISHOP, BMP ####[facility] Zce[address]sh[address] [place], [place] [address]Dr. Adrianne Nava Urea nitrogen/Creatinine [Mass ratio] 32.4 mg/mg Normal [facility] Comment on above: Performed By: #### Keaton BISHOP, BMP ####[facility] Yxataookpp[address] [place], [place] [address]Dr. Ladonnaelke Elijah XR KUB 1 VIEWon 04-15-2022 XR KUB [...] by: BRIAN TIDWELL Date: 2022-04-15 16:45 Normal [facility] CT ABD/PELV W CONon 04-06-20 22 [...] by: IVIS LASSITER Date: 2022-04-06 17:05 Normal [facility] CBC AUTO DIFFon 03-25-2022 BASO # 0.0 103/ul Normal 0.0-0.1 [facility] Comment on above: Performed By: #### C BC ####[facility] [address] [place] [address] Adrianne Nava Basophils/100 WBC (Bld) 0.4 % Normal 0.2-2.0 [facility] Comment on above: Performed By: #### C BC ####[facility] Aitfzrix[address] [place], [place] [address]Dr. Adrianne Nava EO # 0.1 103/ul Normal 0.0-0.7 [facility] Comment on above: Performed By: #### C BC ####[facility] Mthzhvaxih[address] [place], [place] [address]Dr. Adrianne Nava Eosinophils/100 WBC (Bld) 1.2 % Normal 0.9-7.0 [facility] Comment on above: Performed By: #### C BC ####[facility] Mgvmwphicj[address] [place], [place] [address]Dr. Adrianne Nava Erythrocyte distribution width (RBC) [Ratio] 12.4 % Normal 11.0-15.0 [facility] Comment on above: Performed By: #### C BC ####[facility] Mwstcarhsx[address] [place], [place] [address]Dr. Adrianne Nava Hematocrit (Bld) [Volume fraction] 41.1 % Normal 36.0-48.0 [facility] Comment on above: Performed By: #### C BC ####[facility] Evgb[address]mcq[address] [place], [place] [address]Dr. Adrianne Nava Hemoglobin (Bld) [Mass/Vol] 13.7 g/dL Normal 12.0-16.0 [facility] Comment on above: Performed By: #### C BC ####[facility] Ecczgigdzz[address] [place], [place] [address]Dr. Adrianne Nava IG # 0.02 10e3/ul Normal 0.00-0.03 [facility] Comment on above: Performed By: #### C BC ####[facility] Ltpmravgag[address] [place], [place] [address]Dr. Adrianne Nava IG % 0.3 % Normal 0.0-0.5 [facility] Comment on above: Performed By: #### C BC ####[facility] J[address]wugs[address] [place], [place] [address]Dr. Adrianne Nava LYMPH # 1.4 103/ul Normal 1.2-3.8 [facility] Comment on above: Performed By: #### C BC ####[facility] Ozeyvpdxzw[address] [place] [address]Dr. Adrianne Nava Lymphocytes/100 WBC (Bld) 19.1 % Critically low 20.5-60.0 [facility] Comment on above: Performed By: #### C BC ####[facility] Kzpc[address] [place], [place] [address]Dr. Adiranne Nava MANUAL DIFF REQ NO Normal [facility] Comment on above: Performed By: #### C BC ####[facility] Jenlbmyiyf[address] [place], [place] [address]Dr. Adrianne Nava MCH (RBC) [Entitic mass] 30.7 pg Normal 26.7-34.0 [facility] Comment on above: Performed By: #### C BC ####[facility] Mlbawep[address] [place], [place] [address]Dr. Adrianne Nava MCHC (RBC) [Mass/Vol] 33.3 g/dL Normal 29.9-35.2 [facility] Comment on above: Performed By: #### C BC ####[facility] Abqsf[address]iv[address] [place], [place] [address]Dr. Ardianne Nava MCV (RBC) [Entitic vol] 92.2 fL Normal 81.0-99.0 [facility] Comment on above: Performed By: #### C BC ####[facility] Fbxdrdilfz[address] [place], [place] [address]Dr. Adrianne Nava MONO # 0.5 103/ul Normal 0.3-0.8 [facility] Comment on above: Performed By: #### C BC ####[facility] Uqu[address]ck[address] [place], [place] [address]Dr. Adrianne Nava Monocytes/100 WBC (Bld) 6.8 % Normal 1.7-12.0 [facility] Comment on above: Performed By: #### C BC ####[facility] [address]tpidemetv[address] [place], [place] [address]Dr. Adrianne Nava NEUT # 5.3 103/ul Normal 1.4-6.5 [facility] Comment on above: Performed By: #### C BC ####[facility] [address] [place] [address]Dr. Adrianne Nava Neutrophils/100 WBC (Bld) 72.2 % Normal 43.0-75.0 [facility] Comment on above: Performed By: #### C BC ####[facility] [address]peawe[address] [place] [address]Dr. Adrianne Nava Platelet mean volume (Bld) [Entitic vol] 11.1 fL Normal 9.5-13.5 [facility] Comment on above: Performed By: #### C BC ####[facility] [address] [place] [address]Dr. Adrianne Nava PLT 200 103/ul Normal 150-450 [facility] Comment on above: Performed By: #### C BC ####[facility] [address]typx[address] [place] [address]Dr. Adrianne Nava RBC 4.46 106/ul Normal 4.20-5.40 [facility] Comment on above: Performed By: #### C BC ####[facility] [address]xt[address] [place] [address]Dr. Adrianne Nava WBC 7.4 103/ul Normal 4.0-11.0 [facility] Comment on above: Performed By: #### C BC ####[facility] [address] [place] [address] CT ABD/PELVIS WO CONon 03-25 [...] by: IVIS LASSITER Date: 2022-03-25 15:08 Normal [facility] CULTURE URINEon 03-25-2022 CULTURE URINE Culture Observations : NO GROWTH. Normal [facility] Comment on above: Performed By: #### U RCX ####[facility] [address] [place] [address]Dr. Adrianne Nava ER URINE PROFILEon 2 Bilirubin Ql (U) Negative Normal NEGATIVE [facility] Comment on above: Performed By: #### EVELYNE FOYRO #### [facility] [address] [place] [address] [address] Adrianne Nava Clarity (U) CLEAR Normal CLEAR [facility] Comment on above: Performed By: #### E BABITA UMICRO #### [facility] [address] [place] [address] [address] Adrianne Nava Color (U) LT. YELLOW Normal YELLOW [facility] Comment on above: Performed By: #### E BABITA UMICRO #### [facility] [address] [address] [address] Adrianne Nava ERUAHD A micrscopic examination will be performed if indicated. Normal [facility] Comment on above: Performed By: #### GEGE FOYICRO #### [facility] [address] [place] [address] Dr. Adrianne Nava Glucose Ql (U) Negative Normal NEGATIVE [facility] Comment on above: Performed By: #### Dusty JC UMICRO #### [facility] [address] [place] [address] Dr. Adrianne Nava Hemoglobin Ql (U) Negative Normal NEGATIVE [facility] Comment on above: Performed By: #### Dusty JC UMICRO #### [facility] [address] [place] [address] Dr. Adrianne Nava Ketones Ql (U) Negative Normal NEGATIVE [facility] Comment on above: Performed By: #### Dusty JC UMICRO #### [facility] [address] [place] [address] Dr. Adrianne Nava LEUKOCYTES MODERATE Abnormal NEGATIVE [facility] Comment on above: Performed By: #### EVELYNE FOYRO #### [facility] [address] [place] [address] Dr. Adrianne Nava Nitrite Ql (U) Negative Normal NEGATIVE [facility] Comment on above: Performed By: #### GEGE FOYICRO #### [facility] [address] [place] [address] Dr. Adrianne Nava pH (U) 6.5 [pH] Normal 5-9 [facility] Comment on above: Performed By: #### GEGE FOYICRO #### [facility] [address] [place] [address] Dr. Adrianne Nava SPEC GRAVITY <=1.005 Abnormal 1.005-<=1.025 [facility] Comment on above: Performed By: #### EVELYNE FOYRO #### [facility] [address] [place] [address] Dr. Adrianne Nava UA PROTEIN Negative Normal NEGATIVE/ TRACE [facility] Comment on above: Performed By: #### EVELYNE FOYRO #### [facility] [address] [place] [address] Dr. Adrianne Nava UR MICRO IND INDICATED Normal [facility] Comment on above: Performed By: #### MELISSA FOY #### [facility] [address] [place] [address] Dr. Adrianne Nava Urobilinogen Qn (U) 0.2 {Kaley'U}/dL Normal 0.2 - 1. 0 [facility] Comment on above: Performed By: #### MELISSA FOY #### [facility] [address] [place] [address] Dr. Adrianne Nava PROF CHEM 8 (BAS METB)on Anion gap [Moles/Vol] 12.7 mmol/L Normal [facility] Comment on above: Performed By: #### B MP #### [facility] [address] [place] [address] Dr. Adrianne Nava Calcium [Mass/Vol] 9.0 mg/dL Normal 8.5-10.1 [facility] Comment on above: Performed By: #### B MP #### [facility] [address] [place] [address] Dr. Adrianne Nava Chloride [Moles/Vol] 105 mmol/L Normal 98-107 [facility] Comment on above: Performed By: #### B MP #### [facility] [address] [place] [address] Dr. Adrianne Nava CO2 [Moles/Vol] 25.1 mmol/L Normal 21.0-32.0 [facility] Comment on above: Performed By: #### B MP #### [facility] [address] [place] [address] Dr. Adrianne Nava Creatinine [Mass/Vol] 0.86 mg/dL Normal 0.55-1.02 [facility] Comment on above: Performed By: #### B MP #### [facility] [address] [place] [address] Dr. Adrianne Nava EGFR-AF COMORAN >60 Normal >=60 [facility] Comment on above: Performed By: #### B MP #### [facility] [address] [place] [address] Dr. Adrianne Nava EGFR-NON AF COMORAN >60 Normal >=60 [facility] Comment on above: Performed By: #### B MP #### [facility] [address] [address] [address] Adrianne Nava Glucose [Mass/Vol] 99 mg/dL Normal 74-106 [facility] Comment on above: Performed By: #### B MP #### [facility] [address] [address] [address] Adrianne Nava Potassium [Moles/Vol] 3.8 mmol/L Normal 3.5-5.1 [facility] Comment on above: Performed By: #### B MP #### [facility] [address] [place] [address] Dr. Adrianne Nava Sodium [Moles/Vol] 139 mmol/L Normal 136-145 [facility] Comment on above: Performed By: #### B MP #### [facility] [address] [place] [address] Dr. Adrianne Nava Urea nitrogen [Mass/Vol] 19.0 mg/dL Critically high 7.0-18.0 [facility] Comment on above: Performed By: #### B MP #### [facility] [address] [place] [address] Dr. Adrianne Nava Urea nitrogen/Creatinine [Mass ratio] 22.1 mg/mg Normal [facility] Comment on above: Performed By: #### B MP #### [facility] [address] [place] [address] Dr. Adrianne Nava URINE MICROSCOPIC ONLYon BACTERIA TRACE Abnormal NONE SEEN [facility] Comment on above: Performed By: #### E MELISSA JC #### [facility] [address] [place] [address] Dr. Adrianne Nava Bacteria identified Cx Nom (U) INDICATED Normal [facility] Comment on above: Performed By: #### EVELYNE FOYRO #### [facility] [address] [place] [address] Dr. Adrianne Nava CAST NONE SEEN Normal NONE SEEN [facility] Comment on above: Performed By: #### E RUR, UMICRO #### [facility] [address] [address] [address] Adrianne Nava Crystals LM Nom (Urine sed) NONE SEEN Normal NONE SEEN [facility] Comment on above: Performed By: #### E RUR, UMICRO #### [facility] [address] [address] [address] Adrianne Nava Epithelial cells LM Ql (Urine sed) FEW Abnormal NONE SEEN /RARE [facility] Comment on above: Performed By: #### E RUR, UMICRO #### [facility] [address] [address] [address] Adrianne Nava MUCOUS NONE SEEN Normal NONE SEEN [facility] Comment on above: Performed By: #### E RUR, UMICRO #### [facility] [address] [place] [address] Dr. Adrianne Nava RBC 0-2 Normal 0-2 [facility] Comment on above: Performed By: #### E BABITA, UMICRO #### [facility] [address] [address] [address] Adrianne Nava WBC 10-20 Abnormal NONE SEEN [facility] Comment on above: Performed By: #### E RUR, UMICRO #### [facility] [address] [place] [address] Dr. Adrianne Nava MG MAMM SCREEN 3D OJRDAN CADon 03-07-2022 MG MAMM SCREEN 3D JORDAN CAD Patient: DANTE JAMES Exam Date: 03/07/2022 : 1965 Gender:F Ordering : DR KYUNG YANG Admission #: [id number] Family : Order #: [id number] CLICK HERE TO VIEW EXAM RADIOLOGY REPORT [...] cervical cancer at age 35. LOCATION: [facility] BREAST COMPOSITION: Extremely dense, which lowers the [...] MD on 03/07/2022 at 09:52 Normal [facility] C. DIFF PCRon 02-05-2022 C. DIFFICILE PCR Negative Normal NEGATIVE [facility] Comment on above: Performed By: #### C DIFPOC ####[facility] [address] [place] [address]Dr. Adrianne Nava GI PANEL (PCR)on 02-05-2022 Adenovirus F 40/41 Not detected Normal NOT DETECTED [facility] Comment on above: Performed By: #### G IPANEL #### [facility] [address] [address] [address] Adrianne Nava Astrovirus Not detected Normal NOT DETECTED [facility] Comment on above: Performed By: #### G IPANEL #### [facility] [address] [address] [address] Adrianne Nava C. Diff toxin A/B Not detected Normal NOT DETECTED [facility] Comment on above: Performed By: #### G IPANEL #### [facility] [address] [address] [address] Adrianne Nava Campylobacter Not detected Normal NOT DETECTED [facility] Comment on above: Performed By: #### G IPANEL #### [facility] [address] [address] [address] Adrianne Nava Cryptosporidium Not detected Normal NOT DETECTED [facility] Comment on above: Performed By: #### G IPANEL #### [facility] [address] [address] [address] Adrianne Nava Cyclos. Cayetanensis Not detected Normal NOT DETECTED [facility] Comment on above: Performed By: #### G IPANEL #### [facility] [address] [place] [address] Dr. Adrianne Nava E. Coli O157 Not Applicable Normal Not Applicable [facility] Comment on above: Performed By: #### G IPANEL #### [facility] [address] [place] [address] Dr. Adrianne Nava E. histolytica Not detected Normal NOT DETECTED [facility] Comment on above: Performed By: #### G IPANEL #### [facility] [address] [place] [address] Dr. Adrianne Nava EAEC Not detected Normal NOT DETECTED [facility] Comment on above: Performed By: #### G IPANEL #### [facility] [address] [place] [address] Dr. Adrianne Nava EIEC Not detected Normal NOT DETECTED [facility] Comment on above: Performed By: #### G IPANEL #### [facility] [address] [place] [address] Dr. Adrianne Nava EPEC Not detected Normal NOT DETECTED [facility] Comment on above: Performed By: #### G IPANEL #### [facility] [address] [place] [address] Dr. Adrianne Nava ETEC Not detected Normal NOT DETECTED [facility] Comment on above: Performed By: #### G IPANEL #### [facility] [address] [place] [address] Dr. Adrianne Nava G. Lamblia Not detected Normal NOT DETECTED [facility] Comment on above: Performed By: #### G IPANEL #### [facility] [address] [place] [address] Dr. Adrianne TRINIDADL CONTROLS PASSED Normal [facility] Comment on above: Performed By: #### G IPANEL #### [facility] [address] [place] [address] Dr. Adrianne CARDOZA JOEY HEADER GI PANEL BACTERIA Normal [facility] Comment on above: Performed By: #### G IPANEL #### [facility] [address] [address] [address] Adrianne PAUL ECOLI GI PANEL DIARRHEAGEN IC E.COLI / SHIGELLA Normal [facility] Comment on above: Performed By: #### G IPANEL #### [facility] [address] [address] [address] Adrianne PAUL INFO SEE BELOW Normal [facility] Comment on above: Result Comment: EAEC - Enteroaggregative E. Coli EPEC- Enteropathogenic E. Coli ETEC- Enterotoxigenic E. Coli lt/st STEC- Shigella-like toxin-producing E. Coli stx1/stx2 EIEC- Shigella/Enteroinvasive E. Coli Performed By: #### G IPANEL #### [facility] [address] [place] [address] Dr. Adrianne PAUL PARASITES GI PANEL PARASITES Normal [facility] Comment on above: Performed By: #### G IPANEL #### [facility] [address] [address] [address] Adrianne PAUL VIRUS GI PANEL VIRUSES Normal [facility] Comment on above: Performed By: #### G IPANEL #### [facility] [address] [address] [address] Adrianne Nava Norovirus GI/GII Not detected Normal NOT DETECTED [facility] Comment on above: Performed By: #### G IPANEL #### [facility] [address] [address] [address] Adrianne Nava P. Shigelloides Not detected Normal NOT DETECTED [facility] Comment on above: Performed By: #### G IPANEL #### [facility] [address] [address] [address] Adrianne Nava Rotavirus A Not detected Normal NOT DETECTED [facility] Comment on above: Performed By: #### G IPANEL #### [facility] [address] [address] [address] Adrianne Nava Salmonella Not detected Normal NOT DETECTED [facility] Comment on above: Performed By: #### G IPANEL #### [facility] [address] [address] [address] Adrianne Nava Sapovirus Not detected Normal NOT DETECTED [facility] Comment on above: Performed By: #### G IPANEL #### [facility] [address] [place] [address] Dr. Adrianne Nava STEC Not detected Normal NOT DETECTED [facility] Comment on above: Performed By: #### G IPANEL #### [facility] [address] [address] [address] Adrianne Nava Vibrio Not detected Normal NOT DETECTED [facility] Comment on above: Performed By: #### G IPANEL #### [facility] [address] [place] [address] Dr. Adrianne Nava Vibrio Cholera Not detected Normal NOT DETECTED [facility] Comment on above: Performed By: #### G IPANEL #### [facility] [address] [place] [address] Dr. Adrianne Nava Y. Enterocolitica Not detected Normal NOT DETECTED [facility] Comment on above: Performed By: #### G IPANEL #### [facility] [address] [place] [address] Dr. Adrianne Nava Vital Signs Date Time Vital Sign Value Performing Clinician Facility 09-11-2024 09:14-0500 Blood Pressure Location [facility] 09-11-2024 09:14-0500 Diastolic blood pressure 68 mm[Hg] [facility] 09-11-2024 09:14-0500 Heart rate 72 /min [facility] 09-11-2024 09:14-0500 Respiratory rate 18 /min [facility] 09-11-2024 09:14-0500 Systolic blood pressure 92 mm[Hg] [facility] 07-17-2024 08:30-0500 Body height 160 cm Paola Kathrynmor [employer]ACHINE OPERATOR Work Phone: [facility] 07-17-2024 08:30-0500 Body mass index (BMI) [Ratio] 23.74 kg/m2 Paola Gillmor [employer] MACHINE OPERATOR Work Phone: [facility] 07-17-2024 08:30-0500 Body weight 60.78 kg Paola Gillmor [employer]TING MACHINE OPERATOR Work Phone: [facility] 07-17-2024 08:30-0500 Diastolic blood pressure 67 mm[Hg] Paola Gillmor [employer] C[employer]TING MACHINE OPERATOR Work Phone: [facility] 07-17-2024 08:30-0500 Heart rate 70 /min Paola Gillmor [employer] C[employer]TING MACHINE OPERATOR Work Phone: [facility] 07-17-2024 08:30-0500 Systolic blood pressure 117 mm[Hg] Paola Gillmor [employer] C[employer]TING MACHINE OPERATOR Work Phone: [facility] [facility] 07-03-2024 11:15-0500 Body temperature 97.7 [degF] Marycruz Lue [facility] 07-03-2024 11:15-0500 Diastolic blood pressure 72 mm[Hg] Marycruz Lue [facility] 07-03-2024 11:15-0500 Respiratory rate 16 /min Marycruz Lue [facility] 07-03-2024 11:15-0500 Systolic blood pressure 110 mm[Hg] Marycruz Lue [facility] 04-25-2024 08:55-0400 Body height 160 cm Paola Gillmor RAFTER CUTTING MACHINE OPERATOR Work Phone: [facility] 04-25-2024 08:55-0400 Body mass index (BMI) [Ratio] 23.56 kg/m2 Paola Kathrynmor RAFTER CUTTING MACHINE OPERATOR Work Phone: [facility] 04-25-2024 08:55-0400 Body weight 60.33 kg Paola Kathrynmor RAFTER CUTTING MACHINE OPERATOR Work Phone: [facility] 04-25-2024 08:55-0400 Diastolic blood pressure 75 mm[Hg] Paola Kathrynmor RAFTER CUTTING MACHINE OPERATOR Work Phone: [facility] 04-25-2024 08:55-0400 Heart rate 72 /min Paola Kathrynmor RAFTER CUTTING MACHINE OPERATOR Work Phone: [facility] 04-25-2024 08:55-0400 Systolic blood pressure 124 mm[Hg] Paola Gillmor RAFTER CUTTING MACHINE OPERATOR Work Phone: [facility] 02-28-2024 09:07-0400 Body temperature 97.88 [degF] Marycruz Lue [facility] 02-28-2024 09:07-0400 Diastolic blood pressure 70 mm[Hg] Marycruz Lue [facility] 02-28-2024 09:07-0400 Heart rate 68 /min Marycruz Lue [facility] 02-28-2024 09:07-0400 Respiratory rate 16 /min Marycruz Lue [facility] 02-28-2024 09:07-0400 Systolic blood pressure 108 mm[Hg] Marycruz Lue [facility] 03-13-2023 11:45-0400 Body height 162.56 cm Erica Mott Other [facility] Other 03-13-2023 11:45-0400 Body mass index (BMI) [Ratio] 23.51 kg/m2 Erica Mott Other [facility] Other 03-13-2023 11:45-0400 Body temperature 98 [degF] Erica Mott Other [facility] Other 03-13-2023 11:45-0400 Body weight 62.14 kg Erica Mott Other [facility] Other 03-13-2023 11:45-0400 Diastolic blood pressure 65 mm[Hg] Erica Mott Other [facility] Other 03-13-2023 11:45-0400 Respiratory rate 18 /min Erica Mott Other [facility] Other 03-13-2023 11:45-0400 SaO2% (BldA) [Mass fraction] 96 % Ericamichael Mott Other [facility] Other 03-13-2023 11:45-0400 Systolic blood pressure 103 mm[Hg] Erica Mott Other [facility] Other 03-09-2023 10:05-0400 Body height 162.56 cm Erica Mott Other [facility] Other 03-09-2023 10:05-0400 Body mass index (BMI) [Ratio] 23.51 kg/m2 Erica Mott Other [facility] Other 03-09-2023 10:05-0400 Body temperature 97.3 [degF] Erica Mott Other [facility] Other 03-09-2023 10:05-0400 Body weight 62.14 kg Erica Lomeliley Other [facility] Other 03-09-2023 10:05-0400 Diastolic blood pressure 61 mm[Hg] Erica Tiera Other [facility] Other 03-09-2023 10:05-0400 Respiratory rate 18 /min Erica Tiera Other [facility] Other 03-09-2023 10:05-0400 SaO2% (BldA) [Mass fraction] 99 % Erica Tiera Other [facility] Other 03-09-2023 10:05-0400 Systolic blood pressure 98 mm[Hg] Erica Tiera Other [facility] Other 04-20-2022 14:41-0400 Blood Pressure Location ISRAEL BORRERO [facility] 04-20-2022 14:41-0400 Diastolic blood pressure 80 mm[Hg] ISRAEL JACOBSRY [facility] 04-20-2022 14:41-0400 Heart rate 75 /min ISRAEL BORRERO [facility] 04-20-2022 14:41-0400 Systolic blood pressure 119 mm[Hg] ISRAEL JACOBSRY [facility] Encounters Encounter Date Encounter Type Care Provider Facility Start: 03-19-2025 ambulatory Marycruz Bhagat Facility:[facility] Start: 11-25-2024 End: 11-26-2024 Refill Paola Brady NP Work Phone: [facility] Comment on above: Seizure (CMS/HCC) Start: 09-16-2024 End: 09-16-2024 Refill Paola Brady RAFTER CUTTING MACHINE OPERATOR Work Phone: [facility] Comment on above: Seizure (CMS/HCC) Start: 09-11-2024 End: 09-11-2024 ambulatory Marycruz Bhagat Facility:[facility] Start: 09-11-2024 End: 09-11-2024 Patient encounter procedure Marycruz Bhagat [facility] Start: 07-17-2024 End: 07-17-2024 Bamboo flowsheet Paola Brady RAFTER CUTTING MACHINE OPERATOR Work Phone: [facility] Start: 07-17-2024 End: 07-17-2024 Bamboo flowsheet Paola Brady RAFTER CUTTING MACHINE OPERATOR Work Phone: [facility] Start: 07-17-2024 End: 07-17-2024 Office outpatient visit 15 minutes Paola Brady RAFTER CUTTING MACHINE OPERATOR Work Phone: [facility] Comment on above: Trigeminal neuralgia (CMS/HCC) (Primary Dx); Seizure disorder (CMS/HCC); Disease of the oral soft tissues; Tingling Start: 07-17-2024 End: 07-17-2024 ambulatory PAOLA BRADY Not Available Start: 07-03-2024 End: 07-03-2024 ambulatory Marycruz Bhagat Facility:[facility] Start: 07-03-2024 End: 07-03-2024 Patient encounter procedure Marycruz Bhagat [facility] Start: 06-05-2024 End: 06-09-2024 Refill Paola Brady RAFTER CUTTING MACHINE OPERATOR Work Phone: [facility] Comment on above: Seizure (CMS/HCC) Start: 05-15-2024 End: 05-15-2024 ambulatory Marycruz Bhagat Facility:[id number] Start: 05-15-2024 End: 05-15-2024 Off-Site Marycruz Bhagat [facility] Start: 04-25-2024 End: 04-25-2024 Bamboo flowsheet Paola Brady RAFTER CUTTING MACHINE OPERATOR [facility] [place] [facility] Start: 04-25-2024 End: 04-25-2024 Bamboo flowsheet Paola Brady RAFTER CUTTING MACHINE OPERATOR [facility] [place] [facility] Start: 04-25-2024 End: 04-25-2024 Telephone encounter Shane [facility] Start: 04-25-2024 End: 04-25-2024 Office outpatient visit 25 minutes Paola Brady RAFTER CUTTING MACHINE OPERATOR Work Phone: [facility] Comment on above: Seizure disorder (CM S/HCC) (Primary Dx); Generalized epilepsy (CMS/HCC) Start: 04-25-2024 End: 04-25-2024 ambulatory PAOLA BRADY Not Available Start: 04-04-2024 End: 04-04-2024 ambulatory [facility] Start: 04-04-2024 Encounter for gynecological examination (general) (routine) without abnormal findings [facility] Start: 03-24-2024 End: 03-25-2024 Refill Paola Brady RAFTER CUTTING MACHINE OPERATOR Work Phone: [facility] Comment on above: Seizure (CMS/HCC) Start: 02-28-2024 End: 02-28-2024 Lab Drop off Marycruz Bhagat [facility] Start: 02-28-2024 End: 02-28-2024 ambulatory Marycruz Bhagat Facility:[facility] Start: 02-28-2024 End: 02-28-2024 Patient encounter procedure Marycruz Bhagat [facility] Start: 12-11-2023 End: 12-11-2023 ambulatory PAOLA BRADY Not Available Start: 06-14-2023 End: 06-14-2023 Lab Drop off Marycruz Bhagat [facility] Start: 03-13-2023 End: 03-13-2023 ambulatory Erica Mott Other [facility] Other Start: 03-13-2023 Office outpatient vi sit 15 minutes Erica Mott [facility] Start: 03-09-2023 End: 03-09-2023 ambulatory Erica Mott Other [facility] Other Start: 03-09-2023 Office outpatient ne w [...] encounter procedure Duke Verde MD Work Phone: [facility] Start: 04-21-2022 End: 04-21-2022 Subsequent hospital visit by physician Duke Verde MD Work Phone: [facility] Comment on above: Vaginal irritation; Women's annual routine gynecological examination Start: 04-20-2022 End: 04-20-2022 Patient encounter procedure ISRAEL BORRERO [facility] Start: 04-15-2022 End: 04-16-[address] BRIAN TIDWELL Facility:[facility] Start: 04-06-2022 End: 04-07-[address] DUKE VERDE . Facility:[facility] Start: 03-25-2022 End: 03-25-[address] IVIS LASSITER Facility:[facility] Start: 03-07-2022 End: 03-08-[address] BRIAN TIDWELL Facility:[facility] Start: 02-05-2022 End: 02-06-[address] DUKE VERDE . Facility:[facility] Start: 04-19-2021 End: 04-19-2021 Subsequent hospital visit by physician Duke Verde MD Work Phone: [facility] Comment on above: History of cervical cancer Start: 05-02-2019 End: 05-02-2019 Subsequent hospital visit by physician Duke Verde [facility] Comment on above: Women's annual routi ne gynecological examination Start: 03-29-2017 Ambulatory HARRISON RACQUELHARSHAD Facility :8 Start: 02-10-2017 Ambulatory HARRISON RACQUELBOGDAN Facility :8 Procedures Date Procedure Procedure Detail Performing Clinician Start: 05-15-2024 Ureteroscopy Marycruz Lue Start: 04-09-2024 Mammography Paola Contreras lmor RAFTER CUTTING MACHINE OPERATOR Work Phone: Start: 04-04-2024 Microscopic observat ion [Identifier] in Cervix by Cyto stain Paola Peraltamor RAFTER CUTTING MACHINE OPERATOR Work Phone: Start: 11-07-2022 Microscopic observat ion [Identifier] in Cervix by Cyto stain Paola Kathrynmor RAFTER CUTTING MACHINE OPERATOR Work Phone: Start: 06-11-2019 Mammography Paola Ben lmor RAFTER CUTTING MACHINE OPERATOR Work Phone: Partial hysterectomy REGFE R GISSELL Procedure on shoulder MARLONNIF ER GISSELL Tonsillectomy ISRAEL BORRERO Tonsillectomy and adenoidectomy Marycruz Lue Plan of Treatment Date Care Activity Detail Author Start: 04-21-2027 Screening for malign ant neoplasm of cervix [facility] Start: 04-04-2027 Screening for malign ant neoplasm of cervix Pap Smear [facility] Start: 11-07-2025 Screening for malign ant neoplasm of cervix Pap Smear [facility] Start: 04-09-2025 Screening for malign ant neoplasm of breast Mammogram [facility] Start: 03-31-2025 Influenza vaccination Influenz a Vaccine (Season Ended) [facility] Start: 12-31-2024 End: 12-31-2024 Patient encounter procedure 12/31/2024 12:15 PM EDT [facility] [address] [facility] [address] [place] [id number] Lobo Hess MD [address] [facility] [address] [place], [place] [id number] [facility] Start: 12-31-2024 End: 12-31-2024 [facility] [place] [facility] Start: 07-17-2024 End: 07-17-2024 Patient encounter procedure [facility] [place] [facility] Comment on above: Arrived Start: 06-17-2024 End: 06-17-2024 Patient encounter procedure 06/17/2024 11:00 AM EST Office Visit [facility] [place] [facility] [place] [address] Paola Brady NP [address] [place], [place] [facility] [place] [facility] Start: 04-25-2024 End: 04-25-2024 Patient encounter procedure 04/25/2024 9:00 AM EDT Office Visit [facility] [place] [facility] [address] [place] [address] Paola Brady NP [address] [place], [place] Arrived [facility] [address] [address] Comment on above: Arrived Start: 03-31-2024 Influenza vaccination Influenza Vacc ine (#1) [facility] Start: 04-24-2023 End: 04-24-2023 Patient encounter procedure 04/24/2023 Office Visit Obstetrics and Gynecology Kyung Yang MD [address] [facility] [address] [place] [address] [facility] Start: 03-05-2023 Screening for malign ant neoplasm of breast Breast cancer screen [facility] Start: 04-21-2022 End: 04-21-2022 Patient encounter procedure 04/21/2022 Office Visit Obstetrics and Gynecology Kyung Yang MD [address] [facility] [address] [place], [place] [id number] [facility]OLOG[facility] Start: 03-31-2022 Influenza vaccination Flu vaccine (# 1) [facility] Start: 04-30-2021 Cervical cancer screen Cervical canc er screen [place], [place] Start: 03-31-2021 Influenza vaccination Flu vaccine (# 1) [facility] Work Phone: Start: 06-11-2020 Screening for malign ant neoplasm of breast Mammogram [facility] Start: 06-06-2020 Breast cancer screen Breast cancer s [place], [place] Start: 05-30-2019 Influenza vaccination Flu vaccine (# 1) [place], [place] Comment on above: Postponed from 03/31 (Patient Refused) Start: 2015 Colon cancer screen colonoscopy Colon cancer screen colonoscopy [place], [place] Start: 2015 Shingles Vaccine (1 of 2) Shingles Vaccine (1 of 2) [place], [place] Start: 2010 Screening for malign ant neoplasm of colon [facility] Start: 2005 Diabetes screen Diabetes screen [facility] [employer] Phone: Start: 2005 Lipid panel [facility] Start: 2005 Lipid screen Lipid screen [place], [place] Start: 1984 DTaP/Tdap/Td vaccine (1 - Tdap) DTaP/Tdap/Td vaccine (1 - Tdap) [facility] Start: 1983 Hepatitis C screening Hepatitis C sc huong [facility] Start: 1980 HIV screen HIV screen [place], [place] Start: 1980 HIV screening HIV screen [facility] Start: 1977 Depression Screen Depression Screen [facility] Start: 1965 Hepatitis C screen Hepatitis C andrzej amin [place], [place] Start: 1965 Hepatitis C screening Hepatitis C yusuf borja [facility] Work Phone: Start: 1965 Screening for malign ant neoplasm of colon [facility] End: 04-21-2022 Culture, Genital [facility] Work Phone: Comment on above: 1 Occurrences starti ng 04/21/2022 until 04/21/2022 End: 05-02-2019 Cytopathology procedure, preparation of smear, genital source [facility] Lab Routine Women's annual routine gynecological examination 1 Occurrences starting 05/02/2019 until 05/02/2019 [place] Comment on above: 1 Occurrences starti ng 05/02/2019 until 05/02/2019 End: 04-19-2021 Cytopathology procedure, preparation of smear, genital source [facility] Lab Routine History of cervical cancer 1 Occurrences starting 04/19/2021 until 04/19/2021 [facility] [employer] Phone: Comment on above: 1 Occurrences starti ng 04/19/2021 until 04/19/2021 End: 04-21-2022 Cytopathology procedure, preparation of smear, genital source [facility] Lab Routine Women's annual routine gynecological examination 1 Occurrences starting 04/21/2022 until 04/21/2022 [facility] [employer] Phone: Comment on above: 1 Occurrences starti ng 04/21/2022 until 04/21/2022 Immunizations Immunization Date Immunization Notes Care Provider Gallo frost 03-29-2023 influenza virus vaccine, unspecified formulation Marycruz Bhagat [facility] 03-29-2023 tetanus toxoid, reduced diphtheria toxoid, and acellular pertussis vaccine, adsorbed Marycruz Lue [facility] 11-18-2020 SARS-CoV-2 (COVID-19 ) mRNA-1273 vaccine Marycruz Lue [facility] Comment on above: Result Comment: 2022: TPV50 11-13-2020 SARS-CoV-2 (COVID-19 ) Ad26 vaccine, recombinant ISRAEL GISSELL [facility] 10-21-2020 SARS-CoV-2 (COVID-19 ) mRNA-1273 vaccine Marycruz Lue [facility] Comment on above: Result Comment: 2022: TPV50 10-16-2020 SARS-CoV-2 (COVID-19 ) Ad26 vaccine, recombinant ISRAEL GISSELL [facility] 10-01-2019 zoster vaccine recombinant Marycruz Lue [facility] 07-28-2019 zoster vaccine recombinant Marycruz Lue [facility] NEGATED: Highlighted row has not occurred!09-24-2020 influenza virus vaccine, unspecified formulation ISRAEL GISSELL [facility] Payers Date Payer Category Payer Private Health Insurance [employer] [id number] 2023 Unknown [employer] [id number] 2023-Present [address] [place] [address] [id number] [facility] 2014-Present [phone] [address] [address] [place] [address] xxxxxxxxxxxx [id number] 1965 Unknown [id number] [id number] .593 1965 Unknown [id number] 2.16.840.1.955886.3.579.2 .593 1965 Unknown [id number] 2.16.840.1.175566.3.579.2 .593 1965 Unknown [id number] 2.16.840.1.471111.3.579.2 .593 1965 Unknown [id number] 2.16.840.1.207790.3.579.2 .593 1965 Unknown [id number] 2.16.840.1.877609.3.579.2 .593 1965 Unknown [id number] 2.16.840.1.437071.3.579.2 .593 1965 Unknown [id number] 2.16.840.1.607042.3.579.2 .593 1965 Unknown [id number] 2.16.840.1.765455.3.579.2 .593 1965 Unknown [id number] 2.16.840.1.825503.3.579.2 .173 1965 Unknown [id number] 2.16.840.1.543414.3.579.2 .1259 1965 Unknown [id number] 2.16.840.1.068627.3.579.2 .1259 1965 Unknown [id number] 2.16.840.1.850995.3.579.2 .1259 1965 Unknown [id number] 2.16.840.1.495149.3.579.2 .727 1965 Unknown [id number] 2.16.840.1.522761.3.579.2 .727 1965 Unknown [id number] 2.16.840.1.994482.3.579.2 .727 1965 Unknown [id number] 2.16.840.1.123331.3.579.2 .727 1965 Unknown [id number] 2.16.840.1.538482.3.579.2 .727 1965 Unknown [id number] 2.16.840.1.938668.3.579.2 .727 1965 Unknown [id number] 2.16.840.1.886113.3.579.2 .727 1959 Unknown [id number] Unknown [id number] 2.16.840.1.245131.19 Social History Date Type Detail Facility Start: 05-02-2019 End: 12-11-2023 Tobacco smoking status NHIS Never smoker [facility] Start: 05-02-2019 End: 07-17-2024 Alcohol intake Yes [place], [place] Start: 12-29-2016 Alcohol Comment one glass a week [place], [place] Start: 1965 Sex Assigned At Not on file M [place], [place] Start: 04-19-2021 End: 12-11-2023 Tobacco use and exposure Never used [facility] Start: 04-19-2021 End: 04-21-2022 Alcohol intake Current drinker of alcohol (finding) [employer] Phone: Start: 04-19-2021 End: 07-17-2024 Alcohol intake [employer] Phone: Tobacco smoking status Never [facility] Start: 04-11-2022 End: 04-21-2022 Exposure to SARS-CoV-2 (event) Not sure [facility] Start: 04-25-2024 End: 07-17-2024 Alcoholic beverage intake Ex-drinker (finding) [facility] How often to you hav e a drink containing alcohol? Monthly or less [facility] How many standard drinks containing alcohol do you have on a typical day? 1 or 2 [facility] How often do you hav e 6 or more drinks on 1 occasion? Never [facility] Start: 12-11-2023 Tobacco Comment I lived with p arents that smoked [facility] Start: 1965 Sex assigned at Female [facility] Start: 12-04-2023 Gender identity Identifies as female gender (finding) [facility] Functional Status Date Assessment Result Facility 09-11-2024 Functional Status N/A [facility] 07-03-2024 Functional Status N/A [facility] 02-28-2024 Functional Status N/A [facility] 04-20-2022 Functional Status N/A [facility] Clinical Notes 04-20-2022 to 11-25-2024 Telephone Encounter - Batsheva Jarrell MA - 11/25/2024 3:51 PM EDTTelephone Encounter - Batsheva Jarrell MA - 11/25/2024 3:51 PM EDTTelephone Encounter - Batsheva Jarrell MA - 09/16/2024 12:10 PM EST Note Date & Type Note Facility 11-25-2024 Telephone encounter Note Last filled 09/16 per [facility] 11-25-2024 Miscellaneous Notes Last filled 09/16 per [facility] documented in this encounter [facility] 09-16-2024 Telephone encounter Note Last filled 06/23 for 90 days per [facility] 09-16-2024 Miscellaneous Notes Last filled 06/23 for 90 days per [facility] documented in this encounter [facility] 09-11-2024 Hospital Discharge instructions Patient Education 09/11/2024 10:31:47 Dietary Guidelines to Help Prevent Kidney Stones [...] include: ?8 oz (237 mL) of milk, zifmzrq-ztcgqkdgqrhu-zchti milk, and calcium-fortifiedfruit juice. Calcium-fortified means that [...] ?Spinach (cooked), rhubarb, beets, sweet potatoes, and Argentine chard. ?Peanuts. ?Potato chips, hong konger fries, and baked potatoes with skin on. ?Nuts and nut products. ?Chocolate. If you regularly take a diuretic medicine, make sure to eat at least 1 or 2 servings of fruits or vegetables that are high in potassium each day. These include: ?Avocado. ?Banana. ?[place], prune, carrot, or tomato juice. ?Baked potato. [...] magnesium, fish oil, or vitamin B6. Take zmxl-skp-tlnhhlq and prescription medicines only as told by [...] Casseroles. Pizza. Lasagna. Frozen meals. Potato chips. Singaporean fries. The items listed above may not [...] provider. Document Revised: 10/27/2022 Document Reviewed: 10/27/2022 Contemporary [employer] Patient Education 2023 Care Thread. Follow Up Care 07/03/2024 11:56:49 With:Olayinka HINSON, NICOLE Mack, URO Address: [address] [place], [place] [address] [place] [address] [phone] When: Unknown [facility] 09-11-2024 Note Patient Education Nephrology Dietary Guidelines to [...] ? 8 oz (237 mL) of milk, zxxeeei-bcklarcldobx-lbxmy milk, and calcium-fortifiedfruit juice. Calcium-fortified means that [...] Spinach (cooked), rhubarb, beets, sweet potatoes, and Argentine chard. ? Peanuts. ? Potato chips, hong konger fries, and baked potatoes with skin on. ? Nuts and nut products. ? Chocolate. ??? If you regularly take a diuretic medicine, make sure to eat at least 1 or 2 servings of fruits or vegetables that are high in potassium each day. These include: ? Avocado. ? Banana. ? [place], prune, carrot, or tomato juice. ? Baked [...] fish oil, or vitamin B6. ??? Take ejux-nsi-tpybaan and prescription medicines only as told by your health (more content not included)... [facility] 07-03-2024 Hospital Discharge instructions Patient Education 07/03/2024 [...] include: ?8 oz (237 mL) of milk, toapsoo-hasojzhtuolg-qzfqe milk, and calcium-fortifiedfruit juice. Calcium-fortified means that [...] ?Spinach (cooked), rhubarb, beets, sweet potatoes, and Argentine chard. ?Peanuts. ?Potato chips, hong konger fries, and baked potatoes with skin on. ?Nuts and nut products. ?Chocolate. If you regularly take a diuretic medicine, make sure to eat at least 1 or 2 servings of fruits or vegetables that are high in potassium each day. These include: ?Avocado. ?Banana. ?[place], prune, carrot, or tomato juice. ?Baked potato. [...] magnesium, fish oil, or vitamin B6. Take uihp-fqj-ansliph and prescription medicines only as told by [...] Casseroles. Pizza. Lasagna. Frozen meals. Potato chips. Singaporean fries. The items listed above may not [...] provider. Document Revised: 10/27/2022 Document Reviewed: 10/27/2022 Contemporary Analysis Patient Education 2023 Care Thread. Follow Up Care 05/16/2024 16:02:44 With:Olayinka HINSON, NICOLE Mack, URO Address: When: Unknown Comments:w/24 hour urine and Potassium Level [facility] 07[facility]03[facility]24 Note Patient Education Nephrology Dietary Guidelines [...] ? 8 oz (237 mL) of milk, jtsskvn-pxlrovooudmu-ryulb milk, and calcium-fortifiedfruit juice. Calcium-fortified means that [...] Spinach (cooked), rhubarb, beets, sweet potatoes, and Argentine chard. ? Peanuts. ? Potato chips, hong konger fries, and baked potatoes with skin on. ? Nuts and nut products. ? Chocolate. ??? If you regularly take a diuretic medicine, make sure to eat at least 1 or 2 servings of fruits or vegetables that are high in potassium each day. These include: ? Avocado. ? Banana. ? [place], prune, carrot, or tomato juice. ? Baked [...] fish oil, or vitamin B6. ??? Take pisn-tcs-mjmcqkh and prescription medicines only as told by your health (more content not included)... [facility] 06-07-2024 Telephone encounter Note DUE 06/23/2024 [facility] 06-07-2024 Miscellaneous Notes DUE 06/23/2024 documented in this encounter [facility] 04-25-2024 Telephone encounter Note I called and spoke with pharmacist. [facility] 04-25-2024 Miscellaneous Notes I called and spoke with pharmacist. [facility] pharmacy in [place] calls stating they need clarification on the topiramate RX sent in. He was unsure of how to dispense with directions of take out 50 mg each week starting with week 3. documented in this encounter [facility] 04-25-2024 Telephone encounter Note [facility] pharmacy in [place] calls stating they need clarification on the topiramate RX sent in. He was unsure of how to dispense with directions of take out 50 mg each week starting with week 3. [facility] 02-28-2024 Evaluation + Plan note Diagnostic Tests PendingElectrolyte Panel 02/28/24 [facility] 02-28-2024 Evaluation + Plan note Diagnostic Tests PendingUrine Culture 02/28/24 [facility] 02-28-2024 Hospital Discharge instructions Patient Education 02/28/2024 09:48:33 Kidney Stones, Qzwx-bd-Gedy Kidney Stones Kidney stones are rock-like masses [...] Follow these instructions at home: Medicines Take xavw-lwj-cttlfli and prescription medicines only as told by [...] provider. Document Revised: 03/21/2022 Document Reviewed: 03/21/2022 Contemporary [employer] Patient Education 2022 Care Thread. Follow Up Care 06/14/2023 08:31:32 With:Olayinka HINSON, Marycruz Dove URL, URO Address: [address], [facility] [place] [phone] When: Unknown [facility] 02-28-2024 Note Patient Education Urology Kidney [...] these instructions at home: Medicines ? Take cevq-ydm-jtyvyjk and prescription medicines only as told by [...] provider. Document Revised: 03/21/2022 Document Reviewed: 03/21/2022 Contemporary Analysis Patient Education ? 2022 Care Thread. [facility] 03-13-2023 Evaluation note Encounter Date Diagnosis [...] until symptoms are completely resolved x48 hours. [facility] Other 08-10-2023 Evaluation note* Encounter Date Diagnosis [...] symptoms. Patient declines COVID testing in office [facility] Other 03-10-2023 NotePROCEDURE: XR SHOULDER LT 2V [...] Electronically authenticated by: IVIS LASSITER Date: 2022-10-07 11:52[facility]03-10-2023 NotePROCEDURE: XR SHOULDER LT 2V or [...] Electronically authenticated by: IVIS LASSITER Date: 2022-10-07 11:52[facility]09-21-2022 Hospital Discharge instructions Patient Education 04/20/2022 [...] include: ?Spinach. ?Rhubarb. ?Beets. ?Potato chips and hong konger fries. ?Nuts. If you regularly take a diuretic medicine, make sure to eat at least 1 2 fruits or vegetables high in potassium each day. These include: ?Avocado. ?Banana. ?[place], prune, carrot, or tomato juice. ?Baked potato. [...] Casseroles. Pizza. Lasagna. Frozen meals. Potato chips. Singaporean fries. Summary You can reduce your risk [...] 11/11/2011 Document Revised: 11/06/2019 Document Reviewed: 06/27/2017 Contemporary Analysis Patient Education 2020 Care Thread. Follow Up Care 04/13/2021 13:36:19 With:ISRAEL BORRERO PA-C, URL Address: [address] [place] [place] [address] When:1 year Comments:KUB [facility] evaluation + Plan note Future Appointments Appointment Date:04/25/2023 08:00:00 AM Scheduled Provider:Ivring Cobb MD, Valencia Pugh Location:[facility] Appointment Type:URO Office Visit Diagnostic Tests Pending * UTI ([facility]) 04/20/22 [facility] evaluation + Plan note Future Appointments Appointment Date:03/06/2024 08:45:00 AM Scheduled Provider:Marycruz Bhagat MD Location:[facility] Appointment Type:URO Office Visit Diagnostic Tests Pending * Calculi Analysis Urinary [facility] Future App[facility]ments Appointment Date:09/18/2024 10:45:00 AM Scheduled Provider:Marycruz Bhagat MD Location:[facility] Appointment Type:URO Office Visit Diagnostic Tests Pending * Potassium Level 07/03/24 [facility] evaluation + Plan note Future Appointments Appointment Date:03/19/2025 08:45:00 AM Scheduled Provider:Marycruz Bhagat MD Location:[facility] Appointment Type:URO Office Visit [facility] evaluation note* Diagnosis History of cervical cancer Personal history of malignant neoplasm of cervix uteri documented in this encounter [employer] Phone: evaluation note* Diagnosis Vaginal irritation Unspecified noninflammatory disorder of vagina Women's annual routine gynecological examination documented in this encounter MADELYN ANGELO [employer] Phone: evaluation note* Diagnosis Seizure (CMS/HCC) Other [...] intractable epilepsy [facility] Diagnosis Seizure (CMS/HCC) Other convulsions [facility] Diagnosis Seizure (CMS/HCC) Other convulsions [facility] N[facility]ative - Reported* Type Description Date Medical History Migraine Medical History Seizure Surgical History partial hysterectomy Surgical History shoulder surgery b/l Surgical History colonoscopy [facility] Other Hospital course Narrative No data available for this section [facility] Discharge instructions No data available for this section [facility] No data available for this section [facility] trueEX Summary Purpose Family History No Family History [...] FoundNo Family History Records Found Advance Directives Documents on File Type Date Recorded Patient Toll Mechanic Expl anation Advance Directives and Living Will Power of File System Installer Latest Code Status on File Code Status Date Activated Date Inactivated Comments Full Code 01/03/2017 4:41 PM 01/03/2017 8:21 PM Documents on File Type Date Recorded Patient Toll Mechanic Expl anation ACP-Advance Directive ACP-Power of File System Installer Assessments Diagnosis Women's annual routine gynecological examination Additional Source Comments INFORMATION SOURCE (unrecogn ized section and content) DATE CREATED AUTHOR 01/24/2018 [facility] DATE CREATED AUTHOR AUTHOR'S ORGANIZ ATION 11/16/2022 [facility] [place] [facility] DATE CREATED AUTHOR AUTHOR'S ORGANIZ ATION 03/03/2024 [facility] DATE CREATED AUTHOR AUTHOR'S ORGANIZ ATION 04/18/2024 [facility] DATE CREATED AUTHOR AUTHOR'S ORGANIZ ATION 07/20/2024 [facility] DATE CREATED AUTHOR AUTHOR'S ORGANIZ ATION 09/12/2024 [facility] DATE CREATED AUTHOR AUTHOR'S ORGANIZ ATION 09/13/2024 [facility] Care Team (unrecognized sect ion and content) Aoc Director Intelligence Officer Relationship Specialty Start Date End Date Duke Verde MD [address] [place] [address] PCP - General Family Medicine 04/08/16 Aoc Director Intelligence Officer Relationship Specialty Start Date End Date Duke Verde MD [address] [place] [address] PCP - General Family Medicine 12/11/23 Aoc Director Intelligence Officer Relationship Specialty Start Date End Date Duke Verde MD [address] [place] [address] PCP - General Family Medicine 12/11/23 Kane Mckee DO [address] [place] [address] Referring Physician Neurology 07/17/24 Aoc Director Intelligence Officer Relationship Specialty Start Date End Date Duke Verde MD [address] [place] [address] PCP - General Family Medicine 12/11/23 Kane Mckee DO [address] [place] [address] Referring Physician Neurology 07/17/24 Aoc Director Intelligence Officer Relationship Specialty Start Date End Date Duke Verde MD [address] [place] [address] PCP - General Family Medicine 12/11/23 Aoc Director Intelligence Officer Relationship Specialty Start Date End Date Duke Verde MD [address] [place] [facility] [address] PCP - General Family Medicine 12/11/23 Aoc Director Intelligence Officer Relationship Specialty Start Date End Date Duke Verde MD [address] [place] [facility] [place] [address] PCP - General Family Medicine 12/11/23 Aoc Director Intelligence Officer Relationship Specialty Start Date End Date Duke Verde MD [address] [place] [facility] [address] PCP - General Family Medicine 12/11/23 Aoc Director Intelligence Officer Relationship Specialty Start Date End Date Duke Verde MD [address] [place] [facility] [address] PCP - General Family Medicine 12/11/23 Kane Mckee DO [address] [place], [facility] Referring Physician Neurology 07/17/24 Aoc Director Intelligence Officer Relationship Specialty Start Date End Date Duke Verde MD [address] [place] [facility] [address] PCP - General Family Medicine 12/11/23 Kane Mckee DO [address] [place] [address] Referring Physician Neurology 07/17/24 REASON FOR VISIT (unrecogniz ed section and content) Reason Onset Date Comments Med Refill 06/05/2024 Reason Comments Seizures Reason Onset Date Comments Med Refill 03/24/2024 Reason Onset Date Comments Med Refill 09/16/2024 Reason Onset Date Comments Med Refill 11/25/2024 FOR RECORDS PERTAINING TO PATIENTS WHO ARE [...] BE BASED ON THE PRIMARY CLINICAL RECORDS. [facility], [facility]. provides no warranty or guarantee of the accuracy or completeness of information in this document.
== END 2024-12-11 12:21 | disposition home or self-care (01) ==
LOC: RAD 12:21
PROVIDERS: PCP Family Medicine; Visit Provider Family Medicine
DX: M25.532 Pain in left wrist (principal); M25.552 Pain in left hip
CPT/HCPCS: 73110; 73502

== ENCOUNTER 2024-12-21 08:19 | Outpatient (OUT) | payer OTHER, SELFPAY ==
--- OUTSIDE RECORDS SUMMARY | 2024-12-10 16:26 | XMS_ITS ---
Author Name Auto Generated Organization [place] Care Team Providers Care Medical Payment Poster Name Role Phone VITO VILLASEÑOR Attending Unavailable SERGIO RIVERA Attending Unavailable SERGIO RIVERA Attending Unavailable Marycruz Bhagat Attending Unavailable Marycruz Bhagat Attending Unavailable Marycruz Bhagat Attending Unavailable Marycruz Bhagat Attending Unavailable Marycruz Bhagat MTata Admitting Unavailable Marycruz Bhagat Attending Unavailable Marycruz Bhagat Attending Unavailable TWILA VERDE Primary Care Unavailable KYUNG PACK Referring Unavailable PROBLEMS DATE TYPE CONDITION / CODE ATTENDING STATUS BEATRICE E 04/04/2024 Unknown Encounter for gy necological examination (general) (routine) without abnormal findings / Z01.419(ICD-10) NA [facility] PROCEDURES No Procedure Records Found RESULTS REMINDERS Observed: 09/11/2024 10:37 AM Status: F Source: [facility] Reminders From: Nathalie Weaver To: CHEN - Elizabethleigh Bhagat; Sent: 09/11/2024 10:37:39 EST Show up: 02/08/2025 11:37:00 EDT Subject: [facility] Due Date/Time: 03/11/2025 11:37:00 EDT Reminder Message Pt needs to complete [facility] @ [facility] prior to f/u in 6 months to monitor kidney stones. Order in 09/11/24 encounter. UROLOGY OFFICE/CLINIC NOTE Observed: 06/2025 10:34 AM Status: F Source: [facility] Urology Office/Clinic Note Chief Complaint 2mo f/u HPI Staff 59yr old female pt here for 2mo f/u with metabolic workup. Previous Dx: kidney stone, uti symptoms *potassium citrate 15mEq bid Dysuria: had uti about 3wks ago, treated by PCP, symptoms resolved Incomplete bladder emptying: denies Hematuria: denies Frequency: every 2-3hrs Urgency: denies Nocturia: 2x per night Stream: denies Leaking: denies Post void dripping: denies Wearing pads/ Depends: denies Urge incontinence: denies Stress incontinence: denies Incontinence without Sensory Awareness: denies Abdominal pain: denies Flank pain: denies Sexual complaints: History of Present Illness Tests reviewed: reviewed UA, metabolic workup I have reviewed the previous health record [...] Exam Vitals & Measurements HR: 72(Peripheral) RR: 18 BP: 92/68 HT: 63 in HT: 160 cm WT: 60 kg WT: 132.277 lb BMI: 23.44 General Appearance: alert , no acute distress, well nourished, well developed female. Assessment/Plan 58 yo F with history of seizures, prior Dr. Villatoro pt here for follow up of kidney stones and review of metabolic workup BBS 5 (6). 1. Kidney stone (N20.0: Calculus of kidney) CT AP w/o Con 03/25/22 - 3-4 stones on the Lt side (2-3mm), 1-2 stone on the Rt side (punctate - 2mm), and punctate stones BL KUB 04/15/22 - BL punctate nephrolithiasis KUB 04/24/23 - multiple Lt stones increased from prior (No measurements provided. Several [...] analysis 06/14/23 - 95% Hydroxyapatite, 5% CaOx Reagan. 24hr urine 09/26/23 [facility] - Volume 2.75L. U24 Na 77 low-normal, U24 Citric Acid 91 low. Ca 288 mildly elevated. Serum labs 09/26/23 [facility] - Cl 108 high. [facility] 02/15/24 [facility] - Several BL renal stones, largest 3mm on R and two largest on L are 10mm and 8mm. Personal review: 3x7 mm on L and 3x9 mm on L. KUB 02/15/24 [facility] - neg but view is obstructed by dense bowel content. S/p Cysto, Left URS, stone extraction, Stent Placement on a String, Stone Analysis showed 100% CaOx Dihydrate [place] 06/12/24 - Several stones in the Rt kidney largest measuring 6mm, several benign-appearing cysts largest being 15mm, several nonobstructing stones on the left measuring 3mm (silvano's plaques) Repeat 24hr urine 08/23/24 - Volume 4250mL. U24 Citric acid improved to 884, U24 Ca improved to 251. Serum labs - wnl. Taking Potassium Citrate 15mEq BID. Reviewed metabolic workup results. Advised pt she can decrease fluid intake as well as dosage of potassium citrate given improvement in citric acid levels. Will continue to monitor stones with imaging. -CLEVELAND in 6 mos (recall placed) -Decrease potassium citrate 15mEq to qd. New rx sent. -Decrease fluids, goal 2.5 L UOP/day 2. Recurrent UTI (N39.0: Urinary tract infection, site not specified) Pt was treated at the ER for a UTI with Cipro and then saw Dr. Verde and was treated with Keflex for 10 days, finished these, was still having mild burning w urination and LLQ/L flank pain, UA showed trace BOBBI, was sent for uti-d, was negative. UA 04/26/23 - moderate leuks and trace-intact blood. Neg ucx. Prior UA showed small leuks, U.Cx was negative. UA today shows small leuks. Denies current UTI sxs. Shares she had an infection at the time of 24hr urine collection. Taking a cranberry supplement. Discussed D-mannose, cranberry, and probiotics to help decrease the number of urinary tract infections. Explained that D-mannose works by the bacteria clinging to the sugars vs. the bladder wall, cranberry making it harder for the bacteria to cling to the bladder wall, and probiotics which increases the number of good bacteria. Also discussed vaginal atrophy. I explained the lack of estrogen secondary to menopause causes changes in the vaginal epithelium that can predispose to lower urinary tract symptoms, vaginal discomfort, urge urinary incontinence, urgency, frequency, nocturia, dyspareunia, and recurrent urinary tract infections. This can be treated with topical application of estrogen to the vagina, which has been shown to reduce frequency of UTIs by up to 70%. She was reassured that there is minimal systemic absorption with application of vaginal estrogen cream and most of the benefits will be to the local tissues. --Perimenopausal. She declined estrace at this time, denies vaginal atrophy sx. -Cont cranberry pills -Consider d-mannose, probiotics, and estrogen cream in future. Educational pamphlets provided. Follow-up With When Contact Information Olayinka HINSON, Marycruz Dove, URL, [facility] [address], [place] [address] [phone] Additional Instructions: 6 mos w/ [facility] Patient Education Dietary Guidelines to Help Prevent Kidney Stones I, Nathalie Weaver, personally scribed for Dr. Bhagat on 09/11/2024 10:35:50. . Documentation recorded by the scribe, Nathalie Weaver, accurately reflects the services(s) I performed and decisions made by me. Authenticated by Dr. Bhagat on 09/11/2024 16:39:12. Problem List/Past Medical History Ongoing Adhesive capsulitis of shoulder (frozen shoulder) Asymptomatic microscopic hematuria Cervical radiculopathy Eczema Epilepsy History of cervical cancer Kidney stone Recurrent UTI Right flank pain Stress incontinence Trigeminal neuralgia UTI symptoms Historical No qualifying data Procedure/Surgical History Ureteroscopy (05/15/2024), Partial hysterectomy, Procedure on shoulder, Tonsillectomy and adenoidectomy. Medications biotin, See Instructions biotin 10,000 mcg oral capsule, 1 cap(s), Oral, Daily Black Cohosh, See Instructions calcium (as calcium citrate) 200 mg oral tablet, See Instructions calcium (as citrate)-vitamin D 315 mg-200 intl units oral tablet, 1 tab(s), Oral, Daily Claritin, See Instructions cranberry oral capsule, 1 cap, Oral, Daily levetiracetam 750 mg oral tablet, extended release, 750 mg= 1 tab(s), Oral, Daily loratadine 10 mg oral capsule, 1 tab(s), Oral, Daily multivitamin, 1 tab, Oral, Daily OXcarbazepine 300 mg oral tablet, extended release, 1.0, Oral, BID phenobarbital 32.4 mg oral tablet, 32.4 mg= 1 tab(s), Oral, Bedtime potassium citrate 15 mEq oral tablet, extended release, 15 mEq= 1 tab(s), Oral, BID, 11 refills Vitamin D3 62.5 mcg (2500 intl units) oral capsule, 62.5 mcg= 1 cap(s), Oral, Daily Allergies Latex (Hives) sulfa drugs (Hives) Social History Alcohol Never., 06/28/2024 Substance Abuse Never., 06/28/2024 Tobacco Never (less than 100 in lifetime) Tobacco Use:. Never Smokeless Tobacco Use:., 09/11/2024 Family History Primary malignant neoplasm of lung: Mother. Immunizations Vaccine Date Status Comments diphtheria/pertussis, acel/tetanus adult 03/29/2023 Recorded influenza virus vaccine, inactivated 03/29/2023 Recorded SARS-CoV-2 (COVID-19) mRNA-1273 vaccine 11/18/2020 Recorded 2022-12-07: TPV50 SARS-CoV-2 (COVID-19) Ad26 vaccine 11/13/2020 Recorded SARS-CoV-2 (COVID-19) mRNA-1273 vaccine 10/21/2020 Recorded 2022-12-07: TPV50 SARS-CoV-2 (COVID-19) Ad26 vaccine 10/16/2020 Recorded influenza virus vaccine, inactivated - Not Given Postpone due to refusal zoster vaccine, inactivated 10/01/2019 Recorded zoster vaccine, inactivated 07/28/2019 Recorded Lab Results Ambulatory Point of Care Results Bilirubin Urine Dipstick: Negative (09/11/24 09:27:00) Blood Urine Dipstick: Negative (09/11/24 09:27:00) Glucose Urine Dipstick: Negative (09/11/24 09:27:00) Ketones Urine Dipstick: Negative (09/11/24 09:27:00) Leukocytes Urine Dipstick: 1+ Small (09/11/24 09:27:00) Nitrite Urine Dipstick: Negative (09/11/24 09:27:00) Protein Urine Dipstick: Negative (09/11/24 09:27:00) Specific [place] Urine Dipstick: 1.015 (09/11/24 09:27:00) Urine Appearance Urine Dipstick: Clear (09/11/24 09:27:00) Urine Color Urine Dipstick: Light yellow (09/11/24 09:27:00) Urobilinogen Urine Dipstick: Normal 0.2-1 EU/dl (09/11/24 09:27:00) pH Urine Dipstick: 7.5 (09/11/24 09:27:00) [1] URO - PO Stone Procedure f/u w/[facility]; Marycruz Bhagat MD 07/03/2024 11:54 EST Result Comment: Electronical ly Signed By: Marycruz Bhagat MD\.br\Date and Time Signed: 09/11/24 16:39 EST\.br\Electronically Co-Signed By: Nathalie Weaver.br\Date and Time Co-Signed: 09/11/24 10:36 EST PATIENT EDUCATION Observed: 09/11/2024 10:31 AM Status: F Source: [facility] Patient Education Nephrology Dietary Guidelines to Help [...] ? 8 oz (237 mL) of milk, soaplys-pxjtnqcjcsnl-pumqp milk, and calcium- fortifiedfruit juice. Calcium-fortified means that calcium has been [...] Spinach (cooked), rhubarb, beets, sweet potatoes, and American chard. ? Peanuts. ? Potato chips, mongolian fries, and baked potatoes with skin on. ? Nuts and nut products. ? Chocolate. ??? If you regularly take a diuretic medicine, make sure to eat at least 1 or 2 servings of fruits or vegetables that are high in potassium each day. These include: ? Avocado. ? Banana. ? [place], prune, carrot, or tomato juice. ? Baked [...] fish oil, or vitamin B6. ??? Take jgfw-usr-moistfl and prescription medicines only as told by [...] Casseroles. Pizza. Lasagna. Frozen meals. Potato chips. Barbadian fries. The items listed above may not [...] Contact a dietitian for more information. Summary ??? Kidney stones are deposits of minerals and salts that form inside your kidneys. ??? You can lower your risk of kidney stones by making changes to your diet. ??? The most important thing you can do is drink enough fluid. Drink enough fluid to keep your urine pale yellow. ??? Talk to your dietitian about how much calcium you should have each day, and eat less salt and animal protein as told by your dietitian. This information is not intended to replace advice given to you by your health care provider. Make sure you discuss any questions you have with your health care provider. Document Revised: 10/27/2022 Document Reviewed: 10/27/2022 [employer] Patient Education ? 2023 [employer]. UROLOGY OFFICE/CLINIC NOTE Observed: 10/2023 11:54 AM Status: F Source: [facility] Urology Office/Clinic Note Chief Complaint 6 month follow up Follow up with [facility] HPI Staff F/u w/ [facility] after Cysto, [...] 24hr urine in July 2024. [facility] 06/12/24 [facility]. Dysuria: denies Incomplete bladder emptying: denies Hematuria: [...] analysis 06/14/23 - 95% Hydroxyapatite, 5% CaOx Reagan. 24hr urine 09/26/23 [facility] - Volume 2.75L. [...] understanding. -Will order Potassium levels to be done at the time of 24hr urine. -In 6 weeks, 24 hour urine @ [facility]. -Continue potassium citrate as above, refills sent. Will determine DC potassium citrate at that time pending 24 hr urine 2. UTI symptoms (R39.9: Unspecified symptoms and signs involving the genitourinary system) Pt was treated at the ER for a UTI with Cipro and then saw Dr. Verde and was treated with Keflex for 10 days, finished these, was still having mild burning w urination and LLQ/L flank pain, UA showed trace BOBBI, was sent for uti-d, was negative. UA 04/26/23 - moderate leuks and trace-intact blood. Neg ucx. Prior UA showed small leuks, U.Cx was negative. Taking a cranberry supplement and a probiotic. UA today shows large leuks (small leuks, was asx). Pt denies any recent UTI's. -Consider estrogen cream in future Follow-up With When Contact Information Olayinka HINSON, Marycruz Dove, URL, [facility] Additional Instructions: w/24 hour urine and Potassium Level Patient Education Dietary Guidelines to Help Prevent Kidney Stones I, Leana Emerson, personally scribed for Dr. Bhagat on 07/03/2024 11:54:30. . Documentation recorded by the scribe, Leana Emerson, accurately reflects the services(s) I performed and decisions made by me. Authenticated by Dr. Bhagat on 07/03/2024 12:36:29. Problem List/Past Medical History Ongoing Adhesive capsulitis of shoulder (frozen shoulder) Asymptomatic microscopic hematuria Cervical radiculopathy Eczema Epilepsy History of cervical cancer Kidney stone Right flank pain Stress incontinence Trigeminal neuralgia UTI symptoms Historical No qualifying data Procedure/Surgical History Ureteroscopy (05/15/2024), Partial hysterectomy, Procedure on shoulder, Tonsillectomy and adenoidectomy. Medications cranberry oral capsule, 1 cap, Oral, Daily levetiracetam 750 mg oral tablet, extended release, 750 mg= 1 tab(s), Oral, Daily multivitamin, 1 tab, Oral, Daily OXcarbazepine 300 mg oral tablet, extended release, 1.0, Oral, BID phenobarbital 32.4 mg oral tablet, 32.4 mg= 1 tab(s), Oral, Bedtime potassium citrate 15 mEq oral tablet, extended release, 15 mEq= 1 tab(s), Oral, BID, 11 refills Vitamin D3 62.5 mcg (2500 intl units) oral capsule, 62.5 mcg= 1 cap(s), Oral, Daily Allergies Latex (Hives) sulfa drugs (Hives) Social History Alcohol Never., 06/28/2024 Substance Abuse Never., 06/28/2024 Tobacco Never (less than 100 in lifetime) Tobacco Use:. Never Smokeless Tobacco Use:., 07/03/2024 Family History Primary malignant neoplasm of lung: Mother. Immunizations Vaccine Date Status Comments diphtheria/pertussis, acel/tetanus adult 03/29/2023 Recorded influenza virus vaccine, inactivated 03/29/2023 Recorded SARS-CoV-2 (COVID-19) mRNA-1273 vaccine 11/18/2020 Recorded 2022-12-07: TPV50 SARS-CoV-2 (COVID-19) Ad26 vaccine 11/13/2020 Recorded SARS-CoV-2 (COVID-19) mRNA-1273 vaccine 10/21/2020 Recorded 2022-12-07: TPV50 SARS-CoV-2 (COVID-19) Ad26 vaccine 10/16/2020 Recorded influenza virus vaccine, inactivated - Not Given Postpone due to refusal zoster vaccine, inactivated 10/01/2019 Recorded zoster vaccine, inactivated 07/28/2019 Recorded Lab Results Ambulatory Point of Care Results Bilirubin Urine Dipstick: Negative (07/03/24 11:07:00) Blood Urine Dipstick: Negative (07/03/24 11:07:00) Glucose Urine Dipstick: Negative (07/03/24 11:07:00) Ketones Urine Dipstick: Trace - 5 mg/dl (07/03/24 11:07:00) Leukocytes Urine Dipstick: 3+ Large (07/03/24 11:07:00) Nitrite Urine Dipstick: Negative (07/03/24 11:07:00) Protein Urine Dipstick: 1+ (30 mg/dl) (07/03/24 11:07:00) Specific [place] Urine Dipstick: 1.015 (07/03/24 11:07:00) Urine Appearance Urine Dipstick: Clear (07/03/24 11:07:00) Urine Color Urine Dipstick: Yellow (07/03/24 11:07:00) Urobilinogen Urine Dipstick: Normal 0.2-1 EU/dl (07/03/24 11:07:00) pH Urine Dipstick: 7.5 (07/03/24 11:07:00) Result Comment: Electronical ly Signed By: Marycruz Bhagat MD\.br\Date and Time Signed: 07/03/24 12:36 EST\.br\Electronically Co-Signed By: Leana Emerson\.br\Date and Time Co-Signed: 07/03/24 11:54 EST PATIENT EDUCATION Observed: 07/03/2024 11:52 AM Status: F Source: [facility] Patient Education Nephrology Dietary Guidelines to Help [...] ? 8 oz (237 mL) of milk, qskxthg-crroyvwuuvlg-jkfzo milk, and calcium- fortifiedfruit juice. Calcium-fortified means that calcium has been [...] Spinach (cooked), rhubarb, beets, sweet potatoes, and American chard. ? Peanuts. ? Potato chips, mongolian fries, and baked potatoes with skin on. ? Nuts and nut products. ? Chocolate. ??? If you regularly take a diuretic medicine, make sure to eat at least 1 or 2 servings of fruits or vegetables that are high in potassium each day. These include: ? Avocado. ? Banana. ? [place], prune, carrot, or tomato juice. ? Baked [...] fish oil, or vitamin B6. ??? Take entx-ldb-hcmirmf and prescription medicines only as told by [...] Casseroles. Pizza. Lasagna. Frozen meals. Potato chips. Barbadian fries. The items listed above may not [...] Contact a dietitian for more information. Summary ??? Kidney stones are deposits of minerals and salts that form inside your kidneys. ??? You can lower your risk of kidney stones by making changes to your diet. ??? The most important thing you can do is drink enough fluid. Drink enough fluid to keep your urine pale yellow. ??? Talk to your dietitian about how much calcium you should have each day, and eat less salt and animal protein as told by your dietitian. This information is not intended to replace advice given to you by your health care provider. Make sure you discuss any questions you have with your health care provider. Document Revised: 10/27/2022 Document Reviewed: 10/27/2022 [employer] Patient Education ? 2023 [employer]. CYTOLOGY REPORT Observed: 04/04/2024 12:00 AM Status: F Source: [facility] (NOTE) Path Number: [id number] DIAGNOSIS Imaged ThinPrep Pap - Vaginal (1 monolayer slide): Specimen Adequacy: Satisfactory for evaluation. Descriptive Diagnosis: Negative for intraepithelial lesion or malignancy. 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 Ambulatory Visit Summary DANTE JAMES :1965 Visit [...] URL, URO When: Where: [address] [place] [address]- [phone] Medications What How Much When Instructions New potassium citrate (potassium citrate 15 mEq oral tablet, extended release) 1 Tablets By Mouth 2 times a day Refills: 11 Pick[address] [facility]/pharmacy #[id number] Unchanged cholecalciferol (Vitamin D3 62.5 mcg (2500 [...] physician if questions or concerns Pharmacy Information [facility]/pharmacy #[id number]: [address] [place], [place] [phone] Allergies Latex (Hives) sulfa drugs (Hives) Problems [...] these instructions at home: Medicines ? Take suin-hky-nzrqyda and prescription medicines only as told by [...] provider. Document Revised: 03/21/2022 Document Reviewed: 03/21/2022 [employer] Patient Education ? 2022 [employer] UROLOGY OFFICE/CLINIC NOTE Observed: 9:51 AM Status: F Source: [facility] Urology Office/Clinic Note Chief Complaint 9 month [...] analysis 06/14/23 - 95% Hydroxyapatite, 5% CaOx Reagan. 24hr urine 09/26/23 [facility] - Volume 2.75L. [...] to fragment the stone, and inability to retrieve all stone fragments. The need for ancillary procedures such as stent placement and removal, retrograde urography, and percutaneous nephrostomy were also discussed. The patient also understood that a ureteral stent may be placed and removal of the stent is critical. Failure to follow up for stent removal can result in recurrent UTIs, encrustation of the stent, loss of kidney function and need for nephrectomy. All of their questions and concerns have been addressed. Full informed consent has been obtained. Will order General anesthesia. 2. Right flank pain (R10.9: Unspecified abdominal pain) Reports mild right flank pain. Discussed pain may is not likely related to stones as recent image results do not indicate that they are obstructing and are smaller on right than left. Has chronic mild back pain at baseline. 3. UTI symptoms (R39.9: Unspecified symptoms and signs involving the genitourinary system) Pt was treated at the ER for a UTI with Cipro and then saw Dr. Verde and was treated with Keflex for 10 days, finished these, was still having mild burning w urination and LLQ/L flank pain, UA showed trace BOBBI, was sent for uti-d, was negative. [2] UA 04/26/23 - moderate leuks and trace-intact blood. Neg ucx. Taking a cranberry supplement and a probiotic. UA today shows trace leuks (small leuks, was asx). Reports a mild back ache. Had some burning with urination a few times. Feels she is starting to go through menopause, has been having hot flashes for the past 5 years. Denies pain with intercourse. Educated pt on vaginal atrophy and presenting similar to UTI sxs. Discussed estrogen cream to help with urinary sxs. Pt declines treatment at this time. -Urine sample to be sent for culture. Will treat if positive. -Consider estrogen cream in future Follow-up With When Contact Information Marycruz Bhagat MD, URL, [facility] [address] [place] [phone] Additional Instructions: rupali Pugh [facility] Patient Education Kidney Stones, Comg-af-Uuvy I, Nathalie Weaver, personally scribed for Dr. Bhagat on 02/28/2024 09:51:33. . Documentation recorded by the scribe, Nathalie Weaver, accurately reflects the services(s) I performed and decisions made by me. Authenticated by Dr. Bhagat on 02/28/2024 11:28:38. Problem List/Past Medical History Ongoing Asymptomatic microscopic hematuria Cervical radiculopathy Eczema Epilepsy History of cervical cancer Kidney stone Stress incontinence Trigeminal neuralgia UTI symptoms Historical No qualifying data Procedure/Surgical History Partial hysterectomy, Procedure on shoulder, Tonsillectomy and adenoidectomy. Medications cranberry oral capsule, 1 cap, Oral, Daily levetiracetam 750 mg oral tablet, extended release, 750 mg= 1 tab(s), Oral, Daily multivitamin, 1 tab, Oral, Daily phenobarbital 32.4 mg oral tablet, 32.4 mg= 1 tab(s), Oral, Bedtime topiramate 100 mg Tab, 200 mg= 2 tab(s), Oral, BID Vitamin D3 62.5 mcg (2500 intl units) oral capsule, 62.5 mcg= 1 cap(s), Oral, Daily Allergies Latex (Hives) sulfa drugs (Hives) Social History Tobacco Never (less than 100 in lifetime) Tobacco Use:. Never Smokeless Tobacco Use:. Household tobacco concerns: No. Yes, 02/28/2024 Family History Primary malignant neoplasm of lung: Mother. Immunizations Vaccine Date Status Comments diphtheria/pertussis, acel/tetanus adult 03/29/2023 Recorded influenza virus vaccine, inactivated 03/29/2023 Recorded SARS-CoV-2 (COVID-19) mRNA-1273 vaccine 11/18/2020 Recorded 2022-12-07: TPV50 SARS-CoV-2 (COVID-19) Ad26 vaccine 11/13/2020 Recorded SARS-CoV-2 (COVID-19) mRNA-1273 vaccine 10/21/2020 Recorded 2022-12-07: TPV50 SARS-CoV-2 (COVID-19) Ad26 vaccine 10/16/2020 Recorded influenza virus vaccine, inactivated - Not Given Postpone due to refusal zoster vaccine, inactivated 10/01/2019 Recorded zoster vaccine, inactivated 07/28/2019 Recorded Lab Results Ambulatory Point of Care Results Bilirubin Urine Dipstick: Negative (02/28/24 09:05:00) Blood Urine Dipstick: Negative (02/28/24 09:05:00) Glucose Urine Dipstick: Negative (02/28/24 09:05:00) Ketones Urine Dipstick: Negative (02/28/24 09:05:00) Leukocytes Urine Dipstick: Trace (02/28/24 09:05:00) Nitrite Urine Dipstick: Negative (02/28/24 09:05:00) Protein Urine Dipstick: Negative (02/28/24 09:05:00) Specific [place] Urine Dipstick: 1.015 (02/28/24 09:05:00) Urine Appearance Urine Dipstick: Clear (02/28/24 09:05:00) Urine Color Urine Dipstick: Light yellow (02/28/24 09:05:00) Urobilinogen Urine Dipstick: Normal 0.2-1 EU/dl (02/28/24 09:05:00) pH Urine Dipstick: 5.5 (02/28/24 09:05:00) [1] URO - 8 wk f/u; Marycruz Bhagat MD 06/14/2023 08:28 EST [2] URO - 8 wk f/u; Marycruz Bhagat MD 06/14/2023 08:28 EST Result Comment: Electronical ly Signed By: Marycruz Bhagat MD\.br\Date and Time Signed: 02/28/24 11:28 EDT\.br\Electronically Co-Signed By: Nathalie Weaver\.br\Date and Time Co-Signed: 02/28/24 09:52 EDT PATIENT EDUCATION Observed: 02/28/2024 9:48 AM Status: F Source: [facility] Patient Education Urology Kidney Stones Kidney stones [...] these instructions at home: Medicines ? Take umwi-qfg-wfzbpgc and prescription medicines only as told by [...] provider. Document Revised: 03/21/2022 Document Reviewed: 03/21/2022 Elsevier Patient Education ? 2022 Elsevier Inc. C URINE Observed: 02/28/2024 9:48 AM Status: F Source: [facility] Microbiology PROCEDURE: Urine Culture [R1] SOURCE: U CleanCatch BODY SITE: COLLECTED DATE/TIME: 02/28/2024 09:48 EDT RECEIVED DATE/TIME: 02/28/2024 19:09 EDT START DATE/TIME: 02/28/2024 19:09 EDT FREE TEXT SOURCE: Olayinka HINSON, Marycruz Bhagat MD, Marycruz Dove FINAL REPORTS Final Report [] Verified Date/Time: 03/01/2024 09:50 EDT 300 cfu/ml Mixed skin contaminants Performing Locations R1: This test was performed at: [facility], [address] [place] [address], [address] , , Performed By: #### [id number] # ### [facility] Laboratory [address] [place] [address] C URINE Observed: 02/28/2024 9:48 AM Status: F Source: [facility] Microbiology PROCEDURE: Urine Culture [R1] SOURCE: U CleanCatch BODY SITE: COLLECTED DATE/TIME: 02/28/2024 09:48 EDT RECEIVED DATE/TIME: 02/28/2024 19:09 EDT START DATE/TIME: 02/28/2024 19:09 EDT FREE TEXT SOURCE: Olayinka HINSON, Marycruz Bhagat MD, Marycruz Dove FINAL REPORTS Final Report [] Verified Date/Time: 03/01/2024 09:50 EDT 300 cfu/ml Mixed skin contaminants Performing Locations R1: This test was performed at: [facility], [address] [place] [address], [address]- , , Performed By: #### [id number] # ### [facility] Laboratory [address] [place] [address] LAB REPORTS Observed: 09/26/2023 3:41 PM Status: F Source: [facility] [id number]#1.00TIFF LAB REPORTS Observed: 09/26/2023 3:41 PM Status: F Source: [facility] [id number]#1.00TIFF LAB REPORTS Observed: 09/26/2023 3:41 PM Status: F Source: [facility] [id number]#1.00TIFF ALLERGIES DATE TYPE / CODE NAME / CODE REACTION SEVERITY SOURCE [id number](SNOMED CT) Latex [id number] [facility] [id number](SNOMED CT) sulfa drugs [id number] [facility] ENCOUNTERS ADMIT/DISCHARGE ACCOUNT NUMBER ADMITTING ENCOUNTER CLASS LOCATION SOURCE 12/10/2024/12/11/19 [id number] Ambulatory Building:NO [place] NEURO [facility] 09/11/2024/09/11/19 [id number] Ambulatory [place]:EU [place] m: CD:[id number] [facility] 07/17/2024/07/17/20 24 [id number] Ambulatory Building: R NEURO [facility] 07/03/2024/07/03/20 24 [id number] Ambulatory [place]:EU Albert m: Exam 1 [facility] 05/15/2024/05/15/20 24 [id number] Ambulatory [place] [facility] 05/15/2024/05/15/20 24 [id number] Ambulatory CD:[id number] 97Building: CD:[id number] [facility] 04/25/2024/04/25/20 24 [id number] Ambulatory Building:BS R NEURO [facility] 04/04/2024/04/04/20 24 [id number] Ambulatory Building:[facility] 02/28/2024/02/28/20 24 [id number] Marycruz Bhagat. Ambulatory [facility]in g:FT LAB [facility] 02/28/2024/02/28/20 24 [id number] Ambulatory EU Brian[place]ui lding:EU Albert m: Exam 2 [facility] 08/31/2020 [id number] Ambulatory EU [place]:EU [place] [facility] PAYERS ENCOUNTER GUARANTOR PAYER SUBSCRIBER SOURCE 12/10/2024 DANTE [place]CKENNAOB: [place] [address]Syu: (HP) Primary Insurance:MEDICAL MUTUALPolicy Number: [id number] e Date:2023-03-31 RACHELL MCKENNAOB: [id number] [address] [facility] EPIC 09/11/2024 DANTE MCKENNAOB: [place] STTel: ~~(4 1 (HP) Primary Insurance:MEDICAL MUTUALPolicy Number: [id number] e Date:0718-74-59QZ [address] [address]MCXP, [place] [address]UV: RAC[facility]LL JAMES [facility] 07/17/2024 DANTE [place]CKENNAOB: [place] [address]Ffa: (HP) Primary Insurance:MEDICAL MUTUALPolicy Number: [id number] e Date:2023-03-31 RACHELL MCKENNAOB: [id number] [address] [facility] EPIC 07/03/2024 DANTE MCKENNAOB: [facility] STTel: ~~(4 1 (HP) Primary Insurance:MEDICAL MUTUALPolicy Number: [id number] e Date:2595-56-84TT [address] [address]FG, [place] [address]TR: RACHELL JAMES SR.[facility] 05/15/2024 DANTE Dykes CLARISAOB: [place] STTel: ~~(4 1 (HP) Primary Insurance:MEDICAL MUTUALPolicy Number: [id number] e Date:8236-44-76NW [address] [place] [address]DA: RACHELL JAMES SR.[facility] 05/15/2024 DANTE Dykes CLARISAOB: W [facility] ~~(4 1 (HP) Primary Insurance:MEDICAL MUTUALPolicy Number: [id number] e Date:9378-88-11ZM [address] [place] [address]HT: RACHELL JAMES SR.[facility] 04/25/2024 DANTE Dykes CLARISAOB: [place] [address]Glf: (HP) Primary Insurance:MEDICAL MUTUALPolicy Number: [id number] e Date:2023-03-31 RACHELL CLARISAOB: [id number] [place] [address] [facility] 04/04/2024 DANTE Dykes CLARISAOB: [place], [place] [address]Qfm: (HP) Primary Insurance:MEDICAL MUTUALPolicy Number: [id number] e Date:7783-33-57FG [address] [place] [address]EK: RACHELL ROGERSRDOB: [id number] [place], [place] [address]Bdv: (HP) [facility] 02/28/2024 DANTE Dykes CHEN: W SCAR Te: ~~(4 1 (HP) Primary Insurance:MEDICAL MUTUALPolicy Number: [id number] e Date:6698-56-23OJ [address] [address]FMMEEY, [place] [address]GT: RACHELL JAMES SR.[facility] 02/28/2024 DANTE Dykes CHEN: W SCAR [facility]: ~~(4 1 (HP) Primary Insurance:MEDICAL MUTUALPolicy Number: [id number] e Date:8918-59-75CL [address] [address]BMJHHRAKP, [place] [address]WH: RACHELL JAMES SR.[facility]
[2024-12-21 10:28] LABS: Free T3 2.87 pg/mL (2.18-3.98); Thyroid Stimulating Hormone 1.895 uIU/mL (0.358-3.740)
== END 2024-12-21 08:20 | disposition home or self-care (01) ==
PROVIDERS: PCP Family Medicine; Visit Provider Family Medicine
DX: R94.6 Abnormal results of thyroid function studies (principal)
CPT/HCPCS: 36415; 84436; 84443; 84481

== ENCOUNTER 2024-12-21 08:24 | Outpatient (OUT) | payer OTHER, SELFPAY ==
--- OUTSIDE RECORDS SUMMARY | 2024-12-09 17:08 | XMS_ITS ---
Author Organization [facility] in [place] Address [address] [place] [address] Care Team Providers Care Global Marketing Specialist Name Role Phone Mehreen Jose Eduardo Primary Care Provider [phone] REASON FOR VISIT Dexa results Medications Medication SIG (Take, Route, Frequency, Duration) Notes Start Date End Date Status Citracal Maximum 315-6.25 MG-MCG 1 tablet with a meal Orally Once a day for 30 day(s) 12/10/2024 Active Vitamin D (Cholecalciferol) 50 MCG (2000 UT) 1 capsule Orally Once a day 12/10/2024 Active Problems Problem Type SNOMED Code ICD Code Onset Dates Problem Status W/U Status Risk Notes Problem Osteopenia (688392834) Osteopenia (M85.80) Active confirmed Encounters Encounter Location Date Provider Diagnosis [facility] [address] [place] [address] 12/09/2024 Jose Eduardo Verde Plan Of Treatment Medication Medication Name Sig Start Date Stop Date Notes Citracal Maximum 315-6.25 MG-MCG 1 tablet with a meal Orally Once a day for 30 day(s) 12/10/2024 Vitamin D (Cholecalciferol) 50 MCG (2000 UT) 1 capsule Orally Once a day 12/10/2024 Progress Notes * Lou JAMES MDOB:1965 (59 yo F)Acc No.[id number]:12/09/2024 Patient: Lou HAWKINS :1965 A ge:59 Y S ex:Female Address:[address] [place] [id number] * Refills Start Citracal Maximum Tablet, 315-6.25 MG-MCG, Orally, 30, 1 tablet with a meal, Once a day, 30 day(s) Start Vitamin D (Cholecalciferol) Capsule, 50 MCG (1999 UT), Orally, 1 capsule, Once a day * true * Date: Generated for Pablo aguilar/Tyler/Damienitting on: 0 12/21/2024 08:28 AM EDT
--- OUTSIDE RECORDS SUMMARY | 2024-12-10 16:26 | XMS_ITS ---
Author Name Auto Generated Organization [place] Care Team Providers Care Money Order Clerk Name Role Phone VITO VILLASEÑOR Attending Unavailable SERGIO RIVERA Attending Unavailable SERGIO RIVERA Attending Unavailable Marycruz Bhagat Attending Unavailable Marycruz Bhagat Attending Unavailable Marycruz Bhagat Attending Unavailable Marycruz Bhagat Attending Unavailable Marycruz Bhagat MTata Admitting Unavailable Marycruz Bahgat Attending Unavailable Marycruz Bhagat Attending Unavailable TWILA VERDE Primary Care Unavailable KYUNG PACK Referring Unavailable PROBLEMS DATE TYPE CONDITION / CODE ATTENDING STATUS BEATRICE E 04/04/2024 Unknown Encounter for gy necological examination (general) (routine) without abnormal findings / Z01.419(ICD-10) NA [facility] PROCEDURES No Procedure Records Found RESULTS REMINDERS Observed: 09/11/2024 10:37 AM Status: F Source: [facility] Reminders From: Nathalie Weaver To: CHEN - Elizabethleigh Bhagat; Sent: 09/11/2024 10:37:39 EST Show up: 02/08/2025 11:37:00 EDT Subject: [facility] Due Date/Time: 03/11/2025 11:37:00 EDT Reminder Message Pt needs to complete [facility] prior to f/u in 6 months to monitor kidney stones. Order in 09/11/24 encounter. UROLOGY OFFICE/CLINIC NOTE Observed: 06/2025 10:34 AM Status: F Source: [facility] Urology Office/Clinic Note Chief Complaint 2mo f/u [...] analysis 06/14/23 - 95% Hydroxyapatite, 5% CaOx [place]. 24hr urine 09/26/23 [facility] - Volume 2.75L. [...] Information Olayinka HINSON, Marycruz Dove, URL, URO [address], [place] [phone] Additional Instructions: 6 mos w/ [place] Patient [...] Protein Urine Dipstick: Negative (09/11/24 09:27:00) Specific [place] Urine Dipstick: 1.015 (09/11/24 09:27:00) Urine Appearance [...] Observed: 09/11/2024 10:31 AM Status: F Source: [facility] Patient Education Nephrology Dietary Guidelines to Help [...] ? 8 oz (237 mL) of milk, ktxwlut-lfbjinjbyulc-hyigd milk, and calcium- fortifiedfruit juice. Calcium-fortified means [...] Spinach (cooked), rhubarb, beets, sweet potatoes, and Belgian chard. ? Peanuts. ? Potato chips, polish fries, and baked potatoes with skin on. ? Nuts and nut products. ? Chocolate. ??? If you regularly take a diuretic medicine, make sure to eat at least 1 or 2 servings of fruits or vegetables that are high in potassium each day. These include: ? Avocado. ? Banana. ? Morenci, prune, carrot, or tomato juice. ? Baked [...] fish oil, or vitamin B6. ??? Take iqik-otp-fsofyvq and prescription medicines only as told by [...] Frozen meals. Potato chips. Cook Islander fries. The items listed above may not [...] provider. Document Revised: 10/27/2022 Document Reviewed: 10/27/2022 [employer] Patient Education ? 2023 Scint-X. UROLOGY OFFICE/CLINIC NOTE Observed: 10/2023 11:54 AM Status: F Source: [facility] Urology Office/Clinic Note Chief Complaint 6 month [...] 24hr urine in July 2024. [place] 06/12/24 [facility]. Dysuria: denies Incomplete bladder emptying: denies Hematuria: [...] analysis 06/14/23 - 95% Hydroxyapatite, 5% CaOx [place]. 24hr urine 09/26/23 [facility] - Volume 2.75L. [...] Dipstick: 1+ (30 mg/dl) (07/03/24 11:07:00) Specific [place] Urine Dipstick: 1.015 (07/03/24 11:07:00) Urine Appearance [...] Observed: 07/03/2024 11:52 AM Status: F Source: [facility] Patient Education Nephrology Dietary Guidelines to Help [...] ? 8 oz (237 mL) of milk, whosdls-fvawydvvohzg-zxkoo milk, and calcium- fortifiedfruit juice. Calcium-fortified means [...] Spinach (cooked), rhubarb, beets, sweet potatoes, and Belgian chard. ? Peanuts. ? Potato chips, polish fries, and baked potatoes with skin on. ? Nuts and nut products. ? Chocolate. ??? If you regularly take a diuretic medicine, make sure to eat at least 1 or 2 servings of fruits or vegetables that are high in potassium each day. These include: ? Avocado. ? Banana. ? Morenci, prune, carrot, or tomato juice. ? Baked [...] fish oil, or vitamin B6. ??? Take iwyd-tuy-dbkbdxc and prescription medicines only as told by [...] Frozen meals. Potato chips. Cook Islander fries. The items listed above may not [...] provider. Document Revised: 10/27/2022 Document Reviewed: 10/27/2022 [employer] Patient Education ? 2023 Scint-X. CYTOLOGY REPORT Observed: 04/04/2024 12:00 AM Status: F Source: [facility] (NOTE) Path Number: [id number] DIAGNOSIS Imaged ThinPrep Pap - Vaginal (1 monolayer slide): Specimen Adequacy: Satisfactory for evaluation. Descriptive Diagnosis: Negative for intraepithelial lesion or malignancy. Comments: Specimen was screened at [facility], [address] [place] [address] Cytotech Screener: Rescreened By: PT Electronically Signed Out Joann Mcgill pt/04/16/2024 Source of Specimen: A: Imaged ThinPrep Pap - Vaginal (1 monolayer slide) HPV Reflex?......................HPV if Abnormal Clinical History Z01.419 Routine manager product support exam without abnormal findings Processing Lab: [address] [address] [place] [address] This Pap Test has been evaluated with [...] GYNECOLOGIC CYTOLOGY REPORT Patient Name: DANTE JAMES [facility] Rec: [id number] [employer] [facility] [address] [place] [address] AMBULATORY VISIT SUMMARY Observed: 02/27 10:23 AM Status: F Source: [facility] Ambulatory Visit Summary DANTE JAMES :1965 Visit [...] URL, URO When: Where: [address] [place] [address]- [phone] Medications What How Much When Instructions New potassium citrate (potassium citrate 15 mEq oral tablet, extended release) 1 Tablets By Mouth 2 times a day Refills: 11 Pickup at [facility]/pharmacy #[id number] Unchanged cholecalciferol (Vitamin D3 62.5 mcg (2500 [...] physician if questions or concerns Pharmacy Information [facility]/pharmacy #[id number]: [address], [place] [phone] Allergies Latex (Hives) sulfa drugs (Hives) Problems [...] these instructions at home: Medicines ? Take lebr-ajt-axfxxra and prescription medicines only as told by [...] provider. Document Revised: 03/21/2022 Document Reviewed: 03/21/2022 [employer] Patient Education ? 2022 [employer] UROLOGY OFFICE/CLINIC NOTE Observed: 9:51 AM Status: F Source: [facility] Urology Office/Clinic Note Chief Complaint 9 month [...] analysis 06/14/23 - 95% Hydroxyapatite, 5% CaOx [place]. 24hr urine 09/26/23 [facility] - Volume 2.75L. [...] Contact Information Marycruz Bhagat MD, URL, URO [address] [place] [phone] Additional Instructions: rupali Pugh URS Patient Education Kidney Stones, Ygxv-ly-Phjs I, Nathalie Weaver, personally scribed for Dr. [...] Protein Urine Dipstick: Negative (02/28/24 09:05:00) Specific [place] Urine Dipstick: 1.015 (02/28/24 09:05:00) Urine Appearance [...] Observed: 02/28/2024 9:48 AM Status: F Source: [facility] Patient Education Urology Kidney Stones Kidney stones [...] these instructions at home: Medicines ? Take mesj-uqa-lrjzkjz and prescription medicines only as told by [...] Observed: 02/28/2024 9:48 AM Status: F Source: [facility] Microbiology PROCEDURE: Urine Culture [R1] SOURCE: U CleanCatch BODY SITE: COLLECTED DATE/TIME: 02/28/2024 09:48 EDT RECEIVED DATE/TIME: 02/28/2024 19:09 EDT START DATE/TIME: 02/28/2024 19:09 EDT FREE TEXT SOURCE: Olayinka HINSON, Marycruz Bhagat MD, Marycruz Dove FINAL REPORTS Final Report [] Verified Date/Time: 03/01/2024 09:50 EDT 300 cfu/ml Mixed skin contaminants Performing Locations R1: This test was performed at: [facility], [address] [place] [address], [address] , , Performed By: #### [id number] # ### [facility] Laboratory [address] [place] [address] C URINE Observed: 02/28/2024 9:48 AM Status: F Source: [facility] Microbiology PROCEDURE: Urine Culture [R1] SOURCE: U CleanCatch BODY SITE: COLLECTED DATE/TIME: 02/28/2024 09:48 EDT RECEIVED DATE/TIME: 02/28/2024 19:09 EDT START DATE/TIME: 02/28/2024 19:09 EDT FREE TEXT SOURCE: Olayinka HINSON, Marycruz Bhagat MD, Marycruz Dove FINAL REPORTS Final Report [] Verified Date/Time: 03/01/2024 09:50 EDT 300 cfu/ml Mixed skin contaminants Performing Locations R1: This test was performed at: [facility], [address] [place] [address], [address]- , , Performed By: #### [id number] # ### [facility] Laboratory [address] [place] [address] LAB REPORTS Observed: 09/26/2023 3:41 PM Status: F Source: [facility] [id number]#1.00TIFF LAB REPORTS Observed: 09/26/2023 3:41 PM Status: F Source: [facility] [id number]#1.00TIFF LAB REPORTS Observed: 09/26/2023 3:41 PM Status: F Source: [facility] [id number]#1.00TIFF ALLERGIES DATE TYPE / CODE NAME / CODE REACTION SEVERITY SOURCE [id number](SNOMED CT) Latex [id number] [facility] PENNY046503651(SNOMED CT) sulfa drugs [id number] [facility] ENCOUNTERS ADMIT/DISCHARGE ACCOUNT NUMBER ADMITTING ENCOUNTER CLASS LOCATION SOURCE 12/10/2024/12/11/19 [id number] Ambulatory Building:NO [place] NEURO [facility] 09/11/2024/09/11/19 [id number] Ambulatory [place]:EU [place] m: CD:[id number] [facility] 07/17/2024/07/17/20 24 [id number] Ambulatory Building: R NEURO [facility] 07/03/2024/07/03/20 24 [id number] Ambulatory EU [place]:EU [place] m: Exam 1 [facility] 05/15/2024/05/15/20 24 [id number] Ambulatory [place] [facility] 05/15/2024/05/15/20 24 [id number] Ambulatory CD:[id number] 97Building: CD:[id number] [facility] 04/25/2024/04/25/20 24 [id number] Ambulatory Building:BS R NEURO [facility] 04/04/2024/04/04/20 24 [id number] Ambulatory Building:[facility] 02/28/2024/02/28/20 24 [id number] Marycruz Bhagat. Ambulatory FTMCBuildin g:FT LAB [facility] 02/28/2024/02/28/20 24 [id number] Ambulatory EU BrianBui lding:EU Albert m: Exam 2 [facility] 08/31/2020 [id number] Ambulatory EU [place] [facility] PAYERS ENCOUNTER GUARANTOR PAYER SUBSCRIBER SOURCE 12/10/2024 DANTE MCKENNAOB: [place] [address]Sup: (HP) Primary Insurance:MEDICAL MUTUALPolicy Number: [id number] e Date:2023-03-31 RACHELL MCKENNAOB: [id number] [address] [facility] EPIC 09/11/2024 DANTE MCKENNAOB: [place] STTel: ~~(4 1 (HP) Primary Insurance:MEDICAL MUTUALPolicy Number: [id number] e Date:4720-54-70OA [address] [address], [place] [address]HG: RACHELL JAMES [facility]UN[facility] 07/17/2024 DANTE MCKENNAOB: [place] [address]Cfa: (HP) Primary Insurance:MEDICAL MUTUALPolicy Number: [id number] e Date:2023-03-31 RACHELL MCKENNAOB: [id number] [address] [facility] EPIC 07/03/2024 DANTE MCKENNAOB: [facility] STTel: ~~(4 1 (HP) Primary Insurance:MEDICAL MUTUALPolicy Number: [id number] e Date:0371-84-38ZK [address] [address]NY[place], [place] [address]XP: RACHELL JAMES SR.[facility] 05/15/2024 DANTE Dykes CLARISAOB: W SCAR STTel: ~~(4 1 (HP) Primary Insurance:MEDICAL MUTUALPolicy Number: [id number] e Date:8906-28-67QZ [address] [place] [address]BF: RACHELL JAMES SR.[facility] 05/15/2024 DANTE Dykes CLARISAOB: [facility] ~~(4 1 (HP) Primary Insurance:MEDICAL MUTUALPolicy Number: [id number] e Date:3358-78-82FZ [address] [place] [address]IU: RACHELL JAMES SR.[facility] 04/25/2024 DANTE Dykes CLARISAOB: [place] [address]Jfh: (HP) Primary Insurance:MEDICAL MUTUALPolicy Number: [id number] e Date:2023-03-31 RACHELL CLARISAOB: [id number] [place] [address] [facility] 04/04/2024 DANTE Dykes CLARISAOB: [place], [place] [address]Jut: (HP) Primary Insurance:MEDICAL MUTUALPolicy Number: [id number] e Date:9620-15-58SH [address] [place] [address]EN: RACHELL ROGERSRDOB: 1028-20-14PMY717 [place], [place] [address]Zzc: (HP) [facility] 02/28/2024 DANTE Dykes CHEN: W SCAR Te: ~~(4 1 (HP) Primary Insurance:MEDICAL MUTUALPolicy Number: [id number] e Date:8890-16-32ID [address] [address], [place] [address]ZT: RACHELL JAMES SR.[facility] 02/28/2024 DANTE Dykes CHEN: W SCAR [facility]: ~~(4 1 (HP) Primary Insurance:MEDICAL MUTUALPolicy Number: [id number] e Date:1229-11-00SO [address] [address], [place] [address]MZ: RACHELL JAMES SR.[facility]
--- OUTSIDE RECORDS SUMMARY | 2024-12-10 16:30 | XMS_ITS | Encounter Summary ---
Author Organization [facility] Address [address] [place] [address] Care Team Providers Care Network Firewall Engineer Name Role Phone Duke Verde MD Primary Care Provider [phone] Li Dorantes DO Unavailable [phone] Reason for Visit * Reason Comments Seizures Encounter Details Date Type Department Care Team (Late st Contact Info) Description 12/10/2024 4:30 PM EDT Office Visit [facility] [address] [facility] [address] [place] [id number] Lobo Hess MD [address] [facility] [address] [place] [address] Generalized epilepsy (CMS/HCC) (Primary Dx); Seizure disorder (CMS/HCC) Social History Tobacco Use Types Packs/Day Years Used Date Smoking Tobacco: Never Smokeless Tobacco: Never Comments:I lived with parent s that smoked Alcohol Use Standard Drinks/Week Comments Not Currently 0 (1 standard drink = 0.6 oz pur e alcohol) AUDIT-C Answer Date Recorded Q1: How often do you have a drink containing alc ohol? Monthly or less 12/08/2023 Q2: How many drinks containi ng alcohol do you have on a typical day when you are drinking? 1 or 2 12/08/2023 Q3: How often do you have si x or more drinks on one occasion? Never 12/08/2023 Comments Unknown Sex and Gender Information Value Date Recorded Sex Assigned at Female 12/04/2023 12:59 PM EDT Legal Sex Female 7:16 PM EDT Gender Identity Female 12/04/2023 12:59 PM EDT Sexual Orientation Not on file documented as of this encounter Last Filed Vital Signs Vital Sign Reading Time Taken Comments Blood Pressure 150/80 12/10/2024 4:47 PM EDT Pulse - - Temperature - - Respiratory Rate - - Oxygen Saturation - - Inhaled Oxygen Concentration - - Weight 62.6 kg (138 lb) 12/10/2024 4:47 PM EDT Height 160 cm (5' 3 ) 12/10/2024 4:47 PM EDT Body Mass Index 24.45 12/10/2024 4:47 PM EDT documented in this encounter Progress Notes * Chasity Nguyen NP - 12/10/2024 4:30 PM EDTAssociated Problem(s): Generalized epilepsy (CMS/HCC) May continue to drive Check OXC and PB levels Check CMP Consider weaning PB Get copies from [facility] of EEG and imaging Request brain MRI from [facility] (?) * Chasity Nguyen NP - 12/10/2024 4:30 PM EDT Images from the original note were not included. Outpatient Progress Note Patient: Lou Leos Dept: Neurology : 1965 Appt Date: 12/10/2024 Prev Appt: Visit date not found Chief Complaint Patient presents with Seizures Appointment Note -- Seizures Assessment and Plan - Assessment & Plan Generalized epilepsy (CMS/HCC) May continue to drive Check OXC and PB levels Check CMP Consider weaning PB Get copies from [facility] of EEG and imaging Request brain MRI from [facility] (?) No orders of the defined types were placed in this encounter. Follow-Up - Follow up in about 6 months (around 06/12/2025), or with [facility]. History of Present Illness, Associated Treatments and Results - Dx SEIZURES Tx LEV ER 750 HS + OXC 300 BID + PB 32.4 HS AEs Hx Last seizure was 04/20/2017. Failed prior wean in Failed TPM (nephro) Phenytoin (just converting to new meds) Onset - No obvious nidus Semeiology GTC - LOC, tonic clonic movement, tongue trauma, incontinence of urine X 1. Gets an offsensation for a few minutes prior to seizure. Last aura was 2016. Left hand possibly twitches first. Started OXC in 05/2024 after stopping TPM. Aetiology None known Trigger Alcohol, sleep deprivation, stress Preg Last one 1989 EEG Amb EEG VEEG ALO MR PET SPECT Imaging Testing 11/23/2024 CMP normal 11/08/2022 phenobarbital level 6, 2020 was 5 2017 Keppra level 8.2 Surgery Born - at term , labor and delivery - normal Congenital anomalies - absent complications - absent Meningitis/encephalitis - absent Head trauma - single concussion without LoC Structural lesions - absent Febrile seizures - none FHx epilepsy - absent FHx febrile sz - absent Dx TGN/PN Tx Biotin 10 daily AEs Hx Onset Semeiology Numbness/tingling in toes Left facial tingling Imaging Testing 10/2025 Free T3 2.5, T4 3.9, TSH 1.9, vitamin-D 60.1, A1c 5.3 Surgery Failed Physical Exam - General appearance, mentation, extraocular movements, facial strength and movement, hearing, upper and lower extremity strength and tone, sensation to gross testing, coordination, and gait are normalor at baseline unless noted below. HEENT - ___, unchanged: ___, orig: ___ MS - ___, unchanged: ___, orig: ___ CNN - ___, unchanged: ___, orig: ___ Motor - ___, unchanged: ___, orig: ___ Sens - ___, unchanged: __Dec Vib in great toe bilaterally. Dec temp in lateral left calf orig: ___ Reflex - ___, unchanged: ___, orig: ___ Coord - ___, unchanged: ___, orig: ___ Gait - ___, unchanged: ___, orig: ___ Vestib - ___, unchanged: ___, orig: ___ MSK - ___, unchanged: ___, orig: ___ Other - ___, unchanged: ___, orig: ___ GENERAL EXAMINATION Appearance: in no acute distress, well developed, well nourished. Head: normocephalic, atraumatic. Eyes: pupils equal, round, reactive to light and accommodation. Ears: normal. Mouth: mucosa moist. Throat: clear. Neck: neck supple, full range of motion, no cervical lymphadenopathy. Skin: no suspicious lesions, warm and dry. Heart: no murmurs, regular rate and rhythm, S1, S2 normal. Lungs: clear to auscultation bilaterally. Abdomen: normal, bowel sounds present, soft, nontender, nondistended. Extremities: no clubbing, cyanosis, or edema. NEUROLOGICAL EXAMINATION Mental Status: The patient is alert and oriented to person, place, and time. Except as noted, thought content, form, and comprehension was normal. Phonation, articulation, resonance, and prosody are normal. Cranial Nerves: Pupils were 4.0 millimeters, equal, round, and reactive to light and accommodation,both directly and consensually. Visual lacey were full by confrontation. There was no ptosis; extra-ocular movements were full; and there was no nystagmus. Funduscopic exam is normal. Masseters are of normal strength. Facial movement is normal. Hearing is grossly intact. There is no dysarthria. The gag reflex is equal bilaterally. Sternocleidomastoids and trapezii are of normal strength. The tongue protrudes in the midline. Motor: Muscle testing was performed in all four extremities, including at least artificial breeding distributor, finger abductors, biceps, triceps, deltoid, toe flexors and extensors, tibialis anterior, triceps surae, quadriceps femoris, biceps femoris, and iliopsoases. Tone is normal. Muscle bulk is normal. Fasciculations are not seen . Pronator drift was not evident. Sensory: Sensation to touch, temperature, and vibration was normal in the arms, legs and face. Romberg is negative. Reflexes: Biceps, triceps, brachioradialis are 2/4 bilaterally. Patellar and Achilles reflexes are 2/4 bilaterally. Plantar responses were flexor bilaterally. Coordination: Dysmetria and dysdiadochokinesia are absent. Tremor is absent; dystonia is absent; chorea is absent. Gait And Station: Station and gait are normal. Apraxia and spasticity are not evident. Arm swing isnormal. Toe, heel, and tandem walking are performed without difficulty. Musculoskeletal: Trigger-point tenderness was absent. There is no spasm of the trapezii or paraspinals. Vital Signs - Visit Vitals BP 150/80 (BP Location: Right arm, Patient Position: Sitting) Ht 5' 3 Wt 138 lb BMI 24.45 kg/m?? Smoking Status Never BSA 1.67 m?? Review of Systems - . Const: Denies appetite change, fever, chills. Allergy: Denies medication reaction. Ocular: Denies visual acuity change. ENT: Denies hearing change. Endoc: Denies weight loss. Resp: Denies dyspnoea, wheezing. Cardiac: Denies angina, palpitations. GI: Denies nausea, vomiting. Haem: Denies bleeding. : Denies incontinence. MSK: Denies arthralgias, joint oedema. Derm: Denies rash, hair loss. Neuro: Denies ataxia, tremor. Also see HPI for elements of ROS documented therein and for details of positive findings, which shall supersede the foregoing. PMH, PSH, Allergies, FH, SH - Past Medical History: Diagnosis Date Cancer ([facility]) 05/19/1996 cervical Cervicalgia 06/09/2016 Disease of the oral soft tissues 03/30/2009 Disturbance of skin sensation 06/09/2016 Encounter for long-term (current) drug use 02/15/2017 Generalized epilepsy ([facility]) 06/11/2019 Headache 11/25/2015 Headache, tension-type Osteopenia Seizure disorder ([facility]) 02/18/2008 Tingling 06/11/2019 Past Surgical History: Procedure Laterality Date COLONOSCOPY 04/2015 PARTIAL HYSTERECTOMY ROTATOR CUFF REPAIR Left TONSILLECTOMY and adenoidectomy Allergies Allergen Reactions Latex Other Reaction(s): hives, itching Sulfacetamide Sulfa Antibiotics Hives Other Reaction(s): hives, itching Family History Problem Relation Name Age of Onset Dementia Mother Hannah Alvarez Lung cancer Mother Hannah Alvarez Other (daibetes) Father Blake Jojo Hyperlipidemia Father Blake Jojo Hypotension Father Blake Jojo Parkinsonism Father Blake Jojo No Known Problems Brother Cancer Maternal Grandmother Nahomy Tranoner Neuropathy Maternal Grandmother Nahomy Tranoneisidoro Heart disease Maternal Grandfather Dementia Other Outpatient Encounter Medications as of 12/10/2024 Medication Sig Dispense Refill biotin 10 MG capsule Take 10 mg by mouth Daily Black Cohosh 20 MG tablet Take 100 mg by mouth calcium citrate 315 mg + D2 6.25 mcg (Citracal Maximum) tablet 1 (one) time each day at the same time cholecalciferol (Vitamin D-3) 50 MCG (2000 UT) capsule 1 capsule 1 (one) time each day at the same time Cranberry 50 MG chewable tablet Chew 50 mg Daily fluticasone (Flonase) 50 MCG/ACT nasal spray Administer 1 spray into each nostril Daily Shake gently. Before first use, prime pump. After use, clean tip and replace cap. levETIRAcetam XR (Keppra XR) 750 mg tablet sustained-release 24 hour 24 hr tablet Take 1 tablet (750 mg) by mouth at bedtime 90 tablet 1 loratadine (Claritin) 10 MG tablet Take 10 mg by mouth Daily OXcarbazepine (Trileptal) 300 MG tablet Take 1 tablet (300 mg) by mouth in the morning and 1 tablet(300 mg) before bedtime. 180 tablet 1 PHENobarbital (Luminal) 32.4 MG tablet Fill when due Take one tab at bedtime 90 tablet 0 potassium & sodium citrate-citric acid (Tricitrates) 550-500-334 MG/5ML solution Take by mouth 4 (four) times a day with meals potassium citrate CR (Urocit-K-15) 15 mEq ER tablet Take 15 mEq by mouth in the morning and 15 mEq before bedtime. Tqyjinqs-Has-Cm-FA (/Iron) tablet Take 1 tablet by mouth Daily valACYclovir (Valtrex) 1 g tablet Take 1,000 mg by mouth 3 (three) times a day as needed No facility-administered encounter medications on file as of 12/10/2024. Lobo Hess M.D. [facility] ? [address] ? [place], [place] [address] ? ? fax Neurology ? Clinical Neurophysiology ? Epilepsy ? Sleep Disorders ? Clinical Informatics documented in this encounter Plan of Treatment Upcoming Encounters Date Type Department Care Team (Late st Contact Info) Description 06/10/2025 9:30 AM EST Office Visit [facility] [address] [facility] [address] [place] [address] Chasity Nguyen, DANA [address], [facility] [address] [place] [address] documented as of this encounter Visit Diagnoses Diagnosis Generalized epilepsy (CMS/HCC)- Primary Unspecified epilepsy without mention of intractable epilepsy Seizure disorder (CMS/HCC) Unspecified epilepsy without mention of intractable epilepsy documented in this encounter Care Teams Network Firewall Engineer Relationship Specialty Start Date End Date Duke Verde MD PCP - General Family Medicine 12/11/23 Li Dorantes DO [address] [place] [address] Referring Physician Neurology 07/17/24 documented as of this encounter
--- OUTSIDE RECORDS SUMMARY | 2024-12-11 07:30 | XMS_ITS ---
Author Organization [facility] [place] Address [address] [place] [address] Care Team Providers Care Installment Loan Collector Name Role Phone Jose Eduardo Verde Primary Care Provider [phone] Allergies Allergen (clinical drug ingredient) Drug/Non Drug Allergy documented on EMR Reaction Allergy Type Onset Date Status Latex Latex rash Allergy Active Substance with sulfonamide structure and antibacterial mechanism of action (substance) Sulfa Antibiotics Unknown Drug Allergy Active Results Component Value Reference Range Notes XR wrist LT min 3V Reviewed date:12/11/2024 07:12:04 PM Interpretation: Performing Lab: Notes/Report: Source Facility: [place] [address] XRay Report Signed Patient: DANTE JAMES MR#: [id number] : 1965 Acct:[id number] Age/Sex: 59 / F ADM Date: 12/11/24 Loc: RAD Attending Dr: Twila Verde M.D. Ordering Physician: Twila Verde M.D. Date of Service: 12/11/24 Procedure(s): XR wrist LT min 3V Accession Number(s): [id number] cc: Twila Verde M.D. [place] [address] Patient Name: DANTE JAMES MRN: [facility]:[id number] date: 1965 Sex: F Assigned Patient Location: RAD Current Patient Location: RAD Accession/Order Number: [id number] Exam Date: 12/11/2024 15:10 Report Date: 12/11/2024 [...] Ballard M.D. 12/11/2024 3:11 PM Dictation Location: [place] [address] Electronically authenticated by: [id number] Y Date: 12/11/2024 15:11 Dictated By: Lobo Ballard M.D. Signed By: 12/11/243 DD/ 10 TD/TT: Corporate Safety Coordinator: [place] [address] XRay Report Signed Patient: DANTE JAMES MR#: [id number] : 1965 Acct:[id number] Age/Sex: 59 / F ADM Date: 12/11/24 Loc: [facility] Attending Dr: Twila Verde M.D. Ordering Physician: Twila Verde M.D. Date of Service: 12/11/24 Procedure(s): XR wri st LT min 3V Accession Number(s): [id number] cc: Twila Verde M.D. [place] [id number] Patient Name: DANTE JAMES MRN: [facility]:[id number] date: 1965 Sex: F Assigned Patient Location: [facility] Current Patient Location: [facility] Accession/Order Numb er: [id number] Exam Date: 12/11/2024 15:10 Report Date: 12/11/2024 [...] Ballard M.D. 12/11/2024 3:11 PM Dictation Location: [employer] Electronically authe nticated by: [id number] Y Date: 12/11/2024 15:11 Dictated By: Lobo Ballard M.D. Signed By: 12/11/24 1513 DD/ 10 TD/TT: Corporate Safety Coordinator: REASON FOR VISIT left wrist pain and [...] Arthralgia of the pelvic region and thigh (845939181) Hip pain, acute, left (M25.552) Active confirmed Problem Pain in wrist (02770542) Wrist pain, acute, left (M25.532) Active confirmed Vital Signs Blood pressure systolic 128 mm Hg 12/12/19 25 Blood pressure diastolic 72 mm Hg 025 Height 64 in 12/11/2024 Weight 137.0 lbs 12/11/2024 BMI 23.51 kg/m2 12/11/2024 Encounters Encounter Location Date Provider Diagnosis [facility] [address] [place] [address] 12/11/2024 Jose Eduardo Verde Wrist pain, acute, [...] * Dante JAMES MDOB:1965 (59 yo F)Acc No.[id number]:12/11/2024 Progress Note Patient: Dante HAWKINS Provider: Melly Verde ([facility] K[facility]ik :1965 A ge:59 Y S ex:Female Date:12/11/2024 [address] [facility] Check In:11:23 AM ESTCheck O ut:12:14 PM [...] (Check Out) true * Provider: Melly Verde ([facility])MD Date: 0 12/11/2024 Generated for Pablo aguilar/Tyler/eTransmitting on: 0 12/21/2024 08:28 AM EDT History and Physical Notes * [...]
--- OUTSIDE RECORDS SUMMARY | 2024-12-21 08:28 | XMS_ITS | Clinical Summary ---
Author Organization [facility] Address [address] [place] [address] Phone Care Team Providers Care Bus Aide Name Role Phone Unavailable Primary Care Provider Unavailabl e Social History Tobacco Use Types Packs/Day Years Used Date Smoking Tobacco: Never Assessed Comments Unknown Sex and Gender Information Value Date Recorded Sex Assigned at Not on file Legal Sex Female 10:32 PM EST Gender Identity Not on file Sexual Orientation Not on file Plan of Treatment Not on file
--- OUTSIDE RECORDS SUMMARY | 2024-12-21 08:28 | XMS_ITS | Encounter Summary ---
Author Organization [facility] Address [address] [place] [address] Care Team Providers Care Copper Roller Handler Printing Name Role Phone Duke Verde MD Primary Care Provider [phone] Li Dorantes DO Unavailable [phone] Encounter Details Date Type Department Care Team (Late Contact Info) Description 01/02/2024 Telephone [facility] [address] [place] [phone] Jesusita Peng Social History Tobacco Use Types Packs/Day Years [...] on file documented as of this encounter Plan of Treatment Upcoming Encounters Date Type Department Care Team (Late st Contact Info) Description 06/10/2025 9:30 AM EST Office Visit [facility] [address] [facility] [address] [place] [address] Chasity Nguyen, ISO COORDINATOR [address], [facility] [address] [place] [address] documented as of this encounter Visit Diagnoses Not on filedocumented in this encounter Care Teams Copper Roller Handler Printing Relationship Specialty Start Date End Date Duke Verde MD PCP - General Family Medicine 12/11/23 Li Dorantes DO [address] [place] [address] Referring Physician Neurology 07/17/24 documented as of this encounter
--- OUTSIDE RECORDS SUMMARY | 2024-12-21 08:28 | XMS_ITS | Clinical Summary ---
Author Organization [facility] Address [address] [place] [address] Care Team Providers Care Service Line Coordinator Name Role Phone Duke Verde MD Primary Care Provider [phone] Allergies Active Allergy Reactions Criticality Noted Date Comments Latex Rash Low 04/30/2023 Other/Food Rash Low 12/29/2016 Some generic bandaids cause rash under adhesive. Sulfa Antibiotics Hives Low 04/08/2015 Medications PHENobarbital (LUMINAL) 32.4 MG tablet Take 1 tablet by mouth nightly. 02/07/2015 Active TOPAMAX 100 MG tablet Take 1 tablet by mouth 2 times daily 2 tabs every morning and 2 1/2 tabs nightly. 03/24/2015 Active Multiple Vitamins-Minera ls (MULTIVITAMIN & MINERAL PO) Take by mouth Active Calcium Carbonate-Vitam in D (CALCIUM-VITAMI N D) 500-200 MG-UNIT per tablet Take 1 tablet by mouth 2 times daily (with meals) Active loratadine (CLARITIN) 10 MG capsule Take 1 capsule by mouth daily Active levETIRAcetam (KEPPRA XR) 750 MG TB24 extended release tablet 04/04/2017 Acti ve fluticasone (FLONASE) 50 MCG/ACT nasal spray 1 spray by Each Nostril route daily Active Black Cohosh 20 MG TABS Take by mouth Active diclofenac (VOLTAREN) 75 MG EC tablet prn 04/08/2022 Active CRANBERRY PO Take by mouth Active phenazopyridine (PYRIDIUM) 200 MG tablet TAKE 1 TABLET BY MOUTH THREE TIMES A DAY AFTER MEALS FOR 2 DAYS 03/15/2024 Active Potassium Citrate ER (UROCIT-K) 15 MEQ (1620 MG) TBCR extended release tablet 02/29/2024 Acti ve Active Problems Problem Noted Date Diagnosed Date Asymptomatic microscopic hematuria 04/04/2024 Stress incontinence of urine 04/04/2024 Cyst of kidney, acquired 04/10/2022 Calculus of kidney 03/28/2022 Urinary tract infection, site not specified 03/01 Noninfective gastroenteritis and colitis, unspec ified 02/09/2022 Contact with and (suspected) exposure to covid-1 9 03/08/2021 Flank pain 08/27/2020 Epilepsy 12/29/2016 Seasonal allergies 12/29/2016 Family History Medical History Relation Name Comments No Known Problems Brother 5 brothers Diabetes Father Blake Wootent Sr type 2 Cancer Mother Hannah Alvarez Lung Cancer Paternal Grandmother Silke Sarkarhart [place] Relation Name Status Comments Brother 5 brothers Alive Father Blake Wootent Sr Alive Maternal Grandfather Maternal Grandmother Mother Hannah Alvarez Alive Paternal Grandfather Paternal Grandmother Silke Sarkarhart Social History Tobacco Use Types Packs/Day Years Used Date Smoking Tobacco: Never Smokeless Tobacco: Never Tobacco Cessation:Counseling Given: Not Answered Alcohol Use Standard Drinks/Week Comments Yes 0 (1 standard drink = 0.6 oz pur e alcohol) less than drink per week PHQ-2 Answer Date Recorded PHQ-2 Score 0 10/31/2018 Comments No Sex and Gender Information Value Date Recorded Sex Assigned at Not on file Legal Sex Female 8:45 PM EST Gender Identity Not on file Sexual Orientation Not on file Last Filed Vital Signs Vital Sign Reading Time Taken Comments Blood Pressure 124/62 04/04/2024 8:55 AM EDT Pulse 62 01/03/2017 5:25 PM EDT Temperature 36.5 C (97.7 F) 01/03/2017 4:40 PM EDT Respiratory Rate 16 01/03/2017 5:25 PM EDT Oxygen Saturation 95% 01/03/2017 4:55 PM EDT Inhaled Oxygen Concentration - - Weight 59.9 kg (132 lb) 04/04/2024 8:55 AM EDT Height 162.6 cm (5' 4 ) 04/04/2024 8:55 AM EDT Body Mass Index 22.66 04/04/2024 8:55 AM EDT Plan of Treatment Upcoming Encounters Date Type Department Care Team (Late st Contact Info) Description 04/07/2025 9:00 AM EDT Office Visit [facility] Part of [address] [place] [address] Hans Yang MD [address] [place] [address] [address] [place] [address] yearly -- Letter Sent .07 Health Maintenance Due Date Last Done Comments Depression Screen 1977 HIV screen 1980 Hepatitis C screen 1983 Hepatitis B vaccine (1 of 3 - 19+ 3-dose series) 1984 Lipids 2005 Colonoscopy 2010 Colorectal Cancer Screen 2010 FIT/FOBT: Average risk 2010 Fecal-DNA (Cologuard): Average risk 2010 Sigmoidoscopy/CT colonography 2010 Pneumococcal 50+ years Vaccine (1 of 1 - PCV) 2015 COVID-19 Vaccine ( - season) 2024 11/18/2020, 11/13/2020, 10/21/2020, Additional history exists Flu vaccine (Season Ended) 2025 03/29/2023 Breast cancer screen 04/09/2026 04/09/2024, 04/06/2023, 03/05/2021, Additional history exists DTaP/Tdap/Td vaccine (2 - Td or Tdap) 03/29/2033 03/29/2023 Shingles vaccine Completed 10/01/2019, 07/28/2019 HPV (without or with Pap) Discontinued 04/21/2022 Cervical cancer screen Discontinued Pap smear Discontinued 04/04/2024, 10/29, 04/21/2022, Additional history exists Hepatitis A vaccine Aged Out No longe r eligible based on patient's age to complete this topic Hib vaccine Aged Out No longer eligi ble based on patient's age to complete this topic Meningococcal (ACWY) vaccine Aged Out No longer eligible based on patient's age to complete this topic Meningococcal B vaccine Aged Out No l onger eligible based on patient's age to complete this topic Polio vaccine Aged Out No longer elig ible based on patient's age to complete this topic Procedures Procedure Name Priority Date/Time Associated Diagnosis Comments LILLIAN OLIVA DIGITAL SCREEN BILATERAL Routine 04/09/2024 Screening mammogram, encounter for TEXTILES PRINTER CYTOLOGY Routine 04/04/2024 12:00 AM EDT HUMAN PAPILLOMAVIRUS (HPV) DNA PROBE THIN PREP HIGH RISK Routine 04/21/2022 8:48 AM EDT from Last 3 Months or Most Recently Relevant to Health Maintenance Results * LILLIAN OLIVA DIGITAL SCREEN BILATERAL (04/09/2024) Anatomical Region Laterality Modality Breast Bilateral Mammography Hans Yang MD IM MAMMOGRAPHY ORDERABLES Fi nal Result * TEXTILES PRINTER Cytology (04/04/2024 12:00 AM EDT) Cytology Report Path Number: [id number] DIAGNOSIS Imaged ThinPrep Pap - Vaginal (1 monolayer slide): Specimen Adequacy: Satisfactory for evaluation. Descriptive Diagnosis: Negative for intraepithelial lesion or malignancy. Comments: Specimen was screened at [facility], [address] [place] [address] Cytotech Screener: CS Rescreened By: PT Electronically Signed Out Joann Mcgill pt/04/16/2024 Source of Specimen: A: Imaged ThinPrep Pap - Vaginal (1 monolayer slide) HPV Reflex?........... ...........HPV if Abnormal Clinical History Z01.419 Routine obgyn specialist exam without abnormal findings Processing Lab: [address] [address] Interpretation performed at [facility], [address] [place] [address], [place] [address] This Pap Test has been evaluated with the assistance of the [employer] Pap Test Imaging System. The Pap smear is a screening test primarily for squamous epithelial lesions, which is subject to both false negative and false positive results. Your patient should be reminded to consult you immediately if she experiences any suspicious signs or symptoms, regardless of her Pap smear result. GYNECOLOGIC CYTOLOGY REPORT Patient Name: LOU JAMES [facility] Rec: [id number] [employer] [facility] ANATOMIC PATHOLOGY [address] [place] [address]. [place], [place] [address] [facility] [employer] 04/04/2024 04/05/2024 8:1 3 AM EDT Hans Yang MD PATHOLOGY/CYTOLOGY ORDERABLES Final Result [facility] [address] [phone] [facility] * Human papillomavirus (HPV) DNA probe thin prep high risk (04/21/2022 8:48 AM EDT) Specimen Description .VAGINAL SPECIMEN 04/21/2022 8:48 AM EDT [employer] HPV Sample .THIN PREP 04/21/2022 8:48 AM EDT [employer] HPV, Genotype 16 Not Detected Not Detected 04/21/2022 8:48 AM EDT [employer] HPV, Genotype 18 Not Detected Not Detected 04/21/2022 8:48 AM EDT [employer] HPV, High Risk Other Not Detected Not Detected 04/21/2022 8:48 AM EDT [employer] HPV, Interpretation 04/21/2022 8:48 AM EDT [employer] Comment: This test amplifies and detects DNA [...] sexual abuse or for other forensic purposes. SPECIMEN FROM CERVIX OR VAGINA / Unknown 04/21/2022 8:48 AM EDT us Hans Yang MD HEMATOLOGY ORDERABLES Final R esult [facility] [address] [place] [address], [facility] [phone] [facility] [address] [place] [address], [facility] [phone] from Last 3 Months or Most Recently Relevant to Health Maintenance Insurance [employer] Advance Directives * Full Code (Latest Code Status on File) Date Activated Date Inactivated Comments 01/03/2017 4:41 PM 01/03/2017 8:21 PM Care Teams Service Line Coordinator Relationship Specialty Start Date End Date Duke Verde MD [address] [place] [address] PCP - General Family Medicine 04/08/16
--- OUTSIDE RECORDS SUMMARY | 2024-12-21 08:29 | XMS_ITS | Encounter Summary ---
Author Organization [facility] Address [address] [place] [address] Care Team Providers Care End Lathe Operator Name Role Phone Duke Verde MD Primary Care Provider [phone] Li Dorantes DO Unavailable [phone] Encounter Details Date Type Department Care Team (Latest Contact Info) Description 12/10/2024 Travel Social History Tobacco Use Types Packs/Day Years [...] Upcoming Encounters Date Type Department Care Team ( st Contact Info) Description 06/10/2025 9:30 AM EST Office Visit [facility] [address] [place] [address] Chasity Nguyen, SMOKING PIPE LINER [address], [facility] [address] [place] [address] documented as of this encounter Visit Diagnoses Not on filedocumented in this encounter Care Teams End Lathe Operator Relationship Specialty Start Date End Date Duke Verde MD PCP - General Family Medicine 12/11/23 Li Dorantes DO [address] [place] [address] Referring Physician Neurology 07/17/24 documented as of this encounter
--- OUTSIDE RECORDS SUMMARY | 2024-12-21 08:29 | XMS_ITS | Patient Health Record ---
Author Organization [facility] in [place] Address [address] [place] [address] Care Team Providers Care Chef Passenger Vessel Name Role Phone Jose Eduardo Verde Primary Care Provider Allergies Allergen (clinical drug ingredient) Drug/Non Drug Allergy documented on EMR Reaction Allergy Type Onset Date Status Latex Latex rash Allergy Active Substance with sulfonamide structure and antibacterial mechanism of action (substance) Sulfa Antibiotics Unknown Drug Allergy Active Results Component Value Reference Range Notes XR wrist LT min 3V Reviewed date:12/11/2024 07:12:04 PM Interpretation: Performing Lab: Notes/Report: Source Facility: [place] [address] XRay Report Signed Patient: LOU JAMES MR#: [id number] : 1965 Acct:[id number] Age/Sex: 59 / F ADM Date: 12/11/24 Loc: RAD Attending Dr: Twila Verde M.D. Ordering Physician: Twila Verde M.D. Date of Service: 12/11/24 Procedure(s): XR wrist LT min 3V Accession Number(s): [id number] cc: Twila Verde M.D. [place] [address] Patient Name: LOU JAMES MRN: [facility]:[id number] date: 1965 Sex: F Assigned Patient Location: RAD Current Patient Location: RAD Accession/Order Number: [id number] Exam Date: 12/11/2024 15:10 Report Date: 12/11/2024 [...] Ballard M.D. 12/11/2024 3:11 PM Dictation Location: [place] [address] Electronically authenticated by: [id number] Y Date: 12/11/2024 15:11 Dictated By: Lobo Ballard M.D. Signed By: 12/11/241512 DD/ 10 TD/TT: Pot Maker: [place] [address] XRay Report Signed Patient: LOU JAMES MR#: [id number] : 1965 Acct:[id number] Age/Sex: 59 / F ADM Date: 12/11/24 Loc: [facility] Attending Dr: Luis E Vedre M.D. Ordering Physician: Twila Verde M.D. Date of Service: 12/11/24 Procedure(s): XR wri st LT min 3V Accession Number(s): [id number] cc: Twila Verde M.D. [place] [id number] Patient Name: LOU JAMES MRN: [facility]:[id number] date: 1965 Sex: F Assigned Patient Location: [facility] Current Patient Loca tion: RAD Accession/Order Numb er: [id number] Exam Date: 12/11/2024 15:10 Report Date: 12/11/2024 [...] or dislocation. No significant soft tissue swelling. X R/XR wrist LT min 3V IMPRESSION: No acute bony injury. Impression dictated by: Lobo Ballard M.D. 12/11/2024 3:11 PM Dictation Location: [place] [address] Electronically authenticated by: [id number] Y Date: 12/11/2024 15:11 Dictated By: Lobo Ballard M.D. Signed By: 12/11/241512 DD/ 10 TD/TT: Pot Maker: XR abdomen 1V Reviewed date:02/15/2024 07:59:45 PM Interpretation: Performing Lab: Notes/Report: Source Facility: [place] [address] XRay Report Signed Patient: LOU JAMES MR#: [id number] : 1965 Acct:[id number] Age/Sex: 58 / F ADM Date: 02/15/24 Loc: Attending Dr: Marycruz Bhagat M.D. Ordering Physician: Marycruz Bhagat M.D. Date of Service: 02/15/24 Procedure(s): XR abdomen 1V Accession Number(s): [id number] cc: Twila Verde M.D.; Marycruz Bhagat M.D. [place] [address] Patient Name: LOU JAMES MRN: [id number]:[id number] date: 1965 Sex: F Assigned Patient Location: Current Patient Location: Accession/Order Number: [id number] Exam Date: 02/15/2024 07:58 Report Date: 02/15/2024 08:25 At the request of: MARYCRUZ BHAGAT Procedure: XR abdomen 1V EXAMINATION: XR abdomen 1V HISTORY: Kidney Stone K20.0 COMPARISON: No relevant comparison available. FINDINGS: KIDNEY/URETER - RIGHT: No visible renal or ureteral calcifications. KIDNEY/URETER - LEFT: No visible renal or ureteral calcifications. PELVIS: No visible ureteral stones. Stable pelvic calcifications compatible with phleboliths. BOWEL: No abnormal dilation or deviation. BONES: No acute abnormality. OTHER: Negative. No abnormal gaseous collections. XR/XR abdomen 1V IMPRESSION: 1. Evaluation is limited by dense overlying bowel content. 2. No visible urinary tract calculi on abdominal radiograph, however, multiple nonobstructing stones seen within both kidneys on today's ultrasound study. Electronically authenticated by: EFREN AGUSTIN Date: 02/15/2024 08:25 Dictated By: Efren Agustin M.D. Signed By: 02/15/24827 DD/ 4 TD/TT: Pot Maker: [place] [address] XRay Report Signed Patient: LOU JAMES MR#: [id number] : 1965 Acct:[id number] Age/Sex: 58 / F ADM Date: 02/15/24 Loc: US Attending Dr: Marycruz Bhagat M.D. Ordering Physician: Marycruz Bhagat M.D. Date of Service: 02/15/24 Procedure(s): XR abd omen 1V Accession Number(s): [id number] cc: Twila Verde M.D. ; Marycruz Bhagat M.D. The [place] [address] Patient Name: LOU JAMES MRN: [id number] date: 1965 Sex: F Assigned Patient Location: US Current Patient Loca tion: US Accession/Order Numb er: [id number] Exam Date: 02/15/2024 07:58 Report Date: 02/15/2024 08:25 At the request of: MARYCRUZ BHAGAT Procedure: XR abdomen 1V EXAMINATION: XR abdo men 1V HISTORY: Kidney Ston e K20.0 COMPARISON: No relev ant comparison available. FINDINGS: KIDNEY/URETER - RIGH T: No visible renal or ureteral calcifications. KIDNEY/URETER - LEFT : No visible renal or ureteral calcifications. PELVIS: No visible ureteral stones. Stable pelvic calcifications compatible with phleboliths. BOWEL: No abnormal dilation or deviation. BONES: No acute abnormality. OTHER: Negative. No abnormal gaseous collections. X R/XR abdomen 1V IMPRESSION: 1. Evaluation is alegre ited by dense overlying bowel content. 2. No visible urinar y tract calculi on abdominal radiograph, however, multiple nonobstructing stone s seen within both kidneys on today's ultrasound study. Electronically authenticated by: EFREN AGUSTIN Date: 02/15/2024 08:25 Dictated By: Efren Agustin M.D. Signed By: 02/15/24827 DD/ 4 TD/TT: Pot Maker: US renal BI Reviewed date:02/15/2024 07:59:45 PM Interpretation: Performing Lab: Notes/Report: Source Facility: [place] [address] Ultrasound Report Signed Patient: LOU JAMES MR#: [id number] : 1965 Acct:[id number] Age/Sex: 58 / F ADM Date: 02/15/24 Loc: US Attending Dr: Marycruz Bhagat M.D. Ordering Physician: Marycruz Bhagat M.D. Date of Service: 02/15/24 Procedure(s): US renal BI Accession Number(s): [id number] cc: Twila Verde M.D.; Marycruz Bhagat M.D. [place] [address] Patient Name: LOU JAMES MRN: [id number] date: 1965 Sex: F Assigned Patient Location: Current Patient Location: US Accession/Order Number: [id number] Exam Date: 02/15/2024 07:33 Report Date: 02/15/2024 08:23 At the request of: MARYCRUZ BHAGAT Procedure: US renal BI EXAMINATION: US renal BI HISTORY: Kidney Stone K20.0 COMPARISON: No relevant comparison available. TECHNIQUE: Ultrasound examination was performed of the kidneys and urinary bladder. FINDINGS: RIGHT KIDNEY: Contains several small nonobstructing stones, largest is 3 mm. Contains 2 benign-appearing cysts, 1.2 cm and 1.1 cm in diameter respectively. Mild cortical thinning. Normal renal cortical parenchymal echogenicity. Color Doppler demonstrates blood flow within the kidney. Kidney: 10.9 x 4.7 x 4.4 cm LEFT KIDNEY: Contains several nonobstructing stones, the largest 2 are 10 mm and 8 mm in size. Mild cortical thinning. Normal renal cortical parenchymal echogenicity. Color Doppler demonstrates blood flow within the kidney. Kidney: 10.2 x 4 0.9 to 4.4 cm BLADDER: No visible wall thickening, mass, or calculi. US/US renal BI IMPRESSION: 1. Bilateral nonobstructing nephrolithiasis. Electronically authenticated by: EFREN AGUSTIN Date: 02/15/2024 08:23 Dictated By: Efren Agustin M.D. Signed By: 02/15/24825 DD/ 2 TD/TT: Pot Maker: [place] [address] Ultrasound Report Signed Patient: LOU JAMES MR#: [id number] : 1965 Acct:[id number] Age/Sex: 58 / F ADM Date: 02/15/24 Loc: US Attending Dr: Marycruz Bhagat M.D. Ordering Physician: Marycruz Bhagat M.D. Date of Service: 02/15/24 Procedure(s): US renal BI Accession Number(s): [id number] cc: Twila Verde M.D. ; Marycruz Bhagat M.D. The [address] [address] Patient Name: LOU JAMES MRN: [id number] date: 1965 Sex: F Assigned Patient Location: US Current Patient Loca tion: US Accession/Order Numb er: [id number] Exam Date: 02/15/2024 07:33 Report Date: 02/15/2024 08:23 At the request of: MARYCRUZ BHAGAT Procedure: US renal BI EXAMINATION: US renal BI HISTORY: Kidney Ston e K20.0 COMPARISON: No relev ant comparison available. TECHNIQUE: Ultrasoun d examination was performed of the kidneys and urinary bladder. FINDINGS: RIGHT KIDNEY: Contai ns several small nonobstructing stones, largest is 3 mm. Contains 2 benign-appearing cysts, 1.2 cm and 1.1 cm in diameter respectively. Mild cortical thinni ng. Normal renal cortical parenchymal echogenicity. Color Doppler demonstrates blood flow within the kidney. Kidney: 10.9 x 4.7 x 4.4 cm LEFT KIDNEY: Contain s several nonobstructing stones, the largest 2 are 10 mm and 8 mm in size. Mi ld cortical thinning. Normal renal cortical parenchymal echogenicity. Color Doppler demonstrates blood flow within the kidney. Kidney: 10.2 x 4 0.9 to 4.4 cm BLADDER: No visible wall thickening, mass, or calculi. U S/US renal BI IMPRESSION: 1. Bilateral nonobstructing nephrolithiasis. Electronically authenticated by: EFREN AGUSTIN Date: 02/15/2024 08:23 Dictated By: Efren Agustin M.D. Signed By: 02/15/24825 DD/ 2 TD/TT: Pot Maker: ELECTROLYTES Reviewed date:03/17/2024 05:03:52 PM Interpretation: Performing Lab: Notes/Report: [facility] , Sodium 141 136-145 mmol/L Potassium 3.5 3.5-5.1 mmol/L Chloride 104 98-107 mmol/L Carbon Dioxide 29.6 21.0-32.0 mmol/L Anion Gap 10.9 Performing Lab: see note ML - [facility] LB CBC AUTO DIFF Reviewed date:05/01/2024 09:18:39 PM Interpretation: Performing Lab: Notes/Report: [facility] , White Blood Count 5.2 4.0-11.0 10 3/uL Red Blood Count 4.80 4.20-5.40 10 6/uL Hemoglobin 14.8 12.0-16.0 g/dL Hematocrit 44.9 36.0-48.0 % Mean Corpuscular Volume 93.5 81.0-99.0 fL Mean Corpuscular Hemoglobin 30.8 26.7-34.0 pg Mean Corpuscular HGB Conc 33.0 29.9-35.2 g/dL Red Cell Distribution Width 12.3 11.0-15.0 % Platelet Count 211 150-450 10 3/uL Mean Platelet Volume 11.1 9.5-13.5 fL Neutrophils Percent Auto 67.7 43.0-75.0 % Lymphocytes Percent Auto 23.9 20.5-60.0 % Monocytes Percent Auto 6.1 1.7-12.0 % Eosinophils Percent Auto 1.5 0.9-7.0 % Basophils Percent Auto 0.6 0.2-2.0 % Immature Granulocytes Pct Auto 0.2 0.0-0.5 % Neutrophils Absolute Auto 3.5 1.4-6.5 10 3/uL Lymphocytes Absolute Auto 1.3 1.2-3.8 10 3/uL Monocytes Absolute Auto 0.3 0.3-0.8 10 3/uL Eosinophils Absolute Auto 0.1 0.0-0.7 10 3/uL Basophils Absolute Auto 0.0 0.0-0.1 10 3/uL Immature Granulocytes Abs Auto 0.01 0.00-0.03 10 3/uL Performing Lab: see note ML - [facility] LB UA (CLEAN or CATCH) LINER ASSEMBLER or M ICRO IF IND. Reviewed date:05/01/2024 09:18:39 PM Interpretation: Performing Lab: Notes/Report: [facility] , Color Urine LT. YELLOW YELLOW Clarity Urine CLEAR CLEAR Specific [place] Urine <=1.005 1.005-1.025 pH Urine 7.0 5.0-9.0 Protein Urine NEGATIVE NEG/TRACE mg/dL Glucose Urine UA NEGATIVE NEGATIVE mg/dL Bilirubin Urine NEGATIVE NEGATIVE Ketones Urine NEGATIVE NEGATIVE mg/dL Blood Urine NEGATIVE NEGATIVE Nitrite Urine NEGATIVE NEGATIVE Urobilinogen Urine 0.2 0.2-1.0 EU/dL Leukocyte Esterase Urine SMALL NEGATIVE Urine Microscopic Indicated YES Performing Lab: see note ML - [facility] LB Prothrombin Time INR Reviewed date:05/01/2024 09:18:39 PM Interpretation: Performing Lab: Notes/Report: [facility] , Prothrombin Time 10.7 9.0-11.6 sec INR 1.01 DESIRED INR: 2.0-3.0 CONDITIONS NOT LISTED BELOW 2.5-3.5 FOR PROSTHETIC HEART VALVE REPLACEMENT 2.5-3.5 RECURRENT THROMBOSIS Performing Lab: see note ML - [facility] LB SARS-CoV-2 Ag* Reviewed date:05/16/2024 08:28:03 PM Interpretation: Performing Lab: Notes/Report: [facility] , SARS-CoV-2 Ag NEGATIVE NEGATIVE This test has not been FDA cleared or approved, but has been authorized by the FDA under an Emergency Use Authorization (EUA) for use by authorized laboratories certified under CLIA that meet the requirements to perform moderate or high complexity testing. This test has been authorized only for the detection of proteins from SARS-CoV-2, not for any other viruses or pathogens. The emergency use of this test is authorized for the duration of the declaration that circumstances exist justifying the authorization of emergency use of in vitro diagnostic tests for detection and/or diagnosis of Covid-19 under section 564(b)(1) of the Act, 21 U.S.C. 360bbb-3(b)(1), unless the declaration is terminated or authorization is revoked sooner. Performing Lab: see note ML - [facility] LB XR urethrogram retrograde Reviewed date:05/18/2024 11:08:26 AM Interpretation: Performing Lab: Notes/Report: Source Facility: [place] [address] [place] [address] XRay Report Signed Patient: LOU JAMES MR#: [id number] : 1965 Acct:[id number] Age/Sex: 59 / F ADM Date: 05/15/24 Loc: [facility] Attending Dr: Marycruz Bhagat M.D. Ordering Physician: Marycruz Bhagat M.D. Date of Service: 05/15/24 Procedure(s): XR urethrogram retrograde Accession Number(s): [id number] cc: Twila Verde M.D.; Marycruz Bhagat M.D. The [place] [address] Patient Name: LOU JAMES MRN: [id number] date: 1965 Sex: F Assigned Patient Location: [facility] Current Patient Location: Accession/Order Number: [id number] Exam Date: 05/15/2024 12:50 Report Date: 05/17/2024 07:13 At the request of: MARYCRUZ BHAGAT Procedure: XR urethrogram retrograde EXAM: XR urethrogram retrograde HISTORY: Left renal stone COMPARISON: None. TECHNIQUE: Images. 8.58 mgy FINDINGS: 3. Images demonstrate retrograde injection of iodinated contrast into the left renal collecting system. No filling defect or hydronephrosis. Placement of a ureteral stent normally positioned informed XR/XR urethrogram retrograde IMPRESSION: Placement of left ureteral stent Electronically authenticated by: BRIAN TIDWELL Date: 05/17/2024 07:13 Dictated By: Brian Tidwell M.D. Signed By: 05/17/24714 DD/ 2 TD/TT: Pot Maker: [place] [address] XRay Report Signed Patient: LOU JAMES MR#: [id number] : 1965 Acct:[id number] Age/Sex: 59 / F ADM Date: 05/15/24 Loc: [facility] Attending Dr: Marycruz Bhagat M.D. Ordering Physician: Marycruz Bhagat M.D. Date of Service: 05/15/24 Procedure(s): XR urethrogram retrograde Accession Number(s): [id number] cc: Twila Verde M.D. ; Marycruz Bhagat M.D. [address] [address] Patient Name: LOU JAMES MRN: [id number] date: 1965 Sex: F Assigned Patient Location: [facility] Current Patient Location: Accession/Order Numb er: [id number] Exam Date: 12:50 Report Date: 05/17/2024 07:13 At the request of: MARYCRUZ BHAGAT Procedure: XR urethr ogram retrograde EXAM: XR urethrogram retrograde HISTORY: Left renal stone COMPARISON: None. TECHNIQUE: Images. 8 .58 mgy FINDINGS: 3. Images demonstrat e retrograde injection of iodinated contrast into the left renal collecting sys tem. No filling defect or hydronephrosis. Placement of a ureteral stent simona js positioned informed X R/XR urethrogram retrograde IMPRESSION: Placement of left ureteral stent Electronically authenticated by: BRIAN TIDWELL Date: 05/17/2024 07:13 Dictated By: Andres Tidwell M.D. Signed By: 05/17/24714 DD/ 2 TD/TT: Pot Maker: US renal BI Reviewed date:06/14/2024 06:27:10 AM Interpretation: Performing Lab: Notes/Report: Source Facility: [place] [address] Ultrasound Report Signed Patient: LOU JAMES MR#: [id number] : 1965 Acct:[id number] Age/Sex: 59 / F ADM Date: 06/12/24 Loc: US Attending Dr: Marycruz Bhagat M.D. Ordering Physician: Marycruz hBagat M.D. Date of Service: 06/12/24 Procedure(s): US renal BI Accession Number(s): [id number] cc: Twila Verde M.D.; Marycruz Bhagat M.D. [place] [address] Patient Name: LOU JAMES MRN: [id number] date: 1965 Sex: F Assigned Patient Location: Current Patient Location: Accession/Order Number: [id number] Exam Date: 06/12/2024 08:32 Report Date: 06/13/2024 06:34 At the request of: MARYCRUZ BHAGAT Procedure: US renal BI EXAMINATION: US renal BI HISTORY: Kidney Stones COMPARISON: Ultrasound kidneys 02/15/2024 TECHNIQUE: Ultrasound examination was performed of the kidneys and urinary bladder. FINDINGS: RIGHT KIDNEY: Contain several nonobstructing stones, largest is 6 mm. Contain several benign-appearing cysts, largest is 15 mm. Normal parenchymal echogenicity. Color Doppler demonstrates blood flow within the kidney. Kidney: 10.5 x 5.2 x 5.5 cm LEFT KIDNEY: Contain several nonobstructing stones, largest is 3 mm. Normal parenchymal echogenicity. Color Doppler demonstrates blood flow within the kidney. Kidney: 10.4 x 5.3 x 4.8 cm BLADDER: No visible wall thickening, mass, or calculi. US/US renal BI IMPRESSION: 1. Bilateral nonobstructing nephrolithiasis. No acute or suspicious findings. Electronically authenticated by: EFREN AGUSTIN Date: 06/13/2024 06:34 Dictated By: Efren Agustin M.D. Signed By: 06/13/2437 DD/ 3 TD/TT: Pot Maker: [place] [address] Ultrasound Report Signed Patient: LOU JAMES MR#: [id number] : 1965 Acct:[id number] Age/Sex: 59 / F ADM Date: 06/12/24 Loc: US Attending Dr: Marycruz Bhagat M.D. Ordering Physician: Marycruz Bhagat M.D. Date of Service: 06/12/24 Procedure(s): US renal BI Accession Number(s): [id number] cc: Twila Verde M.D. ; Marycruz Bhagat M.D. [place] [address] Patient Name: LOU JAMES MRN: [id number] date: 1965 Sex: F Assigned Patient Location: US Current Patient Location: Accession/Order Numb er: [id number] Exam Date: 08:32 Report Date: 06/13/2024 06:34 At the request of: MARYCRUZ BHAGAT Procedure: US renal BI EXAMINATION: US renal BI HISTORY: Kidney Stones COMPARISON: Ultrasou nd kidneys 02/15/2024 TECHNIQUE: Ultrasoun d examination was performed of the kidneys and urinary bladder. FINDINGS: RIGHT KIDNEY: Contai n several nonobstructing stones, largest is 6 mm. Contain several benign-appea ring cysts, largest is 15 mm. Normal parenchymal echogenicity. Color Doppler demonstrates blood flow within the kidney. Kidney: 10.5 x 5.2 x 5.5 cm LEFT KIDNEY: Contain several nonobstructing stones, largest is 3 mm. Normal parenchymal echogeni city. Color Doppler demonstrates blood flow within the kidney. Kidney: 10.4 x 5.3 x 4.8 cm BLADDER: No visible wall thickening, mass, or calculi. U S/US renal BI IMPRESSION: 1. Bilateral nonobstructing nephrolithiasis. No acute or suspicious findings. Electronically authenticated by: EFREN AGUSTIN Date: 06/13/2024 06:34 Dictated By: Efren Agustin M.D. Signed By: 06/13/2437 DD/ 3 TD/TT: Pot Maker: [place] Reviewed date:08/25/2024 12:05:43 PM Interpretation: Performing Lab: Notes/Report: [facility] , Sodium 135 136-145 mmol/L Performing Lab: see note ML - [facility] LB POTASSIUM Reviewed date:08/25/2024 12:05:43 PM Interpretation: Performing Lab: Notes/Report: [facility] , Potassium 3.9 3.5-5.1 mmol/L Performing Lab: see note ML - [facility] LB URIC ACID SERUM Reviewed date:08/25/2024 12:05:43 PM Interpretation: Performing Lab: Notes/Report: [facility] , Uric Acid 2.0 2.6-6.0 mg/dL Performing Lab: see note ML - [facility] LB Creatinine 24 Hour Urine Reviewed date:08/25/2024 12:05:43 PM Interpretation: Performing Lab: Notes/Report: [facility] , Creatinine Urine Random 20.08 20.00-30 0.00 mg/dL Total Volume 24 Hour Urine 4250 Creatinine 24 Hour Urine 853.40 800.00-1800.00 mg/24 hr Performing Lab: see note ML - [facility] LB Calcium 24 Hour Urine Reviewed date:08/25/2024 12:05:43 PM Interpretation: Performing Lab: Notes/Report: [facility] , Calcium Urine Random 5.9 5.1-21.0 mg/dL Calcium 24 Hour Urine 250.8 100.0-300. 0 mg/24hr Performing Lab: see note ML - [facility] LB Sodium 24 Hour Urine Reviewed date:08/25/2024 12:05:43 PM Interpretation: Performing Lab: Notes/Report: [facility] , Sodium Urine Random 23 30-90 mmol/L Sodium 24 Hour Urine 98 40-220 mmol/24h Performing Lab: see note - [facility] LB Citric Acid (Citrate), Urine Reviewed date:08/28/2024 08:45:53 PM Interpretation: Performing Lab: Notes/Report: [address] [facility] , Citric Acid, Urine 208 Undefined mg/L This test was developed and its performance characteristics determined by [facility]. It has not been cleared or approved by the Food and Drug Administration. Citric Acid, U, 24hr 507 083-0795 mg /24 hr Performed at: [address] [id number] Molding Line Operator: Wilson Hamm MD, Phone: [phone] Performing Lab: see note [facility] LB Phosphorus, 24 hr Urine Reviewed date:08/29/2024 08:00:27 PM Interpretation: Performing Lab: Notes/Report: [address] [facility] , Phosphorus, Urine 18.8 Not Estab. mg/dL Phosphorus,Urine 24h 278 552-1809 mg /24 hr Performing Lab: see note [facility] LB Uric Acid, 24 hr Urine Reviewed date:08/29/2024 08:00:27 PM Interpretation: Performing Lab: Notes/Report: [address] [facility] , Uric Acid, Urine 11.7 Not Estab. mg/dL Uric Acid,Urine 24hr 497.3 173.7-902.1 mg/24 hr Performed at: [address] [id number] Molding Line Operator: Deangelo Kwan PhD, Phone: [phone] Performing Lab: see note [facility] LB Oxalate, Quant, 24-Hour Urin e Reviewed date:08/29/2024 08:00:27 PM Interpretation: Performing Lab: Notes/Report: [address] [facility] , Oxalates, Urine 5 Undefined mg/L Oxalates, Urine 24hr 21 4-31 mg/24 hr Performed at: [address] [id number] Molding Line Operator: Wilson Hamm MD, Phone: [phone] Performing Lab: see note [facility] LB Magnesium, Urine Reviewed date:08/29/2024 08:00:27 PM Interpretation: Performing Lab: Notes/Report: [facility] , Magnesium, U 3.0 Not Estab. mg/dL Magnesium,Urine 24hr 127.5 12.0-293.0 mg/24 hr Performed at: [address] [id number] Molding Line Operator: Deangelo Kwan PhD, Phone: [phone] Performing Lab: see note [facility] FREE T3 Reviewed date:11/24/2024 01:07:32 PM Interpretation: Performing Lab: Notes/Report: [facility] , Free T3 2.52 2.18-3.98 pg/mL Performing Lab: see note - [facility] LB LIPID PROFILE Reviewed date:11/24/2024 01:07:32 PM Interpretation: Performing Lab: Notes/Report: [facility] , Triglycerides 126 <=150 mg/dL Cholesterol 241 <=200 mg/dL HDL Cholesterol 81 40-60 mg/dL > or =60 mg/dl - LOW CARDIOVASCULAR RISK <40 mg/dl - HIGH CARDIOVASCULAR RISK LDL Cholesterol Calculated 135.0 <100 mg/dl OPTIMAL 100-129 mg/dl NEAR OR ABOVE OPTIMAL 130-159 mg/dl BORDERLINE HIGH 160-189 mg/dl HIGH >190 mg/dl VERY HIGH VLDL CHOLESTEROL 25.2 Chol HDL Ratio 3.0 3.3 - 4.4 LOW RISK 4.4 - 7.1 AVERAGE RISK 7.1 - 11.0 MODERATE RISK >11.0 HIGH RISK Performing Lab: see note - [facility] LB PROF 14(COMP METB) Reviewed date:11/24/2024 01:07:32 PM Interpretation: Performing Lab: Notes/Report: [facility] , Sodium 140 136-145 mmol/L Potassium 4.1 3.5-5.1 mmol/L Chloride 104 98-107 mmol/L Carbon Dioxide 29.1 21.0-32.0 mmol/L Anion Gap 11.0 Glucose 91 74-106 mg/dL Blood Urea Nitrogen 17.0 7.0-18.0 mg/dL Creatinine 0.70 0.55-1.02 mg/dL Estimated GFR ( Jayne >60 >=60 mL/min/1.73m 2 Estimated GFR (Non- Pati >60 >=60 mL/min/1.73m 2 BUN Creatinine Ratio 24.3 Calcium 9.2 8.5-10.1 mg/dL Bilirubin Total 0.2 0.2-1.0 mg/dL Aspartate Amino Transferase 20 15-37 U/L Alanine Aminotransferase 18 14-59 U/L Alkaline Phosphatase 102 46-116 U/L Total Protein 7.5 6.4-8.2 g/dL Albumin Level 4.1 3.4-5.0 g/dL Globulin 3.4 Albumin Globulin Ratio 1.2 Performing Lab: see note ML - [facility] LB T4 Reviewed date:11/24/2024 01:07:32 PM Interpretation: Performing Lab: Notes/Report: [facility] , T4 Thyroxine 3.90 4.80-13.90 ug/dL Performing Lab: see note ML - [facility] LB TSH Reviewed date:11/24/2024 01:07:32 PM Interpretation: Performing Lab: Notes/Report: [facility] , Thyroid Stimulating Hormone 1.938 0.358-3.740 uIU/mL Performing Lab: see note ML - [facility] LB VITAMIN D 25 [place] Reviewed date:11/24/2024 01:07:32 PM Interpretation: Performing Lab: Notes/Report: [facility] , Vitamin D 60.1 <20 ng/mL Vit D deficient 20-<30 ng/mL Vit D insufficient 30-100 ng/mL Vit D sufficient >100 ng/mL Potential Toxicity Performing Lab: see note ML - [facility] LB Occult Blood* Reviewed date:12/02/2024 07:54:55 PM Interpretation: Performing Lab: Notes/Report: [facility] , Occult Blood Negative Performing Lab: see note ML - [facility] LB XR hip LT 2V w/ pelvis Reviewed date:12/11/2024 07:12:04 PM Interpretation: Performing Lab: Notes/Report: Source Facility: [facility]-[address] [place] [address] [address] [address] XRay Report Signed Patient: LOU JAMES MR#: [id number] : 1965 Acct:[id number] Age/Sex: 59 / F ADM Date: 12/11/24 Loc: RAD Attending Dr: Twila Verde M.D. Ordering Physician: Twila Verde M.D. Date of Service: 12/11/24 Procedure(s): XR hip LT 2V w/ pelvis Accession Number(s): [id number] cc: Twila Verde M.D. [place] [id number] Patient Name: LOU JAMES MRN: [id number] date: 1965 Sex: F Assigned Patient Location: RAD Current Patient Location: RAD Accession/Order Number: [id number] Exam Date: 12/11/2024 15:09 Report Date: 12/11/2024 15:10 At the request of: TWILA VERDE MD Procedure: XR hip LT 2V w/ pelvis XR hip LT 2V w/ pelvis 12/11/2024 12:38 PM SIGNS AND SYMPTOMS: Acute left hip pain after fall PROTOCOL: Frontal radiograph the pelvis with frontal and frog-leg views of the left hip COMPARISON: None FINDINGS: The joint spaces are preserved. There is no fracture or dislocation. The bony ring of the pelvis is intact. Vascular calcifications are present in the pelvis. XR/XR hip LT 2V w/ pelvis IMPRESSION: No acute bony injury. Impression dictated by: Lobo Ballard M.D. 12/11/2024 3:10 PM Dictation Location: [place] [address] Electronically authenticated by: [id number] Y Date: 12/11/2024 15:10 Dictated By: Lobo Ballard M.D. Signed By: 12/11/24 1513 DD/ 09 TD/TT: Pot Maker: [address] [address] XRay Report Signed Patient: LOU JAMES MR#: [id number] : 1965 Acct:[id number] Age/Sex: 59 / F ADM Date: 12/11/24 Loc: RAD Attending Dr: Luis E Verde M.D. Ordering Physician: Twila Verde M.D. Date of Service: 12/11/24 Procedure(s): XR hip LT 2V w/ pelvis Accession Number(s): [id number] cc: Twila Verde M.D. [place] [id number] Patient Name: LOU JAMES MRN: [facility]:[id number] date: 1965 Sex: F Assigned Patient Location: [facility] Current Patient Loca tion: RAD Accession/Order Numb er: [id number] Exam Date: 12/11/2024 15:09 Report Date: 12/11/2024 15:10 At the request of: TWILA VERDE MD Procedure: XR hip LT 2V w/ pelvis XR hip LT 2V w/ pelv is 12/11/2024 12:38 PM SIGNS AND SYMPTOMS: Acute left hip pain after fall PROTOCOL: Frontal radiograph the pelvis with frontal and frog-leg views of the left hip COMPARISON: None FINDINGS: The joint spaces are preserved. There is no fracture or dislocation. The bony ring of the pel vis is intact. Vascular calcifications are present in the pelvis. X R/XR hip LT 2V w/ pelvis IMPRESSION: No acute bony injury. Impression dictated by: Lobo Ballard M.D. 12/11/2024 3:10 PM Dictation Location: [place] [address] Electronically authenticated by: [id number] Y Date: 12/11/2024 15:10 Dictated By: Lobo Ballard M.D. Signed By: 12/11/24 1513 DD/ 1510 TD/TT: Pot Maker: GLYCOHEMOGLOBIN A1C Reviewed date:11/24/2024 01:07:32 PM Interpretation: Performing Lab: Notes/Report: [facility] , Glycohemoglobin A1C 5.3 4.5-6.2 % ADA RECOMMENDED LIMIT 4.0 - 6.0 ADA THERAPEUTIC TARGET < 7.0 ACTION SUGGESTED > 7.0 Estimated Average Glucose 105 Performing Lab: see note ML - [facility] LB CBC AUTO DIFF Reviewed date:11/24/2024 01:07:32 PM Interpretation: Performing Lab: Notes/Report: [facility] , White Blood Count 5.2 4.0-11.0 10 3/uL Red Blood Count 4.95 4.20-5.40 10 6/uL Hemoglobin 15.1 12.0-16.0 g/dL Hematocrit 45.3 36.0-48.0 % Mean Corpuscular Volume 91.5 81.0-99.0 fL Mean Corpuscular Hemoglobin 30.5 26.7-34.0 pg Mean Corpuscular HGB Conc 33.3 29.9-35.2 g/dL Red Cell Distribution Width 12.2 11.0-15.0 % Platelet Count 235 150-450 10 3/uL Mean Platelet Volume 10.7 9.5-13.5 fL Neutrophils Percent Auto 61.6 43.0-75.0 % Lymphocytes Percent Auto 27.3 20.5-60.0 % Monocytes Percent Auto 9.2 1.7-12.0 % Eosinophils Percent Auto 1.3 0.9-7.0 % Basophils Percent Auto 0.6 0.2-2.0 % Immature Granulocytes Pct Auto 0.0 0.0-0.5 % Neutrophils Absolute Auto 3.2 1.4-6.5 10 3/uL Lymphocytes Absolute Auto 1.4 1.2-3.8 10 3/uL Monocytes Absolute Auto 0.5 0.3-0.8 10 3/uL Eosinophils Absolute Auto 0.1 0.0-0.7 10 3/uL Basophils Absolute Auto 0.0 0.0-0.1 10 3/uL Immature Granulocytes Abs Auto 0.00 0.00-0.03 10 3/uL Performing Lab: see note - [facility] LB PTH, Intact Reviewed date:08/25/2024 12:05:42 PM Interpretation: Performing Lab: Notes/Report: [facility] , PTH, Intact 30 15-65 pg/mL Performed at: [facility] Lab[address] [id number] Molding Line Operator: Deangelo Kwan PhD, Phone: [phone] Performing Lab: see note - [facility] LB CREATININE Reviewed date:08/25/2024 12:05:43 PM Interpretation: Performing Lab: Notes/Report: [facility] , Creatinine 0.83 0.55-1.02 mg/dL Estimated GFR ( Jayne >60 >=60 mL/min/1.73m 2 Estimated GFR (Non- Pati >60 >=60 mL/min/1.73m 2 Performing Lab: see note - [facility] LB CO2 Reviewed date:08/25/2024 12:05:43 PM Interpretation: Performing Lab: Notes/Report: [facility] , Carbon Dioxide 33.0 21.0-32.0 mmol/L Performing Lab: see note - [facility] LB CHLORIDE Reviewed date:08/25/2024 12:05:43 PM Interpretation: Performing Lab: Notes/Report: [facility] , Chloride 97 98-107 mmol/L Performing Lab: see note [facility] LB CALCIUM Reviewed date:08/25/2024 12:05:43 PM Interpretation: Performing Lab: Notes/Report: [facility] , Calcium 9.2 8.5-10.1 mg/dL Performing Lab: see note [facility] LB BUN Reviewed date:08/25/2024 12:05:43 PM Interpretation: Performing Lab: Notes/Report: [facility] , Blood Urea Nitrogen 14.0 7.0-18.0 mg/dL Performing Lab: see note [facility] LB Stone Analysis Reviewed date:05/23/2024 06:03:55 PM Interpretation: Performing Lab: Notes/Report: [facility] , Source Comment . Left Kidney Color Brown . Size 3x2 . mm Multiple pieces received. Dimensions of the largest piece reported. Weight 17 . mg Composition Comment . Percentage (Represents the % composition) Calcium Oxalate Monohydrate TNP . Calcium Oxalate Dihydrate 100 . % Calcium phosphate (hydroxyl) TNP . Calcium phosphate (carbonate) TNP . CaHPO4 (Brushite) TNP . Calcium Phosphate TNP . Calcium Carbonate TNP . [id number] (Struvite) TNP . MgHPO4 (Newberyite) TNP . Uric Acid TNP . Uric Acid Dihydrate TNP . Ammonium Acid Urate TNP . Sodium Acid Urate TNP . 2,8 Dihydroxyadenine TNP . Xanthine TNP . Cystine TNP . Cholesterol TNP . Calcium Bilirubinate TNP . Bilirubin TNP . Calcium Palmitate TNP . Calcium Stearate TNP . Triamterene TNP . Drug or Metabolite TNP . Dried Blood TNP . Cellular Material TNP . Other component(s) TNP . Comment TNP . Comment Comment . Calculus received wet. Wet calculi must be dried before analysis, which delays reporting of results. Leaving calculi wet (such as water, saline, blood, urine) may lead to changes in composition. Photo Comment . Photograph will follow under a separate cover Comment: Comment . Physician questions regarding Calculi Analysis contact [facility] at: [phone]. Please note: Comment . Calculi report will follow via computer, mail or scada technician delivery. Disclaimer: Comment . This test was developed and its performance characteristics determined by [employer]. It has not been cleared or approved by the Food and Drug Administration. Performed at: [address] [id number] Molding Line Operator: Ernestina Marvin PhD, Phone: [phone] Performing Lab: see note [facility] LB ECG 12 lead Reviewed date:05/04/2024 11:51:07 AM Interpretation: Performing Lab: Notes/Report: Source Facility: [place] [address] Electrocardiograph Report Signed Patient: LOU JAMES MR#: [id number] : 1965 Acct:[id number] Age/Sex: 59 / F ADM Date: 05/01/24 Loc: [facility] Attending Dr: Marycruz Bhagat M.D. Ordering Physician: Marycruz Bhagat M.D. 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 Signed By: 05/03/24648 DD/ 2 TD/TT: Pot Maker: The [address] [address] Electrocardiograph Report Signed Patient: LOU JAMES MR#: [id number] : 1965 Acct:[id number] Age/Sex: 59 / F ADM Date: 05/01/24 Loc: PST Attending Dr: Marycruz Bhagat M.D. Ordering Physician: Marycruz Bhagat M.D. 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 Signed By: 05/03/24648 DD/ 2 TD/TT: Pot Maker: Urine Culture, Routine Reviewed date:05/02/2024 08:34:47 PM Interpretation: Performing Lab: Notes/Report: [facility] , Urine Culture, Routine See Below For Report Urine Culture, Routine Urine Culture, Routine No growth Urine Culture, Routine Urine Culture, Routine Performed at: [facility] Culture, Routine Urine Culture, Routine [address] [place], [place] [id number] Urine Culture, Routine Urine Culture, Routine Molding Line Operator: Cesar Kwan PhD, Phone: [phone] Urine Culture, Routine Performing Lab: see note LC - [facility] LB SEE REPORT - Multicraft Operator Id information not found for OBX-specific perfect binder feeder offbearer legend URINE MICROSCOPIC ONLY Reviewed date:05/01/2024 09:18:39 PM Interpretation: Performing Lab: Notes/Report: [facility] , WBC Urine 2-5 NONE SEEN #/HPF RBC Urine NONE SEEN 0-2 #/HPF Bacteria Urine SMALL NONE SEEN #/HPF Mucus Urine TRACE NONE SEEN Squamous Epithelial Cell Urine FEW NONE/RARE #/LPF Crystals Seen? None Seen None Seen #/HPF Cast Seen? NONE SEEN NONE SEEN #/LPF Urine Culture Indicated YES Performing Lab: see note ML - [facility] LB PTT Reviewed date:05/01/2024 09:18:39 PM Interpretation: Performing Lab: Notes/Report: [facility] , Partial Thromboplastin Time 29.9 22.3-36.2 sec Performing Lab: see note - [facility] PROF CHEM 8 (BAS METB) Reviewed date:05/01/2024 09:18:39 PM Interpretation: Performing Lab: Notes/Report: [facility] , Sodium 139 136-145 mmol/L Potassium 3.7 3.5-5.1 mmol/L Chloride 103 98-107 mmol/L Carbon Dioxide 27.5 21.0-32.0 mmol/L Anion Gap 12.2 Glucose 94 74-106 mg/dL Blood Urea Nitrogen 15.0 7.0-18.0 mg/dL Creatinine 0.84 0.55-1.02 mg/dL Estimated GFR ( Jayne >60 >=60 mL/min/1.73m 2 Estimated GFR (Non- Pati >60 >=60 mL/min/1.73m 2 BUN Creatinine Ratio 17.9 Calcium 9.6 8.5-10.1 mg/dL Performing Lab: see note ML - [facility] MM tomosynthesis screening B I Reviewed date:04/09/2024 10:23:36 PM Interpretation: Performing Lab: Notes/Report: Source Facility: [facility]-[address] [place] [address] [place] [address] Mammography Report Signed Patient: LOU JAMES MR#: [id number] : 1965 Acct:[id number] Age/Sex: 58 / F ADM Date: 04/09/24 Loc: MAMMO Attending Dr: KYUNG PACK Ordering Physician: KYUNG PACK Results: Date of Service: 04/09/24 Follow Up: Procedure(s): MM tomosynthesis screening BI Accession Number(s): [id number] cc: KYUNG PACK ; Twila Verde M.D. Patient Name: LOU JAMES MR#: [id number] : 1965 Exam Date: 04/09/2024 Ordering Doctor: DR KYUNG PACK RADIOLOGY REPORT PROCEDURE: MM TOMOSYNTHESIS SCREENING BI COMPARISON: MM TOMOSYNTHESIS SCREENING BI, 04/06/2023. MG MAMM SCREEN 3D JORDAN CAD, 03/07/2022. MG MAMM SCREEN 3D JORDAN CAD, 03/04/2021. MG MAMM SCREEN JORDAN W CAD, 06/11/2019. INDICATIONS: Screening for malignant neoplasm Calculator Name NCI Breast Cancer Risk Assessment Tool 5 Year Breast Cancer Risk 1.20% Lifetime Breast Cancer Risk 6.90% Personal Breast Cancer No Personal Ovarian Cancer No Treatments None Family Cancers Grandmother-maternal with cervical cancer at age 40; Aunt-paternal with cervical cancer at age 40; Aunt-paternal with cervical cancer at age 35. LOCATION: [facility] BREAST COMPOSITION: The breasts are extremely dense, which lowers the sensitivity of mammography. FINDINGS: DIAGNOSTIC CATEGORY 1--NEGATIVE. RIGHT BREAST: No significant suspicious finding. Scattered benign-appearing lymph nodes are present. No significant change has occurred. LEFT BREAST: No significant suspicious finding. No significant change has occurred. RECOMMENDATIONS: ROUTINE MAMMOGRAM AND CLINICAL EVALUATION IN 12 MONTHS. PLEASE NOTE: A NORMAL MAMMOGRAM DOES NOT EXCLUDE THE POSSIBILITY OF BREAST CANCER. A CLINICALLY SUSPICIOUS PALPABLE LUMP SHOULD BE BIOPSIED. Dictated by: Efren Agustin M.D. on 04/09/2024 at 17:34 Approved by: Efren Agustin M.D. on 04/09/2024 at 17:43 Dictated By: Efren Agustin M.D. Signed By: 04/09/241743 DD/ 42 TD/TT: Pot Maker: [place] [address] Mammography Report Signed Patient: LOU JAMES MR#: [id number] : 1965 Acct:[id number] Age/Sex: 58 / F ADM Date: 04/09/24 Loc: MAMMO Attending Dr: KYUNG PACK Ordering Physician: KYUNG PACK Results: Date of Service: 05/23 Follow Up: Procedure(s): MM tomosynthesis screening BI Accession Number(s): [id number] cc: KYUNG PACK ; Twila Verde M.D. Patient Name: LOU JAMES MR#: [id number] : 1965 Exam Date: 04/09/2024 Ordering Doctor: DR KYUNG PACK RADIOLOGY REPORT PROCEDURE: MM TOMOSYNTHESIS SCREENING BI COMPARISON: MM TOMOSYNTHESIS SCREENING BI, 04/06/2023. MG MAMM SCREEN 3D JORDAN CAD, 03/07/2022. MG MAMM SCREEN 3D JORDAN CAD, 03/04/2021. MG MAMM SCREEN JORDAN W CAD, 06/11/2019. INDICATIONS: Screeni ng for malignant neoplasm Calculator Name NCI Breast Cancer Risk Assessment Tool 5 Year Breast Cancer Risk 1.20% Lifetime Breast Canc er Risk 6.90% Personal Breast Cancer No Personal Ovarian Can cer No Treatments None Family Cancers Grandmother-maternal with cervical cancer at age 40; Aunt-paternal with cervical cancer at age 40; Aunt-paternal with cervical cancer at age 35. LOCATION: [facility] BREAST COMPOSITION: The breasts are extremely dense, which lowers the sensitivity of mammography. FINDINGS: DIAGNOSTIC CATEGORY 1--NEGATIVE. RIGHT BREAST: No significant suspicious finding. Scattered benign-appearing lymph nodes are pres ent. No significant change has occurred. LEFT BREAST: No significant suspicious finding. No significant change has occurred. RECOMMENDATIONS: ROUTINE MAMMOGRAM AN D CLINICAL EVALUATION IN 12 MONTHS. PLEASE NOTE: A SIMONA L MAMMOGRAM DOES NOT EXCLUDE THE POSSIBILITY OF BREAST CANCER. A CLINICALLY SUSPICIOUS PALPABLE LUMP SHOULD BE BIOPSIED. Dictated by: Efren Agustin M.D. on 04/09/2024 at 17:34 Approved by: Efren Agustin M.D. on 04/09/2024 at 17:43 Dictated By: Efren Agustin M.D. Signed By: 04/09/241743 DD/ 42 TD/TT: Pot Maker: IRON Reviewed date:11/24/2024 01:07:32 PM Interpretation: Performing Lab: Notes/Report: [facility] , Iron 73.0 50.0-170.0 ug/dL Performing Lab: see note ML - [facility] LB Reason For Referral No Information Medications Medication SIG (Take, Route, Frequency, Duration) Notes Start Date End Date Status Biotin 10 MG 1 tablet Orally Once a day Active tiZANidine HCl 4 MG 1 tablet as needed Orally Three times a day PRN Active PHENobarbital 32.4 MG 1 tablet Orally on ce aday Active Multi Vitamin Daily Active Keppra XR 750 MG 1 tablet Orally Once a day Active Diclofenac Sodium 75 MG 1 tablet [...] tablet Orally Twic e a day Active Social History Tobacco Use: Social History Observation Description Date Details (start date - stop date) Never Smoker NA - NA Tobacco Use/Smoking Question Answer Notes Patient is a nonsmoker Alcohol Screen (Audit-C) Question Answer Notes Did you have a drink contain ing alcohol in the past year? Yes How often did you have 6 or more drinks on one occasion in the past year? Never (0 point) How many drinks did you have on a typical day when you were drinking in the past year? 1 or 2 drinks (0 point) How often did you have a dri nk containing alcohol in the past year? Monthly (2 points) Points 2 Interpretation Negative AUDIT-C (Standard) Question Answer Notes Did you have a drink contain ing alcohol in the past year? Yes How often did you have six o r more drinks on one occasion in the past year? Never (0 point) How many drinks did you have on a typical day when you were drinking in the past year? 1 or 2 drinks (0 point) How often did you have a dri nk containing alcohol in the past year? Monthly or less (1 point) Points 1 Interpretation Negative Problems Problem Type SNOMED Code ICD Code Onset Dates Problem Status W/U Status Risk Notes Problem Trigeminal neuralgia (79046172) Trigeminal neuralgia (G50.0) Active confirmed Problem 934791582 Sebaceous cyst (L72.3) Active confirmed Problem Shoulder joint pain (202358986) Pain in left shoulder (M25.512) Active confirmed Problem Exposure to animate mechanical force (event) (51878870) Exposure to other animate mechanical forces, initial encounter (W64.XXXA) Active confirmed Problem Cervical radiculopathy (17973941) Cervical radiculopathy (M54.12) Active confirmed Problem Carpal tunnel syndrome (02519275) Carpal tunnel syndrome (G56.00) Active confirmed Problem Seizure (45402947) Seizures (R56.9) Active conf irmed Problem Osteopenia (807600110) Osteopenia (M85.80) Active confirmed Problem Eczema (51768108) Eczema (L30.9) Active confirm ed Problem Acute sinusitis (20074314) Acute sinusitis (J01.90) Active confirmed Problem Arthralgia (02377075) Arthralgia (M25.50) Active confirmed Problem Epilepsy (11440806) Epilepsy (G40.909) Active confirmed Problem Nephrolithiasis (31158272) Nephrolithiasis (N20.0) Active confirmed Problem Well adult (915825882) Well adult (Z00.00) Active confirmed Problem Arthralgia of the ankle and/or foot (975740311) Ankle pain, unspecified laterality (M25.579) Active confirmed Problem Rotator cuff tear (354293082) Rotator cuff tear (M75.100) Active confirmed Problem Aphthous ulcer (697282341) Aphthous ulcer (K12.0) Active confirmed Problem Pain in wrist (81081181) Right wrist pain (M25.531) Active confirmed Problem Arthralgia of the pelvic region and thigh (807194080) Hip pain, acute, left (M25.552) Active confirmed Problem Pain in wrist (64827040) Wrist pain, acute, left (M25.532) Active confirmed Problem Neuroma of foot (538286945) Neuroma of foot (D36.13) Active confirmed Problem Dermatosis herpetiformis (262285040) Dermatosis herpetiformis (L13.0) Active confirmed Problem Myalgia (75902953) Myalgia (M79.10) Active conf irmed Problem Low back pain (finding) (361080734) Other low back pain (M54.59) Active confirmed Vital Signs Temperature 99.5 degrees Fahrenheit 05/20/2024 Blood pressure diastolic 72 mm Hg 12/11/2024 Height 64 in 12/11/2024 Blood pressure systolic 128 mm Hg 12/11/2024 Weight 137.0 lbs 12/11/2024 BMI 23.51 kg/m2 12/11/2024 Encounters Encounter Location Date Provider Diagnosis [place] [address] [place] [address] 03/15/2024 Jose Eduardo [facility] [address] [place] [address] 04/09/2024 Jose Eduardo [facility] [address] [place] [address] 05/01/2024 Jose Eduardo Verde [facility] [address] [place] [address] 08/22/2024 Jose Eduardo [facility] [address] [place] [address] 11/24/2024 Jose Eduardo Verde Abnormal thyroid blo od test R94.6 [facility] [address] [place] [address] 12/09/2024 Jose Eduardo mariam [facility] [address] [place] [address] 12/11/2024 Jose Eduardo [facility] [address] [place] [address] 05/20/2024 Jose Eduardo Verde Acute non-recurrent sinusitis, unspecified location J01.90 ; Nasal congestion R09.81 and Acute bronchitis, unspecified organism J20.9 [facility] [address] [facility] [place] [address] 08/06/2024 Jose Eduardo Hoy Acute bronchitis, unspecified organism J20.9 [place] [address] [place] [place] [address] 04/15/2024 Jose Eduardo Hoy Right wrist pain M25.531 [place] [address] [place] [address] 12/11/2024 Jose Eduardo Hoy Wrist pain, acute, l eft M25.532 and Hip pain, acute, left M25.552 [place] [address] [facility] [place] [address] 11/22/2024 Jose Eduardo Hoy Well adult Z00.00 Assessments Encounter Date Diagnosis (ICD Code) Assessment Notes Treatment Notes Treatment Clinical Notes Section Notes 04/15/2024 Right wrist pain (ICD-10 - M25.531) 05/20/2024 Acute non-recurrent sinusitis, unspecified location (ICD-10 - J01.90) Rest and drink more liquids, especially water. You may use a humidifier or vaporizer to help keep the drainage moist. Xmru-lbi-ajdngim Nasal Saline may help the stuffy and runny nose. Use Ibuprofen and or Tylenol as needed for fever, chills, body aches or pain. Children 5 years old should not be given rmaw-nwy-dxowtqx cough and cold medications such as guaifenesin and dextromethorphan. If you're over age 5, you may try msgu-uag-foyprhj cold medications such as guaifenesin and dextromethorphan, or multi-symptom cold reliever such as Dayquil to help reduce the symptoms. Antibiotics have been prescribed. You should take these until completed and follow the directions. Antibiotics can sometimes cause upset stomach, and in rare cases, serious allergic reactions or serious gastrointestinal problems. If you start having severe abdominal pain, severe vomiting, or bloody diarrhea, you should be reevaluated by your physician or urgent care immediately. Follow up with your Primary Care Provider or return to clinic if symptoms do not improve within 3-5 days 08/06/2024 Acute bronchitis, unspecified organism (ICD-10 - J20.9) Rest and drink more liquids, especially water. You may use a humidifier or vaporizer to help keep the drainage moist. Euoc-gtn-tywkmit Nasal Saline may help the stuffy and runny nose. Use Ibuprofen and or Tylenol as needed for fever, chills, body aches or pain. Children 5 years old should not be given uudx-scw-xifvhdv cough and cold medications such as guaifenesin and dextromethorphan. If you're over age 5, you may try bjqu-wyw-wioudsr cold medications such as guaifenesin and dextromethorphan, or multi-symptom cold reliever such as Dayquil to help reduce the symptoms. Antibiotics have been prescribed. You should take these until completed and follow the directions. Antibiotics can sometimes cause upset stomach, and in rare cases, serious allergic reactions or serious gastrointestinal problems. If you start having severe abdominal pain, severe vomiting, or bloody diarrhea, you should be reevaluated by your physician or urgent care immediately. Follow up with your Primary Care Provider or return to clinic if symptoms do not improve within 3-5 days. If you develop severe symptoms such as shortness of breath, repeated vomiting, coughing up blood, or chest pain you should go to the emergency room or call 911 11/22/2024 Well adult (ICD-10 - Z00.00) 12/11/2024 Wrist pain, acute, left (ICD-10 - M25.532) 12/11/2024 Hip pain, acute, left (ICD-10 - M25.552) 11/24/2024 Abnormal thyroid blood test (ICD-10 - R94.6) 05/20/2024 Nasal congestion (ICD-10 - R09.81) 05/20/2024 Acute bronchitis, unspecified organism (ICD-10 - J20.9) Rest and drink more liquids, especially water. You may use a humidifier or vaporizer to help keep the drainage moist. Odir-hlb-yzfubnc Nasal Saline may help the stuffy and runny nose. Use Ibuprofen and or Tylenol as needed for fever, chills, body aches or pain. Children 5 years old should not be given deqv-dni-ypgqcak cough and cold medications such as guaifenesin and dextromethorphan. If you're over age 5, you may try jhrz-jgl-evjjctq cold medications such as guaifenesin and dextromethorphan, or multi-symptom cold reliever such as Dayquil to help reduce the symptoms. Antibiotics have been prescribed. You should take these until completed and follow the directions. Antibiotics can sometimes cause upset stomach, and in rare cases, serious allergic reactions or serious gastrointestinal problems. If you start having severe abdominal pain, severe vomiting, or bloody diarrhea, you should be reevaluated by your physician or urgent care immediately. Follow up with your Primary Care Provider or return to clinic if symptoms do not improve within 3-5 days. If you develop severe symptoms such as shortness of breath, repeated vomiting, coughing up blood, or chest pain you should go to the emergency room or call 911 Plan Of Treatment Pending Test Test Name Order Date HEMOGLOBIN A1C (GLYCO) 11/22/2024 IRON, TOTAL 11/22/2024 LIPID PANEL (CHOL/TRIG/HDL/LDL) 11/23/19 25 VITAMIN D, 25 LEVEL (TOTAL) 11/22/2024 STOOL OCCULT BLOOD 11/22/2024 XR DEXA BONE DENSITY 11/22/2024 XR HIP LT 2 3V W PELVIS 12/11/2024 THYROID PANEL (T4/TSH/FREE T3) 5 THYROID PANEL (T4/TSH/FREE T3) 5 CMP (COMP MET PALMER) w/eGFR CKD-EPI 2024 CBC WITH DIFF 11/22/2024 Insurance Providers Payer Name Payer Address Payer Phone Subscriber Number Group Number Insured Name Patient Relationship to Insured Coverage Start Date Coverage End Date MMO [employer] [address] [place] [phone] [id number] Kenroy James Spouse - patient is the spouse of the insured Medical (General) History Medical History History ICD Code Pain in left shoulder M25.512 Acute sinusitis J01.90 Other low back pain M54.59 Exposure to other animate mechanical for vidhi, initial encounter W64.XXXA Aphthous ulcer K12.0 Nephrolithiasis N20.0 Trigeminal neuralgia G50.0 Epilepsy G40.909 Neuroma of foot D36.13 Ankle pain, unspecified laterality M25.5 79 Myalgia M79.10 Cervical radiculopathy M54.12 Rotator cuff tear M75.100 Arthralgia M25.50 Eczema L30.9 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
--- OUTSIDE RECORDS SUMMARY | 2024-12-21 08:29 | XMS_ITS | Clinical Summary ---
Author Organization [facility] Address [address] [place] [address] Care Team Providers Care Joint Special Operations Name Role Phone Duke Verde MD Primary Care Provider [phone] Li Dorantes DO Unavailable [phone] Allergies Active Allergy Reactions Criticality Noted Date Comments Latex 12/11/2023 Other Reaction(s): hives, itching Sulfa Antibiotics Hives Low 04/08/2015 Other Reaction(s): hives, itching Sulfacetamide 12/08/2023 Medications Gcafkszi-Neh-L e-FA (/Iron ) tablet Take 1 tablet by mouth Daily Active Black Cohosh 20 MG tablet Take 100 mg by mouth Active potassium & sodium citrate-citric acid (Tricitrates) 550-500-334 MG/5ML solution Take by mouth 4 (four) times a day with meals Active calcium citrate 315 mg + D2 6.25 mcg (Citracal Maximum) tablet 1 (one) time each day at the same time 5 Active cholecalcifero l (Vitamin D-3) 50 MCG (2000 UT) capsule 1 capsule 1 (one) time each day at the same time 5 Active potassium citrate CR (Urocit-K-15) 15 mEq ER tablet Take 15 mEq by mouth in the morning and 15 mEq before bedtime. 5 Active valACYclovir (Valtrex) 1 g tablet Take 1,000 mg by mouth 3 (three) times a day as needed 5 Active biotin 10 MG capsule Take 10 mg by mouth Daily Active Cranberry 50 MG chewable tablet Chew 50 mg Daily Active loratadine (Claritin) 10 MG tablet Take 10 mg by mouth Daily Active fluticasone (Flonase) 50 MCG/ACT nasal spray Administer 1 spray into each nostril Daily Shake gently. Before first use, prime pump. After use, clean tip and replace cap. Active PHENobarbital (Luminal) 32.4 MG tabletIndicati ons:Generalize d epilepsy (CMS/HCC) Fill when due Take one tab at bedtime Do not start before December 12, 2024. 90 tablet 5 Active OXcarbazepine (Trileptal) 300 MG tabletIndicati ons:Generalize d epilepsy (CMS/HCC) Take 1 tablet (300 mg) by mouth in the morning and 1 tablet (300 mg) before bedtime. 180 tablet 1 5 06/14/20 25 Active levETIRAcetam XR (Keppra XR) 750 mg tablet sustained-rele ase 24 hour 24 hr tabletIndicati ons:Generalize d epilepsy (CMS/HCC) Take 1 tablet (750 mg) by mouth at bedtime 90 tablet 1 5 Active OXcarbazepine (Trileptal) 300 MG tabletIndicati ons:Seizure disorder (CMS/HCC) Take 1 tablet (300 mg) by mouth in the morning and 1 tablet (300 mg) before bedtime. 180 tablet 1 4 12/11/19 25 Discontinu ed(Reorder ) levETIRAcetam XR (Keppra XR) 750 mg tablet sustained-rele ase 24 hour 24 hr tabletIndicati ons:Seizure disorder (CMS/HCC) Take 1 tablet (750 mg) by mouth at bedtime 90 tablet 1 4 12/11/19 25 Discontinu ed(Reorder ) PHENobarbital (Luminal) 32.4 MG tabletIndicati ons:Seizure (CMS/HCC) Fill when due Take one tab at bedtime 90 tablet 5 11/26/19 25 Discontinu ed(Reorder ) PHENobarbital (Luminal) 32.4 MG tabletIndicati ons:Seizure (CMS/HCC) Fill when due Take one tab at bedtime 90 tablet 5 12/11/19 25 Discontinu ed(Reorder ) OXcarbazepine (Trileptal) 300 MG tabletIndicati ons:Generalize d epilepsy (CMS/HCC) Take 1 tablet (300 mg) by mouth in the morning and 1 tablet (300 mg) before bedtime. 180 tablet 1 5 12/17/19 25 Discontinu ed(Reorder ) levETIRAcetam XR (Keppra XR) 750 mg tablet sustained-rele ase 24 hour 24 hr tabletIndicati ons:Generalize d epilepsy (CMS/HCC) Take 1 tablet (750 mg) by mouth at bedtime 90 tablet 1 5 12/17/19 25 Discontinu ed(Reorder ) Active Problems Problem Noted Date Diagnosed Date Trigeminal neuralgia 12/11/2023 Generalized epilepsy 06/11/2019 Assessment & Plan (12/10/2024 5:47 PM EDT): May continue to drive Check OXC and PB levels Check CMP Consider weaning PB Get copies from [facility] of EEG and imaging Request brain MRI from [facility] (?) Tingling 06/11/2019 Cervicalgia 06/09/2016 Disturbance of skin sensation 06/09/2016 Headache 11/25/2015 Disease of the oral soft tissues 03/30/2009 Seizure disorder 02/18/2008 Encounters Date Type Department Care Team Description 12/16/2024 Refill [facility] [address] [facility] [address] [place] [address] Zoila Rizvi MA Generalized epilepsy (CMS/HCC) 12/10/2024 4:30 PM EDT Office Visit [facility] [address] [place] [address] Lobo Hess MD Generalized epilepsy (CMS/HCC) (Primary Dx); Seizure disorder (CMS/HCC) 12/10/2024 Travel 11/25/2024 Refill [facility] [place] [address] [facility] [address] [place] [address] Paola Brady NP Seizure (CMS/[facility]) from Last 3 Months Family History Medical History Relation Name Comments No Known Problems Brother Hyperlipidemia Father Blake Jojo Hypotension Father Blake Uribe Parkinsonism Father Blake Jojo daibetes Father Blake Jojo Heart disease Maternal Grandfather Cancer Maternal Grandmother Nahomy Cooner Neuropathy Maternal Grandmother Nahomy Cooner Dementia Mother Hannah Alvarez Lung cancer Mother Hannah Alvarez Dementia Other Relation Name Status Comments Brother Alive Father Blake Uribe Alive Maternal Grandfather Maternal Grandmother Nahomy Cooner Mother Hannah Alvarez Alive Other Social History Tobacco Use Types Packs/Day Years [...] PM EDT Sexual Orientation Not on file Last Filed Vital Signs Vital Sign Reading Time Taken Comments Blood Pressure 150/80 12/10/2024 4:47 PM EDT Pulse 70 07/17/2024 8:30 AM EST Temperature - - Respiratory Rate - - Oxygen Saturation 97% 12/11/2023 11:19 AM EDT Inhaled Oxygen Concentration - - Weight 62.6 kg (138 lb) 12/10/2024 4:47 PM EDT Height 160 cm (5' 3 ) 12/10/2024 4:47 PM EDT Body Mass Index 24.45 12/10/2024 4:47 PM EDT Plan of Treatment Upcoming Encounters Date Type Department Care Team (Late st Contact Info) Description 06/10/2025 9:30 AM EST Office Visit [facility] [address] [place] [address] Chasity Nguyen, CNC LASER OPERATOR [address], [facility] [address] [place] [id number] Health Maintenance Due Date Last Done Comments CT Colonography 1965 Colonoscopy 1965 Colorectal Cancer Screening 1965 FIT-DNA 1965 FIT 1965 FOBT 1965 Sigmoidoscopy 1965 Influenza Vaccine (Season Ended) 2025 03/29/20 23 Mammogram 04/09/2025 04/09/2024, 03/31, 06/11/2019, Additional history exists Pap Smear 04/04/2027 04/04/2024, 11/2023, 11/07/2022, Additional history exists Cervical Cancer Screening 04/21/2027 HPV/Cotest 04/21/2027 04/21/2022, 04/21/2022 Insurance [employer] Care Teams Joint Special Operations Relationship Specialty Start Date End Date Duke Verde MD PCP - General Family Medicine 12/11/23 Li Dorantes DO [address] [place] [address] Referring Physician Neurology 07/17/24
--- OUTSIDE RECORDS SUMMARY | 2024-12-21 08:29 | XMS_ITS | Encounter Summary ---
Author Organization [facility] Address [address] [place] [address] Care Team Providers Care Veneer Taping Machine Offbearer Name Role Phone Duke Verde MD Primary Care Provider [phone] Li Dorantes DO Unavailable [phone] Reason for Visit * Reason Onset Date Comments Med Refill 12/16/2024 Encounter Details Date Type Department Care Team (Late st Contact Info) Description 12/16/2024 Refill [facility] [address] [place] [address] Zoila Rizvi MA Generalized epilepsy ([facility]) Social History Tobacco Use Types Packs/Day Years [...] 9:30 AM EST Office Visit [facility] [address] [facility] [address] [place] [address] Chasity Nguyen, EXPERIMENTAL MECHANIC SPACECRAFT [address], [facility] [address] [place] [address] documented as of this encounter Visit Diagnoses Diagnosis Generalized epilepsy (CMS/HCC) Unspecified epilepsy without mention of intractable epilepsy documented in this encounter Care Teams Veneer Taping Machine Offbearer Relationship Specialty Start Date End Date Duke Verde MD PCP - General Family Medicine 12/11/23 Li Dorantes DO [address] [place] [address] Referring Physician Neurology 07/17/24 documented as of this encounter
[2024-12-21 10:16] LABS: Alanine Aminotransferase 28 U/L (14-59); Albumin Globulin Ratio 1.2; Alkaline Phosphatase 112 U/L (46-116); Anion Gap 10.1; Aspartate Amino Transferase 18 U/L (15-37); BUN Creatinine Ratio 31.8; Bilirubin Total 0.2 mg/dL (0.2-1.0); Calcium 9.1 mg/dL (8.5-10.1); Carbon Dioxide 32.1 mmol/L (21.0-32.0); Chloride 104 mmol/L (98-107); Estimated GFR (African America >60 (>=60 mL/min/1.73m^2); Estimated GFR (Non-African Ame >60 (>=60 mL/min/1.73m^2); Globulin 3.4 g/dL; Glucose 87 mg/dL (74-106); Potassium 4.2 mmol/L (3.5-5.1); Sodium 142 mmol/L (136-145); Total Protein 7.4 g/dL (6.4-8.2)
[2024-12-22 07:09] LABS: Phenobarbital, Serum 5 ug/mL (15-40)
== END 2024-12-21 08:25 | disposition home or self-care (01) ==
LOC: LAB 08:26
PROVIDERS: PCP Family Medicine; Visit Provider Psychiatry & Neurology Neurology
DX: R94.6 Abnormal results of thyroid function studies (principal); G62.9 Polyneuropathy, unspecified; R79.89 Other specified abnormal findings of blood chemistry; G60.9 Hereditary and idiopathic neuropathy, unspecified; Z11.3 Encounter for screening for infections with a predominantly sexual mode of transmission; E53.1 Pyridoxine deficiency; I70.91 Generalized atherosclerosis; D51.3 Other dietary vitamin B12 deficiency anemia; M79.10 Myalgia, unspecified site; E78.5 Hyperlipidemia, unspecified
CPT/HCPCS: 36415; 80053; 80184; 84436; 84443; 84481

== ENCOUNTER 2025-03-10 07:44 | Outpatient (OUT) | payer OTHER, SELFPAY ==
--- OUTSIDE RECORDS SUMMARY | 2024-12-11 07:30 | XMS_ITS ---
Author Organization [facility] [place] Address [address] [place] [address] Care Team Providers Care Stem Sizer Name Role Phone Jose Eduardo Verde Primary Care Provider [phone] Allergies Allergen (clinical drug ingredient) Drug/Non Drug Allergy documented on EMR Reaction Allergy Type Onset Date Status Latex Latex rash Allergy Active Substance with sulfonamide structure and antibacterial mechanism of action (substance) Sulfa Antibiotics Unknown Drug Allergy Active Results Component Value Reference Range Notes XR wrist LT min 3V Reviewed date:12/11/2024 07:12:04 PM Interpretation: Performing Lab: Notes/Report: Source Facility: [place] [address] XRay Report Signed Patient: DANTE JAMES MR#: [id number] : 1965 Acct:[id number] Age/Sex: 59 / F ADM Date: 12/11/24 Loc: RAD Attending Dr: Twila Verde M.D. Ordering Physician: Twila Verde M.D. Date of Service: 12/11/24 Procedure(s): XR wrist LT min 3V Accession Number(s): [id number] cc: Twila Verde M.D. [place] [address] Patient Name: DANTE JAMES MRN: [facility]:[id number] date: 1965 Sex: F Assigned Patient Location: RAD Current Patient Location: RAD Accession/Order Number: [id number] Exam Date: 12/11/2024 15:10 Report Date: 12/11/2024 15:11 At the request of: TWILA VERDE MD Procedure: XR wrist LT min 3V XR wrist LT min 3V 12/11/2024 12:38 PM SIGNS AND SYMPTOMS: Acute left wrist pain PROTOCOL: Frontal, lateral, and oblique radiographs of the left wrist COMPARISON: None FINDINGS: There is mild narrowing of the radiocarpal joint space. There is no fracture or dislocation. No significant soft tissue swelling. XR/XR wrist LT min 3V IMPRESSION: No acute bony injury. Impression dictated by: Lobo Ballard M.D. 12/11/2024 3:11 PM Dictation Location: [place] [address] Electronically authenticated by: [id number] Y Date: 12/11/2024 15:11 Dictated By: Lobo Ballard M.D. Signed By: 12/11/243 DD/ 10 TD/TT: Press Hand: [place] [address] XRay Report Signed Patient: DANTE JAMES MR#: [id number] : 1965 Acct:[id number] Age/Sex: 59 / F ADM Date: 12/11/24 Loc: [facility] Attending Dr: Twila Verde M.D. Ordering Physician: Twila Verde M.D. Date of Service: 12/11/24 Procedure(s): XR wri st LT min 3V Accession Number(s): [id number] cc: Twila Verde M.D. [place] [id number] Patient Name: DANTE JAMES MRN: [id number] date: 1965 Sex: F Assigned Patient Location: [facility] Current Patient Location: [facility] Accession/Order Numb er: [id number] Exam Date: 12/11/2024 15:10 Report Date: 12/11/2024 15:11 At the request of: TWILA HOY MD Procedure: XR wrist LT min 3V XR wrist LT min 3V 12:38 PM SIGNS AND SYMPTOMS: Acute left wrist pain PROTOCOL: Frontal, l ateral, and oblique radiographs of the left wrist COMPARISON: None FINDINGS: There is mild narrow ing of the radiocarpal joint space. There is no fracture or dislocation. No s ignificant soft tissue swelling. X R/XR wrist LT min 3V IMPRESSION: No acute bony injury. Impression dictated by: Lobo Ballard M.D. 12/11/2024 3:11 PM Dictation Location: [facility] Electronically authe nticated by: [id number] Y Date: 12/11/2024 15:11 Dictated By: Lobo Ballard M.D. Signed By: 12/11/24 1513 DD/ 10 TD/TT: Press Hand: REASON FOR VISIT left wrist pain and left hip pain- had a fall last week- bruising on the hip still- wrist bruising has resolved, Still with pain- taking Aleve, Tylenol, IBU, icing Medications Medication SIG (Take, Route, Frequency, Duration) Notes Start Date End Date Status Vitamin D (Cholecalciferol) 50 MCG (1999) 1 capsule Orally Once a day 12/10/2024 Active Calcium Citrate 250 MG 1 tablet Orally O nce a day Active valACYclovir HCl 1 GM 1 tablet Orally TID As needed PRN Active Trileptal 300 MG 1 tablet Orally Twic e a day Active Biotin 10 MG 1 tablet Orally Once a day Active Multi Vitamin Daily Active Keppra XR 750 MG 1 tablet Orally Once a day Active tiZANidine HCl 4 MG 1 tablet as needed Orally Three times a day PRN Active PHENobarbital 32.4 MG 1 tablet Orally on ce aday Active Diclofenac Sodium 75 MG 1 tablet as need ed Orally Twice a day for 30 days PRN 04/15/2024 Active Cranberry 500 MG as directed Orally o ne daily Active Claritin 10 MG 1 tablet Orally Once a day Active Citracal Maximum 315-6.25 MG-MCG 1 tablet with a meal Orally Once a day for 30 day(s) 12/10/2024 Active Social History Tobacco Use: Social History Observation Description Date Details (start date - stop date) Never Smoker NA - NA Tobacco Use/Smoking Question Answer Notes Patient is a nonsmoker Problems Problem Type SNOMED Code ICD Code Onset Dates Problem Status W/U Status Risk Notes Problem Arthralgia of the pelvic region and thigh (887550187) Hip pain, acute, left (M25.552) Active confirmed Problem Pain in wrist (88693408) Wrist pain, acute, left (M25.532) Active confirmed Vital Signs Blood pressure systolic 128 mm Hg 12/12/19 25 Blood pressure diastolic 72 mm Hg 025 Height 64 in 12/11/2024 Weight 137.0 lbs 12/11/2024 BMI 23.51 kg/m2 12/11/2024 Encounters Encounter Location Date Provider Diagnosis [facility] [address] [place] [address] 12/11/2024 Jose Eduardo Verde Wrist pain, acute, left M25.532 and Hip pain, acute, left M25.552 Assessments Encounter Date Diagnosis (ICD Code) Assessment Notes Treatment Notes Treatment Clinical Notes Section Notes 12/11/2024 Wrist pain, acute, left (ICD-10 - M25.532) 12/11/2024 Hip pain, acute, left (ICD-10 - M25.552) Plan Of Treatment Pending Test Test Name Order Date XR HIP LT 2 3V W PELVIS 12/11/2024 Progress Notes * Dante JAMES MDOB:1965 (59 yo F)Acc No.[id number]:12/11/2024 Progress Note Patient: aDnte HAWKINS Provider: Melly Verde [facility] K[facility] :1965 A ge:59 Y S ex:Female Date:12/11/2024 [address] [facility] Check In:11:23 AM ESTCheck O ut:12:14 PM EST Subjective: * Chief Complaints: * L eft wrist pain and left hip pain- had a fall last week- bruising on the hip still- wrist bruising has resolvedStill with pain- taking Aleve, Tylenol, IBU, icing * HPI: G eneral: left wrist and hip - walking up slow incline - just a slip and fall - no palpitation - no co - no syncoope Left hip oaon but left wrist not geting any better. * Active Problem List M25.512 Pain in left shoulde r Modified On:11/21/2022 Status:confirmed W64.XXXA Exposure to other an imate mechanical forces, initial encounter Modified On:11/21/2022 Status:confirmed M54.12 Cervical radiculopat hy Modified On:11/21/2022 Status:confirmed G56.00 Carpal tunnel syndro me Modified On:11/21/2022 Status:confirmed R56.9 Seizures Modified On:11/21/2022 Status:confirmed L30.9 Eczema Modified On:11/21/2022 Status:confirmed J01.90 Acute sinusitis Modified On:11/21/2022 Status:confirmed M25.50 Arthralgia Modified On:11/21/2022 Status:confirmed G40.909 Epilepsy Modified On:11/21/2022 Status:confirmed N20.0 Nephrolithiasis Modified On:11/21/2022 Status:confirmed M25.579 Ankle pain, unspecif ied laterality Modified On:11/21/2022 Status:confirmed M75.100 Rotator cuff tear Modified On:11/21/2022 Status:confirmed K12.0 Aphthous ulcer Modified On:11/21/2022 Status:confirmed D36.13 Neuroma of foot Modified On:11/21/2022 Status:confirmed 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 Modified On:11/21/2022U Status:confirmed M79.10 Myalgia Modified On:11/21/2022U Status:confirmed M54.59 Other low back pain Modified On:11/21/2022 Status:confirmed G50.0 Trigeminal neuralgia Modified On:11/21/2022 Status:confirmed L72.3 Sebaceous cyst Modified On:11/23/2022U Status:confirmed M25.531 Right wrist pain Modified On:04/15/2024U Status:confirmed Z00.00 Well adult Modified On:11/22/2024W/U Status:confirmed M85.80 Osteopenia Modified On:12/10/2024/U Status:confirmed M25.532 Wrist pain, acute, l eft Modified On:12/11/2024/U Status:confirmed M25.552 Hip pain, acute, lef t Modified On:12/11/2024/U Status:confirmed * Medical History: * Surgical History: p artial hyst 12/1997t/a 12/1969bilateral shoulder surgery 02/2015Cystoscopy with stone extraction and stent placement 05/15/2024 * Hospitalization/Major Diagno stic Procedure: D enies Past Hospitalization * Family History: F ather: alive 76 yrs. M other: alive 76 yrs. B rother(s): alive. S on(s): alive.?3 brother(s) - healthy. . * Social History: T obacco Use: T obacco Use/Smoking P atient is a n onsmoker * Medications: T akingBiotin 10 MG Tablet 1 tablet Orally Once a day Calcium Citrate 250 MG Tablet 1 tablet Orally Once a day Citracal Maximum(Calcium Citrate-Vitamin D) 315-6.25 MG-MCG Tablet 1 tablet with a meal Orally Once a day Claritin(Loratadine) 10 MG Tablet 1 tablet Orally Once a day Cranberry 500 MG Capsule as directed Orally one daily Diclofenac Sodium 75 MG Tablet Delayed Release 1 tablet as needed Orally Twice a day , Notes to Pharmacist: PRNKeppra XR(levETIRAcetam ER) 750 MG Tablet Extended Release 24 Hour 1 tablet Orally Once a day Multi Vitamin Daily PHENobarbital 32.4 MG Tablet 1 tablet Orally once aday tiZANidine HCl 4 MG Tablet 1 tablet as needed Orally Three times a day , Notes to Pharmacist: PRNTrileptal(OXcarbazepine) 300 MG Tablet 1 tablet Orally Twice a day valACYclovir HCl 1 GM Tablet 1 tablet Orally TID As needed, Notes to Pharmacist: PRNVitamin D (Cholecalciferol) 50 MCG (1999 UT) Capsule 1 capsule Orally Once a day Taking Biotin 10 MG Tablet 1 tablet Orally Once a day Taking Calcium Citrate 250 MG Tablet 1 tablet Orally Once a day Taking Citracal Maximum(Calcium Citrate-Vitamin D) 315-6.25 MG-MCG Tablet 1 tablet with a meal Orally Once a day Taking Claritin(Loratadine) 10 MG Tablet 1 tablet Orally Once a day Taking Cranberry 500 MG Capsule as directed Orally one daily Taking Diclofenac Sodium 75 MG Tablet Delayed Release 1 tablet as needed Orally Twice a day , Notes to Pharmacist: PRNTaking Keppra XR(levETIRAcetam ER) 750 MG Tablet Extended Release 24 Hour 1 tablet Orally Once a day Taking Multi Vitamin Daily Taking PHENobarbital 32.4 MG Tablet 1 tablet Orally once aday Taking tiZANidine HCl 4 MG Tablet 1 tablet as needed Orally Three times a day , Notes to Pharmacist: PRNTaking Trileptal(OXcarbazepine) 300 MG Tablet 1 tablet Orally Twice a day Taking valACYclovir HCl 1 GM Tablet 1 tablet Orally TID As needed, Notes to Pharmacist: PRNTaking Vitamin D (Cholecalciferol) 50 MCG (1999) Capsule 1 capsule Orally Once a day DiscontinuedPyridium(Phenazopyridine HCl) 200 MG Tablet 1 tablet after meals Orally Three times a day Medication List reviewed and reconciled with the patientDiscontinued Pyridium(Phenazopyridine HCl) 200 MG Tablet 1 tablet after meals Orally Three times a day Medication List reviewed and reconciled with the patient * Allergies: S ulfa Antibiotics - Criticality HighLatex: rash - Allergy - Criticality [place][Allergies Verified] Objective: * Vitals: W t:137.0lbs, Ht: 64 in, BP:128/72mm Hg, BMI:23.51Index, Ht-cm: 162.56 cm, Wt-k.14 kg. * Examination: A bdomen Exam:: L eft wrist - in brace -poor rom due to pain Left hip poor int rotation. Assessment: * Assessment: 1. W rist pain, acute, left - M25.532 (Primary) 2 . H ip pain, acute, left - M25.552 Plan: * Treatment: ?Imaging: XR wrist LT min 3V (Performed Date - 12/11/2024)2.?Hip pain, acute, left?Imaging: XR HIP LT 2 3V W PELVIS* Jose Eduardo Verde 12/11/2024 12:12: 10 PM EDT > STAT * Procedure Codes: * * Sign off status: Completed Visit Status: C HK (Check Out) true * Provider: Melly Verde ([facility])MD Date: 0 12/11/2024 Generated for Pablo aguilar/Tyler/eTransmitting on: 0 03/10/2025 07:46 AM EDT History and Physical Notes * HPI (History of Present Illness) Category Sub-Category Detail Notes Category Not es General left wrist and hip - walking up slow incline - just a slip and fall - no palpitation - no co - no syncoope Left hip oaon but left wrist not geting any better Examination Category Sub-Category Detail Notes Category Not es Abdomen Exam: Left wrist - in brace -poor rom due to pain Left hip poor int rotation
--- OUTSIDE RECORDS SUMMARY | 2024-12-11 15:10 | XMS_ITS ---
Author Organization [facility] in [place] Address [address] [place] [address] Care Team Providers Care Provider Network Analyst Name Role Phone Jose Eduardo Verde Primary Care Provider REASON FOR VISIT xr results Encounters Encounter Location Date Provider Diagnosis [facility] [address] [place] [address] 12/11/2024 Jose Eduardo Verde Plan Of Treatment No Information Progress Notes * Lou JAMES MDOB:1965 (59 yo F)Acc No.[id number]:12/11/2024 Patient: Anurag Lou RODRIGUEZ :1965 A ge:59 Y S ex:Female Address:[address] [place] [address] * true * Date: Generated for Mandeepi jeff/Famemeg/eTransmitting on: 0 03/10/2025 07:46 AM EDT
--- OUTSIDE RECORDS SUMMARY | 2024-12-21 07:48 | XMS_ITS ---
Author Organization [facility] in [place] Address [address] [place] [address] Care Team Providers Care Railroad Crossing Protection Maintainer Name Role Phone Jose Eduardo Verde Primary Care Provider REASON FOR VISIT lab results Encounters Encounter Location Date Provider Diagnosis [facility] [address] [place] [address] 12/21/2024 Jose Eduardo Verde Plan Of Treatment No Information Progress Notes * Lou JAMES MDOB:1965 (59 yo F)Acc No.[id number]:12/21/2024 Patient: Anurag Lou RODRIGUEZ :1965 A ge:59 Y S ex:Female Address:[address] [place] [address] * true * Date: Generated for Pablo aguilar/Tyler/eTransmitting on: 0 03/10/2025 07:46 AM EDT
--- OUTSIDE RECORDS SUMMARY | 2025-03-10 07:46 | XMS_ITS | Clinical Summary ---
Author Organization [facility] Address [address] [place] [address] Phone Care Team Providers Care Assistant Service Manager Name Role Phone Unavailable Primary Care Provider [...]
--- OUTSIDE RECORDS SUMMARY | 2025-03-10 07:46 | XMS_ITS | Encounter Summary ---
Author Organization [facility] Address [address] [place] [address] Care Team Providers Care Assembler For Puller Over Hand Name Role Phone Duke Verde MD Primary Care Provider [phone] Li Dorantes DO Unavailable [phone] Encounter Details Date Type Department Care Team (Late Contact Info) Description 01/02/2024 Telephone [facility] [address] [place] [phone] Jesusita Peng Social History Tobacco Use [...] 06/10/2025 9:30 AM EST Office Visit [facility] [address] [place] [address] Chasity Nguyen, SIMPLEX PRINTER INSTALLER [address], [facility] [address] [place] [phone] documented as of this encounter Visit Diagnoses Not on filedocumented in this encounter Care Teams Assembler For Puller Over Hand Relationship Specialty Start Date End Date Duke Verde MD PCP - General Family Medicine 12/11/23 Li Dorantes DO [address] [place] [address] Referring Physician Neurology 07/17/24 documented as of this encounter
--- OUTSIDE RECORDS SUMMARY | 2025-03-10 07:47 | XMS_ITS | Patient Health Record ---
Author Organization [facility] in [place] Address [address] [place] [address] Care Team Providers Care Tamping Machine Operator Road Forms Name Role Phone Jose Eduardo Verde Primary [...] PM Interpretation: Performing Lab: Notes/Report: Source Facility: [place] [address] XRay Report Signed Patient: LOU JAMES MR#: [id number] : 1965 Acct:[id number] Age/Sex: 59 / F ADM Date: 12/11/24 Loc: RAD Attending Dr: Twila Verde M.D. Ordering Physician: Twila Verde M.D. Date of Service: 12/11/24 Procedure(s): XR wrist LT min 3V Accession Number(s): [id number] cc: Twila Verde M.D. [place] [address] Patient Name: LOU JAMES MRN: [facility]:[id number] date: 1965 Sex: F Assigned Patient Location: RAD Current Patient Location: RAD Accession/Order Number: [id number] Exam Date: 12/11/2024 15:10 Report Date: 12/11/2024 15:11 At the request of: TWILA VEDRE MD Procedure: XR wrist LT min 3V [...] Ballard M.D. 12/11/2024 3:11 PM Dictation Location: [place] [address] Electronically authenticated by: [id number] Y Date: 12/11/2024 15:11 Dictated By: Lobo Ballard M.D. Signed By: 12/11/241512 DD/ 10 TD/TT: Manometer Technician: [place] [address] XRay Report Signed Patient: LOU JAMES MR#: [id number] : 1965 Acct:[id number] Age/Sex: 59 / F ADM Date: 12/11/24 Loc: [facility] Attending Dr: Luis E Verde M.D. Ordering Physician: Twila Verde M.D. Date of Service: 12/11/24 Procedure(s): XR wri st LT min 3V Accession Number(s): [id number] cc: Twila Verde M.D. [place] [id number] Patient Name: LOU JAMES MRN: [id number]:[id number] date: 1965 Sex: F Assigned Patient Location: [facility] Current Patient Loca tion: RAD Accession/Order Numb er: [id number] Exam Date: 12/11/2024 15:10 Report Date: 12/11/2024 [...] Ballard M.D. 12/11/2024 3:11 PM Dictation Location: [place] [address] Electronically authenticated by: [id number] Y Date: 12/11/2024 15:11 Dictated By: Lobo Ballard M.D. Signed By: 12/11/241512 DD/ 10 TD/TT: Manometer Technician: Phenobarbital, Serum Reviewed date:12/23/2024 03:25:19 PM Interpretation: Performing Lab: Notes/Report: [facility] , Phenobarbital, Serum 5 15-40 ug/mL Detection Limit = 3 Performed at: [facility] [id number] Marine Engine Driver: Deangelo Kwan PhD, Phone: [phone] Performing Lab: see note LC - [facility] LB LAB TESTING Reviewed date:12/29/2024 04:18:30 PM Interpretation: Performing Lab: Notes/Report: [id number] PHENOBARBITAL, UNBOUND (FREE) [facility] , Miscellaneous Test COMMENT . Test Ordered: [id number] Phenobarbital, Unbound Phenobarbital, Unbound 2.2 [L ] ug/ml MX Reference Range: 6.0 - 20.0 Performed at: [facility] [address] [place] [id number] Marine Engine Driver: Linda Taveras [facility], Phone: [phone] Performed at: [facility] [id number] Marine Engine Driver: Deangelo Kwan PhD, Phone: [phone] Performing Lab: see note LC - [facility] LB TSH Reviewed date:12/21/2024 11:49:24 AM Interpretation: Performing Lab: Notes/Report: [facility] , Thyroid Stimulating Hormone 1.895 0.358-3.740 uIU/mL Performing Lab: see note ML - [facility] LB T4 Reviewed date:12/21/2024 11:49:24 AM Interpretation: Performing Lab: Notes/Report: [facility] , T4 Thyroxine 4.70 4.80-13.90 ug/dL Performing Lab: see note - [facility] PROF 14(COMP METB) Reviewed date:12/21/2024 11:49:24 AM Interpretation: Performing Lab: Notes/Report: [facility] , Sodium 142 136-145 mmol/L Potassium 4.2 3.5-5.1 mmol/L Chloride 104 98-107 mmol/L Carbon Dioxide 32.1 21.0-32.0 mmol/L Anion Gap 10.1 Glucose 87 74-106 mg/dL Blood Urea Nitrogen 21.0 7.0-18.0 mg/dL Creatinine 0.66 0.55-1.02 mg/dL Estimated GFR ( Jayne >60 >=60 mL/min/1.73m 2 Estimated GFR (Non- Pati >60 >=60 mL/min/1.73m 2 BUN Creatinine Ratio 31.8 Calcium 9.1 8.5-10.1 mg/dL Bilirubin Total 0.2 0.2-1.0 mg/dL Aspartate Amino Transferase 18 15-37 U/L Alanine Aminotransferase 28 14-59 U/L Alkaline Phosphatase 112 46-116 U/L Total Protein 7.4 6.4-8.2 g/dL Albumin Level 4.0 3.4-5.0 g/dL Globulin 3.4 Albumin Globulin Ratio 1.2 Performing Lab: see note ML - [facility] FREE T3 Reviewed date:12/21/2024 11:49:24 AM Interpretation: Performing Lab: Notes/Report: [facility] , Free T3 2.87 2.18-3.98 pg/mL Performing Lab: see note ML - [facility] XR hip LT 2V w/ pelvis Reviewed date:12/11/2024 07:12:04 PM Interpretation: Performing Lab: Notes/Report: Source Facility: [facility] [place] [address] [place] [address] XRay Report Signed Patient: LOU JAMES MR#: [id number] : 1965 Acct:[id number] Age/Sex: 59 / F ADM Date: 12/11/24 Loc: [facility] Attending Dr: Twila Verde M.D. Ordering Physician: Twila Verde M.D. Date of Service: 12/11/24 Procedure(s): XR hip LT 2V w/ pelvis Accession Number(s): [id number] cc: Twila Verde M.D. [place] [id number] Patient Name: LOU JAMES MRN: [id number] date: 1965 Sex: F Assigned Patient Location: [facility] Current Patient Location: [facility] Accession/Order Number: [id number] Exam Date: 12/11/2024 15:09 Report Date: 12/11/2024 [...] Ballard M.D. 12/11/2024 3:10 PM Dictation Location: [place] [address] Electronically authenticated by: [id number] Y Date: 12/11/2024 15:10 Dictated By: Lobo Ballard M.D. Signed By: 12/11/24 1513 DD/ 151 TD/TT: Manometer Technician: [place] [address] XRay Report Signed Patient: LOU JAMES MR#: [id number] : 1965 Acct:[id number] Age/Sex: 59 / F ADM Date: 12/11/24 Loc: RAD Attending Dr: Luis E Verde M.D. Ordering Physician: Twila Verde M.D. Date of Service: 12/11/24 Procedure(s): XR hip LT 2V w/ pelvis Accession Number(s): [id number] cc: Twila Verde M.D. [place] [address] Patient Name: LOU JAMES MRN: [facility]:[id number] date: 1965 Sex: F Assigned Patient Location: [facility] Current Patient Loca tion: RAD Accession/Order Numb er: [id number] Exam Date: 12/11/2024 15:09 Report Date: 12/11/2024 [...] Ballard M.D. 12/11/2024 3:10 PM Dictation Location: [place] [address] Electronically authenticated by: [id number] Y Date: 12/11/2024 15:10 Dictated By: Lobo Ballard M.D. Signed By: 12/11/24 1513 DD/ 1510 TD/TT: Manometer Technician: Occult Blood* Reviewed date:12/02/2024 07:54:55 PM Interpretation: Performing Lab: Notes/Report: [facility] , Occult Blood Negative Performing Lab: see note ML - [facility] LB Magnesium, Urine Reviewed date:08/29/2024 08:00:27 PM Interpretation: Performing Lab: Notes/Report: [facility] , Magnesium, U 3.0 Not Estab. mg/dL Magnesium,Urine 24hr 127.5 12.0-293.0 mg/24 hr Performed at: [address] [id number] Marine Engine Driver: Deangelo Kwan PhD, Phone: [phone] Performing Lab: see note [facility] LB Oxalate, Quant, 24-Hour Urin e Reviewed date:08/29/2024 08:00:27 PM Interpretation: Performing Lab: Notes/Report: [facility] [facility] , Oxalates, Urine 5 Undefined mg/L Oxalates, Urine 24hr 21 4-31 mg/24 hr Performed at: [address] [id number] Marine Engine Driver: Wilson Hamm MD, Phone: [phone] Performing Lab: see note [facility] LB Uric Acid, 24 hr Urine Reviewed date:08/29/2024 08:00:27 PM Interpretation: Performing Lab: Notes/Report: [facility] [facility] , Uric Acid, Urine 11.7 Not Estab. mg/dL Uric Acid,Urine 24hr 497.3 173.7-902.1 mg/24 hr Performed at: [address] [id number] Marine Engine Driver: Deangelo Kwan PhD, Phone: [phone] Performing Lab: see note [facility] LB Phosphorus, 24 hr Urine Reviewed date:08/29/2024 08:00:27 PM Interpretation: Performing Lab: Notes/Report: [facility] [facility] , Phosphorus, Urine 18.8 Not Estab. mg/dL Phosphorus,Urine 24h 990 339-6511 mg /24 hr Performing Lab: see note [facility] LB Citric Acid (Citrate), Urine Reviewed date:08/28/2024 08:45:53 PM Interpretation: Performing Lab: Notes/Report: [facility] [facility] , Citric Acid, Urine 208 Undefined mg/L This test was developed and its performance characteristics determined by [facility]. It has not been cleared or approved by the Food and Drug Administration. Citric Acid, U, 24hr 910 889-4600 mg /24 hr Performed at: [address] [id number] Marine Engine Driver: Wilson Hamm MD, Phone: [phone] Performing Lab: see note - [facility] LB Sodium 24 Hour Urine Reviewed date:08/25/2024 12:05:43 PM Interpretation: Performing Lab: Notes/Report: [facility] , Sodium Urine Random 23 30-90 mmol/L Sodium 24 Hour Urine 98 40-220 mmol/24h Performing Lab: see note [facility] LB Calcium 24 Hour Urine Reviewed date:08/25/2024 12:05:43 PM Interpretation: Performing Lab: Notes/Report: [facility] , Calcium Urine Random 5.9 5.1-21.0 mg/dL Calcium 24 Hour Urine 250.8 100.0-300. 0 mg/24hr Performing Lab: see note - [facility] LB Creatinine 24 Hour Urine Reviewed date:08/25/2024 12:05:43 PM Interpretation: Performing Lab: Notes/Report: [facility] , Creatinine Urine Random 20.08 20.00-30 0.00 mg/dL Total Volume 24 Hour Urine 4250 Creatinine 24 Hour Urine 853.40 800.00-1800.00 mg/24 hr Performing Lab: see note - [facility] LB PTH, Intact Reviewed date:08/25/2024 12:05:42 PM Interpretation: Performing Lab: Notes/Report: [facility] , PTH, Intact 30 15-65 pg/mL Performed at: [facility] [id number] Marine Engine Driver: Deangelo Kwan PhD, Phone: [phone] Performing Lab: see note [facility] LB URIC ACID SERUM Reviewed date:08/25/2024 12:05:43 PM Interpretation: Performing Lab: Notes/Report: [facility] , Uric Acid 2.0 2.6-6.0 mg/dL Performing Lab: see note - [facility] LB POTASSIUM Reviewed date:08/25/2024 12:05:43 PM Interpretation: Performing Lab: Notes/Report: [facility] , Potassium 3.9 3.5-5.1 mmol/L Performing Lab: see note [facility] LB NA Reviewed date:08/25/2024 12:05:43 PM Interpretation: Performing Lab: Notes/Report: [facility] , Sodium 135 136-145 mmol/L Performing Lab: see note ML - [facility] LB CREATININE Reviewed date:08/25/2024 12:05:43 PM Interpretation: Performing Lab: Notes/Report: [facility] , Creatinine 0.83 0.55-1.02 mg/dL Estimated GFR ( Jayne >60 >=60 mL/min/1.73m 2 Estimated GFR (Non- Pati >60 >=60 mL/min/1.73m 2 Performing Lab: see note ML - [facility] LB CO2 Reviewed date:08/25/2024 12:05:43 PM Interpretation: Performing Lab: Notes/Report: [facility] , Carbon Dioxide 33.0 21.0-32.0 mmol/L Performing Lab: see note ML - [facility] LB CHLORIDE Reviewed date:08/25/2024 12:05:43 PM Interpretation: Performing Lab: Notes/Report: [facility] , Chloride 97 98-107 mmol/L Performing Lab: see note ML - [facility] LB CALCIUM Reviewed date:08/25/2024 12:05:43 PM Interpretation: Performing Lab: Notes/Report: [facility] , Calcium 9.2 8.5-10.1 mg/dL Performing Lab: see note - [facility] LB BUN Reviewed date:08/25/2024 12:05:43 PM Interpretation: Performing Lab: Notes/Report: [facility] , Blood Urea Nitrogen 14.0 7.0-18.0 mg/dL Performing Lab: see note ML - [facility] LB Prothrombin Time INR Reviewed date:05/01/2024 09:18:39 PM Interpretation: Performing Lab: Notes/Report: [facility] , Prothrombin Time 10.7 9.0-11.6 sec INR 1.01 DESIRED INR: 2.0-3.0 CONDITIONS NOT LISTED BELOW 2.5-3.5 FOR PROSTHETIC HEART VALVE REPLACEMENT 2.5-3.5 RECURRENT THROMBOSIS Performing Lab: see note ML - [facility] LB URINE MICROSCOPIC ONLY Reviewed date:05/01/2024 09:18:39 PM Interpretation: Performing Lab: Notes/Report: [facility] , WBC Urine 2-5 NONE SEEN #/HPF RBC Urine NONE SEEN 0-2 #/HPF Bacteria Urine SMALL NONE SEEN #/HPF Mucus Urine TRACE NONE SEEN Squamous Epithelial Cell Urine FEW NONE/RARE #/LPF Crystals Seen? None Seen None Seen #/HPF Cast Seen? NONE SEEN NONE SEEN #/LPF Urine Culture Indicated YES Performing Lab: see note ML - [facility] LB UA (CLEAN or CATCH) ROTARY ROCK DRILLING MACHINE OPERATOR or M ICRO IF IND. Reviewed date:05/01/2024 09:18:39 PM Interpretation: Performing Lab: Notes/Report: [facility] , Color Urine LT. YELLOW YELLOW Clarity Urine CLEAR CLEAR Specific Dameron Urine <=1.005 1.005-1.025 pH Urine 7.0 5.0-9.0 Protein Urine NEGATIVE NEG/TRACE mg/dL Glucose Urine UA NEGATIVE NEGATIVE mg/dL Bilirubin Urine NEGATIVE NEGATIVE Ketones Urine NEGATIVE NEGATIVE mg/dL Blood Urine NEGATIVE NEGATIVE Nitrite Urine NEGATIVE NEGATIVE Urobilinogen Urine 0.2 0.2-1.0 EU/dL Leukocyte Esterase Urine SMALL NEGATIVE Urine Microscopic Indicated YES Performing Lab: see note ML - [facility] LB PTT Reviewed date:05/01/2024 09:18:39 PM Interpretation: Performing Lab: Notes/Report: [facility] , Partial Thromboplastin Time 29.9 22.3-36.2 sec Performing Lab: see note ML - [facility] LB PROF CHEM 8 (BAS METB) Reviewed date:05/01/2024 09:18:39 PM Interpretation: Performing Lab: Notes/Report: [facility] , Sodium 139 136-145 mmol/L Potassium [...] mg/dL Performing Lab: see note ML - [facility] LB MM tomosynthesis screening B I Reviewed date:04/09/2024 10:23:36 PM Interpretation: Performing Lab: Notes/Report: Source Facility: [facility] [place] [address] [place] [address] Mammography Report Signed Patient: LOU JAMES MR#: [id number] : 1965 Acct:[id number] Age/Sex: 58 / F ADM Date: 04/09/24 Loc: MAMMO Attending Dr: KYUNG PACK Ordering Physician: KYUNG PACK Results: Date of Service: 04/09/24 Follow Up: Procedure(s): MM tomosynthesis screening BI Accession Number(s): [id number] cc: KYUNG PACK ; Twila Verde M.D. Patient Name: LOU JAMES MR#: [id number] : 1965 Exam Date: 04/09/2024 Ordering Doctor: [...] cervical cancer at age 35. LOCATION: [facility] BREAST COMPOSITION: The breasts are extremely [...] M.D. Signed By: 04/09/241743 DD/ 42 TD/TT: Manometer Technician: [place] [address] Mammography Report Signed Patient: LOU JAMES MR#: [id number] : 1965 Acct:[id number] Age/Sex: 58 / F ADM Date: 04/09/24 Loc: MAMMO Attending Dr: KYUNG PACK Ordering Physician: KYUNG PACK Results: Date of Service: 05/23 Follow Up: Procedure(s): MM tomosynthesis screening BI Accession Number(s): [id number] cc: KYUNG PACK ; Twila Verde M.D. Patient Name: LOU JAMES MR#: [id number] : 1965 Exam Date: 04/09/2024 Ordering Doctor: DR KYUNG PACK RADIOLOGY REPORT PROCEDURE: MM TOMOSYNTHESIS SCREENING BI COMPARISON: MM TOMOSYNTHESIS SCREENING BI, 04/06/2023. MG MAMM SCREEN 3D JORDAN CAD, 03/07/2022. MG MAMM SCREEN 3D JORDAN CAD, 03/04/2021. MG MAMM SCREEN JORDAN W CAD, 06/11/2019. INDICATIONS: Screen ing for malignant neoplasm Calculator Name NCI Breast Cancer Risk Assessment Tool 5 Year Breast Cancer Risk 1.20% Lifetime Breast Canc er Risk 6.90% Personal Breast Cancer No Personal Ovarian Can cer No Treatments None Family Cancers Grandmother-maternal with cervical cancer at age 40; Aunt-paternal with cervical cancer at age 40; Aunt-paternal with cervical cancer at age 35. LOCATION: [facility] BREAST COMPOSITION: The breasts are extremely dense, which lowers the sensitivity of mammography. FINDINGS: DIAGNOSTIC CATEGORY 1--NEGATIVE. RIGHT BREAST: No significant suspicious finding. Scattered benign-appearing lymph nodes are pres ent. No significant change has occurred. LEFT BREAST: No significant suspicious finding. No significant change has occurred. RECOMMENDATIONS: ROUTINE MAMMOGRAM AN D CLINICAL EVALUATION IN 12 MONTHS. PLEASE NOTE: A JOSE L MAMMOGRAM DOES NOT EXCLUDE THE POSSIBILITY OF BREAST CANCER. A CLINICALLY SUSPICIOUS PALPABLE LUMP SHOULD BE BIOPSIED. Dictated by: Efren Agustin M.D. on 04/09/2024 at 17:34 Approved by: Efren Agustin M.D. on 04/09/2024 at 17:43 Dictated By: Efren Agustin M.D. Signed By: 04/09/241743 DD/ 42 TD/TT: Manometer Technician: ELECTROLYTES Reviewed date:03/17/2024 05:03:52 PM Interpretation: Performing Lab: Notes/Report: [facility] , Sodium 141 136-145 mmol/L Potassium 3.5 3.5-5.1 mmol/L Chloride 104 98-107 mmol/L Carbon Dioxide 29.6 21.0-32.0 mmol/L Anion Gap 10.9 Performing Lab: see note ML - [facility] LAB TESTING Reviewed date:12/29/2024 04:18:30 PM Interpretation: Performing Lab: Notes/Report: [id number] OXYCARBAZEPINE [facility] , Miscellaneous Test COMMENT . Test Ordered: [id number] Oxcarbazepine (Trileptal),S Oxcarbazepine Metabolite 5 [L ] ug/mL Reference Range: 10-35 This test was developed and its performance characteristics determined by [facility]. It has not been cleared or approved by the Food and Drug Administration. Detection Limit = 1 Performed at: - [facility] [id number] Marine Engine Driver: Wilson Hamm MD, Phone: [phone] Performed at: - [facility] [id number] Marine Engine Driver: Deangelo Kwan PhD, Phone: [phone] Performing Lab: see note - [facility] LB VITAMIN D 25 OH Reviewed date:11/24/2024 01:07:32 PM Interpretation: Performing Lab: Notes/Report: [facility] , Vitamin D 60.1 <20 ng/mL Vit D deficient 20-<30 ng/mL Vit D insufficient 30-100 ng/mL Vit D sufficient >100 ng/mL Potential Toxicity Performing Lab: see note ML - [facility] LB TSH Reviewed date:11/24/2024 01:07:32 PM Interpretation: Performing Lab: Notes/Report: [facility] , Thyroid Stimulating Hormone 1.938 0.358-3.740 uIU/mL Performing Lab: see note ML - [facility] LB T4 Reviewed date:11/24/2024 01:07:32 PM Interpretation: Performing Lab: Notes/Report: [facility] , T4 Thyroxine 3.90 4.80-13.90 ug/dL Performing Lab: see note ML - [facility] LB PROF 14(COMP METB) Reviewed date:11/24/2024 01:07:32 PM Interpretation: Performing Lab: Notes/Report: [facility] , Sodium 140 136-145 mmol/L Potassium [...] 1.2 Performing Lab: see note ML - [facility] LB LIPID PROFILE Reviewed date:11/24/2024 01:07:32 PM Interpretation: Performing Lab: Notes/Report: [facility] , Triglycerides 126 <=150 mg/dL Cholesterol [...] >11.0 HIGH RISK Performing Lab: see note ML - [facility] IRON Reviewed date:11/24/2024 01:07:32 PM Interpretation: Performing Lab: Notes/Report: [facility] , Iron 73.0 50.0-170.0 ug/dL Performing Lab: see note ML - [facility] LB GLYCOHEMOGLOBIN A1C Reviewed date:11/24/2024 01:07:32 PM Interpretation: Performing Lab: Notes/Report: [facility] , Glycohemoglobin A1C 5.3 4.5-6.2 % ADA RECOMMENDED LIMIT 4.0 - 6.0 ADA THERAPEUTIC TARGET < 7.0 ACTION SUGGESTED > 7.0 Estimated Average Glucose 105 Performing Lab: see note ML - [facility] FREE T3 Reviewed date:11/24/2024 01:07:32 PM Interpretation: Performing Lab: Notes/Report: [facility] , Free T3 2.52 2.18-3.98 pg/mL Performing Lab: see note ML - [facility] LB CBC AUTO DIFF Reviewed date:11/24/2024 01:07:32 PM Interpretation: Performing Lab: Notes/Report: [facility] , White Blood Count 5.2 4.0-11.0 [...] 3/uL Performing Lab: see note ML - [facility] US renal BI Reviewed date:06/14/2024 06:27:10 AM Interpretation: Performing Lab: Notes/Report: Source Facility: [place] [address] Ultrasound Report Signed Patient: LOU JAMES MR#: [id number] : 1965 Acct:[id number] Age/Sex: 59 / F ADM Date: 06/12/24 Loc: US Attending Dr: Jasiel Bhagat M.D. Ordering Physician: Jasiel Bhagat M.D. Date of Service: 06/12/24 Procedure(s): US renal BI Accession Number(s): [id number] cc: Twila Verde M.D.; Jasiel Bhagat M.D. [place] [address] Patient Name: LOU JAMES MRN: [id number] date: 1965 Sex: F Assigned Patient Location: Current Patient Location: Accession/Order Number: [id number] Exam Date: 06/12/2024 08:32 Report Date: 06/13/2024 06:34 At the request of: JASIEL BHAGAT Procedure: US renal BI EXAMINATION: US [...] M.D. Signed By: 06/13/2437 DD/ 3 TD/TT: Manometer Technician: [place] [address] Ultrasound Report Signed Patient: LOU JAMES MR#: [id number] : 1965 Acct:[id number] Age/Sex: 59 / F ADM Date: 06/12/24 Loc: US Attending Dr: Jasiel Bhagat M.D. Ordering Physician: Jasiel Bhagat M.D. Date of Service: 06/12/24 Procedure(s): US renal BI Accession Number(s): [id number] cc: Twila Verde M.D. ; Jasiel Bhagat M.D. [place] [id number] Patient Name: LOU JAMES MRN: [id number] date: 1965 Sex: F Assigned Patient Location: US Current Patient Location: Accession/Order Numb er: [id number] Exam Date: 08:32 Report Date: 06/13/2024 06:34 At the request of: JASIEL BHAGAT Procedure: US renal BI EXAMINATION: US [...] M.D. Signed By: 06/13/2437 DD/ 3 TD/TT: Manometer Technician: XR urethrogram retrograde Reviewed date:05/18/2024 11:08:26 AM Interpretation: Performing Lab: Notes/Report: Source Facility: [place] [address] XRay Report Signed Patient: LOU JAMES MR#: [id number] : 1965 Acct:[id number] Age/Sex: 59 / F ADM Date: 05/15/24 Loc: [facility] Attending Dr: Jasiel Bhagat M.D. Ordering Physician: Jasiel Bhagat M.D. Date of Service: 05/15/24 Procedure(s): XR urethrogram retrograde Accession Number(s): [id number] cc: Twila Verde M.D.; Jasiel Bhagat M.D. [place] [address] Patient Name: LOU JAMES MRN: [id number] date: 1965 Sex: F Assigned Patient Location: [facility] Current Patient Location: Accession/Order Number: [id number] Exam Date: 05/15/2024 12:50 Report Date: 05/17/2024 07:13 At the request of: JASIEL BHAGAT Procedure: XR urethrogram retrograde EXAM: XR [...] M.D. Signed By: 05/17/24714 DD/ 2 TD/TT: Manometer Technician: [place] [address] XRay Report Signed Patient: LOU JAMES MR#: [id number] : 1965 Acct:[id number] Age/Sex: 59 / F ADM Date: 05/15/24 Loc: [facility] Attending Dr: Jasiel Bhagat M.D. Ordering Physician: Jasiel Bhagat M.D. Date of Service: 05/15/24 Procedure(s): XR urethrogram retrograde Accession Number(s): [id number] cc: Twila Verde M.D. ; Jasiel Bhagat M.D. [address] [address] Patient Name: LOU JAMES MRN: [id number] date: 1965 Sex: F Assigned Patient Location: [facility] Current Patient Location: Accession/Order Numb er: [id number] Exam Date: 12:50 Report Date: 05/17/2024 07:13 At the request of: JASIEL BHAGAT Procedure: XR urethr ogram retrograde EXAM: XR urethrogram retrograde HISTORY: Left renal stone COMPARISON: None. TECHNIQUE: Images. 8 .58 mgy FINDINGS: 3. Images demonstrat e retrograde injection of iodinated contrast into the left renal collecting sys tem. No filling defect or hydronephrosis. Placement of a ureteral stent jose weinstein positioned informed X R/XR urethrogram retrograde IMPRESSION: Placement of left ureteral stent Electronically authenticated by: BRIAN TIDWELL Date: 05/17/2024 07:13 Dictated By: Andres Tidwell M.D. Signed By: 05/17/24714 DD/ 2 TD/TT: Manometer Technician: SARS-CoV-2 Ag* Reviewed date:05/16/2024 08:28:03 PM Interpretation: Performing Lab: Notes/Report: [facility] , SARS-CoV-2 Ag NEGATIVE NEGATIVE This [...] Performing Lab: see note ML - [facility] LB Stone Analysis Reviewed date:05/23/2024 06:03:55 [...] Phosphate TNP . Calcium Carbonate TNP . [id number] (Struvite) TNP . MgHPO4 (Newberyite) TNP . [...] . Physician questions regarding Calculi Analysis contact [facility] at: [phone]. Please note: Comment . Calculi report will follow via computer, mail or behavioral technician delivery. Disclaimer: Comment . This test was developed and its performance characteristics determined by [employer]. It has not been cleared or approved by the Food and Drug Administration. Performed at: [address] [id number] Marine Engine Driver: Ernestina Marvin PhD, Phone: [phone] Performing Lab: see note [facility] ECG 12 lead Reviewed date:05/04/2024 11:51:07 AM Interpretation: Performing Lab: Notes/Report: Source Facility: [place] [address] Electrocardiograph Report Signed Patient: LOU JAMES MR#: [id number] : 1965 Acct:[id number] Age/Sex: 59 / F ADM Date: 05/01/24 Loc: PST Attending Dr: Jasiel Bhagat M.D. Ordering Physician: Jasiel Bhagat M.D. Date of Service: 05/01/24 Procedure(s): ECG 12 lead Accession Number(s): [id number] cc: [facility] Test Date: 2024-05-01 Pat Name: LOU JAMES Department: Room: - Gender: Female Solder Sprayer: : 1965 Requested By: TWILA VERDE Order Number: [id number] Reading MD: TWILA VERDE Measurements Intervals [place] Rate: 59 P: 56 FL: 178 QRS: 82 QRSD: 98 T: 72 QT: 384 QTc: 382 Interpretive Statements SINUS BRADYCARDIA No previous ECG available for comparison Electronically Signed On 05-03-2024 6:48:44 EDT by TWILA VERDE Dictated By: Twila Verde M.D. Signed By: 05/03/2449 DD/ 2 TD/TT: Manometer Technician: [place] [address] Electrocardiograph Report Signed Patient: LOU JAMES MR#: [id number] : 1965 Acct:[id number] Age/Sex: 59 / F ADM Date: 05/01/24 Loc: PST Attending Dr: Jasiel Bhagat M.D. Ordering Physician: Jasiel Bhagat M.D. Date of Service: 05/01/24 Procedure(s): ECG 12 lead Accession Number(s): [id number] cc: [facility] Test Date: 2024-05-01 Pat Name: LOU Mc Department: 62 Room: - Gender: Female Solder Sprayer: : 1965 Requ ested By: TWILA VERDE Order Number: [id number] Reading MD: TWILA VERDE Measurements Intervals [place] Rate: 59 P: 56 FL: 178 QRS: 82 QRSD: 98 T: 72 QT: 384 QTc: 382 Interpretive Statements SINUS BRADYCARDIA No previous ECG avai lable for comparison Electronically Lina d On 05-03-2024 6:48:44 EDT by TWILA VERDE Dictated By: Franny Verde M.D. Signed By: 05/03/2449 DD/ 2 TD/TT: Manometer Technician: Urine Culture, Routine Reviewed date:05/02/2024 08:34:47 PM Interpretation: Performing Lab: Notes/Report: [facility] , Urine Culture, Routine See Below For Report Urine Culture, Routine Urine Culture, Routine No growth Urine Culture, Routine Urine Culture, Routine Performed at: [facility] Urine Culture, Routine Urine Culture, Routine [address] [place] [phone] Urine Culture, Routine Urine Culture, Routine Marine Engine Driver: Cesar Kwan PhD, Phone: [phone] Urine Culture, Routine Performing Lab: see note LC - [facility] LB SEE REPORT - Business Planning Director Id information not found for OBX-specific moving picture producer legend CBC AUTO DIFF Reviewed date:05/01/2024 09:18:39 PM Interpretation: Performing Lab: Notes/Report: [facility] , White Blood Count 5.2 4.0-11.0 [...] Performing Lab: see note ML - [facility] LB Reason For Referral No Information [...] W/U Status Risk Notes Problem Trigeminal neuralgia (32448578) Trigeminal neuralgia (G50.0) Active confirmed Problem 899087470 Sebaceous cyst (L72.3) Active confirmed Problem Shoulder joint pain (783791330) Pain in left shoulder (M25.512) Active confirmed Problem Exposure to animate mechanical force (event) (19971396) Exposure to other animate mechanical forces, initial encounter (W64.XXXA) Active confirmed Problem Cervical radiculopathy (10509013) Cervical radiculopathy (M54.12) Active confirmed Problem Carpal tunnel syndrome (37681017) Carpal tunnel syndrome (G56.00) Active confirmed Problem Seizure (75936453) Seizures (R56.9) Active conf irmed Problem Osteopenia (842282100) Osteopenia (M85.80) Active confirmed Problem Eczema (87548320) Eczema (L30.9) Active confirm ed Problem Acute sinusitis (70092885) Acute sinusitis (J01.90) Active confirmed Problem Arthralgia (40156938) Arthralgia (M25.50) Active confirmed Problem Epilepsy (25471250) Epilepsy (G40.909) Active confirmed Problem Nephrolithiasis (49954530) Nephrolithiasis (N20.0) Active confirmed Problem Well adult (093228359) Well adult (Z00.00) Active confirmed Problem Arthralgia of the ankle and/or foot (118913791) Ankle pain, unspecified laterality (M25.579) Active confirmed Problem Rotator cuff tear (938671667) Rotator cuff tear (M75.100) Active confirmed Problem Aphthous ulcer (412409430) Aphthous ulcer (K12.0) Active confirmed Problem Pain in wrist (70237755) Right wrist pain (M25.531) Active confirmed Problem Arthralgia of the pelvic region and thigh (752358408) Hip pain, acute, left (M25.552) Active confirmed Problem Pain in wrist (37013716) Wrist pain, acute, left (M25.532) Active confirmed Problem Neuroma of foot (841740499) Neuroma of foot (D36.13) Active confirmed Problem Dermatosis herpetiformis (635087005) Dermatosis herpetiformis (L13.0) Active confirmed Problem Myalgia (63581654) Myalgia (M79.10) Active conf irmed Problem Low back pain (finding) (454296302) Other low back pain (M54.59) Active confirmed Vital Signs Temperature 99.5 degrees Fahrenheit 05/20/2024 Blood pressure diastolic 72 mm Hg 12/11/2024 Height 64 in 12/11/2024 Blood pressure systolic 128 mm Hg 12/11/2024 Weight 137.0 lbs 12/11/2024 BMI 23.51 kg/m2 12/11/2024 Encounters Encounter Location Date Provider Diagnosis [facility] [address] [place] [place] [address] 05/20/2024 Jose Eduardo Hoy Acute non-recurrent sinusitis, unspecified location J01.90 ; Nasal congestion R09.81 and Acute bronchitis, unspecified organism J20.9 [facility] [address] [place] [address] 08/06/2024 Jose Eduardo Hoy Acute bronchitis, unspecified organism J20.9 [facility] [address] [place] [address] 04/15/2024 Jose Eduardo Hoy Right wrist pain M25.531 [facility] [address] [place] [address] 12/11/2024 Jose Eduardo Hoy Wrist pain, acute, l eft M25.532 and Hip pain, acute, left M25.552 [facility] [address] [place] [address] 11/22/2024 Jose Eduardo Hoy Well adult Z00.00 [facility] [address] [place] [address] 03/15/2024 Jose Eduardo Floresy [facility] [address] [place] [address] 04/09/2024 Jose Eduardo Floresy [facility] [address] [place] [address] 05/01/2024 Jose Eduardo Floresy [facility] [address] [place] [address] 08/22/2024 Jose Eduardo Floresy [facility] [address] [place] [address] 11/24/2024 Jose Eduardo Floresy Abnormal thyroid blo od test R94.6 [facility] [address] [place] [address] 12/09/2024 Jose Eduardo Floresy [facility] [address] [place] [address] 12/11/2024 Jose Eduardo Verde [facility] [address] [facility] [place] [address] 12/21/2024 Jose Eduardo Verde Assessments Encounter Date Diagnosis (ICD Code) Assessment Notes Treatment Notes Treatment Clinical Notes Section Notes 04/15/2024 Right wrist pain (ICD-10 - M25.531) 05/20/2024 Acute non-recurrent sinusitis, unspecified location (ICD-10 - J01.90) Rest and drink more liquids, especially water. You may use a humidifier or vaporizer to help keep the drainage moist. Vkex-jdc-pwxxicy Nasal Saline may help the stuffy and runny nose. Use Ibuprofen and or Tylenol as needed for fever, chills, body aches or pain. Children 5 years old should not be given toqp-ljm-hhudtuv cough and cold medications such as guaifenesin and dextromethorphan. If you're over age 5, you may try cees-atu-wjhommc cold medications such as guaifenesin and dextromethorphan, [...] vaporizer to help keep the drainage moist. Lweq-zdy-bwuxexn Nasal Saline may help the stuffy and runny nose. Use Ibuprofen and or Tylenol as needed for fever, chills, body aches or pain. Children 5 years old should not be given zpfn-egu-rqrdxgl cough and cold medications such as guaifenesin and dextromethorphan. If you're over age 5, you may try fnvj-qug-llfmmoi cold medications such as guaifenesin and dextromethorphan, [...] vaporizer to help keep the drainage moist. Etjk-shi-sdxulaj Nasal Saline may help the stuffy and runny nose. Use Ibuprofen and or Tylenol as needed for fever, chills, body aches or pain. Children 5 years old should not be given pqrd-wwu-kmtqaxa cough and cold medications such as guaifenesin and dextromethorphan. If you're over age 5, you may try tvxh-kyl-kzgqusm cold medications such as guaifenesin and dextromethorphan, [...] W PELVIS 12/11/2024 THYROID PANEL (T4/TSH/FREE T3) THYROID PANEL (T4/TSH/FREE T3) CMP (COMP MET PALMER) w/eGFR CKD-EPI 2024 CBC WITH DIFF 11/22/2024 Insurance Providers Payer Name Payer Address Payer Phone Subscriber Number Group Number Insured Name Patient Relationship to Insured Coverage Start Date Coverage End Date MMO [employer] [address] [place] [phone] [id number] Kenroy James Spouse - patient is the [...] tunnel syndrome G56.00 Surgical History Surgery Date(Month/Year) partial hyst 12/1997 t/a 12/1969 bilateral shoulder surgery 02/2015 Cystoscopy with stone extraction and bharath nt placement 05/15/2024
--- OUTSIDE RECORDS SUMMARY | 2025-03-10 07:47 | XMS_ITS | Clinical Summary ---
Author Organization [facility] Address [address] [facility], [address] [place] [address] Care Team Providers Care Software Asset Manager Name Role Phone Duke Verde MD Primary Care Provider [phone] Allergies Active Allergy Reactions Criticality Noted Date Comments Latex Rash Low 04/30/2023 Other Rash Low 12/29/2016 Some generic bandaids cause [...] Alvarez Lung Cancer Paternal Grandmother Silke Sarkarhart Rea n Relation Name Status Comments Brother 5 [...] Care Team (Late st Contact Info) Description 04/09/2025 9:00 AM EDT Office Visit [facility] Part of [address] [place] [address] Mary Arevalo PA-C [address] [place] [address] yearly -- prior WH pt Health Maintenance Due Date Last Done Comments [...] 11/13/2020, 10/21/2020, Additional history exists Flu vaccine (#1) 02/28/2025 03/29/2023 Breast cancer screen 04/09/2026 04/09/2024, 04/06/2023, [...] BILATERAL Routine 04/09/2024 Screening mammogram, encounter for TELETYPE ADJUSTER CYTOLOGY Routine 04/04/2024 12:00 AM EDT HUMAN PAPILLOMAVIRUS (HPV) DNA PROBE THIN PREP HIGH RISK Routine 04/21/2022 8:48 AM EDT from Last 3 Months or Most Recently Relevant to Health Maintenance Results * LILLIAN OLIVA DIGITAL SCREEN BILATERAL (04/09/2024) Anatomical Region Laterality Modality Breast Bilateral Mammography Hans Yang MD IM MAMMOGRAPHY ORDERABLES Fi nal Result * TELETYPE ADJUSTER Cytology (04/04/2024 12:00 AM EDT) Cytology Report Path Number: [id number] DIAGNOSIS Imaged ThinPrep Pap - Vaginal (1 monolayer slide): Specimen Adequacy: Satisfactory for evaluation. Descriptive Diagnosis: Negative for intraepithelial lesion or malignancy. Comments: Specimen was screened at [facility], [address] [place] [address] Cytotech Screener: CS Rescreened By: PT Electronically Signed Out Joann Mcgill pt/04/16/2024 Source of Specimen: A: Imaged ThinPrep Pap - Vaginal (1 monolayer slide) HPV Reflex?........... ...........HPV if Abnormal Clinical History Z01.419 Routine fire chief exam without abnormal findings Processing Lab: [address] [address] Interpretation performed at [facility], [address] [place] [address], [place] [address] This Pap Test has been evaluated with the assistance of the [employer]Prep Pap Test Imaging System. The Pap smear is a screening test primarily for squamous epithelial lesions, which is subject to both false negative and false positive results. Your patient should be reminded to consult you immediately if she experiences any suspicious signs or symptoms, regardless of her Pap smear result. GYNECOLOGIC CYTOLOGY REPORT Patient Name: LOU JAMES [facility] Rec: [id number] [employer] [facility] ANATOMIC PATHOLOGY [address] [place] [address]. [place], [place] [address] [facility] [employer] 04/04/2024 04/05/2024 8:1 3 AM EDT Hans Yang MD PATHOLOGY/CYTOLOGY ORDERABLES Final Result [facility] [address] [phone] [facility] * Human papillomavirus (HPV) DNA probe thin prep high risk (04/21/2022 8:48 AM EDT) Specimen Description .VAGINAL SPECIMEN 04/21/2022 8:48 AM EDT [employer] HPV Sample .THIN PREP 04/21/2022 8:48 AM EDT [employer] HPV, Genotype 16 Not Detected Not Detected 04/21/2022 8:48 AM EDT [employer] HPV, Genotype 18 Not Detected Not Detected 04/21/2022 8:48 AM EDT [employer] HPV, High Risk Other Not Detected Not Detected 04/21/2022 8:48 AM EDT [employer] HPV, Interpretation 04/21/2022 8:48 AM EDT [employer] Comment: This test amplifies and detects DNA [...] Yang MD HEMATOLOGY ORDERABLES Final R esult [facility] [address] [place] [address], [place] [phone] [facility] [address] [place] [address], [place] [phone] from Last 3 Months or Most Recently Relevant to Health Maintenance Insurance [employer] Advance Directives * Full Code (Latest Code Status on File) Date Activated Date Inactivated Comments 01/03/2017 4:41 PM 01/03/2017 8:21 PM Care Teams Software Asset Manager Relationship Specialty Start Date End Date Duke Verde MD [address] [place] [address] PCP - General Family Medicine 04/08/16
--- OUTSIDE RECORDS SUMMARY | 2025-03-10 07:47 | XMS_ITS | Clinical Summary ---
Author Organization [facility] Address [address] [place] [address] Care Team Providers Care Interventional Radiology Rn Name Role Phone Duke Verde MD Primary Care Provider [phone] Li Dorantes DO Unavailable [phone] Allergies Active Allergy Reactions Criticality Noted Date Comments Latex 12/11/2023 Other Reaction(s): hives, itching Sulfa Antibiotics Hives Low 04/08/2015 Other Reaction(s): hives, itching Sulfacetamide 12/08/2023 Medications Yzhkzkvi-Uub-N e-FA (/Iron ) tablet Take 1 tablet [...] use, clean tip and replace cap. Active OXcarbazepine (Trileptal) 300 MG tabletIndicati ons:Generalize d epilepsy (HCC) Take 1 tablet (300 mg) by mouth in the morning and 1 tablet (300 mg) before bedtime. 180 tablet 1 5 06/14/20 25 Active levETIRAcetam XR (Keppra XR) 750 mg tablet sustained-rele ase 24 hour 24 hr tabletIndicati ons:Generalize d epilepsy (HCC) Take 1 tablet (750 mg) by mouth at bedtime 90 tablet 1 5 Active PHENobarbital (Luminal) 32.4 MG tabletIndicati ons:Generalize d epilepsy (HCC) 1 tab QHS Do not start before March 11, 2025. 90 tablet 1 5 Active PHENobarbital (Luminal) 32.4 MG tabletIndicati ons:Generalize d epilepsy (HCC) Fill when due Take one tab at bedtime Do not start before December 12, 2024. 90 tablet 5 02/27/20 25 Discontinu ed(Reorder ) Active Problems Problem Noted Date Diagnosed Date Trigeminal neuralgia 12/11/2023 Generalized epilepsy 06/11/2019 Assessment & Plan (01/01/2025 10:08 AM EDT): Driving - may continue. WWE - ___. Check OXC and PB levels Check CMP Consider weaning PB Get copies from [facility] of EEG and imaging Request brain MRI from [facility] (?) [place] 06/11/2019 Cervicalgia 06/09/2016 Disturbance of skin sensation 06/09/2016 Headache 11/25/2015 Disease of the oral soft tissues 03/30/2009 Seizure disorder 02/18/2008 Encounters Date Type Department Care Team Description 02/26/2025 Refill [facility] [place] [facility] [address] [place] [address] Lobo Hess MD Generalized epilepsy ([facility]) 12/16/2024 Refill [facility] [address] [place] [address] Zoila Rizvi MA Generalized epilepsy (HCC) 12/10/2024 4:30 PM EDT Office Visit [facility] [address] [place] [address] Lobo Hess MD Generalized epilepsy ([facility]) (Primary Dx); Seizure disorder ([facility]) 12/10/2024 Travel from Last 3 Months Family History Medical History Relation Name Comments No Known Problems Brother Hyperlipidemia Father Blake Jojo Hypotension Father Blake Jojo Parkinsonism Father Blake Jojo daibetes Father Blake Jojo Heart disease Maternal Grandfather Cancer Maternal Grandmother Nahomy Cooner Neuropathy Maternal Grandmother Nahomy Cooner Dementia Mother Hannah Avlarez Lung cancer Mother Hannah Alvarez Dementia Other Relation Name Status Comments Brother Alive Father Blake Jojo Alive Maternal Grandfather Maternal Grandmother Nahomy Cooner [...] 9:30 AM EST Office Visit [facility] [place] [facility] [address] [facility] [address] [place] [address] Chasity Nguyen, PHARMACY CLINICAL SPECIALIST [address], [facility] [address] [place] [address] Health Maintenance Due Date Last Done Comments CT Colonography 1965 Colonoscopy 1965 Colorectal Cancer Screening 1965 FIT-DNA 1965 FIT 1965 FOBT 1965 Sigmoidoscopy 1965 Influenza Vaccine (#1) 2025 03/29/2023 Mammogram 04/09/2025 04/09/2024, 03/31, 06/11/2019, Additional history exists Pap Smear 04/04/2027 04/04/2024, 11/2023, 11/07/2022, Additional history exists Cervical Cancer Screening 04/21/2027 HPV/Cotest 04/21/2027 04/21/2022, 04/21/2022 Insurance [employer] Care Teams Interventional Radiology Rn Relationship Specialty Start Date End Date Duke Verde MD PCP - General Family Medicine 12/11/23 Li Dorantes DO [address] [place] [address] Referring Physician Neurology 07/17/24
--- OUTSIDE RECORDS SUMMARY | 2025-03-10 07:47 | XMS_ITS | Encounter Summary ---
Author Organization [facility] Address [address] [place] [address] Care Team Providers Care Upscale Security Officer Name Role Phone Duke Verde MD Primary Care Provider [phone] Li Dorantes DO Unavailable [phone] Reason for Visit * Reason Onset Date Comments Med Refill 02/26/2025 Encounter Details Date Type Department Care Team (Late st Contact Info) Description 02/26/2025 Refill [facility] [place] [facility] [address] [facility] [address] [place] [address] Lobo Hess MD [address] [facility] [address] [place], [place] [id number] Generalized epilepsy (HCC) Social History Tobacco Use Types Packs/Day Years [...] 9:30 AM EST Office Visit [facility] [place] [facility] [address] [place] [address] Chasity Nguyen, SURGICAL SERVICES ASST [address], [facility] [address] [place] [address] documented as of this encounter Visit Diagnoses Diagnosis Generalized epilepsy (HCC) Unspecified epilepsy without mention of intractable epilepsy documented in this encounter Care Teams Upscale Security Officer Relationship Specialty Start Date End Date Duke Verde MD PCP - General Family Medicine 12/11/23 Li Dorantes DO [address] [place] [address] Referring Physician Neurology 07/17/24 documented as of this encounter
--- NOTE | 2025-03-10 07:57 | US_ITS ---
The [address] [address] Patient Name: DANTE JAMES MRN: [id number] date: 1965 Sex: F Assigned Patient Location: US Current Patient Location: US Accession/Order Number: [id number] Exam Date: 03/10/2025 11:03 Report Date: 03/10/2025 11:04 At the request of: JASIEL GOMEZ MD Procedure: US renal BI BILATERAL RENAL AND BLADDER ULTRASOUND CLINICAL HISTORY: Kidney Stone COMPARISON: Ultrasound 06/12/2024 FINDINGS: Estimation of renal size is approximately 11.2 cm on the right and 10.6 cm on the left. Cyst superior pole right kidney measuring 1.5 cm. 3 mm stone right kidney. No hydronephrosis. Left kidney demonstrates 4 mm stone. No hydronephrosis. The urinary bladder is partially distended with a volume of 211 ml. No shadowing stone or focal lesion. US/US renal BI IMPRESSION: BILATERAL NEPHROLITHIASIS. NO HYDRONEPHROSIS. Impression dictated by: Robles Schuster Jr., D.O. 03/10/2025 11:04 AM Dictation Location: [place] [address] Electronically authenticated by: [id number] Date: 03/10/2025 11:04
== END 2025-03-10 07:45 | disposition home or self-care (01) ==
LOC: US 07:45
PROVIDERS: PCP Family Medicine; Visit Provider Urology
DX: N20.0 Calculus of kidney (principal)
CPT/HCPCS: 76775

== ENCOUNTER 2025-04-11 09:23 | Outpatient (OUT) | payer OTHER, SELFPAY ==
--- OUTSIDE RECORDS SUMMARY | 2025-04-09 09:00 | XMS_ITS | Encounter Summary ---
Author Organization [facility] 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, previous pap was 04/04/24(-) Encounter Details Date Type Department Care Team (Late st Contact Info) Description 04/09/2025 9:00 AM EDT Office Visit [facility] Part of [address] [place] [address] Mary Arevalo PA-C [address] [place] [address] Visit for gynecologic examination (Primary Dx) Social History Tobacco Use Types Packs/Day Years Used Date Smoking Tobacco: Never Smokeless Tobacco: Never Alcohol Use Standard Drinks/Week Comments Yes 1 (1 standard drink = 0.6 oz pur e alcohol) less than drink per week PHQ-2 Answer Date Recorded PHQ-9 Total Score 0 04/09/2025 Housing Stability Vital Sign Answer Esequiel e Recorded In the last 12 months, was t here a time when you were not able to pay the mortgage or rent on time? No 04/09/2025 In the past 12 months, how m any times have you moved where you were living? 0 04/09/2025 At any time in the past 12 m onths, were you homeless or living in a usp (including now)? No 04/09/2025 Hunger Vital Sign Answer Date Recorded Within the past 12 months, y ou worried that your food would run out before you got the money to buy more. Never true 04/09/20 25 Within the past 12 months, t he food you bought just didn't last and you didn't have money to get more. Never true 04/09/2025 PRAPARE - Transportation Answer Date Re corded In the past 12 months, has l ack of transportation kept you from medical appointments or from getting medications? No 03/31 In the past 12 months, has l ack of transportation kept you from meetings, work, or from getting things needed for daily living? No 04/09/2025 [facility] Utilities Answer Date Recorded In the past 12 months has e electric, gas, oil, or water company threatened to shut off services in your home? No 04/09/2025 Comments No Sex and Gender Information Value Date Recorded Sex Assigned at Female 04/02/2025 10:49 AM EDT Legal Sex Female 8:45 PM EST Gender Identity Not on file Sexual Orientation Not on file documented as of this encounter Last Filed Vital Signs Vital Sign Reading Time Taken Comments Blood Pressure 122/64 04/09/2025 9:04 AM EDT Pulse - - Temperature - - Respiratory Rate - - Oxygen Saturation - - Inhaled Oxygen Concentration - - Weight 62.6 kg (138 lb) 04/09/2025 9:04 AM EDT Height 162.6 cm (5' 4 ) 04/09/2025 9:04 AM EDT Body Mass Index 23.69 04/09/2025 9:04 AM EDT documented in this encounter Progress Notes * Mary Arevalo PA-C - 04/09/2025 9:05 AM EDT YEARLY PHYSICAL Date of service: 04/09/2025 Lou Leos Is a 59 y.o. , female PT's PCP is: Duke Verde MD : 1965 Subjective: No LMP recorded. Patient has had a hysterectomy. Are your menses regular: not applicable OB History Para Term AB Living 1 1 1 1 SAB IAB Ectopic Molar Multiple Live Births 1 # Outcome Date GA Lbr Genaro/2nd Weight Sex Type Anes PTL Lv 1 Term 12/15/89 40w0d M Vag-Spont N HEIDI Social History Tobacco Use Smoking Status Never Smokeless Tobacco Never Social History Substance and Sexual Activity Alcohol Use Yes Alcohol/week: 1.0 standard drink of alcohol Types: 1 Glasses of wine per week Comment: less than drink per week Family History Problem Relation Age of Onset Cancer Paternal Grandmother Colon Diabetes Father type 2 Cancer Mother Lung No Known Problems Brother Any family history of breast or ovarian cancer: No Any family history of blood clots: No Allergies: Latex, Other, and Sulfa antibiotics Current Outpatient Medications: Biotin 10 MG CAPS, Take 10 mg by mouth daily, Disp: , Rfl: calcium citrate-vitamin D (CITRACAL+D) 315-5 MG-MCG TABS per tablet, Take by mouth, Disp: , Rfl: vitamin D (CHOLECALCIFEROL) 50 MCG (2000 UT) CAPS capsule, 1 capsule in the morning., Disp: , Rfl: MULTIPLE VITAMIN PO, Take by mouth, Disp: , Rfl: OXcarbazepine (TRILEPTAL) 300 MG tablet, TAKE 1 TABLET IN THE MORNING AND BEFORE BEDTIME (REPLACES CURRENT PRESCRIPTION), Disp: , Rfl: valACYclovir (VALTREX) 1 g tablet, Take 1 tablet by mouth 3 times daily as needed, Disp: , Rfl: citric acid-sodium citrate & potassium citrate (TRICITRATES) 550-500-334 MG/5ML SOLN solution, Take by mouth, Disp: , Rfl: phenazopyridine (PYRIDIUM) 200 MG tablet, TAKE 1 TABLET BY MOUTH THREE TIMES A DAY AFTER MEALS FOR 2 DAYS, Disp: , Rfl: Potassium Citrate ER (UROCIT-K) 15 MEQ (1620 MG) TBCR extended release tablet, , Disp: , Rfl: CRANBERRY PO, Take by mouth, Disp: , Rfl: diclofenac (VOLTAREN) 75 MG EC tablet, prn, Disp: , Rfl: Black Cohosh 20 MG TABS, Take by mouth, Disp: , Rfl: fluticasone (FLONASE) 50 MCG/ACT nasal spray, 1 spray by Each Nostril route daily, Disp: , Rfl: levETIRAcetam (KEPPRA XR) 750 MG TB24 extended release tablet, , Disp: , Rfl: loratadine (CLARITIN) 10 MG capsule, Take 1 capsule by mouth daily, Disp: , Rfl: PHENobarbital (LUMINAL) 32.4 MG tablet, Take 1 tablet by mouth nightly., Disp: , Rfl: Multiple Vitamins-Minerals (MULTIVITAMIN & MINERAL PO), Take by mouth, Disp: , Rfl: Calcium Carbonate-Vitamin D (CALCIUM-VITAMIN D) 500-200 MG-UNIT per tablet, Take 1 tablet by mouth 2 times daily (with meals), Disp: , Rfl: TOPAMAX 100 MG tablet, Take 1 tablet by mouth 2 times daily 2 tabs every morning and 2 1/2 tabs nightly. (Patient not taking: Reported on 04/09/2025), Disp: , Rfl: Social History Substance and Sexual Activity Sexual Activity Yes Partners: Male control/protection: Surgical Any bleeding or pain with intercourse: No Last Yearly date: 04/04/24 Last pap date : Date of last Cervical Cancer screen (HPV or PAP): 04/04/2024 results: (-) Last HPV date and results: 04/21/22(-) Has pt ever had an abnormal:Yes IF yes result and date: 04/21/22 ascus Mammogram Result (most recent): [facility] DIGITAL SCREEN BILATERAL DEXA Result (most recent): No results found for this or any previous visit from the past 3650 days. Last colorectal screen- type:Colonoscopy aprox 9 years ago Do you do self breast exams: Yes Pt requests distance learning unit leader: No Past Medical History: Diagnosis Date Abnormal Pap smear of cervix Cervical cancer (HCC) Epilepsy (HCC) 12/29/2016 Neurologic disorder Seasonal allergies 12/29/2016 Seizures (HCC) Past Surgical History: Procedure Laterality Date COLPOSCOPY HYSTERECTOMY (CERVIX STATUS UNKNOWN) N/A SHOULDER ARTHROSCOPY Left 01/03/2017 LEFT SHOULDER ARTHROSCOPY/ SUBACROMIAL DECOMPRESSION-MANIPULATION UNDER ANESTHSIA, LYSIS OF ADHESIONS performed by Charly Jimenez MD at [facility] OR SHOULDER SURGERY bone spur removal Family History Problem Relation Age of Onset Cancer Paternal Grandmother Colon Diabetes Father type 2 Cancer Mother Lung No Known Problems Brother Chief Complaint Patient presents with Gynecologic Exam 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 Estimated body mass index is 23.69 kg/m?? as calculated from the following: Height as of this encounter: 1.626 m (5' 4 ). Weight as of this encounter: 62.6 kg (138 lb). Labs: No results found for this visit on 04/09/25. PHQ-9 Total Score: 0 (04/09/2025 9:05 AM) NURSE: Tana KU HPI: Patient presents for annual visit. Denies breast concerns. Aware that she is due for mammogram- plans to call and schedule. Denies bowel, bladder concerns. Reports constipation which is normal for her. Denies abnormal discharge, pain with intercourse. Pap WNL in 2023. Reports that had hysterectomy in 1995 d/t cervical CA. Has continued to have Pap smears since - have been normal besides 1 ASCUS result a few years ago that she believes was related to a yeast infection. Reviewed guidelines recommended Pap smears x 25 years s/p cervical CA tx and discussed repeating Pap in 2026 then d/c. Review of Systems Constitutional: Negative for chills, fatigue and fever. Respiratory: Negative for shortness of breath. Cardiovascular: Negative for chest pain. Gastrointestinal: Positive for constipation. Negative for abdominal pain and diarrhea. Genitourinary: Negative for dyspareunia, dysuria, frequency, menstrual problem, pelvic pain, urgency, vaginal bleeding and vaginal discharge. Neurological: Negative for dizziness, light-headedness and headaches. Objective Physical Exam Constitutional: Appearance: Normal appearance. Genitourinary: Vulva normal. Right Labia: No rash, tenderness or lesions. Left Labia: No tenderness, lesions or rash. No vaginal discharge, tenderness or bleeding. Right Adnexa: not tender and not full. Left Adnexa: not tender and not full. Cervix is absent. Uterus is absent. Pelvic exam was performed with patient in the lithotomy position. Breasts: Breasts are symmetrical. Right: No inverted nipple, nipple discharge, skin change or tenderness. Left: No inverted nipple, nipple discharge, skin change or tenderness. HENT: Head: Normocephalic and atraumatic. Mouth/Throat: Mouth: Mucous membranes are moist. Eyes: Extraocular Movements: Extraocular movements intact. Cardiovascular: Rate and Rhythm: Normal rate. Pulmonary: Effort: Pulmonary effort is normal. Abdominal: General: Abdomen is flat. There is no distension. Palpations: Abdomen is soft. Tenderness: There is no abdominal tenderness. Musculoskeletal: General: Normal range of motion. Cervical back: Normal range of motion. Neurological: General: No focal deficit present. Mental Status: She is alert and oriented to person, place, and time. Skin: General: Skin is warm and dry. Psychiatric: Mood and Affect: Mood normal. Behavior: Behavior normal. Thought Content: Thought content normal. Judgment: Judgment normal. General I Farmworker present: distance learning unit leader declined. Assessment & Plan Visit for gynecologic examination Repeat Annual every 1 year Cervical Cytology Evaluation begins at 21 years old. If Negative Cytology, Follow-up screening per current guidelines. Mammograms every 1year. If 40 yo and last mammogram was negative. Routine healthmaintenance per patients PCP. Return in about 1 year (around 04/09/2026) for annual. I am having Lou Leos maintain her PHENobarbital, Topamax, Multiple Vitamins-Minerals (MULTIVITAMIN & MINERAL PO), calcium-vitamin D, loratadine, levETIRAcetam, fluticasone, Black Cohosh, diclofenac, CRANBERRY PO, phenazopyridine, Potassium Citrate ER, Biotin, calcium citrate-vitamin D, vit alvarado D, MULTIPLE VITAMIN PO, OXcarbazepine, valACYclovir, and citric acid-sodium citrate & potassium citrate. She was also counseled on her preventative health maintenance recommendations and follow-up. There are no Patient Instructions on file for this visit. Mary Arevalo PA-C,04/09/2025 9:23 AM documented in this encounter Plan of Treatment Upcoming Encounters Date Type Department Care Team (Late st Contact Info) Description 04/15/2026 8:30 AM EDT Office Visit [facility] Part of [address] [address] Mary Arevalo PA-C [facility] [place] [address] Annual documented as of this encounter Visit Diagnoses Diagnosis Visit for gynecologic examination- Primary Routine gynecological examination documented in this encounter Care Teams Electric Well Logging Operator Relationship Specialty Start Date End Date Duke Verde MD [address] [place] [address] PCP - General Family Medicine 04/08/16 documented as of this encounter
--- OUTSIDE RECORDS SUMMARY | 2025-04-11 09:25 | XMS_ITS | Clinical Summary ---
Author Organization [facility] Address [address] [place] [address] Care Team Providers Care Banquet Houseperson Name Role Phone Duke Verde MD Primary Care Provider [phone] Li Dorantes DO Unavailable [phone] Allergies Active Allergy Reactions Criticality Noted Date Comments Latex 12/11/2023 Other Reaction(s): hives, itching Sulfa Antibiotics Hives Low 04/08/2015 Other Reaction(s): hives, itching Sulfacetamide 12/08/2023 Medications Ztaevxat-Yyx-Wr -FA (/Iron) tablet Take 1 tablet by mouth Daily Active Black Cohosh 20 MG tablet Take 100 mg by mouth Active potassium & sodium citrate-citric acid (Tricitrates) 550-500-334 MG/5ML solution Take by mouth 4 (four) times a day with meals Active calcium citrate 315 mg + D2 6.25 mcg (Citracal Maximum) tablet 1 (one) time each day at the same time 5 Active cholecalciferol (Vitamin D-3) 50 MCG (2000 UT) [...] replace cap. Active OXcarbazepine (Trileptal) 300 MG tabletIndicatio ns:Generalized epilepsy (HCC) Take 1 tablet (300 mg) by mouth in the morning and 1 tablet (300 mg) before bedtime. 180 tablet 1 5 06/14/20 25 Active levETIRAcetam XR (Keppra XR) 750 mg tablet sustained-relea se 24 hour 24 hr tabletIndicatio ns:Generalized epilepsy (HCC) Take 1 tablet (750 mg) by mouth at bedtime 90 tablet 1 5 Active PHENobarbital (Luminal) 32.4 MG tabletIndicatio ns:Generalized epilepsy (HCC) 1 tab QHS Do not start before March 11, 2025. 90 tablet 1 5 Active Active Problems Problem Noted Date Diagnosed Date Trigeminal neuralgia 12/11/2023 Generalized epilepsy 06/11/2019 Assessment & Plan (01/01/2025 10:08 AM EDT): Driving - may continue. WWE - ___. Check OXC and PB levels Check CMP Consider weaning PB Get copies from [facility] of EEG and imaging Request brain MRI from [facility] (?) [place] 06/11/2019 Cervicalgia 06/09/2016 Disturbance of skin sensation 06/09/2016 Headache 11/25/2015 Disease of the oral soft tissues 03/30/2009 Seizure disorder 02/18/2008 Encounters Date Type Department Care Team Description 02/26/2025 [facility]ill [facility] [address] [place] [address] Lobo Hess MD Generalized epilepsy (HCC) from Last 3 Months Family History Medical History Relation Name Comments No Known Problems Brother Hyperlipidemia Father Blake Jojo Hypotension Father Blake Jojo Parkinsonism Father Blake Jojo daibetes Father Blake Uribe Heart disease Maternal Grandfather Cancer Maternal Grandmother [...] Team (Late st Contact Info) Description 06/10/2025 2:00 PM EST Office Visit [facility] [address] [place] [address] Lobo Hess MD [address] [place] [address] Health Maintenance Due Date Last Done Comments CT Colonography 1965 Colonoscopy 1965 Colorectal Cancer Screening 1965 FIT-DNA 1965 FIT 1965 FOBT 1965 Sigmoidoscopy 1965 Influenza Vaccine (#1) 2025 03/29/2023 Mammogram 04/09/2025 04/09/2024, 03/31, 06/11/2019, Additional history exists Pap Smear 04/04/2027 04/04/2024, 11/2023, 11/07/2022, Additional history exists Cervical Cancer Screening 04/21/2027 HPV/Cotest 04/21/2027 04/21/2022, 04/21/2022 Insurance [employer] Care Teams Banquet Houseperson Relationship Specialty Start Date End Date Duke Verde MD PCP - General Family Medicine 12/11/23 Li Dorantes DO [address] [place] [address] Referring Physician Neurology 07/17/24
--- OUTSIDE RECORDS SUMMARY | 2025-04-11 09:25 | XMS_ITS | Clinical Summary ---
Author Organization [facility] Address [address], [address] [place] [address] Care Team Providers Care Roustabout Pusher Name Role Phone Duke Verde MD Primary Care Provider [phone] Allergies Active Allergy Reactions Criticality Noted Date [...] TBCR extended release tablet 02/29/2024 Acti ve Biotin 10 MG CAPS Take 10 mg by mouth daily Active calcium citrate-vitamin D (CITRACAL+D) 315-5 MG-MCG TABS per tablet Take by mouth 09/11/2024 Active vitamin D (CHOLECALCIFERO L) 50 MCG (2000 UT) CAPS capsule 1 capsule in the morning. 12/10/2024 Active MULTIPLE VITAMIN PO Take by mouth 02/28/2024 Active OXcarbazepine (TRILEPTAL) 300 MG tablet TAKE 1 TABLET IN THE MORNING AND BEFORE BEDTIME (REPLACES CURRENT PRESCRIPTION ) Active valACYclovir (VALTREX) 1 g tablet Take 1 tablet by mouth 3 times daily as needed 08/22/2024 Active citric acid-sodium citrate & potassium citrate (TRICITRATES) 550-500-334 MG/5ML SOLN solution Take by mouth Active Active Problems Problem Noted Date Diagnosed Date Asymptomatic microscopic hematuria 04/04/2024 Stress incontinence of urine 04/04/2024 Cyst of kidney, acquired 04/10/2022 Calculus of kidney 03/28/2022 Urinary tract infection, site not specified 03/01 Noninfective gastroenteritis and colitis, unspec ified 02/09/2022 Contact with and (suspected) exposure to covid-1 9 03/08/2021 Flank pain 08/27/2020 Epilepsy 12/29/2016 Seasonal allergies 12/29/2016 Encounters Date Type Department Care Team Description 04/09/2025 9:00 AM EDT Office Visit [facility] Part of [address] [place] [address] Mary Arevalo PA-C Visit for gynecologic examination (Primary Dx) from Last 3 Months Family History Medical History Relation Name Comments No Known Problems Brother 5 brothers Diabetes Father Blake Hagan Jojo Sr type 2 Cancer Mother Hannah Alvarez Lung Cancer Paternal Grandmother Silke Jojo [place] Relation Name Status Comments Brother 5 brothers Alive Father Blake Hagan Jojo Sr Alive Maternal Grandfather Maternal Grandmother Mother Hannah Alvarez Alive Paternal Grandfather Paternal Grandmother Silke Uribe Social History Tobacco Use Types Packs/Day Years [...] any time in the past 12 m [facility], were you homeless or living in a skilled nursing (including now)? No 04/09/2025 Hunger Vital Sign [...] things needed for daily living? No 04/09/2025 [facility] Utilities Answer Date Recorded In the past 12 months has e [employer], gas, oil, or water company threatened to [...] Pressure 122/64 04/09/2025 9:04 AM EDT Pulse 62 01/03/2017 5:25 PM EDT Temperature 36.5 C (97.7 F) 01/03/2017 4:40 PM EDT Respiratory Rate 16 01/03/2017 5:25 PM EDT Oxygen Saturation 95% 01/03/2017 4:55 PM EDT Inhaled Oxygen Concentration - - Weight 62.6 kg (138 lb) 04/09/2025 9:04 AM EDT Height 162.6 cm (5' 4 ) 04/09/2025 9:04 AM EDT Body Mass Index 23.69 04/09/2025 9:04 AM EDT Plan of Treatment Upcoming Encounters Date Type Department Care Team (Late st Contact Info) Description 04/15/2026 8:30 AM EDT Office Visit [facility] Part of [address] [place] [address] Mary Arevalo PA-C [address] [place] [address] Annual Health Maintenance Due Date Last Done Comments Depression Screen 1977 04/09/2025, 04/09/2025 HIV screen 1980 Hepatitis C screen 1983 Hepatitis B vaccine (1 of 3 - 19+ 3-dose series) 1984 Lipids 2005 Colonoscopy 2010 Colorectal Cancer Screen 2010 FIT/FOBT: Average risk 2010 Fecal-DNA (Cologuard): Average risk 2010 Sigmoidoscopy/CT colonography 2010 Pneumococcal 50+ years Vaccine (1 of 1 - PCV) 2015 Flu vaccine (#1) 02/28/2025 03/29/2023 COVID-19 Vaccine ( season) 2025 11/18/2020, 11/13/2020, 10/21/2020, Additional history exists Breast cancer screen 04/09/2026 04/09/2024, 04/06/2023, 03/05/2021, [...] BILATERAL Routine 04/09/2024 Screening mammogram, encounter for DIRECTOR DIVERSITY CYTOLOGY Routine 04/04/2024 12:00 AM EDT HUMAN PAPILLOMAVIRUS (HPV) DNA PROBE THIN PREP HIGH RISK Routine 04/21/2022 8:48 AM EDT from Last 3 Months or Most Recently Relevant to Health Maintenance Results * [facility] DIGITAL SCREEN BILATERAL (04/09/2024) Anatomical Region Laterality Modality Breast Bilateral Mammography Hans Yang MD [facility] MAMMOGRAPHY ORDERABLES Fi nal Result * DIRECTOR DIVERSITY Cytology (04/04/2024 12:00 AM EDT) Cytology Report Path Number: [id number] DIAGNOSIS Imaged ThinPrep Pap - Vaginal (1 monolayer slide): Specimen Adequacy: Satisfactory for evaluation. Descriptive Diagnosis: Negative for intraepithelial lesion or malignancy. Comments: Specimen was screened at [facility], [address] [place] [id number] [employer] Screener: CS Rescreened By: PT Electronically Signed Out Joann Mcgill pt/04/16/2024 Source of Specimen: A: Imaged ThinPrep Pap - Vaginal (1 monolayer slide) HPV Reflex?........... ...........HPV if Abnormal Clinical History Z01.419 Routine loft patternmaker exam without abnormal findings Processing Lab: [address] [id number] Interpretation performed at [facility], [facility], [place] [address] This Pap Test has been evaluated with the assistance of the emids Pap Test Imaging System. The Pap smear is a screening test primarily for squamous epithelial lesions, which is subject to both false negative and false positive results. Your patient should be reminded to consult you immediately if she experiences any suspicious signs or symptoms, regardless of her Pap smear result. GYNECOLOGIC CYTOLOGY REPORT Patient Name: DANTE JAMES [facility] Rec: [id number] [facility] [employer] [facility] ANATOMIC PATHOLOGY [address] [place], [place] [address] [facility] [employer] 04/04/2024 04/05/2024 8:1 3 AM EDT Hans Yang MD PATHOLOGY/CYTOLOGY ORDERABLES Final Result [facility] [address] [phone] [facility] [employer] * Human papillomavirus (HPV) DNA probe thin prep high risk (04/21/2022 8:48 AM EDT) Specimen Description .VAGINAL SPECIMEN 04/21/2022 8:48 AM EDT [employer] HPV Sample .THIN PREP 04/21/2022 8:48 AM EDT [employer] HPV, Genotype 16 Not Detected Not Detected 04/21/2022 8:48 AM EDT [employer] HPV, Genotype 18 Not Detected Not Detected 04/21/2022 8:48 AM EDT [employer] HPV, High Risk Other Not Detected Not Detected 04/21/2022 8:48 AM EDT [employer] HPV, Interpretation 04/21/2022 8:48 AM EDT [employer] Comment: This test amplifies and detects DNA [...] Yang MD HEMATOLOGY ORDERABLES Final R esult [facility] [address] [place] [address], [facility] [phone] [facility] [address] [place] [address], [facility] [phone] from Last 3 Months or Most Recently Relevant to Health Maintenance Insurance [employer] Advance Directives * Full Code (Latest Code Status on File) Date Activated Date Inactivated Comments 01/03/2017 4:41 PM 01/03/2017 8:21 PM Care Teams Roustabout Pusher Relationship Specialty Start Date End Date Duke Verde MD [address] [place] [address] PCP - General Family Medicine 04/08/16
--- OUTSIDE RECORDS SUMMARY | 2025-04-11 09:26 | XMS_ITS | Clinical Summary ---
Author Organization [facility] Address [address] [address] Phone Care Team Providers Care Interdisciplinary Professor Name Role Phone Unavailable Primary Care Provider [...]
--- OUTSIDE RECORDS SUMMARY | 2025-04-11 09:26 | XMS_ITS | Encounter Summary ---
Author Organization [facility] Address [address] [place] [address] Care Team Providers Care Scrubbing Machine Operator Name Role Phone Duke Verde MD Primary Care Provider [phone] Li Dorantes DO Unavailable [phone] Encounter Details Date Type Department Care Team (Late Contact Info) Description 01/02/2024 Telephone [facility] [address] [place] [phone] Jesusita Peng Social History Tobacco Use [...] 2:00 PM EST Office Visit [facility] [address] [place] [address] Lobo Hess MD [address] [facility] [address] [place] [address] documented as of this encounter Visit Diagnoses Not on filedocumented in this encounter Care Teams Scrubbing Machine Operator Relationship Specialty Start Date End Date Duke Verde MD PCP - General Family Medicine 12/11/23 Li Dorantes DO [address] [place] [address] Referring Physician Neurology 07/17/24 documented as of this encounter
--- NOTE | 2025-04-11 09:28 | MM_ITS ---
Patient Name: DANTE JAMES MR#: [id number] : 1965 Exam Date: 04/11/2025 Ordering Doctor: DR KYUNG PACK cRADIOLOGY REPORT PROCEDURE: MM TOMOSYNTHESIS SCREENING BI COMPARISON: MM TOMOSYNTHESIS SCREENING BI, 04/09/2024. MM TOMOSYNTHESIS SCREENING BI, 04/06/2023. MG MAMM SCREEN 3D JORDAN CAD, 03/07/2022. MG MAMM SCREEN 3D JORDAN CAD, 03/04/2021. INDICATIONS: screening Calculator Name NCI Breast Cancer Risk Assessment Tool 5 Year Breast Cancer Risk 1.20% Lifetime Breast Cancer Risk 6.70% Personal Breast Cancer No Personal Ovarian Cancer No Treatments None Family Cancers Grandmother-maternal with cervical cancer at age ~40; Aunt-paternal with cervical cancer at age 40; Aunt-paternal with cervical cancer at age 35. LOCATION: [facility] BREAST COMPOSITION: The breasts are extremely dense, which lowers the sensitivity of mammography. FINDINGS: RIGHT BREAST: No significant suspicious finding. LEFT BREAST: No significant suspicious finding. DIAGNOSTIC CATEGORY 1--NEGATIVE. RECOMMENDATIONS: ROUTINE MAMMOGRAM AND CLINICAL EVALUATION IN 12 MONTHS. Dictated by: Josh Sheldon DO on 04/11/2025 at 11:58 Approved by: Josh Sheldon DO on 04/11/2025 at 12:04
--- OUTSIDE RECORDS SUMMARY | 2025-04-11 09:30 | XMS_ITS | CCD ---
Author Organization [facility] Care Team Providers Care Newspaper Journalist Name Role Phone HARRISON BUSTAMANTE Unavailable Unavailable DUKE VERDE M Unavailable Unavailable HARRISON BUSTAMANTE Unavailable Unavailable HOY, DUKE M Unavailable Unavailable Duke Verde Primary Care Provider Duke Verde MD Primary Care Provider [phone] Duke Verde Primary Care Physician Duke Verde MD Primary Care Provider [phone] HOSSEIN ., DR MATTSON Consulting Unavailable [...] Unavailable ZIEBER, DR IVIS Mc Consulting Unavailable FAIZANY ., DR MATTSON Consulting Unavailable HOSSEIN ., DR MATTSON Primary Care Unavailable AFIZANY ., DR MATTSON Attending Unavailable HOY ., DR MATTSON Admitting Unavailable DUKE DIAZ Consulting Unavailable RYLEE, DR MIDDLETON Consulting Unavailable HOSSEIN ., DR MATTSON Primary Care Unavailable RYLEE, DR MIDDLETON Attending Unavailable RYLEE, DR MIDDLETON Admitting Unavailable Erica Mott Unavailable KYUNG YANG Referring Unavailable DUKE VERDE Primary Care Unavailable Duke Verde MD Primary Care Provider [phone] Kane Mckee DO Unavailable Duke Verde MD Primary Care Provider [phone] VITO VILLASEÑOR Attending Unavailable PAOLA BRADY Attending Unavailable PAOLA BRADY Attending Unavailable Marycruz Bhagat Attending Unavailable Marycruz Bhagat Attending Unavailable Marycruz Bhagat Attending Unavailable Marycruz Bhagat Attending Unavailable Marycruz Bhagat Attending Unavailable Allergies Allergy Classification Reported Allergen(s) Allergy Type Date of Onset Reaction(s) Facility (3 sources) Sulfonamides (Antibiotic) Propensity to adverse reactions to drug 04-08-20 15 [place] (1 source) Other Propensity to adverse reactions 12-30-19 17 [place] (9 sources) Sulfonamides (Antibiotic); Translations: [sulfa drugs] Drug allergy Weal (disorder) [facility] (9 sources) Latex; Translations: [Latex] Drug allergy (disorder) 11-15-19 23 Weal (disorder) [facility] (1 source) Sulfonamides (Antibiotic) Drug allergy (disorder) 01-23-20 13 [facility] (16 sources) Substance with sulfonamide structure and antibacterial mechanism of action (substance) Drug allergy 04-08-20 15 [facility] Other (14 sources) Latex Allergy to substance 12-11-19 24 [facility] (14 sources) Sulfacetamide Drug Allergy 12-08-19 24 [facility] NEGATED: Highlighted row has been ruled out! (2 sources) Other Propensity to adverse reactions 12-30-19 17 [facility] [place] Phone: Medications Current Medications Medication Drug Class(es) Dates Sig (Normalized) Sig (Original) amoxicillin 875 mg / clavulanate 125 mg oral tablet (1 source) Penicillin-class Antibacterial Start: 03-13-2023 take 1 tablet by mouth every twelve hours Amoxicillin-Pot Clavulanate 875-125 MG 1 tablet Orally every 12 hrs for 7 days Feb, Active biotin 10 mg oral capsule (8 sources) Start: 09-11-2024 take 1 capsule by mouth once daily biotin 10,000 mcg oral capsule = 1 cap(s), Oral, Daily, Refills(s) 0 Start Date: 09/11/24 Status: Ordered Repeat number: 1 Start: 09-11-2024 biotin See Ins tructions, Refills(s) 0 Start Date: 09/11/24 Status: Ordered take 1 tablet by cirilo once daily Biotin 10 MG 1 tablet Orally Once a day Active Black Cohosh Extract (20 sources) Start: 09-11-2024 Black Cohosh B lack Cohosh, See Instructions Start Date: 09/11/24 Status: Ordered Repeat number: 1 Start: 09-11-2024 Black Cohosh B lack Cohosh, [...] 950 mg oral tablet (1 source) Start: 5 calcium (as calcium citrate) 200 mg oral tablet See Instructions, 1 tab(s), Refills(s) 0 Start Date: 09/11/24 Status: Ordered calcium citrate 1500 mg / cholecalciferol 250 unt oral tablet (5 sources) Vitamin D Start: 5 calcium citrate 315 mg + D2 6.25 mcg (Citracal Maximum) tablet 1 (one) time each day at the same time 12/10/2024 Active Start: 09-11-2024 take 1 tablet by cirilo th once daily calcium (as citrate)-vitamin D 315 mg-200 intl units oral tablet 1 tab(s), Oral, Daily, Refill(s) 0 Start Date: 09/11/24 Status: Ordered Repeat number: 1 cholecalciferol 0.05 mg oral capsule (3 sources) Vitamin D Start: 12-10-2024 cholecalciferol (Vitamin D-3) 50 MCG (1999 UT) capsule 1 capsule 1 (one) time each day at the same time 12/10/2024 Active Citracal + D 250-62.5 MG-UNIT (2 sources) Citracal + D 250-62.5 MG-UNIT as directed Orally Active citric acid 66.8 mg/ml / potassium citrate 110 mg/ml / sodium citrate 100 mg/ml oral solution (12 sources) Calculi Dissolution Agent, Anti-coagulant potassium & sodium citrate-citric acid (Tricitrates) 550-500-334 MG/5ML solution Take by mouth 4 (four) times a day with meals Active Cranberry preparation (11 sources) Non-Standardized Food Allergenic Extract, Non-Standardized Plant Allergenic Extract Start: 02-28-2024 take 1 capsule by mouth once daily cranberry oral capsule 1 cap, Oral, Daily Start Date: 02/28/24 Status: Ordered Repeat number: 1 Start: 02-28-2024 take 1 capsule by mo ut once daily cranberry oral capsule 1 cap, Oral, Daily Start Date: 02/28/24 Status: Ordered Cranberry 50 MG chewable tablet Chew 50 mg Daily Active Cranberry Extrac t 250 MG as directed Orally Active diclofenac sodium 75 mg delayed release oral tablet (1 source) Nonsteroidal Anti-inflammatory Drug Start: 04-08-2022 take 1 tablet by mouth twice daily diclofenac (VOLTAREN) 75 MG EC tablet take 1 tablet by mouth twice a day 0 04/08/2022 Active fluticasone propionate 0.05 mg/actuat metered dose nasal spray (6 sources) Corticosteroid take 1 spray(s) nasal route once daily fluticasone (Flonase) 50 MCG/ACT nasal spray Administer 1 spray into each nostril Daily Shake gently. Before first use, prime pump. After use, clean tip and replace cap. Active take 1 spray(s) nasal route once daily fluticasone (FLONASE) 50 MCG/ACT nasal spray 1 spray by Each Nostril route daily 0 Active 24 hr levETIRAcetam 750 mg extended release oral tablet (20 sources) Start: 12-16-2024 take 1 tablet by mouth every twenty-four hours at bedtime levETIRAcetam XR (Keppra XR) 750 mg tablet sustained-release 24 hour 24 hr tablet Indications: Generalized epilepsy (HCC) Take 1 tablet (750 mg) by mouth at bedtime 90 tablet 1 12/16/2024 Active Start: 02-28-2024 take 1 tablet by cirilo th once daily levetiracetam 750 mg oral tablet, extended release 750 mg = 1 tab(s), Oral, Daily Start Date: 02/28/24 Status: Ordered Repeat number: 1 Start: 01-15-2024 End: 12-10-2024 take 1 tablet by mouth every twenty-four hours at bedtime levETIRAcetam XR (Keppra XR) 750 mg tablet sustained-release 24 hour 24 hr tablet Indications: Seizure disorder (CMS/HCC) Take 1 tablet (750 mg) by mouth at bedtime 90 tablet 1 07/17/2024 12/10/2024 Discontinued (Reorder) Start: 09-24-2020 take 1 tablet by cirilo th twice daily Keppra 750 mg oral tablet 750 mg = 1 tab(s), Oral, BID, Refills(s) 0 Start Date: 09/24/20 Status: Ordered Start: 04-04-2017 levETIRAcetam (KEPPRA XR) 750 MG TB24 extended release tablet loratadine 10 mg oral capsule (11 sources) Start: 09-11-2024 take 1 tablet by mouth once daily loratadine 10 mg oral capsule = 1 tab(s), Oral, Daily, Refills(s) 0 Start Date: 09/11/24 Status: Ordered Repeat number: 1 Start: 09-11-2024 Claritin See I nstructions, Refills(s) 0 Start Date: 09/11/24 Status: Ordered take 1 tablet by cirilo th once daily loratadine (Claritin) 10 MG tablet Take 10 mg by mouth Daily Active take 1 capsule by mo arh once daily loratadine (CLARITIN) 10 MG capsule Take 10 mg by mouth daily 0 Active Multiple Vitamins-Minerals (MULTIVITAMIN & MINERAL PO) (3 sources) Multiple Vitamin s-Minerals (MULTIVITAMIN & MINERAL PO) Take by mouth 0 Active Multivitamin preparation (6 sources) Start: 02-28-2024 take 1 tablet by mouth once daily multivitamin 1 tab, Oral, Daily Start Date: 02/28/24 Status: Ordered Repeat number: 1 Start: 02-28-2024 take 1 tablet by cirilo th once daily multivitamin 1 tab, Oral, Daily Start Date: 02/28/24 Status: Ordered ofloxacin 3 mg/ml ophthalmic solution (1 source) Quinolone Antimicrobial Start: 03-13-2023 take 2 drop(s) into the eye(s) four times daily Ofloxacin 0.3 % 2 drops Ophthalmic to left eye QID for 7 days Feb, Active 24 hr OXcarbazepine 300 mg extended release oral tablet (20 sources) Anti-epileptic Agent Start: 07-03-2024 take 1 tablet by mouth twice daily OXcarbazepine 300 mg oral tablet, extended release 1.0, Oral, BID, Refills(s) 0 Start Date: 07/03/24 Status: Ordered Repeat number: 1 Start: 06-24-2024 End: 06-14-2025 take 1 tablet by mouth in the morning OXcarbazepine (Trileptal) 300 MG tablet Indications: Generalized epilepsy (HCC) Take 1 tablet (300 mg) by mouth in the morning and 1 tablet (300 mg) before bedtime. 180 tablet 1 12/16/2024 06/14/2025 Active Start: 04-25-2024 End: 07-17-2024 OXcarbazepine (Trileptal) 15 0 MG tablet Indications: Seizure disorder (CMS/HCC) Week one take one twice a day 14 tablet 04/25/2024 07/17/2024 Discontinued (Therapy completed) Start: 04-25-2024 OXcarbazepine (Trileptal) 300 MG tablet Indications: Seizure disorder (CMS/HCC) Starting week two take one twice a day 60 tablet 2 04/25/2024 Active PHENobarbital 32 mg oral tab let (20 sources) Start: 03-11-2025 PHENobarbital (Luminal) 32.4 MG tablet Indications: Generalized epilepsy (HCC) 1 tab QHS Do not start before March 11, 2025. 90 tablet 1 03/11/2025 Active Start: 12-12-2024 End: 02-26-2025 PHENobarbital (Luminal) 32.4 MG tablet Indications: Generalized epilepsy (HCC) Fill when due Take one tab at bedtime Do not start before December 12, 2024. 90 tablet 12/12/2024 02/26/2025 Discontinued (Reorder) Start: 06-09-2024 End: 12-10-2024 PHENobarbital (Luminal) 32.4 MG tablet Indications: Seizure (CMS/HCC) Fill when due Take one tab at bedtime 90 tablet 11/26/2024 12/10/2024 Discontinued (Reorder) Start: 02-28-2024 take 1 tablet by cirilo th at bedtime phenobarbital 32.4 mg oral tablet 32.4 mg = 1 tab(s), Oral, Bedtime, take 1 tablet by mouth at bedtime Start Date: 02/28/24 Status: Ordered Repeat number: 1 Start: 01-03-2024 End: 06-05-2024 PHENobarbital (Luminal) 32.4 [...] citrate 15 meq extended release oral tablet (9 sources) Start: 09-11-2024 take 1 tablet by mouth in the morning potassium citrate CR (Urocit-K-15) 15 mEq ER tablet Take 15 mEq by mouth in the morning and 15 mEq before bedtime. 11/26/2024 Active Start: 07-03-2024 take 1 tablet by cirilo th twice daily potassium citrate 15 mEq oral tablet, extended release 15 mEq = 1 tab(s), Oral, BID, # 60 tab(s), Refills(s) 11, [id number], [facility], cm, 07/03/24 11:23:00 EST, Height/Length Dosing, 59.8, kg, 07/03/24 11:23:00 EST, Weight Dosing Start Date: 07/03/24 Status: Ordered Start: 02-28-2024 [facility] potassium citrate 15 mEq oral tablet, extended release 15 mEq = 1 tab(s), Oral, BID, # 60 tab(s), Refills(s) 11, [id number], 160, cm, 02/28/24 9:14:00 EDT, Height/Length Dosing, 59, kg, 02/28/24 9:14:00 EDT, Weight Dosing Start Date: 02/28/24 Status: Ordered 27-1 MG (2 sources) take 1 tablet by mouth once daily 27-1 MG 1 tablet Orally Once a day Active Zkvcigag-Oxa-Pg-FA (/Iron) tablet (14 sources) take 1 tablet by mouth once daily Yfcglskn-Och-Ic-FA (/Iron) tablet Take 1 tablet by mouth [...] Start: 02-28-2024 take 2 tablets by mo [facility] twice daily topiramate 100 mg Tab 200 [...] Start: 03-24-2015 take 2 tablets by mo ut once daily TOPAMAX 100 MG tablet Take 100 mg by mouth 2 times daily 2 tabs every morning and 2 1/2 tabs nightly. 0 03/24/2015 Active Topiramate 100 M G Oral for 90 Days Active valACYclovir 1000 mg oral tablet (3 sources) Herpesvirus Nucleoside Analog DNA Polymerase Inhibitor, Herpes Simplex Virus Nucleoside Analog DNA Polymerase Inhibitor, Herpes Zoster Virus Nucleoside Analog DNA Polymerase Inhibitor Start: 08-22-2024 valACYclovir (Valtrex) 1 g tablet Take 1,000 mg by mouth 3 (three) times a day as needed 08/22/2024 Active Vitamin D3 62.5 mcg (2500 intl units) oral capsule (6 sources) Start: 02-28-2024 take 1 capsule by mouth once daily Vitamin D3 62.5 mcg (2500 intl units) oral capsule 62.5 mcg = 1 cap(s), Oral, Daily Start Date: 02/28/24 Status: Ordered Repeat number: 1 Start: 02-28-2024 take 1 capsule by mouth once d aily Vitamin D3 62.5 mcg (2500 intl units) oral capsule 62.5 mcg = 1 cap(s), Oral, Daily Start Date: 02/28/24 Status: Ordered Problems Active Problems Problem Classification Problem Date Documented Date Episodic/Chronic Abdominal pain (10 sources) Flank pain; Translations: [Unspecified abdominal pain] Onset: 03-25-2022 04-13-2021 Episodic Allergic reactions (7 sources) Eczema 12-07-2022 Episodic Calculus of urinary tract (18 sources) Kidney stone; Translations: [Calculus of kidney] Onset: 03-28-2022 Episodic Cancer of cervix (9 sources) History of malignant neoplasm of cervix; Translations: [Personal history of malignant neoplasm of cervix uteri] Episodic Epilepsy; convulsions (20 sources) Epilepsy; Translations: [Epilepsy, unspecified, not intractable, without status epilepticus] Onset: 02-18-2008 12-29-2016 Chronic Epilepsy; convulsions (4 sources) Seizure; Translations: [Unspecified convulsions] 06-05-2024 Episodic Genitourinary symptoms and ill-defined conditions (8 sources) Genuine stress incontinence 04-13-2021 Chronic Genitourinary symptoms and ill-defined conditions (10 sources) Genitourinary symptoms; Translations: [Unspecified symptoms and signs involving the genitourinary system] Onset: 04-20-2022 Episodic Inflammation; infection of eye (except that caused by tuberculosis or sexually transmitteddisease) (1 source) Unspecified conjunctivitis Episodic Other aftercare (1 source) 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; Translations: [[facility] CURRENT DRUG THERAPY] Onset: 11-15-2022 Episodic Other connective tissue disease (3 sources) Adhesive capsulitis of shoulder 07-03-2024 Episodic Other female genital disorders (1 source) Vaginal irritation; Translations: [Other specified noninflammatory disorders of vagina] Episodic Other nervous system disorders (20 sources) Trigeminal neuralgia; Translations: [Trigeminal neuralgia] Onset: 12-11-2023 12-07-2022 Episodic Other non-traumatic joint disorders (4 [...] Spondylosis; intervertebral disc disorders; other back problems (20 sources) Cervical radiculopathy; Translations: [Neck pain] Onset: 06-09-2016 12-07-2022 Episodic Unclassified (2 sources) Impingement syndrome [...] Translations: [Women's annual routine gynecological examination] Unclassified (8 sources) Asymptomatic microscopic hematuria 04-13-2021 Urinary tract infections (5 sources) Urinary tract infection, site not specified; Translations: [Urinary tract infectious disease] Onset: 03-28-2022 Episodic Past or Other Problems Problem Classification Problem Date Documented Date Episodic/Chronic Diseases of mouth; excluding dental (16 sources) Disorder of oral soft tissues; Translations: [Unspecified lesions of oral mucosa] Onset: 03-30-2009 12-08-2023 Episodic Headache; including migraine (14 sources) Headache; Translations: [Headache] Onset: 11-25-2015 12-08-2023 Episodic Noninfectious gastroenteritis (4 sources) Noninfective gastroenteritis and colitis, unspecified; Translations: [NONINFECTIVE GE AND COLITIS UNS] Onset: 02-05-2022 Episodic Other diseases of kidney and ureters (4 sources) Cyst of kidney, acquired; Translations: [CYST OF KIDNEY ACQUIRED] Onset: 04-06-2022 Episodic Other nervous system disorders (16 sources) Paresthesia; Translations: [Paresthesia of skin] Onset: 06-11-2019 12-08-2023 Episodic Other nervous system disorders (14 sources) Skin sensation disturbance; Translations: [Unspecified disturbances [...] Results Test Name Value Interpretation Reference Range Meggan barraza Ambulatory Visit Summaryon 0 03-19-2025 Ambulatory Visit Summary Ambulatory Visit Summary DANTE LEOS :1965 Visit Date:03/19/2025 Ambulatory Visit Instructions Your Diagnosis Kidney stone Recurrent UTI Tests Performed US Renal -- Results Pending -- Please visit your patient portal for your results or contact your primary care physician. Your Care Team Attending Physician - Marycruz Bhagat MD Primary Care Physician - Duke Verde MD This Is Your Medications List Contact prescribing physician if questions or concerns Non-Formulary Medication (Black Cohosh) biotin (biotin 10,000 mcg oral capsule) calcium-vitamin D (calcium (as citrate)-vitamin D 315 mg-200 intl units oral tablet) cholecalciferol (Vitamin D3 62.5 mcg (2500 intl units) oral capsule) cranberry (cranberry oral capsule) levetiracetam (levetiracetam 750 mg oral tablet, extended release) loratadine (loratadine 10 mg oral capsule) multivitamin oxcarbazepine (OXcarbazepine 300 mg oral tablet, extended release) phenobarbital (phenobarbital 32.4 mg oral tablet) potassium citrate (potassium citrate 15 mEq oral tablet, extended release) Procedures Performed Ureteroscopy (05/15/2024), Partial hysterectomy, Procedure on shoulder, Tonsillectomy and adenoidectomy. Discharge Vitals Temperature (Tympanic) 37 ???C Heart Rate (Peripheral) 72 Respiratory Rate 18 Blood Pressure 110/62 Height 160 cm Height 63 in Weight 63.0 kg Weight 138.891 lb BMI 24.61 What to do next Scheduled Follow-Up Appointments Monday2025 8:45 AM EDT With: Marycruz Bhagat MD Where: [facility] [address] [address]- You Need to Schedule the Following Appointments Follow Up with Marycruz Bhagat MD, URL, URO When: Comments: 1 yr w/ [place] Where: [address] [place] [phone] Medications What How Much When Instructions Unchanged biotin (biotin 10,000 mcg oral capsule) 1 Capsules By Mouth Every day Contact prescribing physician if questions or concerns Unchanged calcium-vitamin D (calcium (as citrate)-vitamin D 315 mg-200 intl units oral tablet) 1 Tablets By Mouth Every day Contact prescribing physician if questions or concerns Unchanged cholecalciferol (Vitamin D3 62.5 mcg (2500 [...] prescribing physician if questions or concerns Unchanged loratadine (loratadine 10 mg oral capsule) 1 Tablets By Mouth Every day Contact prescribing physician if questions or concerns Unchanged multivitamin 1 tab By Mouth Every day Contact prescribing physician if questions or concerns Unchanged Non-Formulary Medication (Black Cohosh) See instructions Contact prescribing physician if questions or concerns Unchanged oxcarbazepine (OXcarbazepine 300 mg oral tablet, extended release) 1.0 By Mouth 2 times a day Contact prescribing physician if questions or concerns Unchanged phenobarbital (phenobarbital 32.4 mg oral tablet) 1 Tablets By Mouth At bedtime take 1 tablet by mouth at bedtime Contact prescribing physician if questions or concerns Unchanged potassium citrate (potassium citrate 15 mEq oral tablet, extended release) 1 Tablets By Mouth Every day Contact prescribing physician if questions or concerns Allergies Latex (Hives) sulfa drugs (Hives) Problems Ongoing - Any problem that you are currently receiving treatment for. Adhesive capsulitis of shoulder (frozen shoulder) Asymptomatic microscopic hematuria Cervical radiculopathy Eczema Epilepsy History of cervical cancer Kidney stone Recurrent UTI Right flank pain Stress incontinence Trigeminal neuralgia UTI symptoms Patient Survey You may receive a survey via text or e-mail asking about your office visit. Please share your experience with us by completing your survey. We appreciate your feedback and thank you for choosing us for your care. Education Materials Dietary Guidelines to Help Prevent Kidney Stones [...] added or low-salt labels. Limit your salt (sodiu (more content not included)... [facility] Reminderson 03-19-2025 Reminders Reminders From: Nathalie Weaver To: CHEN - Misa Bhagat; Sent: 03/19/2025 09:26:03 EDT Show up: 02/16/2026 09:26:00 EDT Subject: [place] in 1 yr Due Date/Time: 03/19/2026 09:26:00 EDT Reminder Message Pt to obtain [place] prior to f/u in 1 yr. Typically goes to [facility]. Order in 03/19/25 encounter (dx: kidney stones). [facility] Urology Office/Clinic Noteon 03-19-2025 Urology Office/Clinic Note Urology Office/Clinic Note Chief Complaint 6 mth w/ [place] HPI Staff 6 month f/u with [place]. Dx: kidney stone and recurrent UTI Potassium Citrate 15mEq qd BBSQ- 5 Pt. denies having incontinence Pt. denies having pain with urination Pt. denies having gross hematuria Pt. denies having abd pain Pt. denies having flank pain History of Present Illness Tests reviewed: reviewed UA, [place], external CMP I have reviewed the previous health record [...] HPI. Physical Exam Vitals & Measurements T: 37 ???C(Tympanic) HR: 72(Peripheral) RR: 18 BP: 110/62 HT: 160 cm HT: 63 in WT: 138.891 lb WT: 63.0 kg BMI: 24.61 General Appearance: alert , no acute distress, well nourished, well developed female. Assessment/Plan 58 yo F with history of seizures, prior Dr. Villatoro pt, here for follow up of kidney stones. BBS 5 (5). 1. Kidney stone (N20.0: Calculus of kidney) [...] analysis 06/14/23 - 95% Hydroxyapatite, 5% CaOx [place]. 24hr urine 09/26/23 [facility] - Volume 2.75L. [...] improved to 251. Serum labs - wnl. [place] 03/10/25 [facility] - 3 mm R renal stone and 4 mm L renal stone. No hydro. Labs 12/21/24 - BUN 21, Cr 0.66, K 4.2 Taking Potassium Citrate 15mEq qd, decreased from bid at prior OV. No SEs. Reviewed imaging results. Denies any stone issues. Thinks she has passed tiny fragments. Will cont to monitor. -F/u in 1 yr w/ [place] 2. Recurrent UTI (N39.0: Urinary tract infection, site not specified) UA shows trace-lysed blood and moderate leuks. Asx. Denies any infections since last encounter. States she started taking probiotics which seems to help. Also taking a cranberry supplement. -Cont cranberry pills, probiotics -Consider d-mannose and estrogen cream in future Follow-up With When Contact Information Olayinka HINSON, Marycruz Dove, URL, U[facility] [address] [place] [phone] Additional Instructions: 1 yr w/ [place] Patient Education Dietary Guidelines to Help Prevent Kidney Stones INathalie, personally scribed for Dr. Bhagat on 03/19/2025 09:21:54. . Documentation recorded by the scribe, Nathalie Weaver, accurately reflects the services(s) I performed and decisions made by me. Authenticated by Dr. Bhagat on 03/19/2025 10:06:04. Problem List/Past Medical History Ongoing Adhesive capsulitis of shoulder (frozen shoulder) Asymptomatic microscopic hematuria Cervical radiculopathy Eczema Epilepsy History of cervical cancer Kidney stone Recurrent UTI Right flank pain Stress incontinence Trigeminal neuralgia UTI symptoms Historical No qualifying data Procedure/Surgical History Ureteroscopy (05/15/2024), Partial hysterectomy, Procedure on shoulder, Tonsillectomy and adenoidectomy. Medications biotin 10,000 mcg oral capsule, 1 cap(s), Oral, Daily Black Cohosh, See Instructions calcium (as citrate)-vitamin D 315 mg-200 intl units oral tablet, 1 tab(s), Oral, Daily cranberry oral capsule, 1 cap, Oral, Daily levetira (more content not included)... [facility] Comment on above: Result Comment: Elec tronically Signed By: Marycruz Bhagat MD\.br\Date and Time Signed: 03/19/25 10:06 EDT\.br\Electronically Co-Signed By: Nathalie Weaver\.br\Date and Time Co-Signed: 03/19/25 09:22 EDT Reminderson 03-13-2025 Reminders Reminders From: Nathalie Weaver To: CHEN - Misa Bhagta; Sent: 09/11/2024 10:37:39 EST Show up: 02/08/2025 11:37:00 EDT Subject: [facility] @ [facility] Due Date/Time: 03/11/2025 11:37:00 EDT Reminder Message Pt needs to complete [facility] @ [facility] prior to f/u in 6 months to monitor kidney stones. Order in 09/11/24 encounter. Follow up on 03/19/25 [place] done 03/10/25. Results are in chart. [facility] Urology Office/Clinic Noteon 09-11-2024 Urology Office/Clinic [...] analysis 06/14/23 - 95% Hydroxyapatite, 5% CaOx [place]. 24hr urine 09/26/23 [facility] - Volume 2.75L. U24 Na 77 low-normal, U24 Citric Acid 91 low. Ca 288 mildly elevated. Serum labs 09/26/23 [facility] - Cl 108 high. [place] 02/15/24 [facility] - Several BL renal stones, largest 3mm on R and two largest on L are 10mm and 8mm. Personal review: 3x7 mm on L and 3x9 mm on L. KUB 07/18/24 [facility] - neg but view is obstructed [...] topical appli (more content not included)... Normal [facility] Comment on above: Result Comment: Elec tronically Signed By: Olayinka HINSON, Maryrcuz Dove\.br\Date and Time Signed: 09/11/24 16:39 EST\.br\Electronically Co-Signed [...] analysis 06/14/23 - 95% Hydroxyapatite, 5% CaOx [place]. 24hr urine 09/26/23 [facility] - Volume 2.75L. [...] to be (more content not included)... Normal [facility] Comment on above: Result Comment: Elec tronically Signed By: Marycruz Bhagat MD\.br\Date and Time Signed: 07/03/24 12:36 EST\.br\Electronically Co-Signed By: Leana Emerson\.br\Date and Time Co-Signed: 07/03/24 11:54 EST Cytology Reporton 04-04-2024 Cytology report Cyto stain.thin prep Doc (Cvx/Vag) (NOTE) Path Number: [id number] DIAGNOSIS Imaged ThinPrep Pap - Vaginal (1 monolayer slide): Specimen Adequacy: Satisfactory for evaluation. Descriptive Diagnosis: Negative for intraepithelial lesion or malignancy. Comments: Specimen was screened at [facility], [address] [place] [id number] [employer] Screener: CS Rescreened By: PT Electronically Signed Out Joann Mcgill pt/04/16/2024 Source of Specimen: A: Imaged ThinPrep Pap - Vaginal (1 monolayer slide) HPV Reflex?............... 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 GYNECOLOGIC CYTOLOGY REPORT Patient Name: DANTE LEOS [facility] Rec: [id number] [facility] CONSULTING PATHOLOGISTS [facility] ANATOMIC PATHOLOGY [address] [facility]. [place], [place] [address] Normal [facility] C Urineon 03-01-2024 Bacteria identified Cx [...] Locations R1: This test [facility] performed at: [facility], [address] [place] [address], [id number] , [place], [facility] Comment on above: Performed By: #### 2 [id number] #### [facility] [address] [place] [address] MRI SHOULDER LT WO W CONon 0 [...] DUKE READER Date: 2022-11-10 12:35 Normal [facility] PHENOBARBITALon 11-09-2022 Phenobarbital, Serum 6 ug/mL Critically low 15-40 [facility] Comment on above: Result Comment: Dete ction Limit = 3 Performed By: #### P HENOB #### [facility] [address] [address] [address] Adrianne Nava CBC AUTO DIFFon 11-08-2022 BASO # 0.0 103/ul Normal 0.0-0.1 [facility] Comment on above: Performed By: #### C BC ####[facility] [address] [address]Dr. Adrianne Nava Basophils/100 WBC (Bld) 0.5 % Normal 0.2-2.0 [facility] Comment on above: Performed By: #### C BC ####[facility] [address] [address]DrTata Nava EO # 0.1 103/ul Normal 0.0-0.7 [facility] Comment on above: Performed By: #### C BC ####[facility] [address]afpa[address] [address]DrTata Nava Eosinophils/100 WBC (Bld) 1.4 % Normal 0.9-7.0 [facility] Comment on above: Performed By: #### C BC ####[facility] Jwoymolsib[address] [address]DrTata Nava Erythrocyte distribution width (RBC) [Ratio] 12.6 % Normal 11.0-15.0 [facility] Comment on above: Performed By: #### C BC ####[facility] [address] [address]Dr. Adrianne Nava Hematocrit (Bld) [Volume fraction] 41.9 % Normal 36.0-48.0 [facility] Comment on above: Performed By: #### C BC ####[facility] [address] [address]Dr. Adrianne Nava Hemoglobin (Bld) [Mass/Vol] 14.0 g/dL Normal 12.0-16.0 [facility] Comment on above: Performed By: #### C BC ####[facility] [address] [address]Dr. Adrianne Nava IG # 0.01 10e3/ul Normal 0.00-0.03 [facility] Comment on above: Performed By: #### C BC ####[facility] [address] [place], [place] [address]Dr. Adrianne Nava IG % 0.2 % Normal 0.0-0.5 [facility] Comment on above: Performed By: #### C BC ####[facility] [address] [address]Dr. Adrianne Nava LYMPH # 1.5 103/ul Normal 1.2-3.8 [facility] Comment on above: Performed By: #### C BC ####[facility] Q[address]qm[address] [address]Dr. Ladonnaelke Nava Lymphocytes/100 WBC (Bld) 27.3 % Normal 20.5-60.0 [facility] Comment on above: Performed By: #### C BC ####[facility] [address] [address]Dr. Ladonnaelke Nava MANUAL DIFF REQ NO Normal [facility] Comment on above: Performed By: #### C BC ####[facility] [address] [address]Dr. Ladonnaelke Nava MCH (RBC) [Entitic mass] 30.6 pg Normal 26.7-34.0 [facility] Comment on above: Performed By: #### C BC ####[facility] C[address] [place], [place] [address]Dr. Adrianne Nava MCHC (RBC) [Mass/Vol] 33.4 g/dL Normal 29.9-35.2 [facility] Comment on above: Performed By: #### C BC ####[facility] [address]ox[address] [id number]. Adrianne Nava MCV (RBC) [Entitic vol] 91.5 fL Normal 81.0-99.0 [facility] Comment on above: Performed By: #### C BC ####[facility] [address] [address]Dr. Adrianne Elijah MONO # 0.4 103/ul Normal 0.3-0.8 [facility] Comment on above: Performed By: #### C BC ####[facility] [address] [address]Dr. Adrianne Nava Monocytes/100 WBC (Bld) 7.0 % Normal 1.7-12.0 [facility] Comment on above: Performed By: #### C BC ####[facility] [address] [place], [place] [address]Dr. Ladonnaelke Elijah NEUT # 3.6 103/ul Normal 1.4-6.5 [facility] Comment on above: Performed By: #### C BC ####[facility] [address] [address]Dr. Ladonnaelke Nava Neutrophils/100 WBC (Bld) 63.6 % Normal 43.0-75.0 [facility] Comment on above: Performed By: #### C BC ####[facility] [address] [address]Dr. Ladonnaelke Nava Platelet mean volume (Bld) [Entitic vol] 10.8 fL Normal 9.5-13.5 [facility] Comment on above: Performed By: #### C BC ####[facility] [address]rxsns[address] [address]Dr. Adrianne Nava PLT 218 103/ul Normal 150-450 [facility] Comment on above: Performed By: #### C BC ####[facility] Dpsdrojlfn[address] [address]DrTata Nava RBC 4.58 106/ul Normal 4.20-5.40 [facility] Comment on above: Performed By: #### C BC ####[facility] [address]mlh[address] [phone] Nava WBC 5.6 103/ul Normal 4.0-11.0 [facility] Comment on above: Performed By: #### C BC ####[facility] [address] [phone] Nava LIVER PROFILEon 11-08-2022 Albumin [Mass/Vol] 3.7 g/dL Normal 3.4-5.0 [facility] Comment on above: Performed By: #### Keaton BISHOP BMP #### [facility] [address] [address] [address] Adrianne Nava Albumin/Globulin [Mass ratio] 1.0 {ratio} Normal [facility] Comment on above: Performed By: #### Keaton BISHOP BMP #### [facility] [address] [address] [address] Adrianne Nava ALP [Catalytic activity/Vol] 85 U/L Normal 46-116 [facility] Comment on above: Performed By: #### Keaton BISHOP BMP #### [facility] [address] [address] [address] Adrianne Nava ALT [Catalytic activity/Vol] 33 U/L Normal 14-59 [facility] Comment on above: Performed By: #### Keaton BISHOP, BMP #### [facility] [address] [address] [address] Adrianne Nava AST [Catalytic activity/Vol] 16 U/L Normal 15-37 [facility] Comment on above: Performed By: #### Keaton BISHOP, BMP #### [facility] [address] [address] [address] Adrianne Nava BILI, CONJUGATED 0.1 mg/dL Normal 0.0-0.2 [facility] Comment on above: Performed By: #### Keaton BISHOP, BMP #### [facility] [address] [address] [address] Adrianne Nava Bilirubin [Mass/Vol] 0.3 mg/dL Normal 0.2-1.0 [facility] Comment on above: Performed By: #### L IVJUAN LUIS, BMP #### [facility] [address] [address] [address] Adrianne Nava Globulin (S) [Mass/Vol] 3.7 g/dL Normal [facility] Comment on above: Performed By: #### L IVER, BMP #### [facility] [address] [address] [address] Adrianne Nava Protein [Mass/Vol] 7.4 g/dL Normal 6.4-8.2 [facility] Comment on above: Performed By: #### L IVJUAN LUIS, BMP #### [facility] [address] [address] [address] Adrianne Nava PROF CHEM 8 (BAS METB)on Anion gap [Moles/Vol] 11.2 mmol/L Normal [facility] Comment on above: Performed By: #### L IVJUAN LUIS, BMP ####[facility] [address] [address]Dr. Adrianne Nava Calcium [Mass/Vol] 9.2 mg/dL Normal 8.5-10.1 [facility] Comment on above: Performed By: #### L IVJUAN LUIS, BMP ####[facility] [address] [address]Dr. Adrianne Nava Chloride [Moles/Vol] 108 mmol/L Critically high 98-107 [facility] Comment on above: Performed By: #### L IVER, BMP ####[facility] [address] [address]Dr. Adrianne Nava CO2 [Moles/Vol] 28.6 mmol/L Normal 21.0-32.0 [facility] Comment on above: Performed By: #### L IVER, BMP ####[facility] [address] [address]Dr. Adrianne Nava Creatinine [Mass/Vol] 0.74 mg/dL Normal 0.55-1.02 [facility] Comment on above: Performed By: #### L IVER, BMP ####[facility] Ezwhepdfbm[address] [id number]. Adrianne Nava EGFR-AF ETHIOPIAN >60 Normal >=60 [facility] Comment on above: Performed By: #### L IVER, BMP ####[facility] M[address]wjgt[address] [phone]. Adrianne Nava EGFR-NON AF ETHIOPIAN >60 Normal >=60 [facility] Comment on above: Performed By: #### L IVER, BMP ####[facility] [address] [phone]. Ladonnaelke Elijah Glucose [Mass/Vol] 78 mg/dL Normal 74-106 [facility] Comment on above: Performed By: #### L IVER, BMP ####[facility] [address] [address]Dr. Adrianne Nava Potassium [Moles/Vol] 3.8 mmol/L Normal 3.5-5.1 [facility] Comment on above: Performed By: #### L IVER, BMP ####[facility] [address]zz[address] [address]Dr. Ladonnaelke Elijah Sodium [Moles/Vol] 144 mmol/L Normal 136-145 [facility] Comment on above: Performed By: #### L IVER, BMP ####[facility] [address]amm[address] [id number]. Ladonnaelke Elijah Urea nitrogen [Mass/Vol] 24.0 mg/dL Critically high 7.0-18.0 [facility] Comment on above: Performed By: #### L IVER, BMP ####[facility] [address]ae[address] [id number]. Adrianne Nava Urea nitrogen/Creatinine [Mass ratio] 32.4 mg/mg Normal [facility] Comment on above: Performed By: #### L IVER, BMP ####[facility] [address] [phone]. Ladonnaelke Elijah XR KUB 1 VIEWon 04-15-2022 [...] by: BRIAN TIDWELL Date: 2022-04-15 16:45 Normal [facility] CT ABD/PELV W CONon 04-06-20 CT [...] by: IVIS LASSITER Date: 2022-04-06 17:05 Normal [facility] CBC AUTO DIFFon 03-25-2022 BASO # 0.0 103/ul Normal 0.0-0.1 [facility] Comment on above: Performed By: #### C BC ####[facility] [address]ux[address] [id number]. Adrianne Nava Basophils/100 WBC (Bld) 0.4 % Normal 0.2-2.0 [facility] Comment on above: Performed By: #### C BC ####[facility] [address]ldb[address] [phone]. Adrianne Nava EO # 0.1 103/ul Normal 0.0-0.7 [facility] Comment on above: Performed By: #### C BC ####[facility] W[address] [place], [place] [address]Dr. Adrianne Nava Eosinophils/100 WBC (Bld) 1.2 % Normal 0.9-7.0 [facility] Comment on above: Performed By: #### C BC ####[facility] U[address] [place], [place] [address]Dr. Adrianne Nava Erythrocyte distribution width (RBC) [Ratio] 12.4 % Normal 11.0-15.0 [facility] Comment on above: Performed By: #### C BC ####[facility] [address] [place], [place] [address]Dr. Adrianne Nava Hematocrit (Bld) [Volume fraction] 41.1 % Normal 36.0-48.0 [facility] Comment on above: Performed By: #### C BC ####[facility] [address] [place], [place] [address]Dr. Adrianne Nava Hemoglobin (Bld) [Mass/Vol] 13.7 g/dL Normal 12.0-16.0 [facility] Comment on above: Performed By: #### C BC ####[facility] [address] [place], [place] [address]Dr. Adrianne Nava IG # 0.02 10e3/ul Normal 0.00-0.03 [facility] Comment on above: Performed By: #### C BC ####[facility] [address] [place], [place] [address]Dr. Adrianne Nava IG % 0.3 % Normal 0.0-0.5 [facility] Comment on above: Performed By: #### C BC ####[facility] [address]josk[address] [phone]. Adrianne Nava LYMPH # 1.4 103/ul Normal 1.2-3.8 [facility] Comment on above: Performed By: #### C BC ####[facility] [address]ucbaqv[address] [phone]. Adrianne Nava Lymphocytes/100 WBC (Bld) 19.1 % Critically low 20.5-60.0 [facility] Comment on above: Performed By: #### C BC ####[facility] [address]tfeomhla[address] [phone]. Adrianne Nava MANUAL DIFF REQ NO Normal [facility] Comment on above: Performed By: #### C BC ####[facility] [address]zgrsyyx[address] [phone]. Adrianne Nava MCH (RBC) [Entitic mass] 30.7 pg Normal 26.7-34.0 [facility] Comment on above: Performed By: #### C BC ####[facility] [address]xrcy[address] [phone]. Adrianne Nava MCHC (RBC) [Mass/Vol] 33.3 g/dL Normal 29.9-35.2 [facility] Comment on above: Performed By: #### C BC ####[facility] E[address]rhfwrax[address] [id number]. Adrianne Nava MCV (RBC) [Entitic vol] 92.2 fL Normal 81.0-99.0 [facility] Comment on above: Performed By: #### C BC ####[facility] [address]rwrfvfc[address] [phone]. Adrianne Nava MONO # 0.5 103/ul Normal 0.3-0.8 [facility] Comment on above: Performed By: #### C BC ####[facility] Rxquvaruba[address] [phone]. Adrianne Nava Monocytes/100 WBC (Bld) 6.8 % Normal 1.7-12.0 [facility] Comment on above: Performed By: #### C BC ####[facility] [address]ffd[address] [phone]. Adrianne Nava NEUT # 5.3 103/ul Normal 1.4-6.5 [facility] Comment on above: Performed By: #### C BC ####[facility] [address]pbkqxmu[address] [id number]. Adrianne Nava Neutrophils/100 WBC (Bld) 72.2 % Normal 43.0-75.0 [facility] Comment on above: Performed By: #### C BC ####[facility] [address]lllb[address] [phone]. Adrianne Nava Platelet mean volume (Bld) [Entitic vol] 11.1 fL Normal 9.5-13.5 [facility] Comment on above: Performed By: #### C BC ####[facility] [address] [address]Dr. Adrianne Nava PLT 200 103/ul Normal 150-450 [facility] Comment on above: Performed By: #### C BC ####[facility] [address]ch[address] [phone]. Adrianne Nava RBC 4.46 106/ul Normal 4.20-5.40 [facility] Comment on above: Performed By: #### C BC ####[facility] Q[address]eb[address] [phone]. Adrianne Nava WBC 7.4 103/ul Normal 4.0-11.0 [facility] Comment on above: Performed By: #### C BC ####[facility] [address] [place], [place] [address]Dr. Adrianne Nava CT ABD/PELVIS WO CONon 03-25 [...] IVIS LASSITER Date: 2022-03-25 15:08 Normal [facility] CULTURE URINEon 03-25-2022 CULTURE URINE Culture Observations : NO GROWTH. Normal [facility] Comment on above: Performed By: #### U RCX ####[facility] [address]cake[address] [address]Dr. Adrianne Nava ER URINE PROFILEon 2 Bilirubin Ql (U) Negative Normal NEGATIVE [facility] Comment on above: Performed By: #### MELISSA FOY #### [facility] [address] [address] [address] Adrianne Nava Clarity (U) CLEAR Normal CLEAR [facility] Comment on above: Performed By: #### MELISSA FOY #### [facility] [address] [address] [address] Adrianne Nava Color (U) LT. YELLOW Normal YELLOW [facility] Comment on above: Performed By: #### E MELISSA JC #### [facility] [address] [address] [address] Adrianne MENDOZA A micrscopic examination will be performed if indicated. Normal [facility] Comment on above: Performed By: #### Dusty JC UMICRO #### [facility] [address] [place] [address] Dr. Adrianne Nava Glucose Ql (U) Negative Normal NEGATIVE [facility] Comment on above: Performed By: #### Dusty JC UMICRO #### [facility] [address] [address] [address] Adrianne Nava Hemoglobin Ql (U) Negative Normal NEGATIVE [facility] Comment on above: Performed By: #### Dusty JC UMICRO #### [facility] [address] [place] [address] Dr. Adrianne Nava Ketones Ql (U) Negative Normal NEGATIVE [facility] Comment on above: Performed By: #### Dusty JC UMICRO #### [facility] [address] [place] [address] Dr. Adrianne Nava LEUKOCYTES MODERATE Abnormal NEGATIVE [facility] Comment on above: Performed By: #### Dusty JC UMICRO #### [facility] [address] [place] [address] Dr. Adrianne Nava Nitrite Ql (U) Negative Normal NEGATIVE [facility] Comment on above: Performed By: #### Dusty JC UMICRO #### [facility] [address] [place] [address] Dr. Adrianne Nava pH (U) 6.5 [pH] Normal 5-9 [facility] Comment on above: Performed By: #### Dusty JC UMICRO #### [facility] [address] [place] [address] Dr. Adrianne Nava SPEC GRAVITY <=1.005 Abnormal 1.005-<=1.[address] [facility] Comment on above: Performed By: #### E BABITA UMICRO #### [facility] [address] [place] [address] Dr. Adrianne Nava UA PROTEIN Negative Normal NEGATIVE/ TRACE [facility] Comment on above: Performed By: #### E RUR, UMICRO #### [facility] [address] [place] [address] Dr. Adrianne Nava UR MICRO IND INDICATED Normal [facility] Comment on above: Performed By: #### MELISSA FOY #### [facility] [address] [place] [address] Dr. Adrianne Nava Urobilinogen Qn (U) 0.2 {Kaley'U}/dL Normal 0.2 - 1. 0 [facility] Comment on above: Performed By: #### MELISSA FOY #### [facility] [address] [place] [address] Dr. Adrianne Nava PROF CHEM 8 (BAS METB)on Anion gap [Moles/Vol] 12.7 mmol/L Normal [facility] Comment on above: Performed By: #### B MP #### [facility] [address] [place] [address] Dr. Adrianne Nava Calcium [Mass/Vol] 9.0 mg/dL Normal 8.5-10.1 [facility] Comment on above: Performed By: #### B MP #### [facility] [address] [place] [address] Dr. Adrianne Nava Chloride [Moles/Vol] 105 mmol/L Normal 98-107 [facility] Comment on above: Performed By: #### B MP #### [facility] [address] [place] [address] Dr. Adrianne Nava CO2 [Moles/Vol] 25.1 mmol/L Normal 21.0-32.0 [facility] Comment on above: Performed By: #### B MP #### [facility] [address] [place] [address] Dr. Adrianne Nava Creatinine [Mass/Vol] 0.86 mg/dL Normal 0.55-1.02 [facility] Comment on above: Performed By: #### B MP #### [facility] [address] [place] [address] Dr. Adrianne Nava EGFR-AF ETHIOPIAN >60 Normal >=60 [facility] Comment on above: Performed By: #### B MP #### [facility] [address] [address] [address] Adrianne Nava EGFR-NON AF ETHIOPIAN >60 Normal >=60 [facility] Comment on above: Performed By: #### B MP #### [facility] [address] [address] [address] Adrianne Nava Glucose [Mass/Vol] 99 mg/dL Normal 74-106 [facility] Comment on above: Performed By: #### B MP #### [facility] [address] [address] [address] Adrianne Nava Potassium [Moles/Vol] 3.8 mmol/L Normal 3.5-5.1 [facility] Comment on above: Performed By: #### B MP #### [facility] [address] [address] [address] Adrianne Nava Sodium [Moles/Vol] 139 mmol/L Normal 136-145 [facility] Comment on above: Performed By: #### B MP #### [facility] [address] [address] [address] Adrianne Nava Urea nitrogen [Mass/Vol] 19.0 mg/dL Critically high 7.0-18.0 [facility] Comment on above: Performed By: #### B MP #### [facility] [address] [place] [address] Dr. Adrianne Nava Urea nitrogen/Creatinine [Mass ratio] 22.1 mg/mg Normal [facility] Comment on above: Performed By: #### B MP #### [facility] [address] [address] [address] Adrianne Nava URINE MICROSCOPIC ONLYon BACTERIA TRACE Abnormal NONE SEEN [facility] Comment on above: Performed By: #### MELISSA FOY #### [facility] [address] [address] [address] Adrianne Nava Bacteria identified Cx Nom (U) INDICATED Normal [facility] Comment on above: Performed By: #### MELISSA FOY #### [facility] [address] [place] [address] Dr. Adrianne Nava CAST NONE SEEN Normal NONE SEEN [facility] Comment on above: Performed By: #### Dusty JC UMIBRAHIMARO #### [facility] [address] [place] [address] Dr. Adrianne Nava Crystals LM Nom (Urine sed) NONE SEEN Normal NONE SEEN [facility] Comment on above: Performed By: #### Dusty JC UMICRO #### [facility] [facility] [address] [place] [address] Dr. Adrianne Nava Epithelial cells LM Ql (Urine sed) FEW Abnormal NONE SEEN /RARE [facility] Comment on above: Performed By: #### Dusty JC UMICRO #### [facility] [address] [place] [address] Dr. Adrianne Nava MUCOUS NONE SEEN Normal NONE SEEN [facility] Comment on above: Performed By: #### EVELYNE FOYRO #### [facility] [address] [place] [address] Dr. Adrianne Nava RBC 0-2 Normal 0-2 [facility] Comment on above: Performed By: #### EVELYNE FOYRO #### [facility] [address] [place] [address] Dr. Adrianne Nava WBC 10-20 Abnormal NONE SEEN [facility] Comment on above: Performed By: #### Dusty JC UMIBRAHIMARO #### [facility] [address] [place] [address] Dr. Adrianne Nava MG MAMM SCREEN 3D JORDAN CADon 03-07-2022 MG MAMM SCREEN 3D JORDAN CAD Patient: DANTE LEOS Exam Date: 03/07/2022 : 1965 Gender:F Ordering : DR KYUNG YANG Admission #: [id number] Family : Order #: [id number] CLICK HERE TO VIEW EXAM RADIOLOGY REPORT [...] at age 35. LOCATION: [facility] BREAST COMPOSITION: Extremely dense, which lowers [...] 03/07/2022 at 09:52 Normal [facility] C. DIFF PCRon 02-05-2022 C. DIFFICILE PCR Negative Normal NEGATIVE [facility] Comment on above: Performed By: #### C DIFPOC ####[facility] [id number] [address]Dr. Adrianne Nava GI PANEL (PCR)on 02-05-2022 Adenovirus F 40/41 Not detected Normal NOT DETECTED [facility] Comment on above: Performed By: #### G IPANEL #### [facility] [address] [place] [address] Dr. Adrianne Nava Astrovirus Not detected Normal NOT DETECTED [facility] Comment on above: Performed By: #### G IPANEL #### [facility] [address] [place] [address] Dr. Adrianne Nava C. Diff toxin A/B Not detected Normal NOT DETECTED [facility] Comment on above: Performed By: #### G IPANEL #### [facility] [address] [place] [address] Dr. Adrianne Nava Campylobacter Not detected Normal NOT DETECTED [facility] Comment on above: Performed By: #### G IPANEL #### [facility] [address] [place] [address] Dr. Adrianne Nava Cryptosporidium Not detected Normal NOT DETECTED [facility] Comment on above: Performed By: #### G IPANEL #### [facility] [address] [place] [address] Dr. Adrianne Nava Cyclos. Cayetanensis Not detected Normal NOT DETECTED [facility] Comment on above: Performed By: #### G IPANEL #### [facility] [address] [address] [address] Adrianne Nava E. Coli O157 Not Applicable Normal Not Applicable [facility] Comment on above: Performed By: #### G IPANEL #### [facility] [address] [address] [address] Adrianne Nava E. histolytica Not detected Normal NOT DETECTED The [facility] Comment on above: Performed By: #### G IPANEL #### [facility] [address] [place] [address] Dr. Adrianne Nava EAEC Not detected Normal NOT DETECTED [facility] Comment on above: Performed By: #### G IPANEL #### [facility] [address] [address] [address] Adrianne Nava EIEC Not detected Normal NOT DETECTED [facility] Comment on above: Performed By: #### G IPANEL #### [facility] [address] [place] [address] Dr. Adrianne Nava EPEC Not detected Normal NOT DETECTED [facility] Comment on above: Performed By: #### G IPANEL #### [facility] [address] [place] [address] Dr. Adrianne Nava ETEC Not detected Normal NOT DETECTED [facility] Comment on above: Performed By: #### G IPANEL #### [facility] [address] [place] [address] Dr. Adrianne Nava G. Lamblia Not detected Normal NOT DETECTED [facility] Comment on above: Performed By: #### G IPANEL #### [facility] [address] [place] [address] Dr. Adrianne Nava GIPANEL CONTROLS PASSED Normal [facility] Comment on above: Performed By: #### G IPANEL #### [facility] [address] [place] [address] Dr. Adrianne CARDOZA BANNER HEADER GI PANEL BACTERIA Normal T [facility] Comment on above: Performed By: #### G IPANEL #### [facility] [address] [place] [address] Dr. Adrianne PAUL ECOLI GI PANEL DIARRHEAGEN IC E.COLI / SHIGELLA Normal [facility] Comment on above: Performed By: #### G IPANEL #### [facility] [address] [place] [address] Dr. Adrianne PAUL INFO SEE BELOW Normal [facility] Comment on above: Result Comment: EAEC - Enteroaggregative E. Coli EPEC- Enteropathogenic E. Coli ETEC- Enterotoxigenic E. Coli lt/st STEC- Shigella-like toxin-producing E. Coli stx1/stx2 EIEC- Shigella/Enteroinvasive E. Coli Performed By: #### G IPANEL #### [facility] [address] [place] [address] Dr. Adrianne PAUL PARASITES GI PANEL PARASITES Normal [facility] Comment on above: Performed By: #### G IPANEL #### [facility] [address] [place] [address] Dr. Adrianne PAUL VIRUS GI PANEL VIRUSES Normal [facility] Comment on above: Performed By: #### G IPANEL #### [facility] [address] [place] [address] Dr. Adrianne Nava Norovirus GI/GII Not detected Normal NOT DETECTED [facility] Comment on above: Performed By: #### G IPANEL #### [facility] [address] [place] [address] Dr. Adrianne Nava P. Shigelloides Not detected Normal NOT DETECTED [facility] Comment on above: Performed By: #### G IPANEL #### [facility] [address] [place] [address] Dr. Adrianne Nava Rotavirus A Not detected Normal NOT DETECTED [facility] Comment on above: Performed By: #### G IPANEL #### [facility] [address] [place] [address] Dr. Adrianne Nava Salmonella Not detected Normal NOT DETECTED [facility] Comment on above: Performed By: #### G IPANEL #### [facility] [address] [place] [address] Dr. Adrianne Nava Sapovirus Not detected Normal NOT DETECTED [facility] Comment on above: Performed By: #### G IPANEL #### [facility] [address] [place] [address] Dr. Adrianne Nava STEC Not detected Normal NOT DETECTED [facility] Comment on above: Performed By: #### G IPANEL #### [facility] [address] [place] [address] Dr. Adrianne Nava Vibrio Not detected Normal NOT DETECTED [facility] Comment on above: Performed By: #### G IPANEL #### [facility] [address] [place] [address] Dr. Adrianne Nava Vibrio Cholera Not detected Normal NOT DETECTED [facility] Comment on above: Performed By: #### G IPANEL #### [facility] [address] [place] [address] Dr. Adrianne Nava Y. Enterocolitica Not detected Normal NOT DETECTED [facility] Comment on above: Performed By: #### G IPANEL #### [facility] [address] [place] [address] Dr. Adrianne Nava Vital Signs Date Time Vital Sign Value Performing Clinician Facility 12-10-2024 16:47-0400 Body height 160 cm Vito Villaseñor MD Work Phone: [facility] 12-10-2024 16:47-0400 Body mass index (BMI) [Ratio] 24.45 kg/m2 Vito Villaseñor MD Work Phone: [facility] 12-10-2024 16:47-0400 Body weight 62.6 kg Vito Villaseñor MD Work Phone: [facility] 12-10-2024 16:47-0400 Diastolic blood pressure 80 mm[Hg] Vito Villaseñor MD Work Phone: [facility] 12-10-2024 16:47-0400 Systolic blood pressure 150 mm[Hg] Vito Villaseñor MD Work Phone: [facility] 09-11-2024 09:14-0500 Blood Pressure Location Marycruz Lue [facility] 09-11-2024 09:14-0500 Diastolic blood pressure 68 mm[Hg] Marycruz Lue [facility] 09-11-2024 09:14-0500 Heart rate 72 /min Marycruz Lue [facility] 09-11-2024 09:14-0500 Respiratory rate 18 /min Marycruz Lue [facility] 09-11-2024 09:14-0500 Systolic blood pressure 92 mm[Hg] Marycruz Lue [facility] 07-17-2024 08:30-0500 Body height 160 cm Paola Kathrynmor SECURITIES RESEARCH ANALYST Work Phone: [facility] 07-17-2024 08:30-0500 Body mass index (BMI) [Ratio] 23.74 kg/m2 Paola Gillmor SECURITIES RESEARCH ANALYST Work Phone: [facility] 07-17-2024 08:30-0500 Body weight 60.78 kg Paola Gillmor SECURITIES RESEARCH ANALYST Work Phone: [facility] 07-17-2024 08:30-0500 Diastolic blood pressure 67 mm[Hg] Paola Gillmor SECURITIES RESEARCH ANALYST Work Phone: [facility] 07-17-2024 08:30-0500 Heart rate 70 /min Paola Kathrynmor SECURITIES RESEARCH ANALYST Work Phone: [facility] 07-17-2024 08:30-0500 Systolic blood pressure 117 mm[Hg] Paola Gillmor SECURITIES RESEARCH ANALYST Work Phone: [facility] 07-03-2024 11:15-0500 Body temperature 97.7 [degF] Marycruz Lue [facility] 07-03-2024 11:15-0500 Diastolic blood pressure 72 mm[Hg] Marycruz Lue [facility] 07-03-2024 11:15-0500 Respiratory rate 16 /min Marycruz Lue [facility] 07-03-2024 11:15-0500 Systolic blood pressure 110 mm[Hg] Marycruz Lue [facility] 04-25-2024 08:55-0400 Body height 160 cm Paola Gillmor SECURITIES RESEARCH ANALYST Work Phone: [facility] 04-25-2024 08:55-0400 Body mass index (BMI) [Ratio] 23.56 kg/m2 Paola Gillmor SECURITIES RESEARCH ANALYST Work Phone: [facility] 04-25-2024 08:55-0400 Body weight 60.33 kg Paola Gillmor SECURITIES RESEARCH ANALYST Work Phone: [facility] 04-25-2024 08:55-0400 Diastolic blood pressure 75 mm[Hg] Paola Gillmor SECURITIES RESEARCH ANALYST Work Phone: [facility] 04-25-2024 08:55-0400 Heart rate 72 /min Paola Gillmor SECURITIES RESEARCH ANALYST Work Phone: [facility] 04-25-2024 08:55-0400 Systolic blood pressure 124 mm[Hg] Paola Gillmor SECURITIES RESEARCH ANALYST Work Phone: [facility] 02-28-2024 09:07-0400 Body temperature 97.88 [degF] Marycruz Lue [facility] 02-28-2024 09:07-0400 Diastolic blood pressure 70 mm[Hg] Marycruz Lue [facility] 02-28-2024 09:07-0400 Heart rate 68 /min Marycruz Lue [facility] 02-28-2024 09:07-0400 Respiratory rate 16 /min Marycruz Lue [facility] 02-28-2024 09:07-0400 Systolic blood pressure 108 mm[Hg] Marycruz Lue [facility] 03-13-2023 11:45-0400 Body height 162.56 cm Erica Mott Other [facility] Other 03-13-2023 11:45-0400 Body mass index (BMI) [Ratio] 23.51 kg/m2 Erica Mott Other [facility] Other 03-13-2023 11:45-0400 Body temperature 98 [degF] Erica Mott Other [facility] Other 03-13-2023 11:45-0400 Body weight 62.14 kg Erica Mott Other [facility] Other 03-13-2023 11:45-0400 Diastolic blood pressure 65 mm[Hg] Erica Mott Other [facility] Other 03-13-2023 11:45-0400 Respiratory rate 18 /min Erica Mott Other [facility] Other 03-13-2023 11:45-0400 SaO2% (BldA) [Mass fraction] 96 % Erica Mott Other [facility] Other 03-13-2023 11:45-0400 Systolic blood pressure 103 mm[Hg] Erica Mott Other [facility] Other 03-09-2023 10:05-0400 Body height 162.56 cm Erica Mott Other [facility] Other 03-09-2023 10:05-0400 Body mass index (BMI) [Ratio] 23.51 kg/m2 Erica Mott Other [facility] Other 03-09-2023 10:05-0400 Body temperature 97.3 [degF] Erica Mott Other [facility] Other 03-09-2023 10:05-0400 Body weight 62.14 kg Erica Mott Other [facility] Other 03-09-2023 10:05-0400 Diastolic blood pressure 61 mm[Hg] Erica Mott Other [facility] Other 03-09-2023 10:05-0400 Respiratory rate 18 /min Erica Mott Other [facility] Other 03-09-2023 10:05-0400 SaO2% (BldA) [Mass fraction] 99 % Erica Mott Other [facility] Other 03-09-2023 10:05-0400 Systolic blood pressure 98 mm[Hg] Erica Mott Other [facility] Other 04-20-2022 14:41-0400 Blood Pressure Location ISRAEL BORRERO [facility] [address] [address]-21-2022 14:41-0400 Diastolic blood pressure 80 mm[Hg] ISRAEL BORRERO [facility] 04-20-2022 14:41-0400 Heart rate 75 /min ISRAEL BORRERO [facility] 04-20-2022 14:41-0400 Systolic blood pressure 119 mm[Hg] ISRAEL BORRERO [facility] Encounters Encounter Date Encounter Type Care Provider Facility Start: 03-25-2026 ambulatory Marycruz Bhagat Facility:[facility] [place] Start: 03-19-2025 End: 03-19-2025 ambulatory Marycruz Bhagat Facility:[facility] [place] Start: 03-19-2025 End: 03-19-2025 Patient encounter procedure Marycruz Bhagat [facility] Start: 02-26-2025 End: 02-27-2025 Refill Vito Villaseñor MD Work Phone: [facility] Comment on above: Generalized epilepsy (HCC) Start: 12-10-2024 End: 12-10-2024 Office outpatient new 60 minutes Vito Villaseñor MD Work Phone: [facility] Comment on above: Generalized epilepsy (CMS/HCC) (Primary Dx); Seizure disorder (CMS/HCC) Start: 12-10-2024 End: 12-10-2024 ambulatory VITO VILLASEÑOR Not Available Start: 11-25-2024 End: 11-26-2024 Refill Paola Brady SECURITIES RESEARCH ANALYST Work Phone: [facility] Comment on above: Seizure (CMS/HCC) Start: 09-16-2024 End: 09-16-2024 Refill Paola Brady NP Work Phone: [facility] Comment on above: Seizure (CMS/HCC) Start: 09-11-2024 End: 09-11-2024 ambulatory Marycruz JaniaTata Bhagat Facility:[facility] Start: 09-11-2024 End: 09-11-2024 Patient encounter procedure Marycruz Bhagat [facility] Start: 07-17-2024 End: 07-17-2024 Bamboo flowsheet Paola Brady SECURITIES RESEARCH ANALYST Work Phone: [facility] Start: 07-17-2024 End: 07-17-2024 Bamboo flowsheet Paola Brady SECURITIES RESEARCH ANALYST Work Phone: [facility] Start: 07-17-2024 End: 07-17-2024 Office outpatient visit 15 minutes Paola Brady SECURITIES RESEARCH ANALYST Work Phone: [facility] Comment on above: Trigeminal neuralgia (CMS/HCC) (Primary Dx); Seizure disorder (CMS/HCC); Disease of the oral soft tissues; Tingling Start: 07-17-2024 End: 07-17-2024 ambulatory PAOLA BRADY Not Available Start: 07-03-2024 End: 07-03-2024 ambulatory Marycruz JaniaTata Bhagat Facility:[facility] Start: 07-03-2024 End: 07-03-2024 Patient encounter procedure Marycruz MTata Olayinka [facility] Start: 06-05-2024 End: 06-09-2024 Refill Paola Brady SECURITIES RESEARCH ANALYST Work Phone: [facility] Comment on above: Seizure (CMS/HCC) Start: 05-15-2024 End: 05-15-2024 ambulatory Marycruz Bhagat Facility:[id number] Start: 05-15-2024 End: 05-15-2024 Off-Site [facility] Start: 04-25-2024 End: 04-25-2024 Bamboo flowsheet Paola Brady SECURITIES RESEARCH ANALYST [facility] Start: 04-25-2024 End: 04-25-2024 Bamboo flowsheet Paola Brady SECURITIES RESEARCH ANALYST Work Phone: [facility] Start: 04-25-2024 End: 04-25-2024 Telephone encounter Shane Luu MA [facility] Start: 04-25-2024 End: 04-25-2024 Office outpatient visit 25 minutes Paola Brady SECURITIES RESEARCH ANALYST Work Phone: [facility] Comment on above: Seizure disorder (CM S/HCC) (Primary Dx); Generalized epilepsy (CMS/HCC) Start: 04-25-2024 End: 04-25-2024 ambulatory PAOLA BRADY Not Available Start: 04-04-2024 End: 04-04-2024 ambulatory [facility] Start: 04-04-2024 Encounter for gynecological examination (general) (routine) without abnormal findings [facility] Start: 03-24-2024 End: 03-25-2024 Refill Paola Brady SECURITIES RESEARCH ANALYST Work Phone: [facility] Comment on above: Seizure (CMS/HCC) Start: 02-28-2024 End: 02-28-2024 Lab Drop off Marycruz Bhagat [facility] Start: 02-28-2024 End: 02-28-2024 Patient encounter procedure Marycruz Bhagat [facility] Start: 06-14-2023 End: 06-14-2023 Lab Drop off Marycruz Bhagat [facility] Start: 03-13-2023 End: 03-13-2023 ambulatory Erica Mott Other [facility] Other Start: 03-13-2023 Office outpatient vi sit 15 minutes Erica Mott [facility] Start: 03-09-2023 End: 03-09-2023 ambulatory Erica Mott Other [facility] Other Start: 03-09-2023 Office outpatient ne w [...] encounter procedure Duke Verde MD Work Phone: [facility] Start: 04-21-2022 End: 04-21-2022 Subsequent hospital visit by physician Duke Verde MD Work Phone: [facility] Comment on above: Vaginal irritation; Women's annual routine gynecological examination Start: 04-20-2022 End: 04-20-2022 Patient encounter procedure ISRAEL BORRERO [facility] Start: 04-15-2022 End: 04-16-[address] BRIAN TIDWELL Facility:[facility] Start: 04-06-2022 End: 04-07-[address] DUKE VERDE . Facility:[facility] Start: 03-25-2022 End: 03-25-[address] IVIS LASSITER Facility:[facility] Start: 03-07-2022 End: 03-08-[address] BRIAN TIDWELL Facility:[facility] Start: 02-05-2022 End: 02-06-[address] DUKE VERDE . Facility:[facility] Start: 04-19-2021 End: 04-19-2021 Subsequent hospital visit by physician Duke Verde MD Work Phone: [facility] Comment on above: History of cervical cancer Start: 05-02-2019 End: 05-02-2019 Subsequent hospital visit by physician Duke Verde [facility] Comment on above: Women's annual routi ne gynecological examination Start: 03-29-2017 Ambulatory HARRISON BUSTAMANTE Facility :8 Start: 02-10-2017 Ambulatory HARRISON BUSTAMANTE Facility :8 Procedures Date Procedure Procedure Detail Performing Clinician Start: 05-15-2024 Ureteroscopy Marycruz Bhagat Start: 04-09-2024 Mammography Paola saldana SECURITIES RESEARCH ANALYST Work Phone: Start: 04-04-2024 Microscopic observat ion [Identifier] in Cervix by Cyto stain Paola Peraltamor SECURITIES RESEARCH ANALYST Work Phone: Start: 11-07-2022 Microscopic observat ion [Identifier] in Cervix by Cyto stain Paola Kathrynmor SECURITIES RESEARCH ANALYST Work Phone: Start: 06-11-2019 Mammography Paola Contreras lmor SECURITIES RESEARCH ANALYST Work Phone: Partial hysterectomy JENNIFE R GISSELL Procedure on shoulder JENNIF ER GISSELL Tonsillectomy ISRAEL GISSELL Tonsillectomy and adenoidectomy Marycruz Bhagat Plan of Treatment Date Care Activity Detail Author Start: 04-21-2027 Screening for malign ant neoplasm of cervix [facility] Start: 04-04-2027 Screening for malign ant neoplasm of cervix Pap Smear [facility] Start: 11-07-2025 Screening for malign ant neoplasm of cervix Pap Smear [facility] Start: 06-10-2025 End: 06-10-2025 Patient encounter procedure [facility] Start: 04-09-2025 Screening for malign ant neoplasm of breast Mammogram [facility] Start: 03-31-2025 Influenza vaccination [facility] Start: 12-31-2024 End: 12-31-2024 Patient encounter procedure 12/31/2024 12:15 PM EDT Office Visit [facility] [address] [place] [address] Vito Villaseñor MD [address] [place] [address] [facility] Start: 12-31-2024 End: 12-31-2024 Patient encounter procedure [facility] Start: 07-17-2024 End: 07-17-2024 Patient encounter procedure [facility] Comment on above: Arrived Start: 06-17-2024 End: 06-17-2024 Patient encounter procedure 06/17/2024 11:00 AM EST Office Visit [facility] [address] [place] [id number] Paola Brady, DANA [address] [place], [place] [facility] Start: 04-25-2024 End: 04-25-2024 Patient encounter procedure 04/25/2024 9:00 AM EDT Office Visit [facility] [address] [place] [id number] Paola Brady, SECURITIES RESEARCH ANALYST [address] [place], [place] Arrived [facility] Comment on above: Arrived Start: 03-31-2024 Influenza vaccination Influenza Vacc ine (#1) [facility] Start: 04-24-2023 End: 04-24-2023 Patient encounter procedure 04/24/2023 Office Visit Obstetrics and Gynecology Kyung Yang MD [address] [facility] [address] [place] [address] [facility] Start: 03-05-2023 Screening for malign ant neoplasm of breast Breast cancer screen [facility] Start: 04-21-2022 End: 04-21-2022 Patient encounter procedure 04/21/2022 Office Visit Obstetrics and Gynecology Kyung Yang MD [address] [place] [address] [place] [address] [phone] [facility] Start: 03-31-2022 Influenza vaccination Flu vaccine (# 1) [facility] Start: 04-30-2021 Cervical cancer screen Cervical canc er screen [place], [place] Start: 03-31-2021 Influenza vaccination Flu vaccine (# 1) [facility] Auto I.D. Phone: Start: 06-11-2020 Screening for malign ant neoplasm of breast Mammogram [facility] Start: 06-06-2020 Breast cancer screen [facility] [place] [place] Start: 05-30-2019 Influenza vaccination Flu vaccine (# 1) [place], [place] Comment on above: Postponed from 03/31 (Patient Refused) Start: 2015 Colon cancer screen colonoscopy Colon cancer screen colonoscopy [place], [place] Start: 2015 Shingles Vaccine (1 of 2) Shingles Vaccine (1 of 2) [place], [place] Start: 2010 Screening for malign ant neoplasm of colon [facility] Start: 2005 Diabetes screen Diabetes screen [facility] Auto I.D. Phone: Start: 2005 Lipid panel [facility] Start: 2005 Lipid screen Lipid screen [place], [place] Start: 1984 DTaP/Tdap/Td vaccine (1 - Tdap) DTaP/Tdap/Td vaccine (1 - Tdap) [facility] Start: 1983 Hepatitis C screening Hepatitis C sc reen [facility] Start: 1980 HIV screen HIV screen [place], [place] Start: 1980 HIV screening HIV screen [facility] Start: 1977 Depression Screen Depression Screen [facility] Start: 1965 Hepatitis C screen Hepatitis C [facility]j [facility] Start: 1965 Hepatitis C screening Hepatitis C yusuf borja [employer] Phone: Start: 1965 Screening for malign ant neoplasm of colon [facility] End: 04-21-2022 Culture, Genital MADELYN [employer] Phone: Comment on above: 1 Occurrences starti ng 04/21/2022 until 04/21/2022 End: 05-02-2019 Cytopathology procedure, preparation of smear, genital source [facility] Lab Routine Women's annual routine gynecological examination 1 Occurrences starting 05/02/2019 until 05/02/2019 [facility]ED[facility] Comment on above: 1 Occurrences starti ng 05/02/2019 until 05/02/2019 End: 04-19-2021 Cytopathology procedure, preparation of smear, genital source [facility] Lab Routine History of cervical cancer 1 Occurrences starting 04/19/2021 until 04/19/2021 [employer] Phone: Comment on above: 1 Occurrences starti ng 04/19/2021 until 04/19/2021 End: 04-21-2022 Cytopathology procedure, preparation of smear, genital source [facility] Lab Routine Women's annual routine gynecological examination 1 Occurrences starting 04/21/2022 until 04/21/2022 MADELYN [employer] Phone: Comment on above: 1 Occurrences starti ng 04/21/2022 until 04/21/2022 Immunizations Immunization Date Immunization Notes Care Provider [facility] 03-29-2023 influenza virus vaccine, unspecified formulation Marycruzmalorie Bhagat [facility] 03-29-2023 tetanus toxoid, reduced diphtheria toxoid, and acellular pertussis vaccine, adsorbed Marycruzmalorie Bhagat [facility] 11-18-2020 SARS-CoV-2 (COVID-19 ) mRNA-8523 vaccine Marycruzmalorie Bhagat [facility] [place] Comment on above: Result Comment: 2022: TPV50 11-13-2020 SARS-CoV-2 (COVID-19 ) Ad26 vaccine, recombinant ISRAEL BORRERO [facility] 10-21-2020 SARS-CoV-2 (COVID-19 ) mRNA-1273 vaccine Marycruz Lue [facility] [place] Comment on above: Result Comment: 2022: TPV50 10-16-2020 SARS-CoV-2 (COVID-19 ) Ad26 vaccine, recombinant ISRAEL BORRERO [facility] 10-01-2019 zoster vaccine recombinant Marycruz Lue [facility] 07-28-2019 zoster vaccine recombinant Marycruz Lue [facility] NEGATED: Highlighted row has not occurred!09-24-2020 influenza virus vaccine, unspecified formulation ISRAEL BORRERO [facility] Payers Date Payer Category Payer Private Health Insurance [id number] 2023 Unknown [employer] [id number] 2023-Present [address] [place] [address] [id number] 2014 Unknown [facility] xxxxxxxxxxxx 2014-Present [phone] [address] [address] [place] [address] xxxxxxxxxxxx [id number] 1965 Unknown [id number] 2.16.840.1.430405.3.579.2 .593 1965 Unknown [id number] 2.16.840.1.729313.3.579.2 .593 1965 Unknown [id number] 2.16.840.1.206760.3.579.2 .593 1965 Unknown [id number] 2.16.840.1.755781.3.579.2 .593 1965 Unknown [id number] 2.16.840.1.988632.3.579.2 .593 1965 Unknown [id number] 2.16.840.1.472654.3.579.2 .593 1965 Unknown [id number] 2.16.840.1.335000.3.579.2 .593 1965 Unknown [id number] 2.16.840.1.710698.3.579.2 .593 1965 Unknown [id number] 2.16.840.1.544590.3.579.2 .593 1965 Unknown [id number] 2.16.840.1.249526.3.579.2 .173 1965 Unknown [id number] 2.16.840.1.516304.3.579.2 .1259 1965 Unknown [id number] 2.16.840.1.534388.3.579.2 .1259 1965 Unknown [id number] 2.16.840.1.791160.3.579.2 .1259 1965 Unknown [id number] 2.16.840.1.822794.3.579.2 .727 1965 Unknown [id number] 2.16.840.1.695183.3.579.2 .727 1965 Unknown [id number] 2.16.840.1.274345.3.579.2 .727 1965 Unknown [id number] 2.16.840.1.937438.3.579.2 .727 1965 Unknown [id number] 2.16.840.1.797521.3.579.2 .727 1965 Unknown [id number] 2.16.840.1.341553.3.579.2 .727 1959 Unknown [id number] Unknown [id number] 2.16.840.1.281527.19 Social History Date Type Detail Facility Start: 05-02-2019 End: 03-19-2025 Tobacco smoking status NHIS Never smoker [facility] Start: 05-02-2019 End: 12-10-2024 Alcohol intake Yes [place], [place] Start: 12-29-2016 Alcohol Comment one glass a week [place], [place] Start: 1965 Sex Assigned At Not on file [place], [place] Start: 04-19-2021 End: 12-11-2023 Tobacco use and exposure Never used [facility] [employer] Start: 04-19-2021 End: 04-21-2022 Alcohol intake Current drinker of alcohol (finding) [facility] [employer] Work Phone: Start: 04-19-2021 End: 12-10-2024 Alcohol intake [facility] [employer] Work Phone: Tobacco smoking status Never [facility] Start: 04-11-2022 End: 04-21-2022 Exposure to SARS-CoV-2 (event) Not sure [facility] [employer] Start: 04-25-2024 End: 12-10-2024 Alcoholic beverage intake Ex-drinker (finding) [facility] How often to you hav e a drink containing alcohol? Monthly or less [facility] How many standard dr inks containing alcohol do you have on a typical day? 1 or 2 [facility] How often do you hav e 6 or more drinks on 1 occasion? Never [facility] Start: 12-11-2023 Tobacco Comment I lived with p arents that smoked [facility] Start: 1965 Sex assigned at Female N [facility] Start: 12-04-2023 Gender identity Identifies as female gender (finding) [facility] Sexual Orientation [facility] Start: 10-18-2018 Sex Female (finding) [facility] Functional Status Date Assessment Result Facility 09-11-2024 Functional Status N/A [facility] 07-03-2024 Functional Status N/A [facility] 02-28-2024 Functional Status N/A [facility] 04-20-2022 Functional Status N/A [facility] Clinical Notes 04-20-2022 to 03-19-2025 Chasity Nguyen NP - 12/10/2024 4:30 PM EDTFkalyan Nguyen NP - 12/10/2024 4:30 PM EDTTelephone Encounter - Batsheva Jarrell MA - 11/25/2024 3:51 PM EDT Note Date & Type Note Facility 03-19-2025 Hospital Discharge instructions Patient Education 03/19/2025 09:19:32 Dietary Guidelines to Help Prevent Kidney Stones [...] include: ?8 oz (237 mL) of milk, faoghvz-atojwgxkucqq-bcbpk milk, and calcium-fortifiedfruit juice. Calcium-fortified means that [...] ?Spinach (cooked), rhubarb, beets, sweet potatoes, and [place]er chard. ?Peanuts. ?Potato chips, argentine fries, and baked potatoes with skin on. ?Nuts and nut products. ?Chocolate. If you regularly take a diuretic medicine, make sure to eat at least 1 or 2 servings of fruits or vegetables that are high in potassium each day. These include: ?Avocado. ?Banana. ?Sawyer, prune, carrot, or tomato juice. ?Baked potato. [...] magnesium, fish oil, or vitamin B6. Take mltg-zgi-tkwxqps and prescription medicines only as told by [...] Casseroles. Pizza. Lasagna. Frozen meals. Potato chips. Somali fries. The items listed above may not [...] provider. Document Revised: 10/27/2022 Document Reviewed: 10/27/2022 [employer] Patient Education 2023 [employer]. Follow Up Care 09/11/2024 10:35:30 With:Olayinka HINSON, NICOLE Mack, U[facility] Address: [address] [place] [address] [phone] When: Unknown Comments:1 yr w/ [place] [facility] 03-19-2025 Note Patient Education Nephrology Dietary Guidelines to [...] ? 8 oz (237 mL) of milk, vhgapmc-mheopjytfzof-jtbfg milk, and calcium-fortifiedfruit juice. Calcium-fortified means that [...] Spinach (cooked), rhubarb, beets, sweet potatoes, and [place] chard. ? Peanuts. ? Potato chips, argentine fries, and baked potatoes with skin on. ? Nuts and nut products. ? Chocolate. ??? If you regularly take a diuretic medicine, make sure to eat at least 1 or 2 servings of fruits or vegetables that are high in potassium each day. These include: ? Avocado. ? Banana. ? Sawyer, prune, carrot, or tomato juice. ? Baked [...] fish oil, or vitamin B6. ??? Take ghdo-qta-kntnpbx and prescription medicines only as told by your health (more content not included)... [facility] 12-10-2024 History of Present illness Narrative Associated Problem(s): Generalized epilepsy (CMS/[facility]) May continue to drive Check OXC and PB levels Check CMP Consider weaning PB Get copies from [facility] of EEG and imaging Request brain MRI from [facility] (?) Images from the original note were not included. Outpatient Progress Note Patient: Dante Leos Dept: Neurology : 1965 Appt Date: 12/10/2024 Prev Appt: Visit date not found Chief Complaint Patient presents with Seizures Appointment Note -- Seizures Assessment and Plan - Assessment & Plan Generalized epilepsy (CMS/HCC) May continue to drive Check OXC and PB levels Check CMP Consider weaning PB Get copies from [facility] of EEG and imaging Request brain MRI from [facility] (?) No orders of the defined types were placed in this encounter. Follow-Up - Follow up in about 6 months (around 06/12/2025), or with SECURITIES RESEARCH ANALYST. History of Present Illness, Associated Treatments and [...] incontinence of urine X 1. Gets an off sensation for a few minutes prior to seizure. Last aura was 2016. Left hand possibly twitches first. Started OXC in 05/2024 after stopping TPM. Aetiology None known Trigger Alcohol, sleep deprivation, stress Preg Last one 1989 EEG Amb EEG VEEG ALO MR PET SPECT Imaging Testing 11/23/2024 CMP normal 11/08/2022 phenobarbital level 2020 was 5 2017 Keppra level 8.2 [...] to gross testing, coordination, and gait are normal or at baseline unless noted below. HEENT - [...] equal, round, and reactive to light and accommodation, both directly and consensually. Visual lacey were full [...] in all four extremities, including at least freelance displayer, finger abductors, biceps, triceps, deltoid, toe flexors [...] and spasticity are not evident. Arm swing is normal. Toe, heel, and tandem walking are performed without difficulty. Musculoskeletal: Trigger-point tenderness was absent. There is no spasm of the trapezii or paraspinals. Vital Signs - Visit Vitals BP 150/80 (BP Location: Right arm, Patient Position: Sitting) Ht 5' 3 Wt 138 lb BMI 24.45 kg/m Smoking Status Never BSA 1.67 m Review of Systems - . Const: Denies [...] - Past Medical History: Diagnosis Date Cancer ([facility]) 05/19/1996 cervical Cervicalgia 06/09/2016 Disease of the oral soft tissues 03/30/2009 Disturbance of skin sensation 06/09/2016 Encounter for long-term (current) drug use 02/15/2017 Generalized epilepsy ([facility]) 06/11/2019 Headache 11/25/2015 Headache, tension-type Osteopenia Seizure disorder ([facility]) 02/18/2008 Tingling 06/11/2019 Past Surgical History: Procedure Laterality Date COLONOSCOPY 04/2015 PARTIAL HYSTERECTOMY ROTATOR CUFF REPAIR Left TONSILLECTOMY and adenoidectomy Allergies Allergen Reactions Latex Other Reaction(s): hives, itching Sulfacetamide Sulfa Antibiotics Hives Other Reaction(s): hives, itching Family History Problem Relation Name Age of Onset Dementia Mother Hannah Fenrie Alvarez Lung cancer Mother Hannah Enciso [place] Other (daibetes) Father Blake Jojo Hyperlipidemia Father Blake Jojo Hypotension Father Blake Jojo Parkinsonism Father Blake Jojo No Known Problems Brother Cancer Maternal Grandmother Nahomy Cooner Neuropathy Maternal Grandmother Nahomy Cooner Heart disease Maternal Grandfather Dementia Other Outpatient [...] (300 mg) before bedtime. 180 tablet 1 PHENobarbital (Luminal) 32.4 MG tablet Fill when due Take one tab at bedtime 90 tablet 0 potassium & sodium citrate-citric acid (Tricitrates) 550-500-334 MG/5ML solution Take by mouth 4 (four) times a day with meals potassium citrate CR (Urocit-K-15) 15 mEq ER tablet Take 15 mEq by mouth in the morning and 15 mEq before bedtime. Pccfbkqm-Fdd-Uf-FA (/Iron) tablet Take 1 tablet by mouth Daily valACYclovir (Valtrex) 1 g tablet Take 1,000 mg by mouth 3 (three) times a day as needed No facility-administered encounter medications on file as of 12/10/2024. Vito Villaseñor M.D. [facility] Neurology ? [address] ? [place], [place] [address] ? ? fax Neurology ? Clinical Neurophysiology ? Epilepsy ? Sleep Disorders ? Clinical Informatics documented in this encounter [facility] 11-25-2024 Telephone encounter Note Last filled 09/16 per [facility] 11-25-2024 Miscellaneous Notes Last filled 09/16 per [facility] documented in this encounter [facility] 09-16-2024 Telephone encounter Note Last filled 06/23 for 90 days per [facility] 09-16-2024 Miscellaneous Notes Last filled 06/23 for 90 days per [facility] documented in this encounter [facility] 09-11-2024 Hospital Discharge instructions Patient Education [...] include: ?8 oz (237 mL) of milk, ewmniqu-vdlrrwilagcs-egjcz milk, and calcium-fortifiedfruit juice. Calcium-fortified means that [...] ?Spinach (cooked), rhubarb, beets, sweet potatoes, and [place] chard. ?Peanuts. ?Potato chips, argentine fries, and baked potatoes with skin on. ?Nuts and nut products. ?Chocolate. If you regularly take a diuretic medicine, make sure to eat at least 1 or 2 servings of fruits or vegetables that are high in potassium each day. These include: ?Avocado. ?Banana. ?Sawyer, prune, carrot, or tomato juice. ?Baked potato. [...] magnesium, fish oil, or vitamin B6. Take fcqw-ugg-mijhreu and prescription medicines only as told by [...] Casseroles. Pizza. Lasagna. Frozen meals. Potato chips. Somali fries. The items listed above may not [...] provider. Document Revised: 10/27/2022 Document Reviewed: 10/27/2022 [employer] Patient Education 2023 [employer]. Follow Up Care 07/03/2024 11:56:49 With:Olayinka HINSON, NICOLE Mack, [facility] Address: [address] [place] [place] [address] [phone] When: Unknown [facility] 09-11-2024 Note Patient Education Nephrology Dietary [...] ? 8 oz (237 mL) of milk, vddmjhs-ktqvgfiirjre-azggu milk, and calcium-fortifiedfruit juice. Calcium-fortified means that [...] Spinach (cooked), rhubarb, beets, sweet potatoes, and [place] chard. ? Peanuts. ? Potato chips, argentine fries, and baked potatoes with skin on. ? Nuts and nut products. ? Chocolate. ??? If you regularly take a diuretic medicine, make sure to eat at least 1 or 2 servings of fruits or vegetables that are high in potassium each day. These include: ? Avocado. ? Banana. ? Sawyer, prune, carrot, or tomato juice. ? Baked [...] fish oil, or vitamin B6. ??? Take hfug-wte-tblvyse and prescription medicines only as told by your health (more content not included)... [facility] 07-03-2024 Hospital Discharge instructions Patient Education [...] include: ?8 oz (237 mL) of milk, qwwvagz-lxvgooyhtoht-duzxw milk, and calcium-fortifiedfruit juice. Calcium-fortified means that [...] ?Spinach (cooked), rhubarb, beets, sweet potatoes, and [place] chard. ?Peanuts. ?Potato chips, argentine fries, and baked potatoes with skin on. ?Nuts and nut products. ?Chocolate. If you regularly take a diuretic medicine, make sure to eat at least 1 or 2 servings of fruits or vegetables that are high in potassium each day. These include: ?Avocado. ?Banana. ?Sawyer, prune, carrot, or tomato juice. ?Baked potato. [...] magnesium, fish oil, or vitamin B6. Take rcby-sgk-jjlcgrf and prescription medicines only as told by [...] Casseroles. Pizza. Lasagna. Frozen meals. Potato chips. Somali fries. The items listed above may not [...] provider. Document Revised: 10/27/2022 Document Reviewed: 10/27/2022 [employer] Patient Education 2023 [employer]. Follow Up Care 05/16/2024 16:02:44 With:Olayinka HINSON, JEFF MackL, [facility] Address: When: Unknown Comments:w/24 hour urine and Potassium Level [facility] 07-03-2024 Note Patient Education Nephrology Dietary [...] ? 8 oz (237 mL) of milk, tmwwjyt-tpztxdbzfdov-jtsac milk, and calcium-fortifiedfruit juice. Calcium-fortified means that [...] Spinach (cooked), rhubarb, beets, sweet potatoes, and [place] chard. ? Peanuts. ? Potato chips, argentine fries, and baked potatoes with skin on. ? Nuts and nut products. ? Chocolate. ??? If you regularly take a diuretic medicine, make sure to eat at least 1 or 2 servings of fruits or vegetables that are high in potassium each day. These include: ? Avocado. ? Banana. ? Sawyer, prune, carrot, or tomato juice. ? Baked [...] fish oil, or vitamin B6. ??? Take uvfz-dco-oystlwj and prescription medicines only as told by your health (more content not included)... [facility] 06-07-2024 Telephone encounter Note DUE 06/23/2024 [facility] 06-07-2024 Miscellaneous Notes DUE 06/23/2024 documented in this encounter [facility] 04-25-2024 Telephone encounter Note I called and spoke with pharmacist. [facility] 04-25-2024 Miscellaneous Notes I called and spoke with pharmacist. [facility] pharmacy in [place] calls stating they need clarification on the topiramate RX sent in. He was unsure of how to dispense with directions of take out 50 mg each week starting with week 3. documented in this encounter [facility] 04-25-2024 Telephone encounter Note [facility] pharmacy in [place] calls stating they need clarification on the topiramate RX sent in. He was unsure of how to dispense with directions of take out 50 mg each week starting with week 3. [facility] 02-28-2024 Evaluation + Plan note Diagnostic Tests PendingElectrolyte Panel 02/28/24 [facility] 02-28-2024 Evaluation + Plan note Diagnostic Tests PendingUrine Culture 02/28/24 [facility] 02-28-2024 Hospital Discharge instructions Patient Education 02/28/2024 09:48:33 Kidney Stones, Ihbt-yz-Gwkj Kidney Stones Kidney stones are rock-like masses [...] Follow these instructions at home: Medicines Take udnl-pui-zfagjzy and prescription medicines only as told by [...] provider. Document Revised: 03/21/2022 Document Reviewed: 03/21/2022 [employer] Patient Education 2022 [employer]. Follow Up Care 06/14/2023 08:31:32 With:Olayinka HINSON, Marycruz Dove URL, [facility] Address: [address], [place] [address] [phone] When: Unknown [facility] 03-13-2023 Evaluation note Encounter Date Diagnosis [...] until symptoms are completely resolved x48 hours. [facility] Other 08-10-2023 Evaluation note* Encounter Date Diagnosis [...] symptoms. Patient declines COVID testing in office [facility] Other 03-10-2023 NotePROCEDURE: XR SHOULDER LT 2V [...] Electronically authenticated by: IVIS LASSITER Date: 2022-10-07 11:52[facility]03-10-2023 NotePROCEDURE: XR SHOULDER LT 2V or [...] Electronically authenticated by: IVIS LASSITER Date: 2022-10-07 11:52[facility]09-21-2022 Hospital Discharge instructions Patient Education 04/20/2022 [...] potassium each day. These include: ?Avocado. ?Banana. ?Sawyer, prune, carrot, or tomato juice. ?Baked potato. [...] Casseroles. Pizza. Lasagna. Frozen meals. Potato chips. Somali fries. Summary You can reduce your risk [...] 11/11/2011 Document Revised: 11/06/2019 Document Reviewed: 06/27/2017 [employer] Patient Education 2020 [employer]. Follow Up Care 04/13/2021 13:36:19 With:GISSELL COBB, ISRAEL Montano, URL Address: [address] [place] [address]. [place] [address] When:1 year Comments:RHIANNA [facility] evaluation + Plan note Future Appointments Appointment Date:04/25/2023 08:00:00 AM Scheduled Provider:Irving Cobb MD, Valencia Pugh Location:[facility] Appointment Type:URO Office Visit Diagnostic Tests Pending * UTI ([facility]) 04/20/22 [facility] evaluation + Plan note Future Appointments Appointment Date:03/06/2024 08:45:00 AM Scheduled Provider:Marycruz Bhagat MD Location:[facility] Appointment Type:URO Office Visit Diagnostic Tests Pending * Calculi Analysis [facility]inary [facility] Appointment Date:09/18/2024 10:45:00 AM Scheduled Provider:Marycruz Bhagat MD Location:[facility] Appointment Type:URO Office Visit Diagnostic Tests Pending * Potassium Level 07/03/24 [facility] evaluation + Plan note Future Appointments Appointment Date:03/19/2025 08:45:00 AM Scheduled Provider:Marycruz Bhagat MD Location:[facility] Appointment Type:URO Office Visit [facility] evaluation + Plan note Future Appointments Appointment Date:03/25/2026 08:45:00 AM Scheduled Provider:Marycruz Bhagat MD Location:[facility] Appointment Type:URO Office Visit [facility] evaluation note* Diagnosis History of cervical cancer Personal history of malignant neoplasm of cervix uteri documented in this encounter [facility] Phone: [email or web address] note* Diagnosis Vaginal irritation Unspecified noninflammatory disorder of vagina Women's annual routine gynecological examination documented in this encounter MADELYN ANGELO [employer] Phone: [email or web address] note* Diagnosis Seizure (CMS/HCC) Other convulsions documented [...] [facility] Diagnosis Generalized epilepsy (CMS/HCC)- Primary Unspecified epilepsy without mention of intractable epilepsy Seizure disorder (CMS/HCC) Unspecified epilepsy without mention of intractable epilepsy [facility] Diagnosis Generalized epilepsy (HCC)- Primary Unspecified epilepsy without mention of intractable epilepsy Seizure disorder (HCC) Unspecified epilepsy without mention of intractable epilepsy Generalized epilepsy (HCC) Unspecified epilepsy without mention of intractable epilepsy [facility] N[facility] - Reported* Type Description Date Medical History Migraine Medical History Seizure Surgical History partial hysterectomy Surgical History shoulder surgery b/l Surgical History colonoscopy [facility] Other Hospital course Narrative No data available for this section [facility] Hospital Discharge instructions No data available for this section [facility] No data available for this section [facility] Summary Purpose Family History No Family [...] FoundDocuments on File Type Date Recorded Patient Rehab Department Manager Expl anation Advance Directives and Living Will Power of Metal Furniture Repairer Latest Code Status on File Code Status Date Activated Date Inactivated Comments Full Code 01/03/2017 4:41 PM 01/03/2017 8:21 PM Documents on File Type Date Recorded Patient Rehab Department Manager Expl anation ACP-Advance Directive ACP-Power of Metal Furniture Repairer Assessments Diagnosis Women's annual routine gynecological examination Additional Source Comments INFORMATION SOURCE (unrecogn ized section and content) DATE CREATED AUTHOR 01/24/2018 [facility] DATE CREATED AUTHOR AUTHOR'S ORGANIZ ATION 11/16/2022 [facility] DATE CREATED AUTHOR AUTHOR'S ORGANIZ ATION 03/03/2024 [facility] DATE CREATED AUTHOR AUTHOR'S ORGANIZ ATION 04/18/2024 [facility] DATE CREATED AUTHOR AUTHOR'S ORGANIZ ATION 12/11/2024 [facility] EPIC DATE CREATED AUTHOR AUTHOR'S ORGANIZ ATION 03/20/2025 [facility] Care Team (unrecognized sect ion and content) Newspaper Journalist Relationship Specialty Start Date End Date Duke Verde MD [address] [place] [address] PCP - General Family Medicine 04/08/16 Newspaper Journalist Relationship Specialty Start Date End Date Duke Verde MD [address] [facility] [address] PCP - General Family Medicine 12/11/23 Newspaper Journalist Relationship Specialty Start Date End Date Duke Verde MD [address] [facility] [place] [address] PCP - General Family Medicine 12/11/23 Kane Mckee DO [id number] [place] [address] Referring Physician Neurology 07/17/24 Newspaper Journalist Relationship Specialty Start Date End Date Duke Verde MD [address] [facility] [address] PCP - General Family Medicine 12/11/23 Kane Mckee DO [address] [place] [address] Referring Physician Neurology 07/17/24 Newspaper Journalist Relationship Specialty Start Date End Date Duek Verde MD [address] [facility] [address] PCP - General Family Medicine 12/11/23 Newspaper Journalist Relationship Specialty Start Date End Date Duke Verde MD [address] [facility] [address] PCP - General Family Medicine 12/11/23 Newspaper Journalist Relationship Specialty Start Date End Date Duke Verde MD [address] [facility] [place] [address] PCP - General Family Medicine 12/11/23 Newspaper Journalist Relationship Specialty Start Date End Date Duke Verde MD [address] [facility] [place] [address] PCP - General Family Medicine 12/11/23 Newspaper Journalist Relationship Specialty Start Date End Date Duke Verde MD [address] [facility] [place] [address] PCP - General Family Medicine 12/11/23 Kane Mckee DO [address] [place], [facility] Referring Physician Neurology 07/17/24 Newspaper Journalist Relationship Specialty Start Date End Date Duke Verde MD [address] [facility] [address] PCP - General Family Medicine 12/11/23 Kane Mckee DO [address] [place], [facility] Referring Physician Neurology 07/17/24 Newspaper Journalist Relationship Specialty Start Date End Date Duke Verde MD PCP - General Family Medicine 12/11/23 Kane Mckee DO [address] [place] [address] Referring Physician Neurology 07/17/24 Newspaper Journalist Relationship Specialty Start Date End Date Duke Verde MD PCP - General Family Medicine 12/11/23 Kane Mckee DO [address] [place] [address] Referring Physician Neurology 07/17/24 REASON FOR VISIT (unrecogniz ed section and content) Reason Onset Date Comments Med Refill 06/05/2024 Reason Comments Seizures Reason Onset Date Comments Med Refill 03/24/2024 Reason Onset Date Comments Med Refill 09/16/2024 Reason Onset Date Comments Med Refill 11/25/2024 Reason Onset Date Comments Med Refill 02/26/2025 FOR RECORDS PERTAINING TO PATIENTS WHO ARE [...] BE BASED ON THE PRIMARY CLINICAL RECORDS. [facility]. provides no warranty or guarantee of the accuracy or completeness of information in this document.
== END 2025-04-11 09:24 | disposition home or self-care (01) ==
LOC: MAMMO 09:23
PROVIDERS: PCP Family Medicine; Visit Provider Obstetrics & Gynecology
DX: Z12.31 Encounter for screening mammogram for malignant neoplasm of breast (principal); Z80.8 Family history of malignant neoplasm of other organs or systems
CPT/HCPCS: 77063; 77067